=== PATIENT | male | born 1950 | race Caucasian/White ===

== ENCOUNTER 2018-06-14 12:14 | Inpatient (IN) | payer MEDICARE, OTHER ==
[2018-06-14] MEDS ORDERED: ALPRAZolam 0.25 MG TAB PO PRN (12:34)
[2018-06-14] MEDS ORDERED: SODIUM CHLORIDE 0.9% 1,000 ML in EMPTY BAG 1 BAG IV ONE (12:34)
[2018-06-14] MEDS ORDERED: ATORVASTATIN 80 MG TAB PO STA (12:34)
[2018-06-14] MEDS ORDERED: ASPIRIN 325 MG TAB PO STA (12:34)
[2018-06-14] MEDS ORDERED: NITROGLYCERIN SL TABS 0.4 MG TAB SUBLINGUAL PRN (12:34)
[2018-06-14] MEDS ORDERED: ALPRAZolam 0.5 MG TAB PO PRN (12:34)
[2018-06-14 13:38] LABS: Glucose,Whole Blood 90 mg/dL (75-99)
[2018-06-14] MEDS ORDERED: HEPARIN SODIUM,PORCINE 5,000 UNIT/ML 1 ML VIAL IV ONE (14:27)
[2018-06-14 14:56] LABS: Basophils # (A) 0.1 k/uL (0-0.2); Basophils % (A) 1 %; Eosinophils # (A) 0.2 k/uL (0-0.7); Eosinophils % (A) 3 %; HCT 47.1 % (39.0-53.0); HGB 15.1 gm/dL (13.0-17.5); Lymphocytes # (A) 1.4 k/uL (1.0-4.8); Lymphocytes % (A) 25 %; MCH 29.8 pg (25.0-35.0); MCV 93.2 fL (80.0-100.0); Mean Platelet Volume 7.3; Monocytes # (A) 0.4 k/uL (0-1.0); Monocytes % (A) 7 %; Neutrophils # (A) 3.5 k/uL (1.3-7.7); Neutrophils % (A) 62 %; Platelet Count 235 k/uL (150-450); RBC 5.06 m/uL (4.30-5.90); WBC 5.6 k/uL (3.8-10.6)
[2018-06-14 15:07] LABS: Partial Thromboplastin Time 26.6 sec (22.0-30.0); Prothrombin Time 10.3 sec (9.0-12.0)
[2018-06-14 15:10] LABS: Anion Gap 5 mmol/L; Blood Urea Nitrogen 13 mg/dL (9-20); Calcium 9.9 mg/dL (8.4-10.2); Carbon Dioxide 32 mmol/L (22-30); Chloride 105 mmol/L (98-107); Glucose 88 mg/dL (74-99); Potassium 5.1 mmol/L (3.5-5.1); Sodium 142 mmol/L (137-145)
[2018-06-14] MEDS: NITROGLYCERIN OINT 1 INCH/GM PACKET TOPICAL SCH ×2 (15:22→23:05)
[2018-06-14] MEDS: METOPROLOL TARTRATE 25 MG TAB PO SCH ×2 (15:22→19:58)
[2018-06-14] MEDS: SODIUM CHLORIDE 0.9% 500 ML 500 ML IV SCH (15:23)
[2018-06-14] MEDS: HEPARIN SOD,PORK IN 0.45% NACL 25,000 UNIT in 0.45% NACL 1 250ML.BAG IV SCH (15:24)
--- NOTE | 2018-06-14 16:15 | XR ---
EXAMINATION TYPE: XR chest 1V portable DATE OF EXAM: 06/14/2018 Comparison: None Clinical History: 67-year-old male with chest pain Findings: Slightly low lung volumes with crowded vascular markings. Heart normal size. Mild atherosclerotic arc h calcifications. No consolidation or pleural effusion seen. Impression: Slight hypoventilatory changes without acute cardiopulmonary process.
--- NOTE | 2018-06-14 16:34 | CONS ---
CONSULTATION Mr. Figueroa is a 67-year-old gentleman who is admitted to the hospital with symptoms suggestive of recent myocardial infarction. This patient has not seen any doctor for many years. In April, this patient had symptoms of flu and was seen in an urgent clinic and was treated with antibiotics and Medrol Tam. However, since then he has been having intermittent chest discomfort, initially predominantly with exertion. The pain would be in the substernal area radiating to both arms and would subside with rest. He takes a lot of aspirin. For last few days he has been having resting pain. Last night he had moderate to severe chest discomfort that lasted for 10 to 15 minutes. It was not associated with any nausea, vomiting or sweating. The patient's EKG is suggestive of a recent inferior wall myocardial infarction with some T-wave inversions in the lateral leads. Echocardiogram was done in the office which showed evidence of extensive inferoapical and apicoseptal hypokinesia with an ejection fraction of 35% to 40% and moderate degree of mitral regurgitation. In view of this patient's history that is suggestive of recent myocardial infarction and recurrent angina, the patient is admitted to the hospital and will be considered for cardiac catheterization tomorrow. PAST MEDICAL HISTORY: No history of diabetes or hypertension. Patient has smoked in the past, but no history of smoking. FAMILY HISTORY: There is no family history of premature coronary artery disease. PAST SURGICAL HISTORY: Includes history of appendicectomy. REVIEW OF THE SYSTEMS: Otherwise unremarkable. PHYSICAL EXAMINATION: Physical examination at present reveals a fairly built gentleman who does not appear to be in any acute distress. He is not having any chest pain at present. Patient's blood pressure is 130/80 mmHg. Head/ENT examination is negative. Neck is supple. There is no increase in jugular venous pressure. Both the carotid pulses are felt. There is no bruit. Chest is symmetrical. HEART: The PMI is not felt. First and second heart sounds are normal. There is no evidence of any murmur. Lungs are clinically clear to auscultation and percussion. Abdomen is soft. Liver and spleen are not enlarged. EXTREMITIES: Peripheral pulsations are 2+. EKG is suggestive of recent inferior wall myocardial infarction. FINAL IMPRESSION: This patient has been having recurrent chest discomfort for the last 6 weeks. EKG is suggestive of recent myocardial infarction with T-wave inversions. Patient's echocardiogram shows extensive inferoapical and septal hypokinesia. Underlying significant coronary artery disease needs to be ruled out. The patient is admitted to the hospital. He will be treated with heparin. We will start him on medications and he will undergo cardiac catheterization tomorrow. PORTER / MARINO: [id number] /
--- NOTE | 2018-06-14 22:05 | P.HPIM ---
History of Present Illness this is a pleasant 67 yo M with pmh of hyperlipidemia, Hypertension, who was visiting his board certified behavioral analyst , ocmplaining from two months of chest pain , that is central , pt states sometimes his chest pain starts at his shoulder blade before it radiated to his chest and his armpit, it varies in severity , last night it was about 8/10 howver it is better controlled with pain medication down to 0-1/10 , he has very mild dyspnea , and with some cough which was more severe yesterday and that what made him go and visit his doctor , pt is admitted to the icu anticipating cardiac cath possibly tomorrow, he was given asprin , s tatin and was started on heparin drip Review of Systems CONSTITUTIONAL: No fever, no malaise, no fatigue. HEENT: No recent visual problems or hearing problems. Denied any sore throat. CARDIOVASCULAR: No orthopnea, PND, no palpitations, no syncope. PULMONARY: No shortness of breath, no cough, no hemoptysis. GASTROINTESTINAL: No diarrhea, no nausea, no vomiting, no abdominal pain. Normoactive bowel sounds. NEUROLOGICAL: No headaches, no weakness, no numbness. HEMATOLOGICAL: Denies any bleeding or petechiae. GENITOURINARY: Denies any burning micturition, frequency, or urgency. MUSCULOSKELETAL/RHEUMATOLOGICAL: Denies any joint pain, swelling, or any muscle pain. ENDOCRINE: Denies any polyuria or polydipsia. Past Medical History Past Medical History: Hyperlipidemia, Hypertension History of Any Multi-Drug Resistant Organisms: None Reported Past Surgical History: Appendectomy, Orthopedic Surgery Additional Past Surgical History / Comment(s): carpal tunnel Past Anesthesia/Blood Transfusion Reactions: No Reported Reaction Past Psychological History: No Psychological Hx Reported Smoking Status: Never smoker Past Alcohol Use History: None Reported Past Drug Use History: None Reported - Past Family History Father Family Medical History: Cancer, Prostate Disorder Medications and Allergies Home Medications Medication Instructions Recorded Confirmed Type Aspirin EC [Ecotrin Low Dose] 81 mg PO DAILY 06/14/18 06/14/18 History Aspirin EC [Ecotrin] 650 mg PO DAILY PRN 06/14/18 06/14/18 History Beet Root 1 tab PO DAILY 06/14/18 06/14/18 History Flaxseed Oil 1,000 mg PO DAILY 06/14/18 06/14/18 History Garlic 1 tab PO DAILY 06/14/18 06/14/18 History Allergies Allergy/AdvReac Type Severity Reaction Status Date / Time bee venom protein (honey bee) AdvReac Swelling Verified 06/14/18 14:32 Physical Exam Vitals: Vital Signs Temp Pulse Resp BP Pulse Ox 06/14/18 20:00 98.4 F 75 20 119/78 94 L 06/14/18 18:00 75 22 157/98 92 L 06/14/18 17:00 63 19 141/95 95 06/14/18 16:00 97.6 F 74 17 143/103 96 06/14/18 15:00 80 13 153/99 97 06/14/18 14:50 78 9 L 153/99 97 06/14/18 14:40 70 11 L 153/99 96 06/14/18 14:30 82 28 H 153/99 95 06/14/18 14:20 88 14 153/99 96 06/14/18 14:10 81 12 153/99 95 06/14/18 14:00 79 18 95 06/14/18 13:50 88 14 95 06/14/18 13:40 87 22 156/98 95 06/14/18 13:30 98.0 F 94 12 165/102 96 06/14/18 13:28 92 24 165/102 Intake and Output 06/14/18 06/14/18 06/14/18 06:59 14:59 22:59 Intake Total 912.167 Balance 912.167 Intake: Intake, IV Titration 412.167 Amount Heparin Sod,Pork in 0.45% 62.167 NaCl 25,000 unit In 0.45 % NaCl 1 250ml.bag @ 11. 601 UNITS/KG/HR 10 mls/hr IV .Q24H [facility] Rx#: [id number] Sodium Chloride 0.9% 1, 350 000 ml In Empty Bag 1 bag @ 1 ML/KG/HR 86.2 mls/hr IV .[id number] [facility] Rx#: [id number] Oral 500 Other: Weight 86.2 kg GENERAL: The patient is alert and oriented x3, not in any acute distress. Well developed, well nourished. HEENT: Pupils are round and equally reacting to light. EOMI. No scleral icterus. No conjunctival pallor. Normocephalic, atraumatic. No pharyngeal erythema. No thyromegaly. CARDIOVASCULAR: S1 and S2 present. No murmurs, rubs, or gallops. PULMONARY: Chest is clear to auscultation, no wheezing or crackles. ABDOMEN: Soft, nontender, nondistended, normoactive bowel sounds. No palpable organomegaly. MUSCULOSKELETAL: No joint swelling or deformity. EXTREMITIES: No cyanosis, clubbing, or pedal edema. NEUROLOGICAL: Gross neurological examination did not reveal any focal deficits. SKIN: No rashes. Results CBC & Chem 7: 06/14/18 14:44 06/14/18 14:44 Labs: Abnormal Lab Results - Last 24 Hours (Table) 06/14/18 06/14/18 Range/Units 14:44 20:39 APTT 68.4 H (22.0-30.0) sec Carbon Dioxide 32 H (22-30) mmol/L Thrombosis Risk Factor Assmnt - Choose All That Apply Each Factor Represents 1 point: Obesity (BMI >25) Each Risk Factor Represents 2 Points: Age 61-74 years Thrombosis Risk Factor Assessment Total Risk Factor Score: 3 Thrombosis Risk Factor Assessment Level: Moderate Risk Assessment and Plan Assessment: chest pain , possible unstable angina hypertensin Hyperlipidemia Plan: this is a pleasant 67 yo M who presents for chest pain , possible cardiac in [facility], he was admitted by his board certified behavioral analyst and planing for cardiac cath, he was started on heprin drip on admission Labs and medication were reviewed.. Continue same treatment. Continue with symptomatic treatment. Resume home medication. Monitor lytes and vitals. DVT and GI prophylaxis. Further recommendations of the clinical course of the patient DVT prophylaxis: heparin GI Prophylaxis: Pepcid Prognosis is guarded
[2018-06-15 06:04] LABS: Basophils # (A) 0.1 k/uL (0-0.2); Basophils % (A) 1 %; Eosinophils # (A) 0.2 k/uL (0-0.7); Eosinophils % (A) 3 %; HCT 43.6 % (39.0-53.0); HGB 13.9 gm/dL (13.0-17.5); Lymphocytes # (A) 1.7 k/uL (1.0-4.8); Lymphocytes % (A) 22 %; MCHC 31.9 g/dL (31.0-37.0); MCV 94.1 fL (80.0-100.0); Mean Platelet Volume 6.8; Monocytes # (A) 0.6 k/uL (0-1.0); Monocytes % (A) 8 %; Neutrophils # (A) 4.8 k/uL (1.3-7.7); Neutrophils % (A) 64 %; Platelet Count 204 k/uL (150-450); RBC 4.64 m/uL (4.30-5.90); WBC 7.5 k/uL (3.8-10.6)
[2018-06-15 06:20] LABS: Calcium 8.9 mg/dL (8.4-10.2); Potassium 4.2 mmol/L (3.5-5.1)
[2018-06-15] MEDS: PANTOPRAZOLE 40 MG TABLET PO SCH (06:50)
[2018-06-15] MEDS: NITROGLYCERIN OINT 1 INCH/GM PACKET TOPICAL SCH (06:51)
[2018-06-15] MEDS: METOPROLOL TARTRATE 25 MG TAB PO SCH (06:51)
[2018-06-15] MEDS: ATORVASTATIN 80 MG TAB PO SCH (06:51)
--- NOTE | 2018-06-15 07:15 | P.CRDCN ---
History of Present Illness Consult date: 06/15/18 Chief complaint: Chest pain History of present illness: This is a 67-year-old gentleman with a past medical history significant for hypertension and dyslipidemia was admitted directly from Dr. Rodgers for further evaluation of unstable angina and possible underlying heart catheterization today. For the last few weeks, he has been experiencing intermittent episodes of chest discomfort, in the mid of the chest, as a pressure on the chest, without any radiation, and without any associated symptoms. The chest discomfort is purely exertional and better with a resting. He was seen yesterday by Dr. Rodgers and he was admitted to the hospital to undergo a heart catheterization later on today. The patient currently is chest pain-free. He stated that he underwent an echocardiogram yesterday a Dr. Rodgers office and we get a copy of it. Past Medical History Past Medical History: Hyperlipidemia, Hypertension History of Any Multi-Drug Resistant Organisms: None Reported Past Surgical History: Appendectomy, Orthopedic Surgery Additional Past Surgical History / Comment(s): carpal tunnel Past Anesthesia/Blood Transfusion Reactions: No Reported Reaction Past Psychological History: No Psychological Hx Reported Smoking Status: Never smoker Past Alcohol Use History: None Reported Past Drug Use History: None Reported - Past Family History Father Family Medical History: Cancer, Prostate Disorder Medications and Allergies Home Medications Medication Instructions Recorded Confirmed Type Aspirin EC [Ecotrin Low Dose] 81 mg PO DAILY 06/14/18 06/14/18 History Aspirin EC [Ecotrin] 650 mg PO DAILY PRN 06/14/18 06/14/18 History Beet Root 1 tab PO DAILY 06/14/18 06/14/18 History Flaxseed Oil 1,000 mg PO DAILY 06/14/18 06/14/18 History Garlic 1 tab PO DAILY 06/14/18 06/14/18 History Allergies Allergy/AdvReac Type Severity Reaction Status Date / Time bee venom protein (honey bee) AdvReac Swelling Verified 06/14/18 14:32 Physical Exam Vitals: Vital Signs Temp Pulse Resp BP Pulse Ox 06/15/18 04:00 98 F 62 14 106/72 94 L 06/15/18 02:00 61 12 102/70 94 L 06/15/18 00:00 98.3 F 63 14 124/85 94 L 06/14/18 22:00 68 12 115/83 95 06/14/18 20:00 98.4 F 75 20 119/78 94 L 06/14/18 18:00 75 22 157/98 92 L 06/14/18 17:00 63 19 141/95 95 06/14/18 16:00 97.6 F 74 17 143/103 96 06/14/18 15:00 80 13 153/99 97 06/14/18 14:50 78 9 L 153/99 97 06/14/18 14:40 70 11 L 153/99 96 06/14/18 14:30 82 28 H 153/99 95 06/14/18 14:20 88 14 153/99 96 06/14/18 14:10 81 12 153/99 95 06/14/18 14:00 79 18 95 06/14/18 13:50 88 14 95 06/14/18 13:40 87 22 156/98 95 06/14/18 13:30 98.0 F 94 12 165/102 96 06/14/18 13:28 92 24 165/102 Intake and Output 06/14/18 06/15/18 06/15/18 22:59 06:59 14:59 Intake Total 1300.167 344.8 350 Output Total 425 Balance 1300.167 -80.2 350 Intake: Intake, IV Titration 800.167 344.8 350 Amount Heparin Sod,Pork in 0.45% 62.167 NaCl 25,000 unit In 0.45 % NaCl 1 250ml.bag @ 11. 601 UNITS/KG/HR 10 mls/hr IV .Q24H [facility] Rx#: [id number] Sodium Chloride 0.9% 1, 738 344.8 350 000 ml In Empty Bag 1 bag @ 1 ML/KG/HR 86.2 mls/hr IV .[id number] [facility] Rx#: [id number] Oral 500 Output: Urine 425 Other: Weight 86.9 kg - Constitutional General appearance: no acute distress - Respiratory Respiratory: bilateral: CTA - Cardiovascular Rhythm: regular Heart sounds: normal: S1, S2 Abnormal Heart Sounds: systolic murmur Results 06/15/18 05:10 06/15/18 05:10 Coagulation 06/14/18 06/14/18 06/15/18 Range/Units 14:44 20:39 05:23 PT 10.3 (9.0-12.0) sec APTT 26.6 68.4 H 50.8 H (22.0-30.0) sec CBC 06/14/18 06/15/18 Range/Units 14:44 05:10 WBC 5.6 7.5 (3.8-10.6) k/uL RBC 5.06 4.64 (4.30-5.90) m/uL Hgb 15.1 13.9 (13.0-17.5) gm/dL Hct 47.1 43.6 (39.0-53.0) % Plt Count 235 204 (150-450) k/uL Comprehensive Metabolic Panel 06/14/18 06/15/18 Range/Units 14:44 05:10 Sodium 142 139 (137-145) mmol/L Potassium 5.1 4.2 (3.5-5.1) mmol/L Chloride 105 107 (98-107) mmol/L Carbon Dioxide 32 H 26 (22-30) mmol/L BUN 13 14 (9-20) mg/dL Creatinine 1.00 1.07 (0.66-1.25) mg/dL Glucose 88 79 (74-99) mg/dL Calcium 9.9 8.9 (8.4-10.2) mg/dL Current Medications Generic Name Dose Route Start Last Admin Trade Name Freq PRN Reason Stop Dose Admin Alprazolam 0.25 mg 06/14/18 12:34 Xanax PO Q6HR PRN Mild Anxiety Alprazolam 0.5 mg 06/14/18 12:34 Xanax PO Q6HR PRN Moderate Anxiety Aspirin 81 mg 06/15/18 09:00 06/15/18 06:50 Aspirin PO 81 mg DAILY [facility] Administration Atorvastatin Calcium 80 mg 06/15/18 09:00 06/15/18 06:51 Lipitor PO 80 mg DAILY [facility] Administration Heparin Sodium (Porcine) 0 unit 06/14/18 14:27 Heparin IV PER PROTOCOL PRN Low PTT Protocol Heparin Sodium/Sodium Chloride 250 mls @ 10 mls/hr 06/14/18 14:30 06/14/18 21:37 25,000 unit/ Sodium Chloride IV 11.6 units/kg/hr .Q24H [facility] 10 mls/hr Titration Protocol 11.601 UNITS/KG/HR Sodium Chloride 500 mls @ 20 mls/hr 06/14/18 15:00 04/30/19 15:23 Saline 0.9% IV 20 mls/hr .Q24H [facility] Administration Metoprolol Tartrate 25 mg 06/14/18 21:00 06/15/18 06:51 Lopressor PO 25 mg BID [facility] Administration Nitroglycerin 0.4 mg 06/14/18 12:34 Nitrostat SUBLINGUAL Q5M PRN Chest Pain Nitroglycerin 1 inch 06/14/18 16:00 06/15/18 06:51 Nitro-Bid Oint TOPICAL 1 inch Q8HR [facility] Administration Pantoprazole Sodium 40 mg 06/15/18 07:30 06/15/18 06:50 Protonix PO 40 mg [id number] [facility] Administration Intake and Output 06/14/18 06/15/18 06/15/18 22:59 06:59 14:59 Intake Total 1300.167 344.8 350 Output Total 425 Balance 1300.167 -80.2 350 Intake: Intake, IV Titration 800.167 344.8 350 Amount Heparin Sod,Pork in 0.45% 62.167 NaCl 25,000 unit In 0.45 % NaCl 1 250ml.bag @ 11. 601 UNITS/KG/HR 10 mls/hr IV .Q24H [facility] Rx#: [id number] Sodium Chloride 0.9% 1, 738 344.8 350 000 ml In Empty Bag 1 bag @ 1 ML/KG/HR 86.2 mls/hr IV .[id number] [facility] Rx#: [id number] Oral 500 Output: Urine 425 Other: Weight 86.9 kg 06/15/18 05:10 06/15/18 05:10 Assessment and Plan Assessment: Assessment #1 unstable angina #2 hypertension #3 dyslipidemia Plan #1 the patient is scheduled to undergo coronary angiogram later on today #2 continue the current medical regimen which include aspirin, statin, and metoprolol #3 obtain an echocardiogram #4 follow-up with the patient
[2018-06-15] MEDS ORDERED: ASPIRIN 81 MG PO SCH (09:00)
--- NOTE | 2018-06-15 12:16 | P.PN ---
Subjective this is a pleasant 67 yo M with pmh of hyperlipidemia, Hypertension, who was visiting his medicaid specialist , ocmplaining from two months of chest pain , that is central , pt states sometimes his chest pain starts at his shoulder blade before it radiated to his chest and his armpit, it varies in severity , last night it was about 8/10 howver it is better controlled with pain medication down to 0-1/10 , he has very mild dyspnea , and with some cough which was more severe yesterday and that what made him go and visit his doctor , pt is admitted to the icu anticipating cardiac cath possibly tomorrow, he was given asprin , statin and was started on heparin drip 06/15/2018 Patient is doing well today with no chest pain or dyspnea. He has some cough but it is dry with no phlegm patient has been evaluated by cardiology team for unstable angina, and recommended to continue with aspirin, metoprolol and statin. And echocardiogram. Vitals are stable. looks unremarkable. Patient was already started on heparin drip. CONSTITUTIONAL: No fever, no malaise, no fatigue. HEENT: No recent visual problems or hearing problems. Denied any sore throat. CARDIOVASCULAR: No orthopnea, PND, no palpitations, no syncope. PULMONARY: No shortness of breath, no cough, no hemoptysis. GASTROINTESTINAL: No diarrhea, no nausea, no vomiting, no abdominal pain. Normoactive bowel sounds. NEUROLOGICAL: No headaches, no weakness, no numbness. HEMATOLOGICAL: Denies any bleeding or petechiae. GENITOURINARY: Denies any burning micturition, frequency, or urgency. MUSCULOSKELETAL/RHEUMATOLOGICAL: Denies any joint pain, swelling, or any muscle pain. ENDOCRINE: Denies any polyuria or polydipsia. Medication: Aspirin, metoprolol, statin, heparin drip, Xanax, nitroglycerin, Protonix, sodium chloride Objective - Vital Signs Vital signs: Vital Signs Temp 98.2 F 06/15/18 08:00 Pulse 69 06/15/18 10:00 Resp 15 06/15/18 11:53 BP 111/76 06/15/18 08:00 Pulse Ox 92 L 06/15/18 08:00 Intake & Output 06/14/18 06/15/18 06/15/18 18:59 06:59 18:59 Intake Total 850 794.967 695 Output Total 425 Balance 850 369.967 695 Weight 86.2 kg 86.9 kg Intake: Intake, IV Titration 350 794.967 695 Amount Heparin Sod,Pork in 0.45% 62.167 NaCl 25,000 unit In 0.45 % NaCl 1 250ml.bag @ 11. 601 UNITS/KG/HR 10 mls/hr IV .Q24H [facility] Rx#: [id number] Sodium Chloride 0.9% 1, 350 732.8 695 000 ml In Empty Bag 1 bag @ 1 ML/KG/HR 86.2 mls/hr IV .[id number] [facility] Rx#: [id number] Oral 500 Output: Urine 425 Other: # Voids 1 - Exam GENERAL: The patient is alert and oriented x3, not in any acute distress. Well developed, well nourished. HEENT: Pupils are round and equally reacting to light. EOMI. No scleral icterus. No conjunctival pallor. Normocephalic, atraumatic. No pharyngeal erythema. No thyromegaly. CARDIOVASCULAR: S1 and S2 present. No murmurs, rubs, or gallops. PULMONARY: Chest is clear to auscultation, no wheezing or crackles. ABDOMEN: Soft, nontender, nondistended, normoactive bowel sounds. No palpable organomegaly. MUSCULOSKELETAL: No joint swelling or deformity. EXTREMITIES: No cyanosis, clubbing, or pedal edema. NEUROLOGICAL: Gross neurological examination did not reveal any focal deficits. SKIN: No rashes. - Labs CBC & Chem 7: 06/15/18 05:10 06/15/18 05:10 Labs: Abnormal Lab Results - Last 24 Hours (Table) 06/14/18 06/14/18 06/15/18 Range/Units 14:44 20:39 05:23 APTT 68.4 H 50.8 H (22.0-30.0) sec Carbon Dioxide 32 H (22-30) mmol/L Assessment and Plan Assessment: chest pain , possible unstable angina hypertensin Hyperlipidemia Plan: this is a pleasant 67 yo M who presents for UNSTABLE angina, he was admitted by his medicaid specialist and planing for cardiac cath, he was started on heprin drip on admission Labs and medication were reviewed.. Continue same treatment. Continue with symptomatic treatment. Resume home medication. Monitor lytes and vitals. DVT and GI prophylaxis. Further recommendations of the clinical course of the patient DVT prophylaxis: heparin GI Prophylaxis: Ppi Prognosis is guarded
[2018-06-15] MEDS ORDERED: LIDOCAINE 1% INJ 10MG/ML (20 ML MDV) ONE (12:36)
[2018-06-15] MEDS ORDERED: fentaNYL (PF) 50 MCG/ML 2 ML AMP ONE (12:36)
[2018-06-15] MEDS ORDERED: MIDAZOLAM (PF) 2 MG/2 ML VIAL IV ONE (12:57)
[2018-06-15] MEDS ORDERED: fentaNYL (PF) 50 MCG/ML 2 ML AMP IV ONE (12:57)
[2018-06-15] MEDS ORDERED: IV FLUID CONTINUATION 1,000 ML IV ONE (12:58)
[2018-06-15] MEDS ORDERED: LIDOCAINE 1% INJ 10MG/ML (20 ML MDV) SQ ONE (12:58)
[2018-06-15] MEDS ORDERED: NITROGLYCERIN SL TABS 0.4 MG TAB SUBLINGUAL ONE ×4 (13:09→13:12)
[2018-06-15] MEDS ORDERED: IOPAMIDOL-370 100ML BTL INJ ONE (13:15)
[2018-06-15] MEDS ORDERED: IOPAMIDOL-300 50ML BTL INJ ONE (13:21)
[2018-06-15] MEDS ORDERED: NITROGLYCERIN-D5W PMX 50 MG in DEXTROSE/WATER 1 250ML.BAG IV ONE (13:30)
[2018-06-15] MEDS ORDERED: MD COMMUNICATION TO PHARMACY 1 EACH MISC PO ONE (15:57)
--- NOTE | 2018-06-15 17:47 | P.GSCN ---
<Kaitlin Churchill - Last Filed: 06/15/18 17:41> History of Present Illness Consult date: 06/15/18 Reason for Consult: Severe triple-vessel coronary artery disease, surgical revascularization recomme ndations. Requesting physician: Frank Rodgers History of present illness: This is a 67-year-old gentleman who has not followed with a primary care physician on an outpatient basis for quite some time. He has a previous medical history of hypertension, hyperlipidemia, appendectomy, vasectomy, and family history of premature coronary artery disease in his father and mother, with his mother having open heart at 60 years old. Apparently he had been treated at an urgent care clinic in April for flu-like symptoms with antibiotics and Medrol Dosepak. Since then he has been having intermittent chest discomfort primarily with exertion. He described this discomfort as substernal with radiation to both arms, relieved with rest. He had associated diaphoresis and nausea. Over the last few days he began having these symptoms at rest lasting for several minutes. He reported to Dr. Rodgers's office for evaluation. EKG was performed suggesting recent inferior wall myocardial infarction. Per report from Dr. Rodgers an echocardiogram was also completed demonstrating evidence of extensive infero-apical and apical septal hypokinesia with ejection fraction 35-40% and moderate mitral regurgitation. Due to these findings the patient was sent to [facility] as a direct admit with plans for cardiac catheterization. The catheterization was completed today and demonstrated significant triple vessel coronary artery disease. Dr. Khan from cardiothoracic surgery was consulted for surgical recommendations. Review of Systems Review of systems was completed and was negative except as noted. - Cardiovascular Reports as per HPI, Reports chest pain, Reports dyspnea on exertion Past Medical History Past Medical History: Hyperlipidemia, Hypertension History of Any Multi-Drug Resistant Organisms: None Reported Past Surgical History: Appendectomy, Orthopedic Surgery Additional Past Surgical History / Comment(s): carpal tunnel, vasectomy Past Anesthesia/Blood Transfusion Reactions: No Reported Reaction Past Psychological History: No Psychological Hx Reported Smoking Status: Never smoker Past Alcohol Use History: None Reported Past Drug Use History: None Reported - Past Family History Father Family Medical History: Cancer, Coronary Artery Disease (CAD), Prostate Disorder Mother Family Medical History: Coronary Artery Disease (CAD) Medications and Allergies Home Medications Medication Instructions Recorded Confirmed Type Aspirin EC [Ecotrin Low Dose] 81 mg PO DAILY 06/14/18 06/14/18 History Aspirin EC [Ecotrin] 650 mg PO DAILY PRN 06/14/18 06/14/18 History Beet Root 1 tab PO DAILY 06/14/18 06/14/18 History Flaxseed Oil 1,000 mg PO DAILY 06/14/18 06/14/18 History Garlic 1 tab PO DAILY 06/14/18 06/14/18 History Allergies Allergy/AdvReac Type Severity Reaction Status Date / Time bee venom protein (honey bee) AdvReac Swelling Verified 06/14/18 14:32 Surgical - Exam Vital Signs Pulse Resp BP 92 24 165/102 06/14/18 13:28 06/14/18 13:28 06/14/18 13:28 - General well developed, well nourished, no distress, obese - Eyes PERRL, normal ocular movement - ENT no hearing loss, poor mcc - Neck no masses, no bruits, trachea midline - Respiratory Lungs sounds clear bilaterally. Respirations even, nonlabored. Currently on room air with oxygen saturation 92%. No chest wall deformities. - Cardiovascular S1, S2 present. Regular rate and rhythm, sinus rhythm on telemetry. Palpable peripheral pulses bilaterally. No edema present. No calf pain or tenderness noted. No varicosities noted. - Abdomen Abdomen: soft, non tender, bowel sounds - Genitourinary Deferred - Rectum Deferred - Integumentary no rash, no growths - Neurologic normal coordination, normal sensation - Musculoskeletal normal posture - Psychiatric oriented to time, oriented to person, oriented to place, speech is normal, memory intact Results - Labs 06/15/18 05:10 06/15/18 05:10 Abnormal Lab Results - Last 24 Hours (Table) 06/14/18 06/15/18 Range/Units 20:39 05:23 APTT 68.4 H 50.8 H (22.0-30.0) sec Diabetes panel 06/15/18 Range/Units 05:10 Sodium 139 (137-145) mmol/L Potassium 4.2 (3.5-5.1) mmol/L Chloride 107 (98-107) mmol/L Carbon Dioxide 26 (22-30) mmol/L BUN 14 (9-20) mg/dL Creatinine 1.07 (0.66-1.25) mg/dL Glucose 79 (74-99) mg/dL Calcium 8.9 (8.4-10.2) mg/dL Calcium panel 06/15/18 Range/Units 05:10 Calcium 8.9 (8.4-10.2) mg/dL Pituitary panel 06/15/18 Range/Units 05:10 Sodium 139 (137-145) mmol/L Potassium 4.2 (3.5-5.1) mmol/L Chloride 107 (98-107) mmol/L Carbon Dioxide 26 (22-30) mmol/L BUN 14 (9-20) mg/dL Creatinine 1.07 (0.66-1.25) mg/dL Glucose 79 (74-99) mg/dL Calcium 8.9 (8.4-10.2) mg/dL Adrenal panel 06/15/18 Range/Units 05:10 Sodium 139 (137-145) mmol/L Potassium 4.2 (3.5-5.1) mmol/L Chloride 107 (98-107) mmol/L Carbon Dioxide 26 (22-30) mmol/L BUN 14 (9-20) mg/dL Creatinine 1.07 (0.66-1.25) mg/dL Glucose 79 (74-99) mg/dL Calcium 8.9 (8.4-10.2) mg/dL - Imaging Chest x-ray: report reviewed, image reviewed Additional studies: heart catheterization films reviewed Assessment and Plan Assessment: 1. Severe triple-vessel coronary artery disease 2. Moderate mitral valve regurgitation per office echo 3. Hypertension 4. Hyperlipidemia 5. Family history of premature coronary artery disease Plan: The patient was seen and examined at the bedside. Chart/diagnostics were reviewed. Case was discussed in detail with Dr. Rodgers. Will discuss the case with Dr. Khan. The usual perioperative course was discussed in detail with the patient, risks and benefits were reviewed, all questions were answered. Pre operative testing was initiated. This gentleman is currently stable and chest pain free. He has not previously been on maximal medical therapy, and we recommend continuing aspirin, statin, beta daren therapy. Dr. Khan will review the heart catheterization films as well as other preoperative testing results as they become available, decision will be made regarding surgical revascularization which will be discussed with the patient as well as Dr. Rodgers. Patient will likely need PEDRO evaluate mitral valve disease, this was discussed with Dr. Cristina. Continue management per primary care and cardiology. More recommendations to follow. Thank you Dr. Rodgers for this consult. We look forward to working with you in the care of your patient. Time with Patient: Greater than 30 <Howard Khan - Last Filed: 06/16/18 11:34> Surgical - Exam Vital Signs Pulse Resp BP 92 24 165/102 06/14/18 13:28 06/14/18 13:28 06/14/18 13:28 Results - Labs 06/16/18 04:36 06/16/18 04:36 Abnormal Lab Results - Last 24 Hours (Table) 06/15/18 06/16/18 06/16/18 Range/Units 18:43 01:17 04:36 APTT 35.0 H (22.0-30.0) sec Total Protein (6.3-8.2) g/dL LDL Cholesterol, Calc (0-99) mg/dL Urine Blood Trace H (Negative) Crossmatch See Detail 06/16/18 06/16/18 Range/Units 04:36 04:36 APTT 107.0 H* (22.0-30.0) sec Total Protein 5.9 L (6.3-8.2) g/dL LDL Cholesterol, Calc 128 H (0-99) mg/dL Urine Blood (Negative) Crossmatch Microbiology - Last 24 Hours (Table) 06/15/18 21:00 Nasal Screen MRSA/MSSA - Preliminary Nasal Swab 06/15/18 18:43 Urine Culture - Preliminary Urine,Catheterized Diabetes panel 06/16/18 Range/Units 04:36 Sodium 140 (137-145) mmol/L Potassium 3.9 (3.5-5.1) mmol/L Chloride 106 (98-107) mmol/L Carbon Dioxide 27 (22-30) mmol/L BUN 12 (9-20) mg/dL Creatinine 1.01 (0.66-1.25) mg/dL Glucose 87 (74-99) mg/dL Calcium 8.7 (8.4-10.2) mg/dL AST 29 (17-59) U/L ALT 35 (21-72) U/L Alkaline Phosphatase 59 (38-126) U/L Total Protein 5.9 L (6.3-8.2) g/dL Albumin 3.6 (3.5-5.0) g/dL Triglycerides 117 (<150) mg/dL HDL Cholesterol 41 (40-60) mg/dL Thyroid panel 06/16/18 Range/Units 04:36 TSH 4.300 (0.465-4.680) mIU/L Calcium panel 06/16/18 Range/Units 04:36 Calcium 8.7 (8.4-10.2) mg/dL Albumin 3.6 (3.5-5.0) g/dL Pituitary panel 06/16/18 Range/Units 04:36 Sodium 140 (137-145) mmol/L Potassium 3.9 (3.5-5.1) mmol/L Chloride 106 (98-107) mmol/L Carbon Dioxide 27 (22-30) mmol/L BUN 12 (9-20) mg/dL Creatinine 1.01 (0.66-1.25) mg/dL Glucose 87 (74-99) mg/dL Calcium 8.7 (8.4-10.2) mg/dL TSH 4.300 (0.465-4.680) mIU/L Adrenal panel 06/16/18 Range/Units 04:36 Sodium 140 (137-145) mmol/L Potassium 3.9 (3.5-5.1) mmol/L Chloride 106 (98-107) mmol/L Carbon Dioxide 27 (22-30) mmol/L BUN 12 (9-20) mg/dL Creatinine 1.01 (0.66-1.25) mg/dL Glucose 87 (74-99) mg/dL Calcium 8.7 (8.4-10.2) mg/dL Total Bilirubin 0.6 (0.2-1.3) mg/dL AST 29 (17-59) U/L ALT 35 (21-72) U/L Alkaline Phosphatase 59 (38-126) U/L Total Protein 5.9 L (6.3-8.2) g/dL Albumin 3.6 (3.5-5.0) g/dL Assessment and Plan Assessment: Unstable angina with severe triple vessel disease in otherwise reasonably healthy individual. Echo shows mildly decreased LVEF with at least moderate MR. Plan PEDRO today, CABG +/- mitral valve repair tomorrow.
--- NOTE | 2018-06-15 17:51 | CC ---
CARDIAC CATHETERIZATION REPORT Mr. Figueroa was admitted with a complaint of recurrent chest discomfort for the last one month's duration. Patient was seen in the office yesterday. EKG was suggestive of recent inferior wall myocardial infarction. In view of that, the patient was admitted to the intensive care unit, was treated with heparin and subsequently underwent cardiac catheterization. Patient's initial troponin this morning was 0.022. PROCEDURE: The right groin was prepped and draped in the usual manner and the right femoral artery was entered under ultrasound guidance using micropuncture needle and a #6-[place] sheath was placed in. Selective coronary angiography was then performed in multiple projections and left ventricular pressures were obtained. The patient tolerated the procedure well. During the left coronary injection patient complained of mild chest discomfort which was relieved with nitroglycerin. EKG at the end of the procedure showed evidence of recent inferior wall myocardial infarction without any significant change from the preoperative EKG. HEMODYNAMICS: The left ventricular end-diastolic pressure was 12 to 16 mmHg prior to angiography. No gradient was noted across the aortic valve. SELECTIVE CORONARY ANGIOGRAPHY: Left main coronary artery has mild disease in the distal left main portion, about 30% stenosis. LAD is a good-caliber blood vessel and is chronically totally occluded in its mid portion. The distal LAD fills by collaterals and it is a good-caliber blood vessel. Circumflex coronary artery is a good-caliber blood vessel and gives rise to a good- sized obtuse marginal branch. The obtuse marginal branch has 90% stenosis. Right coronary artery also is a large-caliber blood vessel and has 90% stenosis. There is evidence of a lucency in the right coronary artery suggestive of possible thrombus in the right coronary artery. FINAL IMPRESSION: This patient has severe triple-vessel disease. The patient's right coronary artery appears to be the culprit vessel, which has evidence of 90% stenosis with possible thrombus. PLAN: We will review the film with Dr. Cristina and either consider stent to the RCA and bypass surgery later on versus sending him for coronary artery bypass surgery in the next 24- 48 hours. MMODL / IJN: [id number] /
[2018-06-15] MEDS: HEPARIN SOD,PORK IN 0.45% NACL 25,000 UNIT in 0.45% NACL 1 250ML.BAG IV SCH (18:54)
[2018-06-15] MEDS: NITROGLYCERIN-D5W PMX 50 MG in DEXTROSE/WATER 1 250ML.BAG IV SCH (18:56)
[2018-06-15 18:58] LABS: Appearance,Urine Clear (Clear); Bilirubin,Urine Negative (Negative); Blood,Urine Trace (Negative); Color,Urine Colorless; Glucose,Urine (UA) Negative (Negative); Ketones,Urine Negative (Negative); Leukocyte Esterase,Urine Negative (Negative); Nitrite,Urine Negative (Negative); Protein,Urine Negative (Negative); RBC,Urine 2 /hpf (0-5); Specific Gravity,Urine 1.012 (1.001-1.035); Urobilinogen,Urine <2.0 mg/dL (<2.0); WBC,Urine 3 /hpf (0-5)
[2018-06-15] MEDS: SODIUM CHLORIDE 0.9% 500 ML 500 ML IV SCH (19:06)
--- NOTE | 2018-06-15 20:57 | US ---
EXAMINATION TYPE: US carotid duplex BILAT DATE OF EXAM: 06/15/2018 COMPARISON: NONE CLINICAL HISTORY: Pre-Op Cardiac Surgery. EXAM MEASUREMENTS: RIGHT: Peak Systolic Velocity (PSV) cm/sec ----- Right CCA: 114.7 ----- Right ICA: 91.9 ----- Right ECA: 38.4 ICA/CCA ratio: 0.8 RIGHT: End Diastole cm/sec ----- Right CCA: 18.8 ----- Right ICA: 20.8 ----- Right ECA: 15.5 LEFT: Peak Systolic Velocity (PSV) cm/sec ----- Left CCA: 91.1 ----- Left ICA: 169.8 ----- Left ECA: 132.2 ICA/CCA ratio: 1.9 LEFT: End Diastole cm/sec ----- Left CCA: 17.1 ----- Left ICA: 44.3 ----- Left ECA: 0 VERTEBRALS (direction of flow): Right Vertebral: Antegrade Left Vertebral: Antegrade Rhythm: Normal IMPRESSION: 1) LICA: FINDINGS CONSISTENT WITH 50-69% STENOSIS. 2) ELEVATED VELOCITIES OF THE LECA AND LEFT VERTEBRAL. Note: Complementary anatomic characterization can be obtained with CTA or MRA.
[2018-06-15] MEDS: MUPIROCIN 2% OINT 22 GM TUBE NASAL SCH (21:43)
[2018-06-15] MEDS: METOPROLOL TARTRATE 50 MG TAB PO SCH (21:44)
[2018-06-16] MEDS: HEPARIN SODIUM,PORCINE 5,000 UNIT/ML 1 ML VIAL IV PRN ×2 (02:15→23:21)
[2018-06-16 05:45] LABS: Basophils # (A) 0.1 k/uL (0-0.2); Basophils % (A) 1 %; Eosinophils # (A) 0.1 k/uL (0-0.7); Eosinophils % (A) 2 %; HCT 40.9 % (39.0-53.0); HGB 13.3 gm/dL (13.0-17.5); Lymphocytes # (A) 1.7 k/uL (1.0-4.8); Lymphocytes % (A) 24 %; MCH 29.8 pg (25.0-35.0); MCHC 32.6 g/dL (31.0-37.0); MCV 91.4 fL (80.0-100.0); Mean Platelet Volume 7.3; Monocytes # (A) 0.6 k/uL (0-1.0); Monocytes % (A) 9 %; Neutrophils # (A) 4.3 k/uL (1.3-7.7); Neutrophils % (A) 62 %; Platelet Count 219 k/uL (150-450); RBC 4.47 m/uL (4.30-5.90); RDW 14.4 % (11.5-15.5)
[2018-06-16 06:31] LABS: INR 1.1 (<1.2); Prothrombin Time 11.3 sec (9.0-12.0)
[2018-06-16 06:49] LABS: ALT 35 U/L (21-72); AST 29 U/L (17-59); Albumin 3.6 g/dL (3.5-5.0); Alkaline Phosphatase 59 U/L (38-126); Anion Gap 7 mmol/L; Blood Urea Nitrogen 12 mg/dL (9-20); Calcium 8.7 mg/dL (8.4-10.2); Carbon Dioxide 27 mmol/L (22-30); Chloride 106 mmol/L (98-107); Cholesterol 192 mg/dL (<200); Glucose 87 mg/dL (74-99); HDL Cholesterol 41 mg/dL (40-60); LDL Cholesterol,Calculated 128 mg/dL (0-99); Potassium 3.9 mmol/L (3.5-5.1); Sodium 140 mmol/L (137-145); Total Bilirubin 0.6 mg/dL (0.2-1.3); Total Protein 5.9 g/dL (6.3-8.2); Triglycerides 117 mg/dL (<150)
--- NOTE | 2018-06-16 07:51 | XR ---
EXAMINATION TYPE: XR chest 2V DATE OF EXAM: 06/16/2018 COMPARISON: Prior chest x-ray 06/14/2018 HISTORY: Preop cardiac surgery TECHNIQUE: Frontal and lateral views of the chest are obtained. FINDINGS: Findings are stable. There are overlying cardiac leads. IMPRESSION: No acute cardiopulmonary process.
[2018-06-16] MEDS: PANTOPRAZOLE 40 MG TABLET PO SCH (09:00)
[2018-06-16] MEDS: METOPROLOL TARTRATE 50 MG TAB PO SCH ×2 (09:01→20:13)
[2018-06-16] MEDS: ASPIRIN 325 MG TAB PO SCH (09:01)
[2018-06-16] MEDS: ATORVASTATIN 80 MG TAB PO SCH (09:01)
[2018-06-16] MEDS: MUPIROCIN 2% OINT 22 GM TUBE NASAL SCH ×2 (09:02→20:15)
[2018-06-16] MEDS ORDERED: MD COMMUNICATION TO PHARMACY 1 EACH MISC PO ONE ×2 (10:19)
--- NOTE | 2018-06-16 10:25 | ECHOF ---
Referral Reason:re-evaluate LV function MEASUREMENTS -------- HEIGHT: 170.2 cm WEIGHT: 86.6 kg BP: 124/77 IVSd: 1.4 cm (0.6 - 1.1) LVIDd: 4.7 cm (3.9 - 5.3) LVPWd: 1.4 cm (0.6 - 1.1) IVSs: 2.0 cm LVIDs: 3.0 cm LVPWs: 1.5 cm LA Diam: 3.9 cm (2.7 - 3.8) RVIDd: 3.3 cm (< 3.3) LAESV Index (A-L): 25.72 ml/m Ao Diam: 3.4 cm (2.0 - 3.7) AV Cusp: 2.0 cm (1.5 - 2.6) EPSS: 0.7 cm MV E Johnnie: 1.09 m/s MV DecT: 133 ms MV A Johnnie: 0.82 m/s MV E/A Ratio: 1.34 RAP: 5.00 mmHg RVSP: 35.40 mmHg MV EF SLOPE: 123.37 mm/s (70 - 150) MV EXCURSION: 18.39 mm (> 18.000) FINDINGS -------- Sinus rhythm. This was a technically good study. The left ventricular size is normal. There is moderate concentric left ventricular hypertrophy. O verall left ventricular systolic function is mild-moderately impaired with, an EF between 40 - 45 %. LARGE ANTEROSEPTAL ANEURYSM, EF 40% The right ventricle is mildly enlarged. Normal LA size by volume 22+/-6 ml/m2. The right atrium is normal in size. There is mild aortic valve sclerosis. Trace to mild aortic regurgitation. [id number]-[id number] mitral regurgitation is present. Mild tricuspid regurgitation present. There is mild pulmonary hypertension. The right ventricular systolic pressure, as measured by Doppler, is 35.40mmHg. Trace/mild (physiologic) pulmonic regurgitation. The aortic root size is normal. Normal inferior vena cava with normal inspiratory collapse consistent with estimated right atrial pre ssure of 5 mmHg. There is no pericardial effusion. CONCLUSIONS -------- 1. Sinus rhythm. 2. This was a technically good study. 3. The left ventricular size is normal. 4. There is moderate concentric left ventricular hypertrophy. 5. Overall left ventricular systolic function is mild-moderately impaired with, an EF between 40 - 45 %. 6. The right ventricle is mildly enlarged. 7. Normal LA size by volume 22+/-6 ml/m2. 8. The right atrium is normal in size. 9. There is mild aortic valve sclerosis. 10. Trace to mild aortic regurgitation. 11. Vrca-[id number] mitral regurgitation is present. 12. Mild tricuspid regurgitation present. 13. There is mild pulmonary hypertension. 14. The right ventricular systolic pressure, as measured by Doppler, is 35.40mmHg. 15. Trace/mild (physiologic) pulmonic regurgitation. 16. The aortic root size is normal. 17. Normal inferior vena cava with normal inspiratory collapse consistent with estimated right atrial pressure of 5 mmHg. 18. There is no pericardial effusion. FAMILY AND CONSUMER EDUCATION TEACHER: Arelis Lewis RDCS
--- NOTE | 2018-06-16 11:30 | P.PN ---
Subjective Progress Note Date: 06/16/18 Principal diagnosis: Unstable angina This is a pleasant 67-year-old gentleman who sees Dr. VC Rodgers in the office as an outpatient who underwent yesterday heart catheterization for symptoms of unstable angina and was found to have severe triple-vessel CAD. The patient was seen by cardiothoracic surgeon and the plan is to pursue with coronary artery bypass grafting tomorrow morning. He did have mild chest discomfort earlier today. He continues to be on maximize medical treatment consistent of aspirin, statin, and beta daren. Objective - Vital Signs Vital signs: Vital Signs Temp 98.7 F 06/16/18 08:00 Pulse 82 06/16/18 08:00 Resp 18 06/16/18 08:00 BP 138/98 06/16/18 08:00 Pulse Ox 96 06/16/18 08:00 Intake & Output 06/15/18 06/16/18 06/16/18 18:59 06:59 18:59 Intake Total 1154.533 300.126 723.484 Output Total 2200 900 Balance -1045.467 -599.874 723.484 Weight 85.3 kg Intake: IV 251.7 240 40 Sodium Chloride 0.9% 500 240 40 ml 500 ml @ 20 mls/hr IV .Q24H [facility] Rx#:[id number] Intake, IV Titration 902.833 60.126 83.484 Amount Heparin Sod,Pork in 0.45% 187.833 60.126 83.484 NaCl 25,000 unit In 0.45 % NaCl 1 250ml.bag @ 11. 601 UNITS/KG/HR 10 mls/hr IV .Q24H [facility] Rx#: [id number] Sodium Chloride 0.9% 1, 695 000 ml In Empty Bag 1 bag @ 1 ML/KG/HR 86.2 mls/hr IV .[id number] ONE Rx#: [id number] Sodium Chloride 0.9% 500 20 ml 500 ml @ 20 mls/hr IV .Q24H [facility] Rx#:[id number] Oral 600 Output: Urine 2200 900 Uretheral (Hol[place]) 1000 Other: # Voids 1 1 - Constitutional General appearance: Present: no acute distress - Respiratory Respiratory: bilateral: CTA - Cardiovascular Rhythm: regular Heart sounds: normal: S1, S2 - Labs CBC & Chem 7: 06/16/18 04:36 06/16/18 04:36 Labs: Abnormal Lab Results - Last 24 Hours (Table) 06/15/18 06/16/18 06/16/18 Range/Units 18:43 01:17 04:36 APTT 35.0 H (22.0-30.0) sec Total Protein (6.3-8.2) g/dL LDL Cholesterol, Calc (0-99) mg/dL Urine Blood Trace H (Negative) Crossmatch See Detail 06/16/18 06/16/18 Range/Units 04:36 04:36 APTT 107.0 H* (22.0-30.0) sec Total Protein 5.9 L (6.3-8.2) g/dL LDL Cholesterol, Calc 128 H (0-99) mg/dL Urine Blood (Negative) Crossmatch Microbiology - Last 24 Hours (Table) 06/15/18 21:00 Nasal Screen MRSA/MSSA - Preliminary Nasal Swab 06/15/18 18:43 Urine Culture - Preliminary Urine,Catheterized Assessment and Plan Assessment: Assessment #1 unstable angina #2 hypertension #3 dyslipidemia Plan #1 continue the current medical regimen #2 proceed with open-heart tomorrow morning
[2018-06-16] MEDS ORDERED: fentaNYL (PF) 50 MCG/ML 2 ML AMP ONE (12:12)
--- NOTE | 2018-06-16 12:28 | P.PN ---
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 , ocmplaining from two months of chest pain , that is central , pt states sometimes his chest pain starts at his shoulder blade before it radiated to his chest and his armpit, it varies in severity , last night it was about 8/10 howver it is better controlled with pain medication down to 0-1/10 , he has very mild dyspnea , and with some cough which was more severe yesterday and that what made him go and visit his doctor , pt is admitted to the icu anticipating cardiac cath possibly tomorrow, he was given asprin , statin and was started on heparin drip 06/15/2018 Patient is doing well today with no chest pain or dyspnea. He has some cough but it is dry with no phlegm patient has been evaluated by cardiology team for unstable angina, and recommended to continue with aspirin, metoprolol and statin. And echocardiogram. Vitals are stable. looks unremarkable. Patient was already started on heparin drip. 06/16/2018 Patient's with no much complaint today. He has cardiac cath yesterday which shows severe triple-vessel disease and plan for cardiac bypass grafting, his been evaluated by cardiothoracic surgeon. Venous mapping is undergoing. CONSTITUTIONAL: No fever, no malaise, no fatigue. HEENT: No recent visual problems or hearing problems. Denied any sore throat. CARDIOVASCULAR: No orthopnea, PND, no palpitations, no syncope. PULMONARY: No shortness of breath, no cough, no hemoptysis. GASTROINTESTINAL: No diarrhea, no nausea, no vomiting, no abdominal pain. Normoactive bowel sounds. NEUROLOGICAL: No headaches, no weakness, no numbness. HEMATOLOGICAL: Denies any bleeding or petechiae. GENITOURINARY: Denies any burning micturition, frequency, or urgency. MUSCULOSKELETAL/RHEUMATOLOGICAL: Denies any joint pain, swelling, or any muscle pain. ENDOCRINE: Denies any polyuria or polydipsia. Medication: Aspirin, metoprolol, statin, heparin drip, Xanax, nitroglycerin, Protonix, sodium chloride Objective - Vital Signs Vital signs: Vital Signs Temp 98.7 F 06/16/18 08:00 Pulse 82 06/16/18 08:00 Resp 18 06/16/18 08:00 BP 138/98 06/16/18 08:00 Pulse Ox 96 06/16/18 08:00 Intake & Output 06/15/18 06/16/18 06/16/18 18:59 06:59 18:59 Intake Total 1154.533 300.126 723.484 Output Total 2200 900 Balance -1045.467 -599.874 723.484 Weight 85.3 kg Intake: IV 251.7 240 40 Sodium Chloride 0.9% 500 240 40 ml 500 ml @ 20 mls/hr IV .Q24H [facility] Rx#:[id number] Intake, IV Titration 902.833 60.126 83.484 Amount Heparin Sod,Pork in 0.45% 187.833 60.126 83.484 NaCl 25,000 unit In 0.45 % NaCl 1 250ml.bag @ 11. 601 UNITS/KG/HR 10 mls/hr IV .Q24H [facility] Rx#: [id number] Sodium Chloride 0.9% 1, 695 000 ml In Empty Bag 1 bag @ 1 ML/KG/HR 86.2 mls/hr IV .[id number] ONE Rx#: [id number] Sodium Chloride 0.9% 500 20 ml 500 ml @ 20 mls/hr IV .Q24H [facility] Rx#:[id number] Oral 600 Output: Urine 2200 900 Uretheral ([place]) 1000 Other: # Voids 1 1 - Exam GENERAL: The patient is alert and oriented x3, not in any acute distress. Well developed, well nourished. HEENT: Pupils are round and equally reacting to light. EOMI. No scleral icterus. No conjunctival pallor. Normocephalic, atraumatic. No pharyngeal erythema. No thyromegaly. CARDIOVASCULAR: S1 and S2 present. No murmurs, rubs, or gallops. PULMONARY: Chest is clear to auscultation, no wheezing or crackles. ABDOMEN: Soft, nontender, nondistended, normoactive bowel sounds. No palpable organomegaly. MUSCULOSKELETAL: No joint swelling or deformity. EXTREMITIES: No cyanosis, clubbing, or pedal edema. NEUROLOGICAL: Gross neurological examination did not reveal any focal deficits. SKIN: No rashes. - Labs CBC & Chem 7: 06/16/18 04:36 06/16/18 04:36 Labs: Abnormal Lab Results - Last 24 Hours (Table) 06/15/18 06/16/18 06/16/18 Range/Units 18:43 01:17 04:36 APTT 35.0 H (22.0-30.0) sec Total Protein (6.3-8.2) g/dL LDL Cholesterol, Calc (0-99) mg/dL Urine Blood Trace H (Negative) Crossmatch See Detail 06/16/18 06/16/18 Range/Units 04:36 04:36 APTT 107.0 H* (22.0-30.0) sec Total Protein 5.9 L (6.3-8.2) g/dL LDL Cholesterol, Calc 128 H (0-99) mg/dL Urine Blood (Negative) Crossmatch Microbiology - Last 24 Hours (Table) 06/15/18 21:00 Nasal Screen MRSA/MSSA - Preliminary Nasal Swab 06/15/18 18:43 Urine Culture - Preliminary Urine,Catheterized Assessment and Plan Assessment: chest pain , possible unstable angina hypertensin Hyperlipidemia Plan: this is a pleasant 67 yo M who presents for UNSTABLE angina, 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 Continue same treatment. Continue with symptomatic treatment. Resume home medication. Monitor lytes and vitals. DVT and GI prophylaxis. Further recommendations of the clinical course of the patient DVT prophylaxis: heparin GI Prophylaxis: Ppi Prognosis is guarded
[2018-06-16] MEDS ORDERED: IV FLUID CONTINUATION 1,000 ML IV ONE (12:52)
[2018-06-16 12:55] LABS: Hepatitis A Antibody IgM Non-Reactive (Non-Reactive); Hepatitis B Core IgM Non-Reactive (Non-Reactive)
[2018-06-16] MEDS: BENZOCAINE SPRAY 1 CAN TOPICAL ONE ×2 (12:57→13:14)
[2018-06-16] MEDS ORDERED: MIDAZOLAM (PF) 2 MG/2 ML VIAL IVP ONE (13:16)
[2018-06-16] MEDS ORDERED: fentaNYL (PF) 50 MCG/ML 2 ML AMP IVP ONE (13:16)
[2018-06-16] MEDS: MIDAZOLAM (PF) 2 MG/2 ML VIAL IVP ONE ×2 (13:19→13:23)
[2018-06-16] MEDS ORDERED: PROPOFOL 10 MG/ML 20 ML VIAL IV ONE (13:45)
[2018-06-16] MEDS ORDERED: LIDOCAINE 1% INJ 10MG/ML (20 ML MDV) ONE (13:45)
--- NOTE | 2018-06-16 13:52 | CT ---
EXAMINATION TYPE: CT facial bones wo con DATE OF EXAM: 06/16/2018 COMPARISON: None HISTORY: preoperative valve surgery CT DLP: 324.7 mGycm CONTRAST: 0 mL of Isovue 300 The paranasal sinuses are examined in the axial plane at 2 mm thick sections. Reconstructed images i n the coronal plane were obtained. There is dental amalgam scatter artifact The maxillary sinuses are clear. The ethmoid air cells are clear. The sphenoid sinuses are clear. The frontal sinuses are clear. The septum is evaluated. There is septal deviation to the right. The ostiomeatal units are patent. Panorex reconstructed images of the mandible were obtained. Mandible appears intact. Temporomandibula r junctions appear normal. IMPRESSIONS: 1. Unremarkable facial bones
[2018-06-16 14:40] LABS: Hemoglobin A1C 5.8 % (4.0-6.0)
--- NOTE | 2018-06-16 14:52 | ECHOT ---
TRANSESOPHAGEAL ECHOCARDIOGRAM This patient is admitted with a recent inferior wall myocardial infarction. Patient has a severe triple-vessel disease and is supposed to undergo surgery. Transesophageal echocardiogram was performed to assess the mitral regurgitation. PROCEDURE: Patient was given initially sedation with Versed and fentanyl. An attempt was made to pass the ultrasound probe, but patient has significant gag reflex and subsequently patient was sedated with propofol by the nurse felt machine mechanic and transesophageal echocardiogram was performed without any complications. Left ventricular chamber is normal in size. There is evidence of apical septal as well as an inferior wall hypokinesia with estimated ejection fraction in the range of 30%-35%. Mitral valve morphology is normal. There is not any evidence of mitral valve prolapse. There is evidence of moderate degree of mitral regurgitation. There are 2 jets available. There is no evidence of any reversal of flow in the pulmonary vein. The patient has a was calculated to about 6 mm. Left atrium is mildly enlarged. There is no evidence of clot in the left atrial or atrial appendage. Intra-atrial septum is intact. There is no evidence of any PFO by saline contrast study. FINAL IMPRESSION: 1. The mitral valve morphologically is normal. There is no evidence of mitral valve prolapse. 2. There is a moderate degree of 3+ mitral regurgitation with evidence of 2 jets. There is no evidence of reversal of flow in the pulmonary vein. 3. Left ventricular systolic function is moderate to severely impaired with evidence of apical and inferior and apicoseptal hypokinesia with estimated ejection fraction of 30%-35%. 4. There is no evidence of clot in the left atrium or atrial appendage. 5. Interatrial septum is intact. There is a trivial aortic regurgitation noted. MMODL / IJN: [id number] /
--- NOTE | 2018-06-16 15:44 | P.GSCN ---
History of Present Illness Consult date: 06/16/18 Reason for Consult: Clearance for open heart surgery Past Medical History Past Medical History: Hyperlipidemia, Hypertension History of Any Multi-Drug Resistant Organisms: None Reported Past Surgical History: Appendectomy, Orthopedic Surgery Additional Past Surgical History / Comment(s): carpal tunnel, vasectomy Past Anesthesia/Blood Transfusion Reactions: No Reported Reaction Past Psychological History: No Psychological Hx Reported Smoking Status: Never smoker Past Alcohol Use History: None Reported Past Drug Use History: None Reported - Past Family History Father Family Medical History: Cancer, Coronary Artery Disease (CAD), Prostate Disorder Mother Family Medical History: Coronary Artery Disease (CAD) Medications and Allergies Home Medications Medication Instructions Recorded Confirmed Type Aspirin EC [Ecotrin Low Dose] 81 mg PO DAILY 06/14/18 06/14/18 History Aspirin EC [Ecotrin] 650 mg PO DAILY PRN 06/14/18 06/14/18 History Beet Root 1 tab PO DAILY 06/14/18 06/14/18 History Flaxseed Oil 1,000 mg PO DAILY 06/14/18 06/14/18 History Garlic 1 tab PO DAILY 06/14/18 06/14/18 History Allergies Allergy/AdvReac Type Severity Reaction Status Date / Time bee venom protein (honey bee) AdvReac Swelling Verified 06/14/18 14:32 Surgical - Exam Vital Signs Pulse Resp BP 92 24 165/102 06/14/18 13:28 06/14/18 13:28 06/14/18 13:28 intra-oral and extra-oral hard and soft tissue exam Results Consultation for dental clearance prior to surgery. Intra oral and extra oral exam WNL. No soft tissue swelling noted. No mobility of teeth noted. Pt is dentally cleared for surgery. - Labs 06/16/18 04:36 06/16/18 04:36 Abnormal Lab Results - Last 24 Hours (Table) 06/15/18 06/16/18 06/16/18 Range/Units 18:43 01:17 04:36 APTT 35.0 H (22.0-30.0) sec Total Protein (6.3-8.2) g/dL LDL Cholesterol, Calc (0-99) mg/dL Urine Blood Trace H (Negative) Crossmatch See Detail 06/16/18 06/16/18 Range/Units 04:36 04:36 APTT 107.0 H* (22.0-30.0) sec Total Protein 5.9 L (6.3-8.2) g/dL LDL Cholesterol, Calc 128 H (0-99) mg/dL Urine Blood (Negative) Crossmatch Microbiology - Last 24 Hours (Table) 06/15/18 21:00 Nasal Screen MRSA/MSSA - Preliminary Nasal Swab 06/15/18 18:43 Urine Culture - Preliminary Urine,Catheterized Diabetes panel 06/16/18 06/16/18 Range/Units 04:36 04:36 Sodium 140 (137-145) mmol/L Potassium 3.9 (3.5-5.1) mmol/L Chloride 106 (98-107) mmol/L Carbon Dioxide 27 (22-30) mmol/L BUN 12 (9-20) mg/dL Creatinine 1.01 (0.66-1.25) mg/dL Glucose 87 (74-99) mg/dL Hemoglobin A1c 5.8 (4.0-6.0) % Calcium 8.7 (8.4-10.2) mg/dL AST 29 (17-59) U/L ALT 35 (21-72) U/L Alkaline Phosphatase 59 (38-126) U/L Total Protein 5.9 L (6.3-8.2) g/dL Albumin 3.6 (3.5-5.0) g/dL Triglycerides 117 (<150) mg/dL HDL Cholesterol 41 (40-60) mg/dL Thyroid panel 06/16/18 Range/Units 04:36 TSH 4.300 (0.465-4.680) mIU/L Calcium panel 06/16/18 Range/Units 04:36 Calcium 8.7 (8.4-10.2) mg/dL Albumin 3.6 (3.5-5.0) g/dL Pituitary panel 06/16/18 Range/Units 04:36 Sodium 140 (137-145) mmol/L Potassium 3.9 (3.5-5.1) mmol/L Chloride 106 (98-107) mmol/L Carbon Dioxide 27 (22-30) mmol/L BUN 12 (9-20) mg/dL Creatinine 1.01 (0.66-1.25) mg/dL Glucose 87 (74-99) mg/dL Calcium 8.7 (8.4-10.2) mg/dL TSH 4.300 (0.465-4.680) mIU/L Adrenal panel 06/16/18 Range/Units 04:36 Sodium 140 (137-145) mmol/L Potassium 3.9 (3.5-5.1) mmol/L Chloride 106 (98-107) mmol/L Carbon Dioxide 27 (22-30) mmol/L BUN 12 (9-20) mg/dL Creatinine 1.01 (0.66-1.25) mg/dL Glucose 87 (74-99) mg/dL Calcium 8.7 (8.4-10.2) mg/dL Total Bilirubin 0.6 (0.2-1.3) mg/dL AST 29 (17-59) U/L ALT 35 (21-72) U/L Alkaline Phosphatase 59 (38-126) U/L Total Protein 5.9 L (6.3-8.2) g/dL Albumin 3.6 (3.5-5.0) g/dL
[2018-06-16] MEDS: SODIUM CHLORIDE 0.9% 500 ML 500 ML IV SCH (16:39)
[2018-06-16] MEDS: HEPARIN SOD,PORK IN 0.45% NACL 25,000 UNIT in 0.45% NACL 1 250ML.BAG IV SCH (16:39)
[2018-06-16] MEDS: NITROGLYCERIN-D5W PMX 50 MG in DEXTROSE/WATER 1 250ML.BAG IV SCH (16:42)
--- NOTE | 2018-06-16 17:26 | P.PN ---
Subjective Progress Note Date: 06/16/18 Principal diagnosis: Severe triple-vessel coronary artery disease, moderate degree of 3+ mitral valve regurgitation, left ventricular systolic function moderately to severely impai red with evidence of apical and inferior and apical septal hypokinesis with an estimated ejection fraction of 30-35%, hypertension, hyperlipidemia, and family history of coronary artery disease with his mother having open heart surgery at age 60. This is a 67-year-old gentleman who has been having complaints of chest pain with exertion off and on for the last couple of months. His chest pain has been associated with diaphoresis and nausea. He was evaluated by Dr. VC Rodgers at his office and subsequently underwent a 12-lead EKG which was suggestive of a recent inferior wall myocardial infarction. For further evaluation a 2-D echocardiogram was completed demonstrating evidence of extensive inferior apical and apical septal hypokinesis with an ejection fraction of 35-40% with moderate mitral valve regurgitation. Subsequent leak, he was admitted to the hospital at [facility] and underwent a heart catheterization which demonstrated significant triple vessel coronary artery disease. Today for further evaluation he underwent a transesophageal echocardiogram which demo nstrated no evidence of mitral valve prolapse, moderate degree of the 3+ mitral valve regurgitation, and a left ventricular systolic function to be moderately to severely impaired with evidence of apical and inferior and apical septal hypokinesis with an ejection fraction of 30-35%. He has been evaluated by Dr. Howard Khan from cardiothoracic surgery. His heart catheterization, 2-D echocardiogram and transesophageal echocardiogram results have been discussed with the patient by Dr. Khan. With some benefits of myocardial revascularization surgery with mitral valve repair have been discussed with the patient and the patient wishes to proceed with surgery. Currently the patient is sitting up to the bedside chair in the intensive care unit. He is in no acute distress. He reports he did have some episodes of chest pain which was self-limiting this morning after his 2-D echocardiogram. He remains on nitroglycerin drip and heparin drip. He is hemodynamically stable and remains afebrile. Objective - Vital Signs Vital signs: Vital Signs Temp 98.7 F 06/16/18 16:00 Pulse 65 06/16/18 16:00 Resp 18 06/16/18 16:00 BP 136/81 06/16/18 16:00 Pulse Ox 95 06/16/18 16:00 Intake & Output 06/15/18 06/16/18 06/16/18 18:59 06:59 18:59 Intake Total 1154.533 214.201 4913.800 Output Total 2200 900 Balance -1045.467 -710.178 8713.800 Weight 85.3 kg Intake: IV 251.7 240 370 Sodium Chloride 0.9% 500 240 120 ml 500 ml @ 20 mls/hr IV .Q24H [facility] Rx#:[id number] Intake, IV Titration 902.833 60.126 118.800 Amount Heparin Sod,Pork in 0.45% 187.833 60.126 86.150 NaCl 25,000 unit In 0.45 % NaCl 1 250ml.bag @ 11. 601 UNITS/KG/HR 10 mls/hr IV .Q24H [facility] Rx#: [id number] Nitroglycerin-D5w Pmx 50 32.65 mg In Dextrose/Water 1 250ml.bag @ Titrate IV . Q0M [facility] Rx#:[id number] Sodium Chloride 0.9% 1, 695 000 ml In Empty Bag 1 bag @ 1 ML/KG/HR 86.2 mls/hr IV .[id number] [facility] Rx#: [id number] Sodium Chloride 0.9% 500 20 ml 500 ml @ 20 mls/hr IV .Q24H [facility] Rx#:[id number] Oral 600 Output: Urine 2200 900 Uretheral (Holm) 1000 Other: # Voids 1 1 1 # Bowel Movements 1 - Constitutional General appearance: Present: cooperative, no acute distress, obese - Respiratory Details: Lung sounds are essentially clear throughout. Respirations are symmetrical and nonlabored. Oxygen saturation are 95% on room air. Bedside FEV1 has been completed which showed a 64% of predicted value. - Cardiovascular Details: Regular rhythm and rate. S1 and S2 present, negative for S3, gallop with a faint systolic murmur. Bedside telemetry showing normal sinus rhythm heart same 65. No edema present.. - Gastrointestinal Gastrointestinal Comment(s): Abdomen soft, nontender nondistended. Active bowel sounds all 4 abdominal quadrants. No guarding or rigidity. No organomegaly. - Genitourinary Genitourinary Comment(s): voiding clear yellow urine. - Integumentary Integumentary Comment(s): Skin is warm and dry. No clubbing or cyanosis present. No rash or abnormal pigmentation present. - Neurologic Neurologic: Present: CNII-XII intact - Musculoskeletal Musculoskeletal: Present: gait normal, strength equal bilaterally - Psychiatric Psychiatric: Present: A&O x's 3, appropriate affect, intact judgment & insight - Allied health notes Allied health notes reviewed: nursing - Labs CBC & Chem 7: 06/16/18 04:36 06/16/18 04:36 Labs: Abnormal Lab Results - Last 24 Hours (Table) 06/15/18 06/16/18 06/16/18 Range/Units 18:43 01:17 04:36 APTT 35.0 H (22.0-30.0) sec Total Protein (6.3-8.2) g/dL LDL Cholesterol, Calc (0-99) mg/dL Urine Blood Trace H (Negative) Crossmatch See Detail 06/16/18 06/16/18 Range/Units 04:36 04:36 APTT 107.0 H* (22.0-30.0) sec Total Protein 5.9 L (6.3-8.2) g/dL LDL Cholesterol, Calc 128 H (0-99) mg/dL Urine Blood (Negative) Crossmatch Microbiology - Last 24 Hours (Table) 06/15/18 21:00 Nasal Screen MRSA/MSSA - Preliminary Nasal Swab 06/15/18 18:43 Urine Culture - Preliminary Urine,Catheterized - Imaging and Cardiology Chest x-ray: report reviewed, image reviewed Assessment and Plan Assessment: 1. Severe triple-vessel coronary artery disease 2. Moderate 3+ mitral valve regurgitation per transesophageal echocardiogram 3. Unstable angina 4. Hypertension 5. Hyperlipidemia 6. Family history of premature coronary artery disease Plan: 1. The patient will be scheduled for myocardial vascularization surgery, with STOKES, endoscopic vein harvest, left atrial appendage exclusion for tomorrow 06/17/2018 to be performed by Dr. Jose Manuel Corado. 2. STS risk score has been calculated in discussed with the patient and his family. 3. 5 m walk test has been completed by cardiac rehab. 4. Discontinue heparin drip at 6 AM tomorrow 06/17/2018 2 hours prior to surgery. 5. Medical and cardiac management recommendations per primary care service and Dr. VC Rodgers from cardiology. 6. Patient is a lifetime nonsmoker. 7. GI and DVT prophylaxis. 8. Nothing by mouth after midnight. 9. Continue preoperative teaching. 10. Further recommendations to follow based on patient's clinical course. Time with Patient: Greater than 30
--- NOTE | 2018-06-16 20:25 | P.CNPUL ---
History of Present Illness Consult date: 06/16/18 Requesting physician: Zoë Piña Reason for consult: other (Critical care management) Chief complaint: Chest pain History of present illness: This is a very pleasant 67-year-old gentleman with no primary care physician. He does have a history of hypertension, hyperlipidemia, family history of early coronary artery disease. 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 No prior history of pulmonary disease. No asthma, emphysema. Never been on inhalers in the past. Been having issues with intermittent chest discomfort, mainly exertional with radiation down both arms that subsided with rest. He was seen and evaluated by Dr. Rodgers. Who admitted the patient for further monitoring and cardiac catheterization. EKG revealed evidence of recent myocardial infarction with T-wave inversions. Echocardiogram at that time had revealed an ejection fraction of 35-40% and moderate degree of mitral regurgitation. Cardiac catheterization was performed yesterday that revealed severe triple-vessel disease. Suspected right coronary artery as a culprit lesion with 90% stenosis and possible thrombus. Transesophageal echocardiogram performed today revealed a moderate degree of 3+ mitral regurgitation. The patient is seen today in consultation in the intensive care unit. He is presently awake and alert in no acute distress. He denies any chest pain, palpitations lightheadedness or dizziness. No shortness of breath, cough or congestion. He is maintaining O2 saturations in the mid 90s on room air. He's afebrile. Hemodynamically stable. White count 7.0. Hemoglobin 13.3. Creatinine 1.01 Review of Systems REVIEW OF SYSTEMS: CONSTITUTIONAL: Denies any recent significant weight loss or weight gain. EYES: Denies change in vision. EARS, NOSE, MOUTH, THROAT: Denies headaches, denies sore throat. CARDIOVASCULAR: Recent chest pain, mainly with exertion, improves at rest. RESPIRATORY: Denies shortness of breath, cough, congestion or hemoptysis. GASTROINTESTINAL: Denies change in appetite, denies abdominal pain GENITOURINARY: Denies hematuria, denies infections. MUSKULOSKELETAL: Denies pain, denies swelling. INTEGUMENTARY: Denies rash, denies eczema. NEUROLOGICAL: Denies recent memory loss, no recent seizure activity. PSYCHIATRIC: Denies anxiety, denies depression. HEMATOLOGIC/LYMPHATIC: Denies anemia, denies enlarged lymph nodes. Past Medical History Past Medical History: Hyperlipidemia, Hypertension History of Any Multi-Drug Resistant Organisms: None Reported Past Surgical History: Appendectomy, Orthopedic Surgery Additional Past Surgical History / Comment(s): carpal tunnel, vasectomy Past Anesthesia/Blood Transfusion Reactions: No Reported Reaction Past Psychological History: No Psychological Hx Reported Smoking Status: Never smoker Past Alcohol Use History: None Reported Past Drug Use History: None Reported - Past Family History Father Family Medical History: Cancer, Coronary Artery Disease (CAD), Prostate Disorder Mother Family Medical History: Coronary Artery Disease (CAD) Medications and Allergies Home Medications Medication Instructions Recorded Confirmed Type Aspirin EC [Ecotrin Low Dose] 81 mg PO DAILY 06/14/18 06/14/18 History Aspirin EC [Ecotrin] 650 mg PO DAILY PRN 06/14/18 06/14/18 History Beet Root 1 tab PO DAILY 06/14/18 06/14/18 History Flaxseed Oil 1,000 mg PO DAILY 06/14/18 06/14/18 History Garlic 1 tab PO DAILY 06/14/18 06/14/18 History Allergies Allergy/AdvReac Type Severity Reaction Status Date / Time bee venom protein (honey bee) AdvReac Swelling Verified 06/14/18 14:32 Physical Exam Vitals: Vital Signs Temp Pulse Pulse Pulse Resp BP BP 06/16/18 16:00 98.7 F 65 18 136/81 06/16/18 15:30 77 17 143/87 06/16/18 15:21 06/16/18 15:15 67 15 136/89 06/16/18 15:00 64 11 L 142/89 06/16/18 14:45 67 20 137/83 06/16/18 14:30 66 13 122/77 06/16/18 14:15 66 13 114/68 06/16/18 14:00 63 15 111/69 06/16/18 13:45 67 15 100/65 06/16/18 13:35 70 16 125/78 06/16/18 13:30 68 69 18 143/95 121/85 06/16/18 13:25 69 16 143/95 06/16/18 13:20 73 16 122/82 06/16/18 13:15 78 70 20 118/85 116/81 06/16/18 13:10 64 16 118/85 06/16/18 13:05 66 16 134/93 06/16/18 12:55 75 16 119/80 06/16/18 12:00 98.3 F 68 21 134/93 06/16/18 08:00 98.7 F 82 18 138/98 06/16/18 04:00 98.4 F 81 20 124/77 06/16/18 03:48 14 06/16/18 02:00 68 18 126/72 06/16/18 00:10 14 06/16/18 00:09 119/75 06/16/18 00:00 97.8 F 71 14 119/75 06/15/18 20:10 74 15 Pulse Ox 06/16/18 16:00 95 06/16/18 15:30 94 L 06/16/18 15:21 95 06/16/18 15:15 95 06/16/18 15:00 97 06/16/18 14:45 95 06/16/18 14:30 94 L 06/16/18 14:15 96 06/16/18 14:00 96 06/16/18 13:45 97 06/16/18 13:35 96 06/16/18 13:30 84 L 06/16/18 13:25 96 06/16/18 13:20 06/16/18 13:15 97 06/16/18 13:10 95 06/16/18 13:05 97 06/16/18 12:55 98 06/16/18 12:00 91 L 06/16/18 08:00 96 06/16/18 04:00 92 L 06/16/18 03:48 06/16/18 02:00 96 06/16/18 00:10 06/16/18 00:09 06/16/18 00:00 94 L 06/15/18 20:10 Intake and Output 06/16/18 06/16/18 06/16/18 06:59 14:59 22:59 Intake Total 033.561 4821.484 875.316 Output Total 900 450 Balance -844.170 7470.484 425.316 Intake: IV 240 370 120 Sodium Chloride 0.9% 500 240 120 120 ml 500 ml @ 20 mls/hr IV .Q24H [facility] Rx#:[id number] Intake, IV Titration 60.126 83.484 35.316 Amount Heparin Sod,Pork in 0.45% 60.126 83.484 2.666 NaCl 25,000 unit In 0.45 % NaCl 1 250ml.bag @ 11. 601 UNITS/KG/HR 10 mls/hr IV .Q24H [facility] Rx#: [id number] Nitroglycerin-D5w Pmx 50 32.65 mg In Dextrose/Water 1 250ml.bag @ Titrate IV . Q0M [facility] Rx#:[id number] Oral 600 720 Output: Urine 900 450 Other: # Voids 1 1 1 # Bowel Movements 1 Weight 85.3 kg GENERAL EXAM: Alert, active, comfortable in no apparent distress. On room air. HEAD: Normocephalic. EYES: Normal reaction of pupils, equal size. NOSE: Clear with pink turbinates. THROAT: No erythema or exudates. NECK: No masses, no JVD. CHEST: No chest wall deformity. LUNGS: Equal air entry with no crackles, wheeze, rhonchi or dullness. CVS: S1 and S2 normal with no audible murmur, regular rhythm. ABDOMEN: No hepatosplenomegaly, normal bowel sounds, no guarding or rigidity. SPINE: No scoliosis or deformity SKIN: No rashes CENTRAL NERVOUS SYSTEM: No focal deficits, tone is normal in all 4 extremities. EXTREMITIES: There is no peripheral edema. No clubbing, no cyanosis. Peripheral pulses are intact. Results - Laboratory Findings CBC and BMP: 06/16/18 04:36 06/16/18 04:36 PT/INR, D-dimer PT 11.3 sec (9.0-12.0) 06/16/18 04:36 INR 1.1 (<1.2) 06/16/18 04:36 Abnormal lab findings: Abnormal Labs 06/14/18 06/14/18 06/15/18 14:44 20:39 05:23 APTT 68.4 H 50.8 H Carbon Dioxide 32 H Total Protein LDL Cholesterol, Calc Urine Blood Crossmatch 06/15/18 06/16/18 06/16/18 18:43 01:17 04:36 APTT 35.0 H Carbon Dioxide Total Protein LDL Cholesterol, Calc Urine Blood Trace H Crossmatch See Detail 06/16/18 06/16/18 04:36 04:36 APTT 107.0 H* Carbon Dioxide Total Protein 5.9 L LDL Cholesterol, Calc 128 H Urine Blood Crossmatch - Diagnostic Findings Chest x-ray: image reviewed (No acute pulmonary process.) Assessment and Plan Assessment: Impression: #1 Chest pain in a patient suspected of a recent non-ST segment elevation myocardial infarction. Found to have triple-vessel disease suspected RCA as a culprit lesion with 90% stenosis. Impaired left ventricular systolic function with ejection fraction 35-40%. #2 Mitral valve regurgitation, 3+. #3 Hypertension, history of. #4 Hyperlipidemia. #5 Family history of premature coronary artery disease. #6 Lifelong nonsmoker. Plan: The patient was seen and evaluated by Dr. العراقي. Chest x-ray and labs were reviewed. He is currently stable from the pulmonary and critical care standpoint. He remains on a heparin drip. He remains on nitroglycerin drip. The plan is for coronary artery revascularization and mitral valve repair in the a.m. We will follow the patient in the immediate postoperative period and plan to extubate the patient within 6 hours. He has been educated regarding the use of the incentive spirometer and cough and deep breathing exercises. He is also educated regarding the importance of having a primary care physician and medic ation compliance in the outpatient setting. In the interim, we'll continue with his current medications. We will continue to follow and make further recommendations based on his clinical status. I, the cosigning physician, performed a history & physical examination of the patient. Lungs sounds are clear. Maintaining good O2 saturations in the 90s on room air. I discussed the assessment and plan of care with my nurse practitioner, Joan Matos. I attest to the above consultation as dictated by her. Time with Patient: Greater than 30
[2018-06-17 04:45] LABS: Basophils # (A) 0.1 k/uL (0-0.2); Basophils % (A) 1 %; Eosinophils # (A) 0.3 k/uL (0-0.7); Eosinophils % (A) 4 %; HCT 41.5 % (39.0-53.0); HGB 13.5 gm/dL (13.0-17.5); Lymphocytes # (A) 1.8 k/uL (1.0-4.8); Lymphocytes % (A) 27 %; MCH 30.5 pg (25.0-35.0); MCHC 32.5 g/dL (31.0-37.0); Monocytes # (A) 0.6 k/uL (0-1.0); Monocytes % (A) 9 %; Neutrophils # (A) 3.8 k/uL (1.3-7.7); Neutrophils % (A) 56 %; Platelet Count 203 k/uL (150-450); RBC 4.42 m/uL (4.30-5.90); RDW 13.8 % (11.5-15.5); WBC 6.8 k/uL (3.8-10.6)
[2018-06-17] MEDS ORDERED: PROTAMINE SULFATE 10 MG/ML 25 ML VIAL IV ONE ×2 (05:00→08:00)
[2018-06-17] MEDS ORDERED: TRANEXAMIC ACID 2,000 MG in SODIUM CHLORIDE 0.9% 80 ML IV ONE (05:00)
[2018-06-17] MEDS ORDERED: ceFAZolin 1,000 MG in SODIUM CHLORIDE 0.9% IRRIGATIO 1,000 ML IRRIGATION ONE (05:00)
[2018-06-17] MEDS ORDERED: ATORVASTATIN 10 MG TAB PO ONE (05:00)
[2018-06-17] MEDS ORDERED: ASPIRIN 325 MG TAB PO ONE (05:00)
[2018-06-17] MEDS ORDERED: MAGNESIUM SULFATE SYG 4.06 MEQ/ML SYRINGE IV ONE (05:00)
[2018-06-17] MEDS ORDERED: PHENYLEPHRINE 40 MG in SODIUM CHLORIDE 0.9% 250 ML IV ONE (05:00)
[2018-06-17] MEDS ORDERED: MANNITOL 25% 12.5 GM/50 ML VIAL IV ONE ×2 (05:00)
[2018-06-17] MEDS ORDERED: HEPARIN SODIUM,PORCINE 5,000 UNIT in SODIUM CHLORIDE 0.9% 500 ML 500 ML IV ONE (05:00)
[2018-06-17] MEDS ORDERED: NOREPINEPHRINE 4 MG in SODIUM CHLORIDE 0.9% 250 ML IV SCH (05:00)
[2018-06-17] MEDS ORDERED: CLEVIDIPINE BUTYRATE 25 MG in EMPTY BAG 1 BAG IV SCH (05:00)
[2018-06-17] MEDS ORDERED: ceFAZolin 2,000 MG in SODIUM CHLORIDE 0.9% 30 ML IVPB ONE (05:00)
[2018-06-17] MEDS ORDERED: ALBUMIN HUMAN 25% 50 ML in EMPTY BAG 1 BAG IVPB ONE (05:00)
[2018-06-17] MEDS ORDERED: ALBUMIN HUMAN 5% 500 ML in EMPTY BAG 1 BAG IVPB ONE ×6 (05:00)
[2018-06-17] MEDS ORDERED: PAPAVERINE 360 MG in SODIUM CHLORIDE 0.9% 90 ML IV ONE (05:00)
[2018-06-17] MEDS ORDERED: NITROGLYCERIN-D5W PMX 25 MG/250 ML BTL IV ONE (05:00)
[2018-06-17] MEDS ORDERED: CALCIUM CHLORIDE 100 MG/ML 10 ML SYRINGE IVP ONE (05:00)
[2018-06-17] MEDS ORDERED: ceFAZolin 2 GM in SODIUM CHLORIDE 0.9% 30 ML IVPB ONE (05:00)
[2018-06-17] MEDS ORDERED: PROPOFOL 1,000 MG in EMPTY BAG 1 BAG IV PRN (05:00)
[2018-06-17] MEDS ORDERED: SODIUM BICARB 8.4% 50 ML SYR (1 MEQ/ML) IV ONE (05:00)
[2018-06-17] MEDS ORDERED: HEPARIN SODIUM 1,000 UN/ML (10ML VL) IV ONE (05:00)
[2018-06-17] MEDS ORDERED: CHLORHEXIDINE GLUCONATE 15 ML CUP MUCOUS MEM ONE (05:00)
[2018-06-17] MEDS ORDERED: PROTAMINE SULFATE 250 MG in EMPTY BAG 1 BAG IV ONE (05:00)
[2018-06-17] MEDS ORDERED: METOPROLOL TARTRATE 12.5 MG TAB PO ONE (05:00)
[2018-06-17 05:01] LABS: Albumin 4.1 g/dL (3.5-5.0); Calcium 9.2 mg/dL (8.4-10.2); Magnesium 2.1 mg/dL (1.6-2.3); Phosphorus 3.4 mg/dL (2.5-4.5); Potassium 4.1 mmol/L (3.5-5.1); Total Bilirubin 0.7 mg/dL (0.2-1.3)
[2018-06-17 05:23] LABS: Prothrombin Time 10.8 sec (9.0-12.0)
[2018-06-17] MEDS ORDERED: DEXTROSE 5% IN WATER 1,000 ML with POTASSIUM CHLORIDE 25 MEQ, SODIUM CHLORIDE 2.5MEQ/ML... IV SCH ×6 (06:00)
[2018-06-17] MEDS ORDERED: PHENYLEPHRINE 10 MG/ML VIAL IV ONE (06:00)
[2018-06-17] MEDS ORDERED: DEXTROSE 5% IN WATER 1,000 ML with POTASSIUM CHLORIDE 110 MEQ, MAGNESIUM SULFATE 16 MEQ... IV SCH ×5 (06:00)
--- NOTE | 2018-06-17 07:08 | P.PN ---
Subjective Progress Note Date: 06/17/18 Principal diagnosis: Unstable angina This is a pleasant 67-year-old gentleman who sees Dr. VC Rodgers in the office as an outpatient who underwent yesterday heart catheterization for symptoms of unstable angina and was found to have severe triple-vessel CAD. Beside that he underwent transesophageal echocardiogram yesterday and that revealed severe MR. On follow-up with the patient today, he is asymptomatic from the cardiac vascular standpoint overview. He is on aspirin, statin, and beta daren with metoprolol. He is going to undergo today coronary artery bypass grafting along with mitral valve repair. Objective - Vital Signs Vital signs: Vital Signs Temp 97.9 F 06/17/18 05:08 Pulse 74 06/17/18 05:00 Resp 15 06/17/18 05:00 BP 107/76 06/17/18 05:08 Pulse Ox 92 L 06/17/18 05:00 Intake & Output 06/16/18 06/17/18 06/17/18 18:59 06:59 18:59 Intake Total 1928.800 481.424 Output Total 450 450 Balance 1478.800 31.424 Weight 85.4 kg Intake: IV 490 60 Sodium Chloride 0.9% 500 240 60 ml 500 ml @ 20 mls/hr IV .Q24H [facility] Rx#:[id number] Intake, IV Titration 118.800 121.424 Amount Heparin Sod,Pork in 0.45% 86.150 121.424 NaCl 25,000 unit In 0.45 % NaCl 1 250ml.bag @ 11. 601 UNITS/KG/HR 10 mls/hr IV .Q24H [facility] Rx#: [id number] Nitroglycerin-D5w Pmx 50 32.65 mg In Dextrose/Water 1 250ml.bag @ Titrate IV . Q0M [facility] Rx#:[id number] Oral 1320 300 Output: Urine 450 450 Other: # Voids 1 1 # Bowel Movements 1 1 - Constitutional General appearance: Present: no acute distress - Respiratory Respiratory: bilateral: CTA - Cardiovascular Rhythm: regular Heart sounds: normal: S1, S2 - Labs CBC & Chem 7: 06/17/18 04:30 06/17/18 04:30 Labs: Abnormal Lab Results - Last 24 Hours (Table) 06/16/18 06/16/18 06/17/18 Range/Units 04:36 21:52 04:30 APTT 37.1 H 103.0 H* (22.0-30.0) sec Crossmatch See Detail Microbiology - Last 24 Hours (Table) 06/15/18 18:43 Urine Culture - Final Urine,Catheterized 06/15/18 21:00 Nasal Screen MRSA/MSSA - Preliminary Nasal Swab Assessment and Plan Assessment: Assessment #1 unstable angina #2 hypertension #3 dyslipidemia Plan #1 continue the current medical regimen #2 proceed with open-heart tomorrow morning
[2018-06-17] MEDS ORDERED: fentaNYL (PF) 50 MCG/ML 50 ML VIAL ONE (08:00)
[2018-06-17] MEDS ORDERED: TRANEXAMIC ACID 1,000 MG/10 ML VIAL ONE (08:00)
[2018-06-17] MEDS ORDERED: HEPARIN SODIUM,PORCINE 5,000 UNIT/ML 1 ML VIAL ONE (08:00)
[2018-06-17] MEDS ORDERED: PROPOFOL 10 MG/ML 20 ML VIAL IV ONE (08:00)
[2018-06-17] MEDS ORDERED: PHENYLEPHRINE-0.9% NACL SYG 1 MG/10 ML SYRINGE ONE (08:00)
[2018-06-17] MEDS ORDERED: MIDAZOLAM 2 MG/2 ML VIAL ONE (08:00)
[2018-06-17] MEDS ORDERED: MAGNESIUM SULFATE 4 MEQ/ML 10ML VIAL ONE (08:00)
[2018-06-17] MEDS ORDERED: VECURONIUM 10 MG VIAL IV ONE (08:00)
[2018-06-17] MEDS ORDERED: ELECTROLYTE-R (PH 7.4) 1,000 ML IV.SOLN IV ONE (08:00)
[2018-06-17] MEDS ORDERED: fentaNYL (PF) 50 MCG/ML 2 ML AMP ONE (08:00)
[2018-06-17] MEDS ORDERED: ALBUMIN HUMAN 5% (25gm) 500 ML VIAL IVPB ONE (08:00)
[2018-06-17] MEDS ORDERED: ePHEDrine SULFATE/0.9% NACL/PF 50 MG/5 ML SYRINGE IV ONE (08:00)
[2018-06-17] MEDS ORDERED: LIDOCAINE 1% INJ 10MG/ML (20 ML MDV) ONE (08:00)
[2018-06-17] MEDS ORDERED: CALCIUM CHLORIDE 100 MG/ML 10 ML SYRINGE ONE (08:00)
[2018-06-17] MEDS ORDERED: HEPARIN SODIUM,PORCINE 10,000 UNIT/ML 1 ML VIAL ONE (08:00)
[2018-06-17] MEDS ORDERED: SODIUM CHLORIDE 0.9% 250 ML BAG ONE (08:00)
[2018-06-17 08:39] LABS: ABG Base Excess 0.7 mmol/L; ABG HCO3 25 mmol/L (21-25); ABG Oxygen Saturation 99.4 % (94-97); ABG PCO2 38 mmHg (35-45); ABG PH 7.43 (7.35-7.45); ABG PO2 132 mmHg (83-108); ABG Potassium Whole Blood 3.9 mmol/L (3.4-4.5); ABG Sodium Whole Blood 141 mmol/L (135-146); ABG TCO2 26 mmol/L (19-24)
[2018-06-17 10:56] LABS: ABG Base Excess -0.4 mmol/L; ABG HCO3 24 mmol/L (21-25); ABG Oxygen Saturation 99.6 % (94-97); ABG PCO2 38 mmHg (35-45); ABG PH 7.41 (7.35-7.45); ABG PO2 166 mmHg (83-108); ABG Potassium Whole Blood 3.8 mmol/L (3.4-4.5); ABG Sodium Whole Blood 141 mmol/L (135-146); ABG TCO2 25 mmol/L (19-24)
[2018-06-17 11:49] LABS: ABG Base Excess -2.5 mmol/L; ABG HCO3 22 mmol/L (21-25); ABG PCO2 36 mmHg (35-45); ABG PO2 398 mmHg (83-108); ABG Potassium Whole Blood 3.9 mmol/L (3.4-4.5); ABG Sodium Whole Blood 136 mmol/L (135-146); ABG TCO2 23 mmol/L (19-24)
[2018-06-17 12:57] LABS: ABG Base Excess -2.2 mmol/L; ABG HCO3 23 mmol/L (21-25); ABG PCO2 41 mmHg (35-45); ABG PH 7.36 (7.35-7.45); ABG PO2 379 mmHg (83-108); ABG Potassium Whole Blood 4.7 mmol/L (3.4-4.5); ABG Sodium Whole Blood 137 mmol/L (135-146); ABG TCO2 24 mmol/L (19-24)
[2018-06-17 13:42] LABS: ABG HCO3 24 mmol/L (21-25); ABG PCO2 45 mmHg (35-45); ABG PH 7.33 (7.35-7.45); ABG PO2 262 mmHg (83-108); ABG Potassium Whole Blood 4.5 mmol/L (3.4-4.5); ABG Sodium Whole Blood 137 mmol/L (135-146); ABG TCO2 25 mmol/L (19-24)
[2018-06-17 14:18] LABS: ABG Base Excess -2.9 mmol/L; ABG HCO3 23 mmol/L (21-25); ABG Oxygen Saturation 99.9 % (94-97); ABG PCO2 46 mmHg (35-45); ABG PH 7.31 (7.35-7.45); ABG PO2 218 mmHg (83-108); ABG Potassium Whole Blood 4.9 mmol/L (3.4-4.5); ABG Sodium Whole Blood 138 mmol/L (135-146); ABG TCO2 25 mmol/L (19-24)
[2018-06-17 15:02] LABS: ABG Base Excess -3.9 mmol/L; ABG HCO3 22 mmol/L (21-25); ABG Oxygen Saturation 99.6 % (94-97); ABG PCO2 46 mmHg (35-45); ABG PO2 181 mmHg (83-108); ABG Potassium Whole Blood 4.5 mmol/L (3.4-4.5); ABG Sodium Whole Blood 138 mmol/L (135-146); ABG TCO2 24 mmol/L (19-24)
[2018-06-17 15:59] LABS: ABG Base Excess -0.9 mmol/L; ABG HCO3 24 mmol/L (21-25); ABG Oxygen Saturation 95.3 % (94-97); ABG PCO2 39 mmHg (35-45); ABG PO2 69 mmHg (83-108); ABG Potassium Whole Blood 4.1 mmol/L (3.4-4.5); ABG Sodium Whole Blood 140 mmol/L (135-146); ABG TCO2 25 mmol/L (19-24)
[2018-06-17] MEDS: NITROGLYCERIN-D5W PMX 50 MG in DEXTROSE/WATER 1 250ML.BAG IV SCH (16:22)
[2018-06-17] MEDS: METOPROLOL TARTRATE 50 MG TAB PO SCH (16:23)
[2018-06-17] MEDS: PANTOPRAZOLE 40 MG TABLET PO SCH (16:23)
[2018-06-17] MEDS: ASPIRIN 325 MG TAB PO SCH (16:23)
[2018-06-17] MEDS: ATORVASTATIN 80 MG TAB PO SCH (16:23)
[2018-06-17] MEDS: SODIUM CHLORIDE 0.9% 500 ML 500 ML IV SCH (16:24)
[2018-06-17] MEDS: MUPIROCIN 2% OINT 22 GM TUBE NASAL SCH ×2 (16:24→20:35)
[2018-06-17] MEDS: HEPARIN SOD,PORK IN 0.45% NACL 25,000 UNIT in 0.45% NACL 1 250ML.BAG IV SCH (16:24)
[2018-06-17] MEDS ORDERED: MILRINONE-D5W PMX 20 MG in DEXTROSE/WATER 1 100ML.BAG IV SCH ×2 (16:32→21:15)
[2018-06-17] MEDS ORDERED: Potassium Replacement Protocol 1 EACH MISC MISCELLANE PRN (16:32)
[2018-06-17] MEDS ORDERED: DEXTROSE 5% IN WATER 100 ML with AMIODARONE 150 MG IV PRN (16:32)
[2018-06-17] MEDS ORDERED: AMIODARONE 360 MG in DEXTROSE 5% IN WATER 200 ML IV PRN ×2 (16:32)
[2018-06-17] MEDS ORDERED: ONDANSETRON 4 MG/2 ML VIAL IVP PRN (16:32)
[2018-06-17] MEDS ORDERED: CALCIUM GLUCONATE 2 GM in SODIUM CHLORIDE 0.9% 100 ML IVPB PRN (16:32)
[2018-06-17] MEDS ORDERED: Magnesium Replacement Protocol 1 EACH MISC MISCELLANE PRN (16:32)
[2018-06-17] MEDS ORDERED: METOCLOPRAMIDE 5 MG/ML 2 ML VIAL IVP PRN (16:32)
[2018-06-17] MEDS ORDERED: AMIODARONE 300 MG in DEXTROSE 5% IN WATER 250 ML IV PRN ×2 (16:32)
[2018-06-17] MEDS ORDERED: Phosphorus Replacement Protoco 1 EACH MISC MISCELLANE PRN (16:32)
[2018-06-17] MEDS ORDERED: BENZOCAINE/MENTHOL LOZENG 1 EACH LOZENGE MUCOUS MEM PRN (16:32)
[2018-06-17] MEDS: PROPOFOL 1,000 MG in EMPTY BAG 1 BAG IV SCH ×2 (16:40→23:51)
[2018-06-17 16:56] LABS: Glucose,Whole Blood 118 mg/dL (75-99)
[2018-06-17 17:01] LABS: Basophils % (A) 0 %; Eosinophils # (A) 0.1 k/uL (0-0.7); Eosinophils % (A) 1 %; HCT 30.2 % (39.0-53.0); Lymphocytes # (A) 0.9 k/uL (1.0-4.8); Lymphocytes % (A) 10 %; MCHC 33.8 g/dL (31.0-37.0); MCV 91.8 fL (80.0-100.0); Mean Platelet Volume 9.2; Monocytes # (A) 0.4 k/uL (0-1.0); Monocytes % (A) 5 %; Neutrophils # (A) 7.4 k/uL (1.3-7.7); Neutrophils % (A) 83 %; RBC 3.29 m/uL (4.30-5.90); RDW 14.4 % (11.5-15.5); WBC 8.8 k/uL (3.8-10.6)
[2018-06-17] MEDS: CLEVIDIPINE BUTYRATE 25 MG in EMPTY BAG 1 BAG IV SCH ×2 (17:03→17:04)
[2018-06-17] MEDS: LACTATED RINGERS 1,000 ML IV SCH (17:04)
[2018-06-17] MEDS: NOREPINEPHRINE 4 MG in SODIUM CHLORIDE 0.9% 250 ML IV SCH ×2 (17:04→22:05)
[2018-06-17 17:05] LABS: HGB 10.2 gm/dL (13.0-17.5); Platelet Count 92 k/uL (150-450)
[2018-06-17 17:10] LABS: ABG Base Excess -0.7 mmol/L; ABG HCO3 25 mmol/L (21-25); ABG Oxygen Saturation 99.1 % (94-97); ABG PCO2 47 mmHg (35-45); ABG PH 7.34 (7.35-7.45); ABG PO2 173 mmHg (83-108); ABG TCO2 27 mmol/L (19-24)
--- NOTE | 2018-06-17 17:12 | XR ---
EXAMINATION TYPE: XR chest 1V portable DATE OF EXAM: 06/17/2018 CLINICAL HISTORY: Post open cardiac surgery TECHNIQUE: Single AP portable supine view of the chest is obtained. COMPARISON: Chest x-ray from one day earlier. FINDINGS: There is new endotracheal tube terminating at inferior clavicular level level, approximate ly 3 to 4 cm above the elayne. There is new right internal jugular Rexford-Bony catheter terminating in right-sided pulmonary outflow tract. Bilateral chest tubes are present. There is mediastinal drainage catheter. Post CABG changes with mediastinal clips and sternal wires is present. There is new right basilar opacity. No pneumothorax is evident. Low lung volumes are redemonstrated. Cardiac silhouette size is mildly enlarged. IMPRESSION: 1. New Tubes and lines as detailed above. 2. New mild cardiomegaly and central vascular congestion with small right greater than left pleural e ffusions felt present.
[2018-06-17 17:16] LABS: Ionized Calcium 4.7 mg/dL (4.5-5.3)
[2018-06-17 17:19] LABS: INR 1.1 (<1.2); Prothrombin Time 11.6 sec (9.0-12.0)
[2018-06-17 17:24] LABS: ALT 37 U/L (21-72); AST 73 U/L (17-59); Albumin 2.6 g/dL (3.5-5.0); Alkaline Phosphatase 30 U/L (38-126); Anion Gap 4 mmol/L; Blood Urea Nitrogen 12 mg/dL (9-20); Calcium 7.5 mg/dL (8.4-10.2); Carbon Dioxide 25 mmol/L (22-30); Chloride 110 mmol/L (98-107); Glucose 114 mg/dL (74-99); Magnesium 2.8 mg/dL (1.6-2.3); Potassium 4.1 mmol/L (3.5-5.1); Sodium 139 mmol/L (137-145); Total Bilirubin 0.7 mg/dL (0.2-1.3); Total Protein 4.3 g/dL (6.3-8.2)
--- NOTE | 2018-06-17 17:29 | OP ---
OPERATIVE REPORT DATE OF SURGERY: 06/17/2018. SURGEON: Dr. Jose Manuel Corado. REIKI PRACTITIONER: HARMAN Russ PREOPERATIVE DIAGNOSES: Severe triple-vessel coronary artery disease, moderate left ventricular dysfunction, moderate to severe mitral valve regurgitation, hypertension, hyperlipidemia, obstructive sleep apnea. POSTOPERATIVE DIAGNOSES: Severe triple-vessel coronary artery disease, moderate left ventricular dysfunction, moderate to severe mitral valve regurgitation, hypertension, hyperlipidemia, obstructive sleep apnea. PROCEDURE PERFORMED: 1. Quadruple coronary artery bypass grafting using the left internal mammary artery to the left anterior descending artery, reverse saphenous vein graft from the aorta to the posterior descending artery, reverse saphenous vein graft from the aorta to the 1st obtuse marginal artery, reverse saphenous vein graft from the aorta to the left ventricular branch of the right coronary artery. 2. Mitral valve repair using a 28 mm posterior annuloplasty with an annular flex ring. 3. Exclusion of the left atrial appendage with a 40 mm AtriClip. 4. Intraoperative transesophageal echocardiogram and epiaortic scanning. 5. Endoscopic harvesting of left greater saphenous vein. 6. Intraoperative graft flow measurements using the [employer] system. INDICATION FOR SURGERY: The patient is a 67-year-old gentleman with the above risk factors, who presented to the Cardiology office a couple days ago with history of recent onset of unstable angina. The patient was sent to the hospital where cardiac catheterization showed severe triple-vessel coronary artery disease, which was seen to be a chronically occluded collateralized left anterior descending artery, severe stenosis of the right coronary artery with dominant circulation and severe stenosis of the proximal circumflex artery. His left ventricular function was estimated at around 35% and PEDRO showed moderate to severe mitral valve regurgitation that was central. The patient was deemed a candidate for urgent coronary artery bypass grafting and mitral valve repair. The SDS risk was discussed with him and his family. They understood it and agreed to proceed. DESCRIPTION OF THE PROCEDURE: The patient in supine position. Right internal jugular Withams-Bony catheter and a right radial arterial line were placed. His PA pressure was 56/29. His cardiac index was 2.2. Subsequently general endotracheal anesthesia was induced uneventfully. A Holm catheter was inserted. The patient received 2 g of cefazolin intravenously. The chest, abdomen and both lower extremities were prepped and draped using ChloraPrep. Ioban was used to cover the skin. Transesophageal echocardiogram confirmed the preoperative finding of moderate left ventricular dysfunction with mid to distal anteroapical severe hypokinesia and moderate to severe mitral valve regurgitation. Midline sternotomy was performed and no bone wax was used. The left hemisternum was elevated and left internal mammary artery was harvested in a somewhat skeletonized fashion. The left pleura was intentionally opened in this process and was drained with a 19-British Mansoor drain. The right pleura was also inadvertently open and was drained with another 19-British Mansoor drain. In the same setting, the left greater saphenous vein was harvested endoscopically from groin to above ankle level. All the branches were tied. The leg incisions were closed over a drain. The vein appeared to be of good quality around 4 mm in diameter. Mediastinal fat was transected between 2 ties and epiaortic scanning revealed normal ascending aorta. Pericardium was opened in an inverted T-fashion. Pericardial cradle was created. FINDINGS: Included a normal soft aorta and an enlarged left ventricle cavity with evidence of diffuse coronary artery disease. After systemic heparinization after placement of respective pledgeted pursestring, aortic cannulation with a 21-British soft flow cannula, direct SVC cannulation with a right angle 28-British cannula and IVC cannulation at the junction of the right atrium with a 30-British cannula was performed. Antegrade as well as retrograde cardioplegia catheters were placed. Cardioplegia bypass was initiated with the heart empty and beating we looked at the target. It appeared that the mid LAD, the posterior descending artery, the left ventricular branch of the right coronary artery and the 1st obtuse marginal artery would be adequate for bypass. There was evidence of diffuse coronary artery disease. Aorta was clamped and during aortic clamping, myocardial protection was achieved with initial dose of 500 mL of antegrade cold blood cardioplegia followed by 500 mL of retrograde cold blood cardioplegia. All subsequent doses were given retrograde at 15 minutes intervals. The 1st part of the surgery was to perform the distal anastomosis. The 1st distal anastomosis was between a good segment of reverse saphenous vein graft and the 1.5 mm 1st obtuse marginal artery using Prolene 7-0 in continuous fashion. The 2nd distal anastomosis was between another segment of vein and the early rising posterior descending artery just beyond the acute margin of the heart using Prolene 7-0 in continuous fashion. This artery diameter was around 1.5 mm in diameter and had wall disease in it. The 3rd distal anastomosis was between another segment of vein and the posterolateral branch of the right coronary artery which was around 1.5 mm in diameter with also diffuse disease using Prolene 7-0 in continuous fashion. That vein was rotted on the left side of the pericardium to the aorta. The 4th distal anastomosis was between the left internal mammary artery and the mid aspect of the left anterior descending artery which was around 1.75 mm in diameter, thin-walled between plaquing using Prolene 7-0 in continuous fashion. All heel and toes were probed before completion of whole anastomosis. At this point, the left atrial appendage was excluded with a 40 mm AtriClip. Attention was moved at this point at performing the mitral valve part. We had used a Flor retractor. After developing the interatrial groove, a standard left atriotomy was performed. The left atrium was not enlarged. That made visualization of the mitral valve a bit difficult. We could not visualize anterior anulus. For that reason, I settled for a posterior annuloplasty from trigone to trigone. I placed a total of 9 suture of Tycron 2-0 and they were passed into a 28 mm annuloflex ring. The needles were cut and the suture tied using the core knot device. Testing of the valve at this point revealed excellent seal. With that, the atriotomy was closed using Prolene 3-0 pledgeted on each corner and meeting in the midline. De-airing maneuvers were done before completing the left atriotomy closure. In addition all pledgeted 4-0 Prolene was placed at the level of the atriotomy. Rewarming was started as we performed at this point, the 3 proximal anastomosis of the 3 vein grafts. Three buttons of 4 mm each were punched out and all 3 anastomosis completed using Prolene 6-0 in continuous fashion. The patient received a half load of Primacor, was started on low-dose drip, received lidocaine and magnesium before unclamping the aorta. He regained spontaneous sinus rhythm. All distal anastomosis were hemostatic and I placed FloSeal over them. PEDRO showed reasonable air in the left ventricle and for that reason, I de-aired with a needle and the apex of the apex was very hypokinetic. The needle hole was closed using pledgeted Prolene 6-0. After a period of reperfusion, we partially came off bypass and the hemodynamics were fine, so we totally came off bypass. PEDRO showed no mitral regurgitation and improved left ventricle function and good de-airing. With that test dose and full dose protamine was given. Decannulation followed. Two monopolar atrial pacing wires were affixed to the right atrial pursestring and right atrial wall. No ventricular wire was placed. Two 19-British Mansoor drains were placed, 1 substernal and 1 in the posterior pericardium. The pericardial fat was approximated over the heart and all the graft. We had measured the graft flow in all photographs and the parameters were excellent. After ensuring adequate hemostasis and hemodynamic and after correct sponge, instrument, and needle count, the sternum was closed using 5 [id number] pineal cable after interposing fibular between the sternal edges. Thorough irrigation with cefazolin followed. The rest of the closure proceeded in layers. Skin glue was applied. Patient did not receive blood bank product but received 650 mL of Cell Saver blood. He was transferred to the ICU in stable condition on low-dose Primacor with a cardiac index of 3 and no vasopressor. MMODL / IJN: [id number] / DARYL
--- NOTE | 2018-06-17 17:45 | P.PN ---
Subjective Progress Note Date: 06/17/18 On today's evaluation of 06/17/2018 the patient is post coronary artery bypass surgery. The patient underwent carotid bruit pedal bypass surgery using a STOKES to the LAD. The patient also had a mitral valve repair and the patient is currently postop day #0. The patient arrived to the intensive care unit. The patient remains intubated on a mechanical ventilator. The patient is was sedated and calm and comfortable. She is on a 0.2 g per KG per minute of Primacor. The patient has a cardiac index of 2.8. Pulmonary artery pressures are 34/10 and the patient is producing adequate amount of urine output. The patient is on a mechanical ventilator and I switched her to an assist-control mode at the rate of 22 with an FiO2 of 80% and a PEEP of 5 and a tidal volume of 500. The blood gases that were done showed a pH of 7.34 with a pCO2 of 47 and pO2 of 174 and this was done at the rate of 12 and an SIMV mode with a tidal volume of 500. The chest x-ray showed adequate expansion of both lungs. ET tube is in a good location. All of the chest tubes are all in good location is. The patient has his [place]-Bony catheter in good location. Postop blood work is still pending for now. Meanwhile the patient is producing adequate amount of urine output. No other significant events overnight. His cardiac rhythm is sinus. Objective - Vital Signs Vital signs: Vital Signs Temp 97.0 F L 06/17/18 17:00 Pulse 86 06/17/18 17:00 Resp 22 06/17/18 17:00 BP 108/70 06/17/18 17:00 Pulse Ox 97 06/17/18 17:00 Intake & Output 06/16/18 06/17/18 06/17/18 18:59 06:59 18:59 Intake Total 1928.800 481.424 168.6 Output Total 631 332 3051 Balance 1478.800 31.424 -4021.4 Weight 85.4 kg Intake: IV 490 60 168.6 CO/CI 40 Lactated Ringers 1,000 ml 50 @ 50 mls/hr IV .Q20H [facility] Rx#:[id number] Milrinone-D5w Pmx 20 mg 5.1 In Dextrose/Water 1 100ml .bag @ Per Protocol IV . Q0M [facility] Rx#:[id number] Nitroglycerin-D5w Pmx 50 1.5 mg In Dextrose/Water 1 250ml.bag @ 5 MCG/MIN 1.5 mls/hr IV .Q24H [facility] Rx#: [id number] Pressure Bag 9 Sodium Chloride 0.9% 500 240 60 ml 500 ml @ 20 mls/hr IV .Q24H [facility] Rx#:[id number] Intake, IV Titration 118.800 121.424 Amount Heparin Sod,Pork in 0.45% 86.150 121.424 NaCl 25,000 unit In 0.45 % NaCl 1 250ml.bag @ 11. 601 UNITS/KG/HR 10 mls/hr IV .Q24H [facility] Rx#: [id number] Nitroglycerin-D5w Pmx 50 32.65 mg In Dextrose/Water 1 250ml.bag @ Titrate IV . Q0M [facility] Rx#:[id number] Oral 1320 300 Output: Chest Tube Drainage 360 Left 210 Mediastinal 85 Right 65 Urine 450 450 830 Estimated Blood Loss 3000 Other: # Voids 1 1 # Bowel Movements 1 1 ABP, PAP, CO, CI - Last Documented Arterial Blood Pressure 116/61 Pulmonary Artery Pressure 30/18 Cardiac Output 6 Cardiac Index 3 - Exam Patient is currently intubated on a mechanical ventilator was sedated, comfortable. Head exam was generally normal. There was no scleral icterus or corneal arcus. Mucous membranes were moist. Neck was supple and without jugular venous distension, thyromegaly, or carotid bruits. Carotids were easily palpable bilaterally. There was no adenopathy. The patient has a right IJ Woolwich-Bony catheter in place. Lungs sounds are diminished bilaterally otherwise clear. Vessels are equal and symmetrical. Chest tubes are all in place. Sternum stable clean and intact. Cardiac exam revealed the PMI to be normally situated and sized. The rhythm was regular and no extrasystoles were noted during several minutes of auscultation. The first and second heart sounds were normal and physiologic splitting of the second heart sound was noted. There were no murmurs, rubs, clicks, or gallops. Abdominal exam revealed normal bowel sounds. The abdomen was soft, non-tender, and without masses, organomegaly, or appreciable enlargement of the abdominal aorta. Examination of the extremities revealed easily palpable radial, femoral and pedal pulses. There was no cyanosis, clubbing or edema. Surgical wound site at all dry clean and intact. Examination of the skin revealed no evidence of significant rashes, suspicious appearing nevi or other concerning lesions. Neurologically the patient is sedated for now and if he was on Levaquin and reactive to light around 3 mm in size. No nystagmus. Remains sedated. - Labs CBC & Chem 7: 06/17/18 16:51 06/17/18 16:51 Labs: Abnormal Lab Results - Last 24 Hours (Table) 06/16/18 06/16/18 06/17/18 Range/Units 04:36 21:52 04:30 RBC (4.30-5.90) m/uL Hgb (13.0-17.5) gm/dL Hct (39.0-53.0) % Plt Count (150-450) k/uL Lymphocytes # (1.0-4.8) k/uL APTT 37.1 H 103.0 H* (22.0-30.0) sec Fibrinogen (200-500) mg/dL ABG pH (7.35-7.45) ABG pCO2 (35-45) mmHg ABG pO2 (83-108) mmHg ABG Total CO2 (19-24) mmol/L ABG O2 Saturation (94-97) % ABG Hematocrit (34.0-46.0) % ABG Potassium (3.4-4.5) mmol/L ABG Ionized Calcium (4.5-5.3) mg/dL ABG Glucose (75-99) mg/dL ABG Lactic Acid (0.5-1.6) mmol/L Hemoglobin (13.0-17.5) gm/dL Chloride (98-107) mmol/L Glucose (74-99) mg/dL POC Glucose (mg/dL) (75-99) mg/dL Calcium (8.4-10.2) mg/dL Magnesium (1.6-2.3) mg/dL AST (17-59) U/L Alkaline Phosphatase (38-126) U/L Total Protein (6.3-8.2) g/dL Albumin (3.5-5.0) g/dL Arterial Blood Potassium (3.4-4.5) mmol/L Arterial Blood Glucose (75-99) mg/dL Crossmatch See Detail 06/17/18 06/17/18 06/17/18 Range/Units 08:39 10:56 11:49 RBC (4.30-5.90) m/uL Hgb (13.0-17.5) gm/dL Hct (39.0-53.0) % Plt Count (150-450) k/uL Lymphocytes # (1.0-4.8) k/uL APTT (22.0-30.0) sec Fibrinogen (200-500) mg/dL ABG pH (7.35-7.45) ABG pCO2 (35-45) mmHg ABG pO2 132 H 166 H 398 H (83-108) mmHg ABG Total CO2 26 H 25 H (19-24) mmol/L ABG O2 Saturation 99.4 H 99.6 H 100.0 H (94-97) % ABG Hematocrit 27 L (34.0-46.0) % ABG Potassium (3.4-4.5) mmol/L ABG Ionized Calcium 4.4 L 3.8 L (4.5-5.3) mg/dL ABG Glucose (75-99) mg/dL ABG Lactic Acid (0.5-1.6) mmol/L Hemoglobin 12.6 L 11.3 L 8.9 L (13.0-17.5) gm/dL Chloride (98-107) mmol/L Glucose (74-99) mg/dL POC Glucose (mg/dL) (75-99) mg/dL Calcium (8.4-10.2) mg/dL Magnesium (1.6-2.3) mg/dL AST (17-59) U/L Alkaline Phosphatase (38-126) U/L Total Protein (6.3-8.2) g/dL Albumin (3.5-5.0) g/dL Arterial Blood Potassium (3.4-4.5) mmol/L Arterial Blood Glucose (75-99) mg/dL Crossmatch 06/17/18 06/17/18 06/17/18 Range/Units 12:57 13:42 14:18 RBC (4.30-5.90) m/uL Hgb (13.0-17.5) gm/dL Hct (39.0-53.0) % Plt Count (150-450) k/uL Lymphocytes # (1.0-4.8) k/uL APTT (22.0-30.0) sec Fibrinogen (200-500) mg/dL ABG pH 7.33 L 7.31 L (7.35-7.45) ABG pCO2 46 H (35-45) mmHg ABG pO2 379 H 262 H 218 H (83-108) mmHg ABG Total CO2 25 H 25 H (19-24) mmol/L ABG O2 Saturation 100.0 H 100.0 H 99.9 H (94-97) % ABG Hematocrit 25 L 25 L 25 L (34.0-46.0) % ABG Potassium 4.7 H 4.9 H (3.4-4.5) mmol/L ABG Ionized Calcium 4.1 L 4.1 L 4.1 L (4.5-5.3) mg/dL ABG Glucose 199 H 195 H 197 H (75-99) mg/dL ABG Lactic Acid 1.8 H (0.5-1.6) mmol/L Hemoglobin 8.2 L 8.2 L 8.0 L (13.0-17.5) gm/dL Chloride (98-107) mmol/L Glucose (74-99) mg/dL POC Glucose (mg/dL) (75-99) mg/dL Calcium (8.4-10.2) mg/dL Magnesium (1.6-2.3) mg/dL AST (17-59) U/L Alkaline Phosphatase (38-126) U/L Total Protein (6.3-8.2) g/dL Albumin (3.5-5.0) g/dL Arterial Blood Potassium 4.7 H 4.9 H (3.4-4.5) mmol/L Arterial Blood Glucose 199 H 195 H 197 H (75-99) mg/dL Crossmatch 06/17/18 06/17/18 06/17/18 Range/Units 15:02 15:59 16:51 RBC 3.29 L (4.30-5.90) m/uL Hgb 10.2 L D (13.0-17.5) gm/dL Hct 30.2 L (39.0-53.0) % Plt Count 92 L D (150-450) k/uL Lymphocytes # 0.9 L (1.0-4.8) k/uL APTT (22.0-30.0) sec Fibrinogen (200-500) mg/dL ABG pH 7.30 L (7.35-7.45) ABG pCO2 46 H (35-45) mmHg ABG pO2 181 H 69 L (83-108) mmHg ABG Total CO2 25 H (19-24) mmol/L ABG O2 Saturation 99.6 H (94-97) % ABG Hematocrit 24 L 29 L (34.0-46.0) % ABG Potassium (3.4-4.5) mmol/L ABG Ionized Calcium 4.0 L 4.1 L (4.5-5.3) mg/dL ABG Glucose 187 H 146 H (75-99) mg/dL ABG Lactic Acid 2.9 H* 3.1 H* (0.5-1.6) mmol/L Hemoglobin 7.8 L 9.4 L (13.0-17.5) gm/dL Chloride (98-107) mmol/L Glucose (74-99) mg/dL POC Glucose (mg/dL) (75-99) mg/dL Calcium (8.4-10.2) mg/dL Magnesium (1.6-2.3) mg/dL AST (17-59) U/L Alkaline Phosphatase (38-126) U/L Total Protein (6.3-8.2) g/dL Albumin (3.5-5.0) g/dL Arterial Blood Potassium (3.4-4.5) mmol/L Arterial Blood Glucose 187 H 146 H (75-99) mg/dL Crossmatch 06/17/18 06/17/18 06/17/18 Range/Units 16:51 16:51 16:53 RBC (4.30-5.90) m/uL Hgb (13.0-17.5) gm/dL Hct (39.0-53.0) % Plt Count (150-450) k/uL Lymphocytes # (1.0-4.8) k/uL APTT (22.0-30.0) sec Fibrinogen 180 L (200-500) mg/dL ABG pH (7.35-7.45) ABG pCO2 (35-45) mmHg ABG pO2 (83-108) mmHg ABG Total CO2 (19-24) mmol/L ABG O2 Saturation (94-97) % ABG Hematocrit (34.0-46.0) % ABG Potassium (3.4-4.5) mmol/L ABG Ionized Calcium (4.5-5.3) mg/dL ABG Glucose (75-99) mg/dL ABG Lactic Acid (0.5-1.6) mmol/L Hemoglobin (13.0-17.5) gm/dL Chloride 110 H (98-107) mmol/L Glucose 114 H (74-99) mg/dL POC Glucose (mg/dL) 118 H (75-99) mg/dL Calcium 7.5 L (8.4-10.2) mg/dL Magnesium 2.8 H (1.6-2.3) mg/dL AST 73 H (17-59) U/L Alkaline Phosphatase 30 L (38-126) U/L Total Protein 4.3 L (6.3-8.2) g/dL Albumin 2.6 L (3.5-5.0) g/dL Arterial Blood Potassium (3.4-4.5) mmol/L Arterial Blood Glucose (75-99) mg/dL Crossmatch 06/17/18 Range/Units 17:07 RBC (4.30-5.90) m/uL Hgb (13.0-17.5) gm/dL Hct (39.0-53.0) % Plt Count (150-450) k/uL Lymphocytes # (1.0-4.8) k/uL APTT (22.0-30.0) sec Fibrinogen (200-500) mg/dL ABG pH 7.34 L (7.35-7.45) ABG pCO2 47 H (35-45) mmHg ABG pO2 173 H (83-108) mmHg ABG Total CO2 27 H (19-24) mmol/L ABG O2 Saturation 99.1 H (94-97) % ABG Hematocrit (34.0-46.0) % ABG Potassium (3.4-4.5) mmol/L ABG Ionized Calcium (4.5-5.3) mg/dL ABG Glucose (75-99) mg/dL ABG Lactic Acid (0.5-1.6) mmol/L Hemoglobin (13.0-17.5) gm/dL Chloride (98-107) mmol/L Glucose (74-99) mg/dL POC Glucose (mg/dL) (75-99) mg/dL Calcium (8.4-10.2) mg/dL Magnesium (1.6-2.3) mg/dL AST (17-59) U/L Alkaline Phosphatase (38-126) U/L Total Protein (6.3-8.2) g/dL Albumin (3.5-5.0) g/dL Arterial Blood Potassium (3.4-4.5) mmol/L Arterial Blood Glucose (75-99) mg/dL Crossmatch Microbiology - Last 24 Hours (Table) 06/15/18 21:00 Nasal Screen MRSA/MSSA - Final Nasal Swab 06/15/18 18:43 Urine Culture - Final Urine,Catheterized Assessment and Plan Plan: Assessment 1 triple-vessel coronary artery disease and the patient is status post non- STEMI. The patient underwent quadruple bypass surgery and a mitral valve rep air. Patient is postop day #0. The patient is hemodynamic is stable. The patient is on Primacor at 0.2 g per KG per minute. The patient is hemodynamically stable with a cardiac index of 2.8 and adequate pulmonary artery pressures. 2 CHF with systolic heart failure ejection fraction of 35-40% based on a preop echocardiogram 3 mitral valve regurgitation, +3 preop 4 acute hypoxic respiratory failure, post thoracotomy and bypass surgery and mitral valve repair. The patient is currently intubated on a mechanical ventilator 5 hyperlipidemia Plan Obtain postop blood work. The necessity ventilator changes were done. Increased respiratory rate of 22 and switch this patient for an assist-control mode volume cycle with a volume of 500 and wean down the FiO2 to maintain a saturation above 90%. Gradually wean off the sedation as the patient is being weaned off the mechanical ventilator and assess the readiness to wean. I anticipate extubation within next few hours. Meanwhile, the patient be kept in ICU. Monitor hemodynamics. Monitor blood gases. Monitor upper from the chest tube which is minimal at this point in time. No evidence of any air leak. Chest x-ray was reviewed. Continue Primacor for now. We'll continue to follow.
[2018-06-17 17:58] LABS: Glucose,Whole Blood 104 mg/dL (75-99)
[2018-06-17] MEDS: ACETAMINOPHEN IV (For NPO) 1,000 MG in EMPTY BAG 1 BAG IVPB SCH ×2 (18:01→23:28)
[2018-06-17] MEDS: ALBUMIN HUMAN 5% 250 ML in EMPTY BAG 1 BAG IVPB PRN ×3 (18:34→22:50)
[2018-06-17 19:00] LABS: Glucose,Whole Blood 101 mg/dL (75-99)
--- NOTE | 2018-06-17 19:55 | P.PN ---
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 , ocmplaining from two months of chest pain , that is central , pt states sometimes his chest pain starts at his shoulder blade before it radiated to his chest and his armpit, it varies in severity , last night it was about 8/10 howver it is better controlled with pain medication down to 0-1/10 , he has very mild dyspnea , and with some cough which was more severe yesterday and that what made him go and visit his doctor , pt is admitted to the icu anticipating cardiac cath possibly tomorrow, he was given asprin , statin and was started on heparin drip 06/15/2018 Patient is doing well today with no chest pain or dyspnea. He has some cough but it is dry with no phlegm patient has been evaluated by cardiology team for unstable angina, and recommended to continue with aspirin, metoprolol and statin. And echocardiogram. Vitals are stable. looks unremarkable. Patient was already started on heparin drip. 06/16/2018 Patient's with no much complaint today. He has cardiac cath yesterday which shows severe triple-vessel disease and plan for cardiac bypass grafting, his been evaluated by cardiothoracic surgeon. Venous mapping is undergoing. 06/17/2018 pt underwent coronary artery bypass grafting and mitral valve repair, post op day #0. vitals are stable, labs are reviewed , hemoglobin is 10.2m post op he is intubated and mechanically ventilated, pt is been followed by pulmonary/critical care team and he remains in ICU for now Objective - Vital Signs Vital signs: Vital Signs Temp 98.8 F 06/17/18 18:00 Pulse 92 06/17/18 19:30 Resp 24 06/17/18 19:30 BP 102/65 06/17/18 19:15 Pulse Ox 98 06/17/18 19:30 Intake & Output 06/17/18 06/17/18 06/18/18 06:59 18:59 06:59 Intake Total 481.424 374.2 359.867 Output Total 450 4725 105 Balance 31.424 -4350.8 254.867 Weight 85.4 kg Intake: IV 60 374.2 355.6 ACETAMINOPHEN IV (For NPO 100 ) 1,000 mg In Empty Bag 1 bag @ 400 mls/hr IVPB Q6HR [facility] Rx#:[id number] Albumin Human 5% 250 ml 250 In Empty Bag 1 bag @ 250 mls/hr IVPB Q1HR PRN Rx#: [id number] CO/CI 80 40 Lactated Ringers 1,000 ml 100 50 @ 50 mls/hr IV .Q20H [facility] Rx#:[id number] Milrinone-D5w Pmx 20 mg 10.2 5.1 In Dextrose/Water 1 100ml .bag @ Per Protocol IV . Q0M [facility] Rx#:[id number] Nitroglycerin-D5w Pmx 50 3.0 1.5 mg In Dextrose/Water 1 250ml.bag @ 5 MCG/MIN 1.5 mls/hr IV .Q24H [facility] Rx#: [id number] Pressure Bag 18 9 Sodium Chloride 0.9% 500 60 ml 500 ml @ 20 mls/hr IV .Q24H [facility] Rx#:[id number] Intake, IV Titration 121.424 4.267 Amount Clevidipine Butyrate 25 4.267 mg In Empty Bag 1 bag @ 1 MG/HR 2 mls/hr IV .Q24H [facility] Rx#:[id number] Heparin Sod,Pork in 0.45% 121.424 NaCl 25,000 unit In 0.45 % NaCl 1 250ml.bag @ 11. 601 UNITS/KG/HR 10 mls/hr IV .Q24H [facility] Rx#: [id number] Oral 300 Output: Chest Tube Drainage 445 45 Left 280 20 Mediastinal 95 25 Right 70 0 Urine 450 1280 60 Estimated Blood Loss 3000 Other: # Voids 1 # Bowel Movements 1 ABP, PAP, CO, CI - Last Documented Arterial Blood Pressure 112/49 Pulmonary Artery Pressure 35/21 Cardiac Output 5.3 Cardiac Index 2.7 - Exam -GENERAL: The patient is intubated and mechanically ventilated, HEENT: Pupils are round and equally reacting to light. EOMI. No scleral icterus. No conjunctival pallor. Normocephalic, atraumatic. No pharyngeal erythema. No thyromegaly. CARDIOVASCULAR: S1 and S2 present. No murmurs, rubs, or gallops. PULMONARY: Chest is clear to auscultation, no wheezing or crackles. ABDOMEN: Soft, nontender, nondistended, normoactive bowel sounds. No palpable organomegaly. MUSCULOSKELETAL: No joint swelling or deformity. EXTREMITIES: No cyanosis, clubbing, or pedal edema. NEUROLOGICAL: Gross neurological examination did not reveal any focal deficits. SKIN: No rashes. - Labs CBC & Chem 7: 06/17/18 16:51 06/17/18 16:51 Labs: Abnormal Lab Results - Last 24 Hours (Table) 06/16/18 06/16/18 06/17/18 Range/Units 04:36 21:52 04:30 RBC (4.30-5.90) m/uL Hgb (13.0-17.5) gm/dL Hct (39.0-53.0) % Plt Count (150-450) k/uL Lymphocytes # (1.0-4.8) k/uL APTT 37.1 H 103.0 H* (22.0-30.0) sec Fibrinogen (200-500) mg/dL ABG pH (7.35-7.45) ABG pCO2 (35-45) mmHg ABG pO2 (83-108) mmHg ABG Total CO2 (19-24) mmol/L ABG O2 Saturation (94-97) % ABG Hematocrit (34.0-46.0) % ABG Potassium (3.4-4.5) mmol/L ABG Ionized Calcium (4.5-5.3) mg/dL ABG Glucose (75-99) mg/dL ABG Lactic Acid (0.5-1.6) mmol/L Hemoglobin (13.0-17.5) gm/dL Chloride (98-107) mmol/L Glucose (74-99) mg/dL POC Glucose (mg/dL) (75-99) mg/dL Calcium (8.4-10.2) mg/dL Magnesium (1.6-2.3) mg/dL AST (17-59) U/L Alkaline Phosphatase (38-126) U/L Total Protein (6.3-8.2) g/dL Albumin (3.5-5.0) g/dL Arterial Blood Potassium (3.4-4.5) mmol/L Arterial Blood Glucose (75-99) mg/dL Crossmatch See Detail 06/17/18 06/17/18 06/17/18 Range/Units 08:39 10:56 11:49 RBC (4.30-5.90) m/uL Hgb (13.0-17.5) gm/dL Hct (39.0-53.0) % Plt Count (150-450) k/uL Lymphocytes # (1.0-4.8) k/uL APTT (22.0-30.0) sec Fibrinogen (200-500) mg/dL ABG pH (7.35-7.45) ABG pCO2 (35-45) mmHg ABG pO2 132 H 166 H 398 H (83-108) mmHg ABG Total CO2 26 H 25 H (19-24) mmol/L ABG O2 Saturation 99.4 H 99.6 H 100.0 H (94-97) % ABG Hematocrit 27 L (34.0-46.0) % ABG Potassium (3.4-4.5) mmol/L ABG Ionized Calcium 4.4 L 3.8 L (4.5-5.3) mg/dL ABG Glucose (75-99) mg/dL ABG Lactic Acid (0.5-1.6) mmol/L Hemoglobin 12.6 L 11.3 L 8.9 L (13.0-17.5) gm/dL Chloride (98-107) mmol/L Glucose (74-99) mg/dL POC Glucose (mg/dL) (75-99) mg/dL Calcium (8.4-10.2) mg/dL Magnesium (1.6-2.3) mg/dL AST (17-59) U/L Alkaline Phosphatase (38-126) U/L Total Protein (6.3-8.2) g/dL Albumin (3.5-5.0) g/dL Arterial Blood Potassium (3.4-4.5) mmol/L Arterial Blood Glucose (75-99) mg/dL Crossmatch 06/17/18 06/17/18 06/17/18 Range/Units 12:57 13:42 14:18 RBC (4.30-5.90) m/uL Hgb (13.0-17.5) gm/dL Hct (39.0-53.0) % Plt Count (150-450) k/uL Lymphocytes # (1.0-4.8) k/uL APTT (22.0-30.0) sec Fibrinogen (200-500) mg/dL ABG pH 7.33 L 7.31 L (7.35-7.45) ABG pCO2 46 H (35-45) mmHg ABG pO2 379 H 262 H 218 H (83-108) mmHg ABG Total CO2 25 H 25 H (19-24) mmol/L ABG O2 Saturation 100.0 H 100.0 H 99.9 H (94-97) % ABG Hematocrit 25 L 25 L 25 L (34.0-46.0) % ABG Potassium 4.7 H 4.9 H (3.4-4.5) mmol/L ABG Ionized Calcium 4.1 L 4.1 L 4.1 L (4.5-5.3) mg/dL ABG Glucose 199 H 195 H 197 H (75-99) mg/dL ABG Lactic Acid 1.8 H (0.5-1.6) mmol/L Hemoglobin 8.2 L 8.2 L 8.0 L (13.0-17.5) gm/dL Chloride (98-107) mmol/L Glucose (74-99) mg/dL POC Glucose (mg/dL) (75-99) mg/dL Calcium (8.4-10.2) mg/dL Magnesium (1.6-2.3) mg/dL AST (17-59) U/L Alkaline Phosphatase (38-126) U/L Total Protein (6.3-8.2) g/dL Albumin (3.5-5.0) g/dL Arterial Blood Potassium 4.7 H 4.9 H (3.4-4.5) mmol/L Arterial Blood Glucose 199 H 195 H 197 H (75-99) mg/dL Crossmatch 06/17/18 06/17/18 06/17/18 Range/Units 15:02 15:59 16:51 RBC 3.29 L (4.30-5.90) m/uL Hgb 10.2 L D (13.0-17.5) gm/dL Hct 30.2 L (39.0-53.0) % Plt Count 92 L D (150-450) k/uL Lymphocytes # 0.9 L (1.0-4.8) k/uL APTT (22.0-30.0) sec Fibrinogen (200-500) mg/dL ABG pH 7.30 L (7.35-7.45) ABG pCO2 46 H (35-45) mmHg ABG pO2 181 H 69 L (83-108) mmHg ABG Total CO2 25 H (19-24) mmol/L ABG O2 Saturation 99.6 H (94-97) % ABG Hematocrit 24 L 29 L (34.0-46.0) % ABG Potassium (3.4-4.5) mmol/L ABG Ionized Calcium 4.0 L 4.1 L (4.5-5.3) mg/dL ABG Glucose 187 H 146 H (75-99) mg/dL ABG Lactic Acid 2.9 H* 3.1 H* (0.5-1.6) mmol/L Hemoglobin 7.8 L 9.4 L (13.0-17.5) gm/dL Chloride (98-107) mmol/L Glucose (74-99) mg/dL POC Glucose (mg/dL) (75-99) mg/dL Calcium (8.4-10.2) mg/dL Magnesium (1.6-2.3) mg/dL AST (17-59) U/L Alkaline Phosphatase (38-126) U/L Total Protein (6.3-8.2) g/dL Albumin (3.5-5.0) g/dL Arterial Blood Potassium (3.4-4.5) mmol/L Arterial Blood Glucose 187 H 146 H (75-99) mg/dL Crossmatch 06/17/18 06/17/18 06/17/18 Range/Units 16:51 16:51 16:53 RBC (4.30-5.90) m/uL Hgb (13.0-17.5) gm/dL Hct (39.0-53.0) % Plt Count (150-450) k/uL Lymphocytes # (1.0-4.8) k/uL APTT (22.0-30.0) sec Fibrinogen 180 L (200-500) mg/dL ABG pH (7.35-7.45) ABG pCO2 (35-45) mmHg ABG pO2 (83-108) mmHg ABG Total CO2 (19-24) mmol/L ABG O2 Saturation (94-97) % ABG Hematocrit (34.0-46.0) % ABG Potassium (3.4-4.5) mmol/L ABG Ionized Calcium (4.5-5.3) mg/dL ABG Glucose (75-99) mg/dL ABG Lactic Acid (0.5-1.6) mmol/L Hemoglobin (13.0-17.5) gm/dL Chloride 110 H (98-107) mmol/L Glucose 114 H (74-99) mg/dL POC Glucose (mg/dL) 118 H (75-99) mg/dL Calcium 7.5 L (8.4-10.2) mg/dL Magnesium 2.8 H (1.6-2.3) mg/dL AST 73 H (17-59) U/L Alkaline Phosphatase 30 L (38-126) U/L Total Protein 4.3 L (6.3-8.2) g/dL Albumin 2.6 L (3.5-5.0) g/dL Arterial Blood Potassium (3.4-4.5) mmol/L Arterial Blood Glucose (75-99) mg/dL Crossmatch 06/17/18 06/17/18 06/17/18 Range/Units 17:07 17:57 18:59 RBC (4.30-5.90) m/uL Hgb (13.0-17.5) gm/dL Hct (39.0-53.0) % Plt Count (150-450) k/uL Lymphocytes # (1.0-4.8) k/uL APTT (22.0-30.0) sec Fibrinogen (200-500) mg/dL ABG pH 7.34 L (7.35-7.45) ABG pCO2 47 H (35-45) mmHg ABG pO2 173 H (83-108) mmHg ABG Total CO2 27 H (19-24) mmol/L ABG O2 Saturation 99.1 H (94-97) % ABG Hematocrit (34.0-46.0) % ABG Potassium (3.4-4.5) mmol/L ABG Ionized Calcium (4.5-5.3) mg/dL ABG Glucose (75-99) mg/dL ABG Lactic Acid (0.5-1.6) mmol/L Hemoglobin (13.0-17.5) gm/dL Chloride (98-107) mmol/L Glucose (74-99) mg/dL POC Glucose (mg/dL) 104 H 101 H (75-99) mg/dL Calcium (8.4-10.2) mg/dL Magnesium (1.6-2.3) mg/dL AST (17-59) U/L Alkaline Phosphatase (38-126) U/L Total Protein (6.3-8.2) g/dL Albumin (3.5-5.0) g/dL Arterial Blood Potassium (3.4-4.5) mmol/L Arterial Blood Glucose (75-99) mg/dL Crossmatch Microbiology - Last 24 Hours (Table) 06/15/18 21:00 Nasal Screen MRSA/MSSA - Final Nasal Swab 06/15/18 18:43 Urine Culture - Final Urine,Catheterized Assessment and Plan Assessment: severe triple coronary artery disease , s/p CABG and mitral valve repair hypertensin Hyperlipidemia Plan: this is a pleasant 67 yo M who presents for triple coronary art disease ,he is status CABG , he is been followed closely by critical and pulmonary teams Labs and medication were reviewed.. Continue same treatment. Continue with symptomatic treatment. Resume home medication. Monitor lytes and vitals. DVT and GI prophylaxis. Further recommendations of the clinical course of the patient DVT prophylaxis: heparin GI Prophylaxis: Ppi Prognosis is guarded
[2018-06-17 20:00] LABS: Glucose,Whole Blood 142 mg/dL (75-99)
[2018-06-17] MEDS ORDERED: IPRATROPIUM-ALBUTEROL 3 ML NEB INHALATION SCH (20:00)
[2018-06-17] MEDS: CLOPIDOGREL 75 MG TAB PO SCH (20:03)
[2018-06-17 20:20] LABS: Basophils % (A) 0 %; Eosinophils % (A) 0 %; HCT 27.3 % (39.0-53.0); HGB 9.3 gm/dL (13.0-17.5); Lymphocytes # (A) 0.8 k/uL (1.0-4.8); Lymphocytes % (A) 9 %; MCH 31.2 pg (25.0-35.0); MCHC 34.1 g/dL (31.0-37.0); MCV 91.6 fL (80.0-100.0); Mean Platelet Volume 8.8; Monocytes # (A) 0.5 k/uL (0-1.0); Monocytes % (A) 6 %; Neutrophils # (A) 7.3 k/uL (1.3-7.7); Neutrophils % (A) 83 %; Platelet Count 123 k/uL (150-450); RBC 2.98 m/uL (4.30-5.90); RDW 14.2 % (11.5-15.5); WBC 8.8 k/uL (3.8-10.6)
[2018-06-17] MEDS: ceFAZolin IN SWFI 2 GM/20 ML SYRINGE IVP SCH (20:23)
[2018-06-17] MEDS: MORPHINE SULFATE 2 MG/ML SYRINGE IVP PRN (20:35)
[2018-06-17] MEDS ORDERED: METOPROLOL TARTRATE 12.5 MG TAB PO SCH (21:00)
[2018-06-17 21:16] LABS: Glucose,Whole Blood 171 mg/dL (75-99)
[2018-06-17] MEDS: INSULIN REGULAR 100 UNIT in SODIUM CHLORIDE 0.9% 100 ML IV SCH (21:17)
[2018-06-17] MEDS: DEXMEDETOMIDINE/0.9% NACL(PMX) 400 MCG in EMPTY BAG 1 BAG IV SCH (21:35)
[2018-06-17] MEDS: IPRATROPIUM-ALBUTEROL 3 ML NEB INHALATION SCH (21:37)
[2018-06-17 22:29] LABS: Glucose,Whole Blood 160 mg/dL (75-99)
[2018-06-17] MEDS: IPRATROPIUM-ALBUTEROL 3 ML NEB INHALATION PRN (22:54)
[2018-06-17 23:23] LABS: Glucose,Whole Blood 166 mg/dL (75-99)
[2018-06-18 00:01] LABS: Glucose,Whole Blood 165 mg/dL (75-99)
[2018-06-18 00:06] LABS: Basophils % (A) 0 %; Eosinophils % (A) 0 %; HCT 22.8 % (39.0-53.0); Lymphocytes # (A) 0.8 k/uL (1.0-4.8); Lymphocytes % (A) 10 %; MCH 30.9 pg (25.0-35.0); MCHC 33.9 g/dL (31.0-37.0); MCV 91.3 fL (80.0-100.0); Mean Platelet Volume 9.2; Monocytes # (A) 0.6 k/uL (0-1.0); Monocytes % (A) 7 %; Neutrophils # (A) 6.4 k/uL (1.3-7.7); Neutrophils % (A) 80 %; Platelet Count 120 k/uL (150-450)
[2018-06-18 00:09] LABS: HGB 7.7 gm/dL (13.0-17.5)
[2018-06-18] MEDS: HEPARIN SODIUM,PORCINE 5,000 UNIT/ML 1 ML VIAL SQ SCH ×3 (00:42→17:38)
[2018-06-18 01:00] LABS: Glucose,Whole Blood 169 mg/dL (75-99)
[2018-06-18 02:00] LABS: Glucose,Whole Blood 155 mg/dL (75-99)
[2018-06-18 02:16] LABS: HCT 23.3 % (39.0-53.0); HGB 7.7 gm/dL (13.0-17.5); MCH 30.1 pg (25.0-35.0); MCHC 32.9 g/dL (31.0-37.0); MCV 91.5 fL (80.0-100.0); Mean Platelet Volume 8.7; Platelet Count 122 k/uL (150-450); RBC 2.54 m/uL (4.30-5.90); RDW 14.2 % (11.5-15.5); WBC 8.3 k/uL (3.8-10.6)
[2018-06-18 02:44] LABS: INR 1.1 (<1.2); Partial Thromboplastin Time 35.8 sec (22.0-30.0); Prothrombin Time 11.6 sec (9.0-12.0)
[2018-06-18 03:03] LABS: Glucose,Whole Blood 135 mg/dL (75-99)
[2018-06-18] MEDS: IPRATROPIUM-ALBUTEROL 3 ML NEB INHALATION PRN (03:11)
[2018-06-18] MEDS: PROPOFOL 1,000 MG in EMPTY BAG 1 BAG IV SCH (03:33)
[2018-06-18] MEDS: DEXMEDETOMIDINE/0.9% NACL(PMX) 400 MCG in EMPTY BAG 1 BAG IV SCH (03:33)
[2018-06-18 03:59] LABS: Glucose,Whole Blood 131 mg/dL (75-99)
[2018-06-18] MEDS: ceFAZolin IN SWFI 2 GM/20 ML SYRINGE IVP SCH ×2 (04:16→12:17)
[2018-06-18 05:05] LABS: Glucose,Whole Blood 130 mg/dL (75-99)
[2018-06-18 05:06] LABS: ABG Base Excess -1.2 mmol/L; ABG HCO3 22 mmol/L (21-25); ABG Oxygen Saturation 98.3 % (94-97); ABG PCO2 31 mmHg (35-45); ABG PH 7.47 (7.35-7.45); ABG PO2 94 mmHg (83-108); ABG TCO2 23 mmol/L (19-24)
[2018-06-18] MEDS: NITROGLYCERIN-D5W PMX 50 MG in DEXTROSE/WATER 1 250ML.BAG IV SCH (05:16)
[2018-06-18 05:19] LABS: Basophils % (A) 0 %; Eosinophils % (A) 0 %; HCT 23.8 % (39.0-53.0); HGB 8.2 gm/dL (13.0-17.5); Lymphocytes # (A) 1.2 k/uL (1.0-4.8); Lymphocytes % (A) 12 %; MCH 31.3 pg (25.0-35.0); MCHC 34.4 g/dL (31.0-37.0); MCV 90.8 fL (80.0-100.0); Mean Platelet Volume 9.8; Monocytes # (A) 0.6 k/uL (0-1.0); Monocytes % (A) 6 %; Neutrophils # (A) 7.6 k/uL (1.3-7.7); Neutrophils % (A) 80 %; Platelet Count 135 k/uL (150-450); RBC 2.63 m/uL (4.30-5.90); RDW 14.3 % (11.5-15.5); WBC 9.5 k/uL (3.8-10.6)
[2018-06-18 05:32] LABS: Ionized Calcium 4.6 mg/dL (4.5-5.3)
[2018-06-18 05:45] LABS: Calcium 7.7 mg/dL (8.4-10.2); Magnesium 2.3 mg/dL (1.6-2.3); Potassium 4.6 mmol/L (3.5-5.1); Total Bilirubin 0.6 mg/dL (0.2-1.3); Total Protein 4.6 g/dL (6.3-8.2)
[2018-06-18 06:05] LABS: Glucose,Whole Blood 114 mg/dL (75-99)
--- NOTE | 2018-06-18 06:08 | XR ---
EXAMINATION TYPE: XR chest 1V portable DATE OF EXAM: 06/18/2018 HISTORY: Post Operative Cardiac Surgery. REFERENCE: Previous study dated 06/17/2018. FINDINGS: There has been a midline sternotomy. An NG tube is in place, unchanged in appearance. There is a [place]-Bony catheter in place. Its tip is in the right interlobar artery. Bilateral pleural drain s are in place. The heart is enlarged. There is bibasilar airspace disease. There are bilateral effusions. There has been little interval change in the appearance of the chest. IMPRESSION: CONTINUING POSTOPERATIVE CHANGE WITH LITTLE INTERVAL CHANGE.
[2018-06-18] MEDS: NOREPINEPHRINE 4 MG in SODIUM CHLORIDE 0.9% 250 ML IV SCH (06:29)
--- NOTE | 2018-06-18 06:41 | P.PN ---
Subjective Progress Note Date: 06/18/18 Principal diagnosis: Unstable angina This is a pleasant 67-year-old gentleman who sees Dr. VC Rodgers in the office as an outpatient who underwent yesterday heart catheterization for symptoms of unstable angina and was found to have severe triple-vessel CAD. Beside that he underwent transesophageal echocardiogram yesterday and that revealed severe MR. On follow-up with the patient today, June 182018, he did undergo coronary artery bypass grafting yesterday. He received STOKES into LAD, reverse SVG to PDA, reverse SVG to OM, and reverse SVG to PLV. Beside that he did undergo mitral valve repair with annuloplasty. He still intubated. Hemodynamically he is also unstable at this point. He is requiring levo fed as well as Primacor.. He has been making good urine. The hemoglobin is 8.2. The creatinine is within normal limits. He is on dual antiplatelet therapy with aspirin and statin as well as metoprolol. Objective - Vital Signs Vital signs: Vital Signs Temp 98.8 F 06/17/18 18:00 Pulse 59 L 06/18/18 06:00 Resp 22 06/18/18 06:00 BP 118/61 06/18/18 05:45 Pulse Ox 98 06/18/18 06:00 Intake & Output 06/17/18 06/17/18 06/18/18 06:59 18:59 06:59 Intake Total 481.424 374.2 1929.506 Output Total 450 4725 1687 Balance 31.424 -4350.8 242.506 Weight 85.4 kg 92.7 kg Intake: IV 60 374.2 1434.6 ACETAMINOPHEN IV (For NPO 100 100 ) 1,000 mg In Empty Bag 1 bag @ 400 mls/hr IVPB Q6HR [facility] Rx#:[id number] Albumin Human 5% 250 ml 250 In Empty Bag 1 bag @ 250 mls/hr IVPB Q1HR PRN Rx#: [id number] CO/CI 80 370 Lactated Ringers 1,000 ml 100 550 @ 50 mls/hr IV .Q20H [facility] Rx#:[id number] Milrinone-D5w Pmx 20 mg 10.2 55.1 In Dextrose/Water 1 100ml .bag @ Per Protocol IV . Q0M [facility] Rx#:[id number] Nitroglycerin-D5w Pmx 50 3.0 1.5 mg In Dextrose/Water 1 250ml.bag @ 5 MCG/MIN 1.5 mls/hr IV .Q24H [facility] Rx#: [id number] Pressure Bag 18 108 Sodium Chloride 0.9% 500 60 ml 500 ml @ 20 mls/hr IV .Q24H [facility] Rx#:[id number] Intake, IV Titration 121.424 494.906 Amount Clevidipine Butyrate 25 4.267 mg In Empty Bag 1 bag @ 1 MG/HR 2 mls/hr IV .Q24H [facility] Rx#:[id number] Dexmedetomidine/0.9% NaCl 63.694 (Pmx) 400 mcg In Empty Bag 1 bag @ Titrate IV . Q0M [facility] Rx#:[id number] Heparin Sod,Pork in 0.45% 121.424 NaCl 25,000 unit In 0.45 % NaCl 1 250ml.bag @ 11. 601 UNITS/KG/HR 10 mls/hr IV .Q24H [facility] Rx#: [id number] Insulin Regular 100 unit 34.767 In Sodium Chloride 0.9% 100 ml @ Titrate IV .Q0M [facility] Rx#:[id number] Norepinephrine 4 mg In 254.000 Sodium Chloride 0.9% 250 ml @ 0.02 MCG/KG/MIN 6. 507 mls/hr IV .Q24H [facility] Rx#:[id number] Propofol 1,000 mg In 138.178 Empty Bag 1 bag @ Titrate IV .Q0M [facility] Rx#: [id number] Oral 300 Output: Chest Tube Drainage 445 1102 Left 280 190 Mediastinal 95 171 Right 70 741 Drainage 30 Left Calf 30 Urine 450 1280 555 Estimated Blood Loss 3000 Other: Voiding Method Indwelling Catheter Indwelling Catheter # Voids 1 # Bowel Movements 1 ABP, PAP, CO, CI - Last Documented Arterial Blood Pressure 96/50 Pulmonary Artery Pressure 43/22 Cardiac Output 3.8 Cardiac Index 1.9 - Constitutional General appearance: Present: no acute distress - Respiratory Respiratory: bilateral: CTA - Cardiovascular Rhythm: regular Heart sounds: normal: S1, S2 - Labs CBC & Chem 7: 06/18/18 05:00 06/18/18 05:00 Labs: Abnormal Lab Results - Last 24 Hours (Table) 06/16/18 06/17/18 06/17/18 Range/Units 04:36 08:39 10:56 RBC (4.30-5.90) m/uL Hgb (13.0-17.5) gm/dL Hct (39.0-53.0) % Plt Count (150-450) k/uL Lymphocytes # (1.0-4.8) k/uL APTT (22.0-30.0) sec Fibrinogen (200-500) mg/dL ABG pH (7.35-7.45) ABG pCO2 (35-45) mmHg ABG pO2 132 H 166 H (83-108) mmHg ABG Total CO2 26 H 25 H (19-24) mmol/L ABG O2 Saturation 99.4 H 99.6 H (94-97) % ABG Hematocrit (34.0-46.0) % ABG Potassium (3.4-4.5) mmol/L ABG Ionized Calcium 4.4 L (4.5-5.3) mg/dL ABG Glucose (75-99) mg/dL ABG Lactic Acid (0.5-1.6) mmol/L Hemoglobin 12.6 L 11.3 L (13.0-17.5) gm/dL Chloride (98-107) mmol/L Glucose (74-99) mg/dL POC Glucose (mg/dL) (75-99) mg/dL Calcium (8.4-10.2) mg/dL Magnesium (1.6-2.3) mg/dL AST (17-59) U/L Alkaline Phosphatase (38-126) U/L Total Protein (6.3-8.2) g/dL Albumin (3.5-5.0) g/dL Arterial Blood Potassium (3.4-4.5) mmol/L Arterial Blood Glucose (75-99) mg/dL Crossmatch See Detail 06/17/18 06/17/18 06/17/18 Range/Units 11:49 12:57 13:42 RBC (4.30-5.90) m/uL Hgb (13.0-17.5) gm/dL Hct (39.0-53.0) % Plt Count (150-450) k/uL Lymphocytes # (1.0-4.8) k/uL APTT (22.0-30.0) sec Fibrinogen (200-500) mg/dL ABG pH 7.33 L (7.35-7.45) ABG pCO2 (35-45) mmHg ABG pO2 398 H 379 H 262 H (83-108) mmHg ABG Total CO2 25 H (19-24) mmol/L ABG O2 Saturation 100.0 H 100.0 H 100.0 H (94-97) % ABG Hematocrit 27 L 25 L 25 L (34.0-46.0) % ABG Potassium 4.7 H (3.4-4.5) mmol/L ABG Ionized Calcium 3.8 L 4.1 L 4.1 L (4.5-5.3) mg/dL ABG Glucose 199 H 195 H (75-99) mg/dL ABG Lactic Acid (0.5-1.6) mmol/L Hemoglobin 8.9 L 8.2 L 8.2 L (13.0-17.5) gm/dL Chloride (98-107) mmol/L Glucose (74-99) mg/dL POC Glucose (mg/dL) (75-99) mg/dL Calcium (8.4-10.2) mg/dL Magnesium (1.6-2.3) mg/dL AST (17-59) U/L Alkaline Phosphatase (38-126) U/L Total Protein (6.3-8.2) g/dL Albumin (3.5-5.0) g/dL Arterial Blood Potassium 4.7 H (3.4-4.5) mmol/L Arterial Blood Glucose 199 H 195 H (75-99) mg/dL Crossmatch 06/17/18 06/17/18 06/17/18 Range/Units 14:18 15:02 15:59 RBC (4.30-5.90) m/uL Hgb (13.0-17.5) gm/dL Hct (39.0-53.0) % Plt Count (150-450) k/uL Lymphocytes # (1.0-4.8) k/uL APTT (22.0-30.0) sec Fibrinogen (200-500) mg/dL ABG pH 7.31 L 7.30 L (7.35-7.45) ABG pCO2 46 H 46 H (35-45) mmHg ABG pO2 218 H 181 H 69 L (83-108) mmHg ABG Total CO2 25 H 25 H (19-24) mmol/L ABG O2 Saturation 99.9 H 99.6 H (94-97) % ABG Hematocrit 25 L 24 L 29 L (34.0-46.0) % ABG Potassium 4.9 H (3.4-4.5) mmol/L ABG Ionized Calcium 4.1 L 4.0 L 4.1 L (4.5-5.3) mg/dL ABG Glucose 197 H 187 H 146 H (75-99) mg/dL ABG Lactic Acid 1.8 H 2.9 H* 3.1 H* (0.5-1.6) mmol/L Hemoglobin 8.0 L 7.8 L 9.4 L (13.0-17.5) gm/dL Chloride (98-107) mmol/L Glucose (74-99) mg/dL POC Glucose (mg/dL) (75-99) mg/dL Calcium (8.4-10.2) mg/dL Magnesium (1.6-2.3) mg/dL AST (17-59) U/L Alkaline Phosphatase (38-126) U/L Total Protein (6.3-8.2) g/dL Albumin (3.5-5.0) g/dL Arterial Blood Potassium 4.9 H (3.4-4.5) mmol/L Arterial Blood Glucose 197 H 187 H 146 H (75-99) mg/dL Crossmatch 06/17/18 06/17/18 06/17/18 Range/Units 16:51 16:51 16:51 RBC 3.29 L (4.30-5.90) m/uL Hgb 10.2 L D (13.0-17.5) gm/dL Hct 30.2 L (39.0-53.0) % Plt Count 92 L D (150-450) k/uL Lymphocytes # 0.9 L (1.0-4.8) k/uL APTT (22.0-30.0) sec Fibrinogen 180 L (200-500) mg/dL ABG pH (7.35-7.45) ABG pCO2 (35-45) mmHg ABG pO2 (83-108) mmHg ABG Total CO2 (19-24) mmol/L ABG O2 Saturation (94-97) % ABG Hematocrit (34.0-46.0) % ABG Potassium (3.4-4.5) mmol/L ABG Ionized Calcium (4.5-5.3) mg/dL ABG Glucose (75-99) mg/dL ABG Lactic Acid (0.5-1.6) mmol/L Hemoglobin (13.0-17.5) gm/dL Chloride 110 H (98-107) mmol/L Glucose 114 H (74-99) mg/dL POC Glucose (mg/dL) (75-99) mg/dL Calcium 7.5 L (8.4-10.2) mg/dL Magnesium 2.8 H (1.6-2.3) mg/dL AST 73 H (17-59) U/L Alkaline Phosphatase 30 L (38-126) U/L Total Protein 4.3 L (6.3-8.2) g/dL Albumin 2.6 L (3.5-5.0) g/dL Arterial Blood Potassium (3.4-4.5) mmol/L Arterial Blood Glucose (75-99) mg/dL Crossmatch 06/17/18 06/17/18 06/17/18 Range/Units 16:53 17:07 17:57 RBC (4.30-5.90) m/uL Hgb (13.0-17.5) gm/dL Hct (39.0-53.0) % Plt Count (150-450) k/uL Lymphocytes # (1.0-4.8) k/uL APTT (22.0-30.0) sec Fibrinogen (200-500) mg/dL ABG pH 7.34 L (7.35-7.45) ABG pCO2 47 H (35-45) mmHg ABG pO2 173 H (83-108) mmHg ABG Total CO2 27 H (19-24) mmol/L ABG O2 Saturation 99.1 H (94-97) % ABG Hematocrit (34.0-46.0) % ABG Potassium (3.4-4.5) mmol/L ABG Ionized Calcium (4.5-5.3) mg/dL ABG Glucose (75-99) mg/dL ABG Lactic Acid (0.5-1.6) mmol/L Hemoglobin (13.0-17.5) gm/dL Chloride (98-107) mmol/L Glucose (74-99) mg/dL POC Glucose (mg/dL) 118 H 104 H (75-99) mg/dL Calcium (8.4-10.2) mg/dL Magnesium (1.6-2.3) mg/dL AST (17-59) U/L Alkaline Phosphatase (38-126) U/L Total Protein (6.3-8.2) g/dL Albumin (3.5-5.0) g/dL Arterial Blood Potassium (3.4-4.5) mmol/L Arterial Blood Glucose (75-99) mg/dL Crossmatch 06/17/18 06/17/18 06/17/18 Range/Units 18:59 19:50 19:59 RBC 2.98 L (4.30-5.90) m/uL Hgb 9.3 L (13.0-17.5) gm/dL Hct 27.3 L (39.0-53.0) % Plt Count 123 L (150-450) k/uL Lymphocytes # 0.8 L (1.0-4.8) k/uL APTT (22.0-30.0) sec Fibrinogen (200-500) mg/dL ABG pH (7.35-7.45) ABG pCO2 (35-45) mmHg ABG pO2 (83-108) mmHg ABG Total CO2 (19-24) mmol/L ABG O2 Saturation (94-97) % ABG Hematocrit (34.0-46.0) % ABG Potassium (3.4-4.5) mmol/L ABG Ionized Calcium (4.5-5.3) mg/dL ABG Glucose (75-99) mg/dL ABG Lactic Acid (0.5-1.6) mmol/L Hemoglobin (13.0-17.5) gm/dL Chloride (98-107) mmol/L Glucose (74-99) mg/dL POC Glucose (mg/dL) 101 H 142 H (75-99) mg/dL Calcium (8.4-10.2) mg/dL Magnesium (1.6-2.3) mg/dL AST (17-59) U/L Alkaline Phosphatase (38-126) U/L Total Protein (6.3-8.2) g/dL Albumin (3.5-5.0) g/dL Arterial Blood Potassium (3.4-4.5) mmol/L Arterial Blood Glucose (75-99) mg/dL Crossmatch 06/17/18 06/17/18 06/17/18 Range/Units 21:15 22:28 23:21 RBC (4.30-5.90) m/uL Hgb (13.0-17.5) gm/dL Hct (39.0-53.0) % Plt Count (150-450) k/uL Lymphocytes # (1.0-4.8) k/uL APTT (22.0-30.0) sec Fibrinogen (200-500) mg/dL ABG pH (7.35-7.45) ABG pCO2 (35-45) mmHg ABG pO2 (83-108) mmHg ABG Total CO2 (19-24) mmol/L ABG O2 Saturation (94-97) % ABG Hematocrit (34.0-46.0) % ABG Potassium (3.4-4.5) mmol/L ABG Ionized Calcium (4.5-5.3) mg/dL ABG Glucose (75-99) mg/dL ABG Lactic Acid (0.5-1.6) mmol/L Hemoglobin (13.0-17.5) gm/dL Chloride (98-107) mmol/L Glucose (74-99) mg/dL POC Glucose (mg/dL) 171 H 160 H 166 H (75-99) mg/dL Calcium (8.4-10.2) mg/dL Magnesium (1.6-2.3) mg/dL AST (17-59) U/L Alkaline Phosphatase (38-126) U/L Total Protein (6.3-8.2) g/dL Albumin (3.5-5.0) g/dL Arterial Blood Potassium (3.4-4.5) mmol/L Arterial Blood Glucose (75-99) mg/dL Crossmatch 06/17/18 06/17/18 06/18/18 Range/Units 23:58 23:59 00:58 RBC 2.50 L (4.30-5.90) m/uL Hgb 7.7 L D (13.0-17.5) gm/dL Hct 22.8 L (39.0-53.0) % Plt Count 120 L (150-450) k/uL Lymphocytes # 0.8 L (1.0-4.8) k/uL APTT (22.0-30.0) sec Fibrinogen (200-500) mg/dL ABG pH (7.35-7.45) ABG pCO2 (35-45) mmHg ABG pO2 (83-108) mmHg ABG Total CO2 (19-24) mmol/L ABG O2 Saturation (94-97) % ABG Hematocrit (34.0-46.0) % ABG Potassium (3.4-4.5) mmol/L ABG Ionized Calcium (4.5-5.3) mg/dL ABG Glucose (75-99) mg/dL ABG Lactic Acid (0.5-1.6) mmol/L Hemoglobin (13.0-17.5) gm/dL Chloride (98-107) mmol/L Glucose (74-99) mg/dL POC Glucose (mg/dL) 165 H 169 H (75-99) mg/dL Calcium (8.4-10.2) mg/dL Magnesium (1.6-2.3) mg/dL AST (17-59) U/L Alkaline Phosphatase (38-126) U/L Total Protein (6.3-8.2) g/dL Albumin (3.5-5.0) g/dL Arterial Blood Potassium (3.4-4.5) mmol/L Arterial Blood Glucose (75-99) mg/dL Crossmatch 06/18/18 06/18/18 06/18/18 Range/Units 01:55 01:55 01:58 RBC 2.54 L (4.30-5.90) m/uL Hgb 7.7 L (13.0-17.5) gm/dL Hct 23.3 L (39.0-53.0) % Plt Count 122 L (150-450) k/uL Lymphocytes # (1.0-4.8) k/uL APTT 35.8 H (22.0-30.0) sec Fibrinogen (200-500) mg/dL ABG pH (7.35-7.45) ABG pCO2 (35-45) mmHg ABG pO2 (83-108) mmHg ABG Total CO2 (19-24) mmol/L ABG O2 Saturation (94-97) % ABG Hematocrit (34.0-46.0) % ABG Potassium (3.4-4.5) mmol/L ABG Ionized Calcium (4.5-5.3) mg/dL ABG Glucose (75-99) mg/dL ABG Lactic Acid (0.5-1.6) mmol/L Hemoglobin (13.0-17.5) gm/dL Chloride (98-107) mmol/L Glucose (74-99) mg/dL POC Glucose (mg/dL) 155 H (75-99) mg/dL Calcium (8.4-10.2) mg/dL Magnesium (1.6-2.3) mg/dL AST (17-59) U/L Alkaline Phosphatase (38-126) U/L Total Protein (6.3-8.2) g/dL Albumin (3.5-5.0) g/dL Arterial Blood Potassium (3.4-4.5) mmol/L Arterial Blood Glucose (75-99) mg/dL Crossmatch 06/18/18 06/18/18 06/18/18 Range/Units 03:01 03:57 05:00 RBC 2.63 L (4.30-5.90) m/uL Hgb 8.2 L (13.0-17.5) gm/dL Hct 23.8 L (39.0-53.0) % Plt Count 135 L (150-450) k/uL Lymphocytes # (1.0-4.8) k/uL APTT (22.0-30.0) sec Fibrinogen (200-500) mg/dL ABG pH (7.35-7.45) ABG pCO2 (35-45) mmHg ABG pO2 (83-108) mmHg ABG Total CO2 (19-24) mmol/L ABG O2 Saturation (94-97) % ABG Hematocrit (34.0-46.0) % ABG Potassium (3.4-4.5) mmol/L ABG Ionized Calcium (4.5-5.3) mg/dL ABG Glucose (75-99) mg/dL ABG Lactic Acid (0.5-1.6) mmol/L Hemoglobin (13.0-17.5) gm/dL Chloride (98-107) mmol/L Glucose (74-99) mg/dL POC Glucose (mg/dL) 135 H 131 H (75-99) mg/dL Calcium (8.4-10.2) mg/dL Magnesium (1.6-2.3) mg/dL AST (17-59) U/L Alkaline Phosphatase (38-126) U/L Total Protein (6.3-8.2) g/dL Albumin (3.5-5.0) g/dL Arterial Blood Potassium (3.4-4.5) mmol/L Arterial Blood Glucose (75-99) mg/dL Crossmatch 06/18/18 06/18/18 06/18/18 Range/Units 05:00 05:03 05:04 RBC (4.30-5.90) m/uL Hgb (13.0-17.5) gm/dL Hct (39.0-53.0) % Plt Count (150-450) k/uL Lymphocytes # (1.0-4.8) k/uL APTT (22.0-30.0) sec Fibrinogen (200-500) mg/dL ABG pH 7.47 H (7.35-7.45) ABG pCO2 31 L (35-45) mmHg ABG pO2 (83-108) mmHg ABG Total CO2 (19-24) mmol/L ABG O2 Saturation 98.3 H (94-97) % ABG Hematocrit (34.0-46.0) % ABG Potassium (3.4-4.5) mmol/L ABG Ionized Calcium (4.5-5.3) mg/dL ABG Glucose (75-99) mg/dL ABG Lactic Acid (0.5-1.6) mmol/L Hemoglobin (13.0-17.5) gm/dL Chloride 111 H (98-107) mmol/L Glucose 115 H (74-99) mg/dL POC Glucose (mg/dL) 130 H (75-99) mg/dL Calcium 7.7 L (8.4-10.2) mg/dL Magnesium (1.6-2.3) mg/dL AST 108 H (17-59) U/L Alkaline Phosphatase 28 L (38-126) U/L Total Protein 4.6 L (6.3-8.2) g/dL Albumin 3.0 L (3.5-5.0) g/dL Arterial Blood Potassium (3.4-4.5) mmol/L Arterial Blood Glucose (75-99) mg/dL Crossmatch 06/18/18 Range/Units 06:04 RBC (4.30-5.90) m/uL Hgb (13.0-17.5) gm/dL Hct (39.0-53.0) % Plt Count (150-450) k/uL Lymphocytes # (1.0-4.8) k/uL APTT (22.0-30.0) sec Fibrinogen (200-500) mg/dL ABG pH (7.35-7.45) ABG pCO2 (35-45) mmHg ABG pO2 (83-108) mmHg ABG Total CO2 (19-24) mmol/L ABG O2 Saturation (94-97) % ABG Hematocrit (34.0-46.0) % ABG Potassium (3.4-4.5) mmol/L ABG Ionized Calcium (4.5-5.3) mg/dL ABG Glucose (75-99) mg/dL ABG Lactic Acid (0.5-1.6) mmol/L Hemoglobin (13.0-17.5) gm/dL Chloride (98-107) mmol/L Glucose (74-99) mg/dL POC Glucose (mg/dL) 114 H (75-99) mg/dL Calcium (8.4-10.2) mg/dL Magnesium (1.6-2.3) mg/dL AST (17-59) U/L Alkaline Phosphatase (38-126) U/L Total Protein (6.3-8.2) g/dL Albumin (3.5-5.0) g/dL Arterial Blood Potassium (3.4-4.5) mmol/L Arterial Blood Glucose (75-99) mg/dL Crossmatch Microbiology - Last 24 Hours (Table) 06/15/18 21:00 Nasal Screen MRSA/MSSA - Final Nasal Swab Assessment and Plan Assessment: Assessment #1 coronary artery disease and status post CABG as described above #2 hypertension #3 dyslipidemia Plan #1 continue the current medical regimen #2 try to wean the patient from the vasopressors #3 continue dual antiplatelet therapy along with a statin #4 continue monitor the kidney function and electrolytes #5 follow-up with the patient
[2018-06-18 06:59] LABS: Glucose,Whole Blood 146 mg/dL (75-99)
[2018-06-18 08:22] LABS: Glucose,Whole Blood 116 mg/dL (75-99)
[2018-06-18] MEDS ORDERED: FUROSEMIDE 10 MG/ML 2 ML VIAL IV ONE (08:29)
[2018-06-18] MEDS: IPRATROPIUM-ALBUTEROL 3 ML NEB INHALATION SCH ×4 (08:45→20:06)
[2018-06-18] MEDS ORDERED: BENZOCAINE SPRAY 1 CAN TOPICAL STA (08:59)
[2018-06-18] MEDS ORDERED: CHLORHEXIDINE GLUCONATE 15 ML CUP MUCOUS MEM SCH (09:00)
[2018-06-18] MEDS ORDERED: CLOPIDOGREL 75 MG TAB PO SCH (09:00)
[2018-06-18] MEDS ORDERED: CALCIUM GLUCONATE 2 GM in SODIUM CHLORIDE 0.9% 100 ML IVPB ONE (09:00)
[2018-06-18] MEDS ORDERED: PANTOPRAZOLE 40 MG/10 ML VIAL IVP SCH (09:00)
[2018-06-18 09:19] LABS: Glucose,Whole Blood 128 mg/dL (75-99)
--- NOTE | 2018-06-18 09:19 | P.PN ---
Subjective Progress Note Date: 06/18/18 Principal diagnosis: Severe triple-vessel coronary artery disease, moderate left ventricular dysfunction, moderate to severe mitral valve regurgitation, hypertension, hyperlipidemia, obstructive sleep apnea, mild COPD with preoperative FEV1 64% of predicted, family history of premature coronary artery disease. POD #1 urgent quadruple coronary artery bypass grafting using the left internal mammary artery to the left anterior descending artery, reverse saphenous vein graft from the aorta to the posterior descending artery, reverse saphenous vein graft from the aorta to the first obtuse marginal artery, reverse saphenous vein graft from the aorta to the left ventricular branch of the right coronary artery. Mitral valve repair using a 28 mm posterior annuloplasty with an AnnuloFlex ring. Exclusion of the left atrial appendage with a 40 mm AtriClip. Intraoperative transesophageal echocardiogram and epi-aortic scanning. Endoscopic harvesting of the left greater saphenous vein from the groin to above the ankle level. Intraoperative graft flow measurements using the [employer] system. Postoperative acute blood loss anemia, expected outcome of surgery given cardiopulmonary bypass pump and hemodilution. The patient is currently laying in the intensive care unit in no acute distress still requiring mechanical ventilation. Patient becomes agitated with lightening of sedation. Heart rate was in the 50s and 60s overnight with some hypotension and cardiac index 1.9 requiring initiation of Primacor and levo. Epicardial pacemaker placed to AAI mode with rate of 80 bpm, blood pressure significantly improved as well as CO/CI. Currently hemodynamically stable with plans to attempt lightening of sedation again in order to wean to extubation. Objective - Vital Signs Vital signs: Vital Signs Temp 37.5 F L 06/18/18 08:00 Pulse 80 06/18/18 08:00 Resp 22 06/18/18 08:00 BP 100/63 06/18/18 08:00 Pulse Ox 96 06/18/18 08:00 Intake & Output 06/17/18 06/18/18 06/18/18 18:59 06:59 18:59 Intake Total 374.2 2025.013 141.151 Output Total 4725 1732 75 Balance -4350.8 293.013 66.151 Weight 92.7 kg Intake: IV 374.2 1523.6 89 ACETAMINOPHEN IV (For NPO 100 100 ) 1,000 mg In Empty Bag 1 bag @ 400 mls/hr IVPB Q6HR [facility] Rx#:[id number] Albumin Human 5% 250 ml 250 In Empty Bag 1 bag @ 250 mls/hr IVPB Q1HR PRN Rx#: [id number] CO/CI 80 400 30 Lactated Ringers 1,000 ml 100 600 50 @ 50 mls/hr IV .Q20H [facility] Rx#:[id number] Milrinone-D5w Pmx 20 mg 10.2 55.1 In Dextrose/Water 1 100ml .bag @ Per Protocol IV . Q0M [facility] Rx#:[id number] Nitroglycerin-D5w Pmx 50 3.0 1.5 mg In Dextrose/Water 1 250ml.bag @ 5 MCG/MIN 1.5 mls/hr IV .Q24H [facility] Rx#: [id number] Pressure Bag 18 117 9 Intake, IV Titration 501.413 52.151 Amount Clevidipine Butyrate 25 4.267 mg In Empty Bag 1 bag @ 1 MG/HR 2 mls/hr IV .Q24H [facility] Rx#:[id number] Dexmedetomidine/0.9% NaCl 63.694 (Pmx) 400 mcg In Empty Bag 1 bag @ Titrate IV . Q0M [facility] Rx#:[id number] Insulin Regular 100 unit 34.767 6.75 In Sodium Chloride 0.9% 100 ml @ Titrate IV .Q0M [facility] Rx#:[id number] Milrinone-D5w Pmx 20 mg 27.798 In Dextrose/Water 1 100ml .bag @ Per Protocol IV . Q0M [facility] Rx#:[id number] Nitroglycerin-D5w Pmx 50 4.1 mg In Dextrose/Water 1 250ml.bag @ 5 MCG/MIN 1.5 mls/hr IV .Q24H [facility] Rx#: [id number] Norepinephrine 4 mg In 260.507 13.503 Sodium Chloride 0.9% 250 ml @ 0.02 MCG/KG/MIN 6. 507 mls/hr IV .Q24H [facility] Rx#:[id number] Propofol 1,000 mg In 138.178 Empty Bag 1 bag @ Titrate IV .Q0M [facility] Rx#: [id number] Output: Chest Tube Drainage 445 1117 45 Left 280 190 5 Mediastinal 95 181 10 Right 70 746 30 Drainage 30 Left Calf 30 Urine 1280 585 30 Estimated Blood Loss 3000 Other: Voiding Method Indwelling Catheter Indwelling Catheter ABP, PAP, CO, CI - Last Documented Arterial Blood Pressure 118/58 Pulmonary Artery Pressure 36/23 Cardiac Output 6.1 Cardiac Index 3.0 - Constitutional General appearance: Present: no acute distress, obese - Respiratory Details: Lungs sounds diminished bilaterally. Respirations even, nonlabored. Currently on mechanical ventilation, assist control mode, FiO2 40%, tidal volume 500, respiratory rate 22, PEEP 5. ABGs with those settings this morning 7.47/31/94/22/98%/-1.2. 8.5 ET tube present, 23 at the lip. Mediastinal chest tube to continuous wall suction, 80 mL serosanguineous drainage overnight, 300 mL since surgery. Left pleural chest tube to continuous wall suction, 70 mL serosanguineous drainage overnight, 470 mL since surgery. Right pleural chest tube to continuous wall suction, 645 mL serosanguineous drainage overnight, 820 mL since surgery. No air leaks present. - Cardiovascular Details: S1, S2 present. Regular rate and rhythm, paced rhythm on telemetry with underlying rhythm sinus bradycardia in the high 50s. Sternum stable. Atrial epicardial pacemaker wire present, connected to generator, AAI mode with rate 80 bpm. Palpable peripheral pulses bilaterally. No edema present. Right internal jugular [place]/Cordis, right radial arterial line present. Last CO/CI 5.8/2.9 on Primacor 0.2 mcg/kg/m and levo 0.02 mcg/kg/m. Heart Hugger, antiembolism stockings, SCDs present. - Gastrointestinal Gastrointestinal Comment(s): Abdomen soft, nontender, nondistended. Hypoactive bowel sounds present 4 quadrants. OG tube present but not in good position. - Genitourinary Genitourinary Comment(s): Holm present draining clear, yellow urine. Output 20-75 mL/h overnight. - Integumentary Integumentary Comment(s): Skin is warm and dry with evidence of good perfusion. Anterior chest incision well approximated and covered with dry intact dressing. Left lower extremity EVH site well approximated, minimal serosanguineous drainage. - Neurologic Neurologic Comment(s): Currently sedated on mechanical ventilation, no focal deficits, patient moving all extremities, but not to command. - Musculoskeletal Musculoskeletal: Present: strength equal bilaterally - Allied health notes Allied health notes reviewed: nursing - Labs CBC & Chem 7: 06/18/18 05:00 06/18/18 05:00 Labs: Abnormal Lab Results - Last 24 Hours (Table) 06/16/18 06/17/18 06/17/18 Range/Units 04:36 08:39 10:56 RBC (4.30-5.90) m/uL Hgb (13.0-17.5) gm/dL Hct (39.0-53.0) % Plt Count (150-450) k/uL Lymphocytes # (1.0-4.8) k/uL APTT (22.0-30.0) sec Fibrinogen (200-500) mg/dL ABG pH (7.35-7.45) ABG pCO2 (35-45) mmHg ABG pO2 132 H 166 H (83-108) mmHg ABG Total CO2 26 H 25 H (19-24) mmol/L ABG O2 Saturation 99.4 H 99.6 H (94-97) % ABG Hematocrit (34.0-46.0) % ABG Potassium (3.4-4.5) mmol/L ABG Ionized Calcium 4.4 L (4.5-5.3) mg/dL ABG Glucose (75-99) mg/dL ABG Lactic Acid (0.5-1.6) mmol/L Hemoglobin 12.6 L 11.3 L (13.0-17.5) gm/dL Chloride (98-107) mmol/L Glucose (74-99) mg/dL POC Glucose (mg/dL) (75-99) mg/dL Calcium (8.4-10.2) mg/dL Magnesium (1.6-2.3) mg/dL AST (17-59) U/L Alkaline Phosphatase (38-126) U/L Total Protein (6.3-8.2) g/dL Albumin (3.5-5.0) g/dL Arterial Blood Potassium (3.4-4.5) mmol/L Arterial Blood Glucose (75-99) mg/dL Crossmatch See Detail 06/17/18 06/17/18 06/17/18 Range/Units 11:49 12:57 13:42 RBC (4.30-5.90) m/uL Hgb (13.0-17.5) gm/dL Hct (39.0-53.0) % Plt Count (150-450) k/uL Lymphocytes # (1.0-4.8) k/uL APTT (22.0-30.0) sec Fibrinogen (200-500) mg/dL ABG pH 7.33 L (7.35-7.45) ABG pCO2 (35-45) mmHg ABG pO2 398 H 379 H 262 H (83-108) mmHg ABG Total CO2 25 H (19-24) mmol/L ABG O2 Saturation 100.0 H 100.0 H 100.0 H (94-97) % ABG Hematocrit 27 L 25 L 25 L (34.0-46.0) % ABG Potassium 4.7 H (3.4-4.5) mmol/L ABG Ionized Calcium 3.8 L 4.1 L 4.1 L (4.5-5.3) mg/dL ABG Glucose 199 H 195 H (75-99) mg/dL ABG Lactic Acid (0.5-1.6) mmol/L Hemoglobin 8.9 L 8.2 L 8.2 L (13.0-17.5) gm/dL Chloride (98-107) mmol/L Glucose (74-99) mg/dL POC Glucose (mg/dL) (75-99) mg/dL Calcium (8.4-10.2) mg/dL Magnesium (1.6-2.3) mg/dL AST (17-59) U/L Alkaline Phosphatase (38-126) U/L Total Protein (6.3-8.2) g/dL Albumin (3.5-5.0) g/dL Arterial Blood Potassium 4.7 H (3.4-4.5) mmol/L Arterial Blood Glucose 199 H 195 H (75-99) mg/dL Crossmatch 06/17/18 06/17/18 06/17/18 Range/Units 14:18 15:02 15:59 RBC (4.30-5.90) m/uL Hgb (13.0-17.5) gm/dL Hct (39.0-53.0) % Plt Count (150-450) k/uL Lymphocytes # (1.0-4.8) k/uL APTT (22.0-30.0) sec Fibrinogen (200-500) mg/dL ABG pH 7.31 L 7.30 L (7.35-7.45) ABG pCO2 46 H 46 H (35-45) mmHg ABG pO2 218 H 181 H 69 L (83-108) mmHg ABG Total CO2 25 H 25 H (19-24) mmol/L ABG O2 Saturation 99.9 H 99.6 H (94-97) % ABG Hematocrit 25 L 24 L 29 L (34.0-46.0) % ABG Potassium 4.9 H (3.4-4.5) mmol/L ABG Ionized Calcium 4.1 L 4.0 L 4.1 L (4.5-5.3) mg/dL ABG Glucose 197 H 187 H 146 H (75-99) mg/dL ABG Lactic Acid 1.8 H 2.9 H* 3.1 H* (0.5-1.6) mmol/L Hemoglobin 8.0 L 7.8 L 9.4 L (13.0-17.5) gm/dL Chloride (98-107) mmol/L Glucose (74-99) mg/dL POC Glucose (mg/dL) (75-99) mg/dL Calcium (8.4-10.2) mg/dL Magnesium (1.6-2.3) mg/dL AST (17-59) U/L Alkaline Phosphatase (38-126) U/L Total Protein (6.3-8.2) g/dL Albumin (3.5-5.0) g/dL Arterial Blood Potassium 4.9 H (3.4-4.5) mmol/L Arterial Blood Glucose 197 H 187 H 146 H (75-99) mg/dL Crossmatch 06/17/18 06/17/18 06/17/18 Range/Units 16:51 16:51 16:51 RBC 3.29 L (4.30-5.90) m/uL Hgb 10.2 L D (13.0-17.5) gm/dL Hct 30.2 L (39.0-53.0) % Plt Count 92 L D (150-450) k/uL Lymphocytes # 0.9 L (1.0-4.8) k/uL APTT (22.0-30.0) sec Fibrinogen 180 L (200-500) mg/dL ABG pH (7.35-7.45) ABG pCO2 (35-45) mmHg ABG pO2 (83-108) mmHg ABG Total CO2 (19-24) mmol/L ABG O2 Saturation (94-97) % ABG Hematocrit (34.0-46.0) % ABG Potassium (3.4-4.5) mmol/L ABG Ionized Calcium (4.5-5.3) mg/dL ABG Glucose (75-99) mg/dL ABG Lactic Acid (0.5-1.6) mmol/L Hemoglobin (13.0-17.5) gm/dL Chloride 110 H (98-107) mmol/L Glucose 114 H (74-99) mg/dL POC Glucose (mg/dL) (75-99) mg/dL Calcium 7.5 L (8.4-10.2) mg/dL Magnesium 2.8 H (1.6-2.3) mg/dL AST 73 H (17-59) U/L Alkaline Phosphatase 30 L (38-126) U/L Total Protein 4.3 L (6.3-8.2) g/dL Albumin 2.6 L (3.5-5.0) g/dL Arterial Blood Potassium (3.4-4.5) mmol/L Arterial Blood Glucose (75-99) mg/dL Crossmatch 06/17/18 06/17/18 06/17/18 Range/Units 16:53 17:07 17:57 RBC (4.30-5.90) m/uL Hgb (13.0-17.5) gm/dL Hct (39.0-53.0) % Plt Count (150-450) k/uL Lymphocytes # (1.0-4.8) k/uL APTT (22.0-30.0) sec Fibrinogen (200-500) mg/dL ABG pH 7.34 L (7.35-7.45) ABG pCO2 47 H (35-45) mmHg ABG pO2 173 H (83-108) mmHg ABG Total CO2 27 H (19-24) mmol/L ABG O2 Saturation 99.1 H (94-97) % ABG Hematocrit (34.0-46.0) % ABG Potassium (3.4-4.5) mmol/L ABG Ionized Calcium (4.5-5.3) mg/dL ABG Glucose (75-99) mg/dL ABG Lactic Acid (0.5-1.6) mmol/L Hemoglobin (13.0-17.5) gm/dL Chloride (98-107) mmol/L Glucose (74-99) mg/dL POC Glucose (mg/dL) 118 H 104 H (75-99) mg/dL Calcium (8.4-10.2) mg/dL Magnesium (1.6-2.3) mg/dL AST (17-59) U/L Alkaline Phosphatase (38-126) U/L Total Protein (6.3-8.2) g/dL Albumin (3.5-5.0) g/dL Arterial Blood Potassium (3.4-4.5) mmol/L Arterial Blood Glucose (75-99) mg/dL Crossmatch 06/17/18 06/17/18 06/17/18 Range/Units 18:59 19:50 19:59 RBC 2.98 L (4.30-5.90) m/uL Hgb 9.3 L (13.0-17.5) gm/dL Hct 27.3 L (39.0-53.0) % Plt Count 123 L (150-450) k/uL Lymphocytes # 0.8 L (1.0-4.8) k/uL APTT (22.0-30.0) sec Fibrinogen (200-500) mg/dL ABG pH (7.35-7.45) ABG pCO2 (35-45) mmHg ABG pO2 (83-108) mmHg ABG Total CO2 (19-24) mmol/L ABG O2 Saturation (94-97) % ABG Hematocrit (34.0-46.0) % ABG Potassium (3.4-4.5) mmol/L ABG Ionized Calcium (4.5-5.3) mg/dL ABG Glucose (75-99) mg/dL ABG Lactic Acid (0.5-1.6) mmol/L Hemoglobin (13.0-17.5) gm/dL Chloride (98-107) mmol/L Glucose (74-99) mg/dL POC Glucose (mg/dL) 101 H 142 H (75-99) mg/dL Calcium (8.4-10.2) mg/dL Magnesium (1.6-2.3) mg/dL AST (17-59) U/L Alkaline Phosphatase (38-126) U/L Total Protein (6.3-8.2) g/dL Albumin (3.5-5.0) g/dL Arterial Blood Potassium (3.4-4.5) mmol/L Arterial Blood Glucose (75-99) mg/dL Crossmatch 06/17/18 06/17/18 06/17/18 Range/Units 21:15 22:28 23:21 RBC (4.30-5.90) m/uL Hgb (13.0-17.5) gm/dL Hct (39.0-53.0) % Plt Count (150-450) k/uL Lymphocytes # (1.0-4.8) k/uL APTT (22.0-30.0) sec Fibrinogen (200-500) mg/dL ABG pH (7.35-7.45) ABG pCO2 (35-45) mmHg ABG pO2 (83-108) mmHg ABG Total CO2 (19-24) mmol/L ABG O2 Saturation (94-97) % ABG Hematocrit (34.0-46.0) % ABG Potassium (3.4-4.5) mmol/L ABG Ionized Calcium (4.5-5.3) mg/dL ABG Glucose (75-99) mg/dL ABG Lactic Acid (0.5-1.6) mmol/L Hemoglobin (13.0-17.5) gm/dL Chloride (98-107) mmol/L Glucose (74-99) mg/dL POC Glucose (mg/dL) 171 H 160 H 166 H (75-99) mg/dL Calcium (8.4-10.2) mg/dL Magnesium (1.6-2.3) mg/dL AST (17-59) U/L Alkaline Phosphatase (38-126) U/L Total Protein (6.3-8.2) g/dL Albumin (3.5-5.0) g/dL Arterial Blood Potassium (3.4-4.5) mmol/L Arterial Blood Glucose (75-99) mg/dL Crossmatch 06/17/18 06/17/18 06/18/18 Range/Units 23:58 23:59 00:58 RBC 2.50 L (4.30-5.90) m/uL Hgb 7.7 L D (13.0-17.5) gm/dL Hct 22.8 L (39.0-53.0) % Plt Count 120 L (150-450) k/uL Lymphocytes # 0.8 L (1.0-4.8) k/uL APTT (22.0-30.0) sec Fibrinogen (200-500) mg/dL ABG pH (7.35-7.45) ABG pCO2 (35-45) mmHg ABG pO2 (83-108) mmHg ABG Total CO2 (19-24) mmol/L ABG O2 Saturation (94-97) % ABG Hematocrit (34.0-46.0) % ABG Potassium (3.4-4.5) mmol/L ABG Ionized Calcium (4.5-5.3) mg/dL ABG Glucose (75-99) mg/dL ABG Lactic Acid (0.5-1.6) mmol/L Hemoglobin (13.0-17.5) gm/dL Chloride (98-107) mmol/L Glucose (74-99) mg/dL POC Glucose (mg/dL) 165 H 169 H (75-99) mg/dL Calcium (8.4-10.2) mg/dL Magnesium (1.6-2.3) mg/dL AST (17-59) U/L Alkaline Phosphatase (38-126) U/L Total Protein (6.3-8.2) g/dL Albumin (3.5-5.0) g/dL Arterial Blood Potassium (3.4-4.5) mmol/L Arterial Blood Glucose (75-99) mg/dL Crossmatch 06/18/18 06/18/18 06/18/18 Range/Units 01:55 01:55 01:58 RBC 2.54 L (4.30-5.90) m/uL Hgb 7.7 L (13.0-17.5) gm/dL Hct 23.3 L (39.0-53.0) % Plt Count 122 L (150-450) k/uL Lymphocytes # (1.0-4.8) k/uL APTT 35.8 H (22.0-30.0) sec Fibrinogen (200-500) mg/dL ABG pH (7.35-7.45) ABG pCO2 (35-45) mmHg ABG pO2 (83-108) mmHg ABG Total CO2 (19-24) mmol/L ABG O2 Saturation (94-97) % ABG Hematocrit (34.0-46.0) % ABG Potassium (3.4-4.5) mmol/L ABG Ionized Calcium (4.5-5.3) mg/dL ABG Glucose (75-99) mg/dL ABG Lactic Acid (0.5-1.6) mmol/L Hemoglobin (13.0-17.5) gm/dL Chloride (98-107) mmol/L Glucose (74-99) mg/dL POC Glucose (mg/dL) 155 H (75-99) mg/dL Calcium (8.4-10.2) mg/dL Magnesium (1.6-2.3) mg/dL AST (17-59) U/L Alkaline Phosphatase (38-126) U/L Total Protein (6.3-8.2) g/dL Albumin (3.5-5.0) g/dL Arterial Blood Potassium (3.4-4.5) mmol/L Arterial Blood Glucose (75-99) mg/dL Crossmatch 06/18/18 06/18/18 06/18/18 Range/Units 03:01 03:57 05:00 RBC 2.63 L (4.30-5.90) m/uL Hgb 8.2 L (13.0-17.5) gm/dL Hct 23.8 L (39.0-53.0) % Plt Count 135 L (150-450) k/uL Lymphocytes # (1.0-4.8) k/uL APTT (22.0-30.0) sec Fibrinogen (200-500) mg/dL ABG pH (7.35-7.45) ABG pCO2 (35-45) mmHg ABG pO2 (83-108) mmHg ABG Total CO2 (19-24) mmol/L ABG O2 Saturation (94-97) % ABG Hematocrit (34.0-46.0) % ABG Potassium (3.4-4.5) mmol/L ABG Ionized Calcium (4.5-5.3) mg/dL ABG Glucose (75-99) mg/dL ABG Lactic Acid (0.5-1.6) mmol/L Hemoglobin (13.0-17.5) gm/dL Chloride (98-107) mmol/L Glucose (74-99) mg/dL POC Glucose (mg/dL) 135 H 131 H (75-99) mg/dL Calcium (8.4-10.2) mg/dL Magnesium (1.6-2.3) mg/dL AST (17-59) U/L Alkaline Phosphatase (38-126) U/L Total Protein (6.3-8.2) g/dL Albumin (3.5-5.0) g/dL Arterial Blood Potassium (3.4-4.5) mmol/L Arterial Blood Glucose (75-99) mg/dL Crossmatch 06/18/18 06/18/18 06/18/18 Range/Units 05:00 05:03 05:04 RBC (4.30-5.90) m/uL Hgb (13.0-17.5) gm/dL Hct (39.0-53.0) % Plt Count (150-450) k/uL Lymphocytes # (1.0-4.8) k/uL APTT (22.0-30.0) sec Fibrinogen (200-500) mg/dL ABG pH 7.47 H (7.35-7.45) ABG pCO2 31 L (35-45) mmHg ABG pO2 (83-108) mmHg ABG Total CO2 (19-24) mmol/L ABG O2 Saturation 98.3 H (94-97) % ABG Hematocrit (34.0-46.0) % ABG Potassium (3.4-4.5) mmol/L ABG Ionized Calcium (4.5-5.3) mg/dL ABG Glucose (75-99) mg/dL ABG Lactic Acid (0.5-1.6) mmol/L Hemoglobin (13.0-17.5) gm/dL Chloride 111 H (98-107) mmol/L Glucose 115 H (74-99) mg/dL POC Glucose (mg/dL) 130 H (75-99) mg/dL Calcium 7.7 L (8.4-10.2) mg/dL Magnesium (1.6-2.3) mg/dL AST 108 H (17-59) U/L Alkaline Phosphatase 28 L (38-126) U/L Total Protein 4.6 L (6.3-8.2) g/dL Albumin 3.0 L (3.5-5.0) g/dL Arterial Blood Potassium (3.4-4.5) mmol/L Arterial Blood Glucose (75-99) mg/dL Crossmatch 06/18/18 06/18/18 06/18/18 Range/Units 06:04 06:57 08:21 RBC (4.30-5.90) m/uL Hgb (13.0-17.5) gm/dL Hct (39.0-53.0) % Plt Count (150-450) k/uL Lymphocytes # (1.0-4.8) k/uL APTT (22.0-30.0) sec Fibrinogen (200-500) mg/dL ABG pH (7.35-7.45) ABG pCO2 (35-45) mmHg ABG pO2 (83-108) mmHg ABG Total CO2 (19-24) mmol/L ABG O2 Saturation (94-97) % ABG Hematocrit (34.0-46.0) % ABG Potassium (3.4-4.5) mmol/L ABG Ionized Calcium (4.5-5.3) mg/dL ABG Glucose (75-99) mg/dL ABG Lactic Acid (0.5-1.6) mmol/L Hemoglobin (13.0-17.5) gm/dL Chloride (98-107) mmol/L Glucose (74-99) mg/dL POC Glucose (mg/dL) 114 H 146 H 116 H (75-99) mg/dL Calcium (8.4-10.2) mg/dL Magnesium (1.6-2.3) mg/dL AST (17-59) U/L Alkaline Phosphatase (38-126) U/L Total Protein (6.3-8.2) g/dL Albumin (3.5-5.0) g/dL Arterial Blood Potassium (3.4-4.5) mmol/L Arterial Blood Glucose (75-99) mg/dL Crossmatch Microbiology - Last 24 Hours (Table) 06/15/18 21:00 Nasal Screen MRSA/MSSA - Final Nasal Swab - Imaging and Cardiology Chest x-ray: report reviewed, image reviewed Assessment and Plan Assessment: 1. Severe triple-vessel coronary artery disease, status post CABG 2. Moderate left ventricular dysfunction with EF 35-40% 3. Moderate to severe mitral valve regurgitation status post mitral valve repair 3. Hypertension 4. Hyperlipidemia 5. Obstructive sleep apnea 6. Mild COPD with preoperative FEV1 64% of predicted 7. Family history of premature coronary artery disease 8. Postoperative acute blood loss anemia, expected Plan: 1. Continue aspirin, statin, Plavix. Will hold beta daren therapy for now secondary to underlying bradycardia. Will restart when able. Discontinue nitro drip. 2. Once more fully awake we will wean to extubate. 3. Once extubated encourage incentive spirometry use 10 times every hour while awake. 4. Once extubated Will increase activity. PT/OT/cardiac rehab following. 5. We will give 2 g calcium gluconate, 20 mg IV Lasix. 6. Wean levo as tolerated. Continue Primacor for now. 7. Will monitor daily labs and x-rays. Electrolyte replacement protocol. No transfusion at this point. 8. Pain control with current medication regimen. 9. Insulin management per primary care service. 10. GI/DVT prophylaxis. 11. Bronchodilators per pulmonology. 12. More recommendations to follow. Time with Patient: Greater than 30
[2018-06-18] MEDS: MUPIROCIN 2% OINT 22 GM TUBE NASAL SCH ×2 (09:30→20:33)
[2018-06-18] MEDS: ASPIRIN 325 MG TAB PO SCH ×2 (09:30→14:13)
[2018-06-18 10:09] LABS: Glucose,Whole Blood 111 mg/dL (75-99)
[2018-06-18 11:17] LABS: Glucose,Whole Blood 136 mg/dL (75-99)
[2018-06-18 12:06] VITALS: BMI 32.0
[2018-06-18 12:19] LABS: Glucose,Whole Blood 124 mg/dL (75-99)
[2018-06-18 14:08] LABS: Glucose,Whole Blood 116 mg/dL (75-99)
--- NOTE | 2018-06-18 14:10 | P.PN ---
Subjective Progress Note Date: 06/18/18 On today's evaluation of 06/17/2018 the patient is post coronary artery bypass surgery. The patient underwent carotid bruit pedal bypass surgery using a STOKES to the LAD. The patient also had a mitral valve repair and the patient is currently postop day #0. The patient arrived to the intensive care unit. The patient remains intubated on a mechanical ventilator. The patient is was sedated and calm and comfortable. She is on a 0.2 g per KG per minute of Primacor. The patient has a cardiac index of 2.8. Pulmonary artery pressures are 34/10 and the patient is producing adequate amount of urine output. The patient is on a mechanical ventilator and I switched her to an assist-control mode at the rate of 22 with an FiO2 of 80% and a PEEP of 5 and a tidal volume of 500. The blood gases that were done showed a pH of 7.34 with a pCO2 of 47 and pO2 of 174 and this was done at the rate of 12 and an SIMV mode with a tidal volume of 500. The chest x-ray showed adequate expansion of both lungs. ET tube is in a good location. All of the chest tubes are all in good location is. The patient has his Fingal-Bony catheter in good location. Postop blood work is still pending for now. Meanwhile the patient is producing adequate amount of urine output. No other significant events overnight. His cardiac rhythm is sinus. On 06/18/2018 the patient is extubated at around 10:00 AM this morning. Extubation was delayed as the patient was not waking up appropriately from sedation. Overnight I was able to wean down the patient's FiO2. He remains hemodynamically stable. The patient has an appendectomy cardiac pacemaker placed with an AAI mode at the rate of 80. The patient had adequate cardiac output and index. He remained hemodynamically stable. He remains on Primacor. As we weaned off the propofol, the patient became agitated and he was not following any commands and he was thrashing. At that point, weaning was continued with use of Precedex. Nevertheless it filled again. Earlier this morning, we did the same processes again and I was at the bedside and I was able to elicit some good response from the patient. He was able to follow some simple commands and move extremities without any major limitation. At that point, the patient was given a spontaneous breathing trial a pressure support of 5 and a PEEP of 5 and subsequently was extubated without any major difficulties. Currently is on oxygen by nasal cannula. His postop day #1. He has undergone quadruple bypass surgery and mitral valve repair. Cardiac rhythm remains sinus. He has been placed on a low dose of norepinephrine infusion for blood pressure control and this was started overnight. No other issues otherwise for now. Chest x-ray from today showing some mild four-vessel congestion. Chest tubes are all in good location. No evidence of any pneumothorax. Objective - Vital Signs Vital signs: Vital Signs Temp 37.5 F L 06/18/18 08:00 Pulse 80 06/18/18 14:00 Resp 18 06/18/18 14:00 BP 97/52 06/18/18 14:00 Pulse Ox 97 06/18/18 14:00 Intake & Output 06/17/18 06/18/18 06/18/18 18:59 06:59 18:59 Intake Total 374.2 2025.013 733.279 Output Total 4725 1732 1410 Balance -4350.8 293.013 -676.721 Weight 92.7 kg 92.7 kg Intake: IV 374.2 1523.6 503 ACETAMINOPHEN IV (For NPO 100 100 ) 1,000 mg In Empty Bag 1 bag @ 400 mls/hr IVPB Q6HR [facility] Rx#:[id number] Albumin Human 5% 250 ml 250 In Empty Bag 1 bag @ 250 mls/hr IVPB Q1HR PRN Rx#: [id number] CO/CI 80 400 90 Lactated Ringers 1,000 ml 100 600 350 @ 20 mls/hr IV .Q24H [facility] Rx#:[id number] Milrinone-D5w Pmx 20 mg 10.2 55.1 In Dextrose/Water 1 100ml .bag @ Per Protocol IV . Q0M [facility] Rx#:[id number] Nitroglycerin-D5w Pmx 50 3.0 1.5 mg In Dextrose/Water 1 250ml.bag @ 5 MCG/MIN 1.5 mls/hr IV .Q24H [facility] Rx#: [id number] Pressure Bag 18 117 63 Intake, IV Titration 501.413 230.279 Amount Clevidipine Butyrate 25 4.267 mg In Empty Bag 1 bag @ 1 MG/HR 2 mls/hr IV .Q24H [facility] Rx#:[id number] Dexmedetomidine/0.9% NaCl 63.694 63.516 (Pmx) 400 mcg In Empty Bag 1 bag @ Titrate IV . Q0M [facility] Rx#:[id number] Insulin Regular 100 unit 34.767 16.333 In Sodium Chloride 0.9% 100 ml @ Titrate IV .Q0M [facility] Rx#:[id number] Milrinone-D5w Pmx 20 mg 50.002 In Dextrose/Water 1 100ml .bag @ Per Protocol IV . Q0M [facility] Rx#:[id number] Nitroglycerin-D5w Pmx 50 4.1 mg In Dextrose/Water 1 250ml.bag @ 5 MCG/MIN 1.5 mls/hr IV .Q24H [facility] Rx#: [id number] Norepinephrine 4 mg In 260.507 80.476 Sodium Chloride 0.9% 250 ml @ 0.02 MCG/KG/MIN 6. 507 mls/hr IV .Q24H [facility] Rx#:[id number] Propofol 1,000 mg In 138.178 15.852 Empty Bag 1 bag @ Titrate IV .Q0M [facility] Rx#: [id number] Output: Chest Tube Drainage 445 1117 460 Left 280 190 50 Mediastinal 95 181 180 Right 70 746 230 Drainage 30 15 Left Calf 30 15 Urine 1280 585 935 Estimated Blood Loss 3000 Other: Voiding Method Indwelling Catheter Indwelling Catheter Indwelling Catheter # Bowel Movements 1 ABP, PAP, CO, CI - Last Documented Arterial Blood Pressure 119/52 Pulmonary Artery Pressure 36/20 Cardiac Output 6.3 Cardiac Index 3.1 - Exam - Constitutional General appearance: Present: no acute distress, obese him a the patient is extubated for now. - Respiratory Details: Lungs sounds diminished bilaterally. The patient has scattered crackles in lung bases bilaterally. Sternum is stable clean and intact. Mediastinal chest tube to continuous wall suction, 80 mL serosanguineous drainage overnight, 300 mL since surgery. Left pleural chest tube to continuous wall suction, 70 mL se rosanguineous drainage overnight, 470 mL since surgery. Right pleural chest tube to continuous wall suction, 645 mL serosanguineous drainage overnight, 820 mL since surgery. No air leaks present. - Cardiovascular Details: S1, S2 present. Regular rate and rhythm, paced rhythm on telemetry with underlying rhythm sinus bradycardia in the high 50s. Sternum stable. Atrial epicardial pacemaker wire present, connected to generator, AAI mode with rate 80 bpm. Palpable peripheral pulses bilaterally. No edema present. Right internal jugular Fingal/Cordis, right radial arterial line present. Last CO/CI 5.8/2.9 on Primacor 0.2 mcg/kg/m and levo 0.02 mcg/kg/m. Heart Hugger, antiembolism stockings, SCDs present. - Gastrointestinal Gastrointestinal Comment(s): Abdomen soft, nontender, nondistended. Hypoactive bowel sounds present 4 quadrants. OG tube present but not in good position. - Genitourinary Genitourinary Comment(s): Holm present draining clear, yellow urine. Output 20-75 mL/h overnight. - Integumentary Integumentary Comment(s): Skin is warm and dry with evidence of good perfusion. Anterior chest incision well approximated and covered with dry intact dressing. Left lower extremity EVH site well approximated, minimal serosanguineous drainage. - Neurologic Neurologic Comment(s): Awake and following some simple commands and moving all 4 extremities without any limitation. - Musculoskeletal Musculoskeletal: Present: strength equal bilaterally - Labs CBC & Chem 7: 06/18/18 05:00 06/18/18 05:00 Labs: Abnormal Lab Results - Last 24 Hours (Table) 06/16/18 06/17/18 06/17/18 Range/Units 04:36 08:39 10:56 RBC (4.30-5.90) m/uL Hgb (13.0-17.5) gm/dL Hct (39.0-53.0) % Plt Count (150-450) k/uL Lymphocytes # (1.0-4.8) k/uL APTT (22.0-30.0) sec Fibrinogen (200-500) mg/dL ABG pH (7.35-7.45) ABG pCO2 (35-45) mmHg ABG pO2 132 H 166 H (83-108) mmHg ABG Total CO2 26 H 25 H (19-24) mmol/L ABG O2 Saturation 99.4 H 99.6 H (94-97) % ABG Hematocrit (34.0-46.0) % ABG Potassium (3.4-4.5) mmol/L ABG Ionized Calcium 4.4 L (4.5-5.3) mg/dL ABG Glucose (75-99) mg/dL ABG Lactic Acid (0.5-1.6) mmol/L Hemoglobin 12.6 L 11.3 L (13.0-17.5) gm/dL Chloride (98-107) mmol/L Glucose (74-99) mg/dL POC Glucose (mg/dL) (75-99) mg/dL Calcium (8.4-10.2) mg/dL Magnesium (1.6-2.3) mg/dL AST (17-59) U/L Alkaline Phosphatase (38-126) U/L Total Protein (6.3-8.2) g/dL Albumin (3.5-5.0) g/dL Arterial Blood Potassium (3.4-4.5) mmol/L Arterial Blood Glucose (75-99) mg/dL Crossmatch See Detail 06/17/18 06/17/18 06/17/18 Range/Units 11:49 12:57 13:42 RBC (4.30-5.90) m/uL Hgb (13.0-17.5) gm/dL Hct (39.0-53.0) % Plt Count (150-450) k/uL Lymphocytes # (1.0-4.8) k/uL APTT (22.0-30.0) sec Fibrinogen (200-500) mg/dL ABG pH 7.33 L (7.35-7.45) ABG pCO2 (35-45) mmHg ABG pO2 398 H 379 H 262 H (83-108) mmHg ABG Total CO2 25 H (19-24) mmol/L ABG O2 Saturation 100.0 H 100.0 H 100.0 H (94-97) % ABG Hematocrit 27 L 25 L 25 L (34.0-46.0) % ABG Potassium 4.7 H (3.4-4.5) mmol/L ABG Ionized Calcium 3.8 L 4.1 L 4.1 L (4.5-5.3) mg/dL ABG Glucose 199 H 195 H (75-99) mg/dL ABG Lactic Acid (0.5-1.6) mmol/L Hemoglobin 8.9 L 8.2 L 8.2 L (13.0-17.5) gm/dL Chloride (98-107) mmol/L Glucose (74-99) mg/dL POC Glucose (mg/dL) (75-99) mg/dL Calcium (8.4-10.2) mg/dL Magnesium (1.6-2.3) mg/dL AST (17-59) U/L Alkaline Phosphatase (38-126) U/L Total Protein (6.3-8.2) g/dL Albumin (3.5-5.0) g/dL Arterial Blood Potassium 4.7 H (3.4-4.5) mmol/L Arterial Blood Glucose 199 H 195 H (75-99) mg/dL Crossmatch 06/17/18 06/17/18 06/17/18 Range/Units 14:18 15:02 15:59 RBC (4.30-5.90) m/uL Hgb (13.0-17.5) gm/dL Hct (39.0-53.0) % Plt Count (150-450) k/uL Lymphocytes # (1.0-4.8) k/uL APTT (22.0-30.0) sec Fibrinogen (200-500) mg/dL ABG pH 7.31 L 7.30 L (7.35-7.45) ABG pCO2 46 H 46 H (35-45) mmHg ABG pO2 218 H 181 H 69 L (83-108) mmHg ABG Total CO2 25 H 25 H (19-24) mmol/L ABG O2 Saturation 99.9 H 99.6 H (94-97) % ABG Hematocrit 25 L 24 L 29 L (34.0-46.0) % ABG Potassium 4.9 H (3.4-4.5) mmol/L ABG Ionized Calcium 4.1 L 4.0 L 4.1 L (4.5-5.3) mg/dL ABG Glucose 197 H 187 H 146 H (75-99) mg/dL ABG Lactic Acid 1.8 H 2.9 H* 3.1 H* (0.5-1.6) mmol/L Hemoglobin 8.0 L 7.8 L 9.4 L (13.0-17.5) gm/dL Chloride (98-107) mmol/L Glucose (74-99) mg/dL POC Glucose (mg/dL) (75-99) mg/dL Calcium (8.4-10.2) mg/dL Magnesium (1.6-2.3) mg/dL AST (17-59) U/L Alkaline Phosphatase (38-126) U/L Total Protein (6.3-8.2) g/dL Albumin (3.5-5.0) g/dL Arterial Blood Potassium 4.9 H (3.4-4.5) mmol/L Arterial Blood Glucose 197 H 187 H 146 H (75-99) mg/dL Crossmatch 06/17/18 06/17/18 06/17/18 Range/Units 16:51 16:51 16:51 RBC 3.29 L (4.30-5.90) m/uL Hgb 10.2 L D (13.0-17.5) gm/dL Hct 30.2 L (39.0-53.0) % Plt Count 92 L D (150-450) k/uL Lymphocytes # 0.9 L (1.0-4.8) k/uL APTT (22.0-30.0) sec Fibrinogen 180 L (200-500) mg/dL ABG pH (7.35-7.45) ABG pCO2 (35-45) mmHg ABG pO2 (83-108) mmHg ABG Total CO2 (19-24) mmol/L ABG O2 Saturation (94-97) % ABG Hematocrit (34.0-46.0) % ABG Potassium (3.4-4.5) mmol/L ABG Ionized Calcium (4.5-5.3) mg/dL ABG Glucose (75-99) mg/dL ABG Lactic Acid (0.5-1.6) mmol/L Hemoglobin (13.0-17.5) gm/dL Chloride 110 H (98-107) mmol/L Glucose 114 H (74-99) mg/dL POC Glucose (mg/dL) (75-99) mg/dL Calcium 7.5 L (8.4-10.2) mg/dL Magnesium 2.8 H (1.6-2.3) mg/dL AST 73 H (17-59) U/L Alkaline Phosphatase 30 L (38-126) U/L Total Protein 4.3 L (6.3-8.2) g/dL Albumin 2.6 L (3.5-5.0) g/dL Arterial Blood Potassium (3.4-4.5) mmol/L Arterial Blood Glucose (75-99) mg/dL Crossmatch 06/17/18 06/17/18 06/17/18 Range/Units 16:53 17:07 17:57 RBC (4.30-5.90) m/uL Hgb (13.0-17.5) gm/dL Hct (39.0-53.0) % Plt Count (150-450) k/uL Lymphocytes # (1.0-4.8) k/uL APTT (22.0-30.0) sec Fibrinogen (200-500) mg/dL ABG pH 7.34 L (7.35-7.45) ABG pCO2 47 H (35-45) mmHg ABG pO2 173 H (83-108) mmHg ABG Total CO2 27 H (19-24) mmol/L ABG O2 Saturation 99.1 H (94-97) % ABG Hematocrit (34.0-46.0) % ABG Potassium (3.4-4.5) mmol/L ABG Ionized Calcium (4.5-5.3) mg/dL ABG Glucose (75-99) mg/dL ABG Lactic Acid (0.5-1.6) mmol/L Hemoglobin (13.0-17.5) gm/dL Chloride (98-107) mmol/L Glucose (74-99) mg/dL POC Glucose (mg/dL) 118 H 104 H (75-99) mg/dL Calcium (8.4-10.2) mg/dL Magnesium (1.6-2.3) mg/dL AST (17-59) U/L Alkaline Phosphatase (38-126) U/L Total Protein (6.3-8.2) g/dL Albumin (3.5-5.0) g/dL Arterial Blood Potassium (3.4-4.5) mmol/L Arterial Blood Glucose (75-99) mg/dL Crossmatch 06/17/18 06/17/18 06/17/18 Range/Units 18:59 19:50 19:59 RBC 2.98 L (4.30-5.90) m/uL Hgb 9.3 L (13.0-17.5) gm/dL Hct 27.3 L (39.0-53.0) % Plt Count 123 L (150-450) k/uL Lymphocytes # 0.8 L (1.0-4.8) k/uL APTT (22.0-30.0) sec Fibrinogen (200-500) mg/dL ABG pH (7.35-7.45) ABG pCO2 (35-45) mmHg ABG pO2 (83-108) mmHg ABG Total CO2 (19-24) mmol/L ABG O2 Saturation (94-97) % ABG Hematocrit (34.0-46.0) % ABG Potassium (3.4-4.5) mmol/L ABG Ionized Calcium (4.5-5.3) mg/dL ABG Glucose (75-99) mg/dL ABG Lactic Acid (0.5-1.6) mmol/L Hemoglobin (13.0-17.5) gm/dL Chloride (98-107) mmol/L Glucose (74-99) mg/dL POC Glucose (mg/dL) 101 H 142 H (75-99) mg/dL Calcium (8.4-10.2) mg/dL Magnesium (1.6-2.3) mg/dL AST (17-59) U/L Alkaline Phosphatase (38-126) U/L Total Protein (6.3-8.2) g/dL Albumin (3.5-5.0) g/dL Arterial Blood Potassium (3.4-4.5) mmol/L Arterial Blood Glucose (75-99) mg/dL Crossmatch 06/17/18 06/17/18 06/17/18 Range/Units 21:15 22:28 23:21 RBC (4.30-5.90) m/uL Hgb (13.0-17.5) gm/dL Hct (39.0-53.0) % Plt Count (150-450) k/uL Lymphocytes # (1.0-4.8) k/uL APTT (22.0-30.0) sec Fibrinogen (200-500) mg/dL ABG pH (7.35-7.45) ABG pCO2 (35-45) mmHg ABG pO2 (83-108) mmHg ABG Total CO2 (19-24) mmol/L ABG O2 Saturation (94-97) % ABG Hematocrit (34.0-46.0) % ABG Potassium (3.4-4.5) mmol/L ABG Ionized Calcium (4.5-5.3) mg/dL ABG Glucose (75-99) mg/dL ABG Lactic Acid (0.5-1.6) mmol/L Hemoglobin (13.0-17.5) gm/dL Chloride (98-107) mmol/L Glucose (74-99) mg/dL POC Glucose (mg/dL) 171 H 160 H 166 H (75-99) mg/dL Calcium (8.4-10.2) mg/dL Magnesium (1.6-2.3) mg/dL AST (17-59) U/L Alkaline Phosphatase (38-126) U/L Total Protein (6.3-8.2) g/dL Albumin (3.5-5.0) g/dL Arterial Blood Potassium (3.4-4.5) mmol/L Arterial Blood Glucose (75-99) mg/dL Crossmatch 06/17/18 06/17/18 06/18/18 Range/Units 23:58 23:59 00:58 RBC 2.50 L (4.30-5.90) m/uL Hgb 7.7 L D (13.0-17.5) gm/dL Hct 22.8 L (39.0-53.0) % Plt Count 120 L (150-450) k/uL Lymphocytes # 0.8 L (1.0-4.8) k/uL APTT (22.0-30.0) sec Fibrinogen (200-500) mg/dL ABG pH (7.35-7.45) ABG pCO2 (35-45) mmHg ABG pO2 (83-108) mmHg ABG Total CO2 (19-24) mmol/L ABG O2 Saturation (94-97) % ABG Hematocrit (34.0-46.0) % ABG Potassium (3.4-4.5) mmol/L ABG Ionized Calcium (4.5-5.3) mg/dL ABG Glucose (75-99) mg/dL ABG Lactic Acid (0.5-1.6) mmol/L Hemoglobin (13.0-17.5) gm/dL Chloride (98-107) mmol/L Glucose (74-99) mg/dL POC Glucose (mg/dL) 165 H 169 H (75-99) mg/dL Calcium (8.4-10.2) mg/dL Magnesium (1.6-2.3) mg/dL AST (17-59) U/L Alkaline Phosphatase (38-126) U/L Total Protein (6.3-8.2) g/dL Albumin (3.5-5.0) g/dL Arterial Blood Potassium (3.4-4.5) mmol/L Arterial Blood Glucose (75-99) mg/dL Crossmatch 06/18/18 06/18/18 06/18/18 Range/Units 01:55 01:55 01:58 RBC 2.54 L (4.30-5.90) m/uL Hgb 7.7 L (13.0-17.5) gm/dL Hct 23.3 L (39.0-53.0) % Plt Count 122 L (150-450) k/uL Lymphocytes # (1.0-4.8) k/uL APTT 35.8 H (22.0-30.0) sec Fibrinogen (200-500) mg/dL ABG pH (7.35-7.45) ABG pCO2 (35-45) mmHg ABG pO2 (83-108) mmHg ABG Total CO2 (19-24) mmol/L ABG O2 Saturation (94-97) % ABG Hematocrit (34.0-46.0) % ABG Potassium (3.4-4.5) mmol/L ABG Ionized Calcium (4.5-5.3) mg/dL ABG Glucose (75-99) mg/dL ABG Lactic Acid (0.5-1.6) mmol/L Hemoglobin (13.0-17.5) gm/dL Chloride (98-107) mmol/L Glucose (74-99) mg/dL POC Glucose (mg/dL) 155 H (75-99) mg/dL Calcium (8.4-10.2) mg/dL Magnesium (1.6-2.3) mg/dL AST (17-59) U/L Alkaline Phosphatase (38-126) U/L Total Protein (6.3-8.2) g/dL Albumin (3.5-5.0) g/dL Arterial Blood Potassium (3.4-4.5) mmol/L Arterial Blood Glucose (75-99) mg/dL Crossmatch 06/18/18 06/18/18 06/18/18 Range/Units 03:01 03:57 05:00 RBC 2.63 L (4.30-5.90) m/uL Hgb 8.2 L (13.0-17.5) gm/dL Hct 23.8 L (39.0-53.0) % Plt Count 135 L (150-450) k/uL Lymphocytes # (1.0-4.8) k/uL APTT (22.0-30.0) sec Fibrinogen (200-500) mg/dL ABG pH (7.35-7.45) ABG pCO2 (35-45) mmHg ABG pO2 (83-108) mmHg ABG Total CO2 (19-24) mmol/L ABG O2 Saturation (94-97) % ABG Hematocrit (34.0-46.0) % ABG Potassium (3.4-4.5) mmol/L ABG Ionized Calcium (4.5-5.3) mg/dL ABG Glucose (75-99) mg/dL ABG Lactic Acid (0.5-1.6) mmol/L Hemoglobin (13.0-17.5) gm/dL Chloride (98-107) mmol/L Glucose (74-99) mg/dL POC Glucose (mg/dL) 135 H 131 H (75-99) mg/dL Calcium (8.4-10.2) mg/dL Magnesium (1.6-2.3) mg/dL AST (17-59) U/L Alkaline Phosphatase (38-126) U/L Total Protein (6.3-8.2) g/dL Albumin (3.5-5.0) g/dL Arterial Blood Potassium (3.4-4.5) mmol/L Arterial Blood Glucose (75-99) mg/dL Crossmatch 06/18/18 06/18/18 06/18/18 Range/Units 05:00 05:03 05:04 RBC (4.30-5.90) m/uL Hgb (13.0-17.5) gm/dL Hct (39.0-53.0) % Plt Count (150-450) k/uL Lymphocytes # (1.0-4.8) k/uL APTT (22.0-30.0) sec Fibrinogen (200-500) mg/dL ABG pH 7.47 H (7.35-7.45) ABG pCO2 31 L (35-45) mmHg ABG pO2 (83-108) mmHg ABG Total CO2 (19-24) mmol/L ABG O2 Saturation 98.3 H (94-97) % ABG Hematocrit (34.0-46.0) % ABG Potassium (3.4-4.5) mmol/L ABG Ionized Calcium (4.5-5.3) mg/dL ABG Glucose (75-99) mg/dL ABG Lactic Acid (0.5-1.6) mmol/L Hemoglobin (13.0-17.5) gm/dL Chloride 111 H (98-107) mmol/L Glucose 115 H (74-99) mg/dL POC Glucose (mg/dL) 130 H (75-99) mg/dL Calcium 7.7 L (8.4-10.2) mg/dL Magnesium (1.6-2.3) mg/dL AST 108 H (17-59) U/L Alkaline Phosphatase 28 L (38-126) U/L Total Protein 4.6 L (6.3-8.2) g/dL Albumin 3.0 L (3.5-5.0) g/dL Arterial Blood Potassium (3.4-4.5) mmol/L Arterial Blood Glucose (75-99) mg/dL Crossmatch 06/18/18 06/18/18 06/18/18 Range/Units 06:04 06:57 08:21 RBC (4.30-5.90) m/uL Hgb (13.0-17.5) gm/dL Hct (39.0-53.0) % Plt Count (150-450) k/uL Lymphocytes # (1.0-4.8) k/uL APTT (22.0-30.0) sec Fibrinogen (200-500) mg/dL ABG pH (7.35-7.45) ABG pCO2 (35-45) mmHg ABG pO2 (83-108) mmHg ABG Total CO2 (19-24) mmol/L ABG O2 Saturation (94-97) % ABG Hematocrit (34.0-46.0) % ABG Potassium (3.4-4.5) mmol/L ABG Ionized Calcium (4.5-5.3) mg/dL ABG Glucose (75-99) mg/dL ABG Lactic Acid (0.5-1.6) mmol/L Hemoglobin (13.0-17.5) gm/dL Chloride (98-107) mmol/L Glucose (74-99) mg/dL POC Glucose (mg/dL) 114 H 146 H 116 H (75-99) mg/dL Calcium (8.4-10.2) mg/dL Magnesium (1.6-2.3) mg/dL AST (17-59) U/L Alkaline Phosphatase (38-126) U/L Total Protein (6.3-8.2) g/dL Albumin (3.5-5.0) g/dL Arterial Blood Potassium (3.4-4.5) mmol/L Arterial Blood Glucose (75-99) mg/dL Crossmatch 06/18/18 06/18/18 06/18/18 Range/Units 09:18 10:07 11:16 RBC (4.30-5.90) m/uL Hgb (13.0-17.5) gm/dL Hct (39.0-53.0) % Plt Count (150-450) k/uL Lymphocytes # (1.0-4.8) k/uL APTT (22.0-30.0) sec Fibrinogen (200-500) mg/dL ABG pH (7.35-7.45) ABG pCO2 (35-45) mmHg ABG pO2 (83-108) mmHg ABG Total CO2 (19-24) mmol/L ABG O2 Saturation (94-97) % ABG Hematocrit (34.0-46.0) % ABG Potassium (3.4-4.5) mmol/L ABG Ionized Calcium (4.5-5.3) mg/dL ABG Glucose (75-99) mg/dL ABG Lactic Acid (0.5-1.6) mmol/L Hemoglobin (13.0-17.5) gm/dL Chloride (98-107) mmol/L Glucose (74-99) mg/dL POC Glucose (mg/dL) 128 H 111 H 136 H (75-99) mg/dL Calcium (8.4-10.2) mg/dL Magnesium (1.6-2.3) mg/dL AST (17-59) U/L Alkaline Phosphatase (38-126) U/L Total Protein (6.3-8.2) g/dL Albumin (3.5-5.0) g/dL Arterial Blood Potassium (3.4-4.5) mmol/L Arterial Blood Glucose (75-99) mg/dL Crossmatch 06/18/18 Range/Units 12:05 RBC (4.30-5.90) m/uL Hgb (13.0-17.5) gm/dL Hct (39.0-53.0) % Plt Count (150-450) k/uL Lymphocytes # (1.0-4.8) k/uL APTT (22.0-30.0) sec Fibrinogen (200-500) mg/dL ABG pH (7.35-7.45) ABG pCO2 (35-45) mmHg ABG pO2 (83-108) mmHg ABG Total CO2 (19-24) mmol/L ABG O2 Saturation (94-97) % ABG Hematocrit (34.0-46.0) % ABG Potassium (3.4-4.5) mmol/L ABG Ionized Calcium (4.5-5.3) mg/dL ABG Glucose (75-99) mg/dL ABG Lactic Acid (0.5-1.6) mmol/L Hemoglobin (13.0-17.5) gm/dL Chloride (98-107) mmol/L Glucose (74-99) mg/dL POC Glucose (mg/dL) 124 H (75-99) mg/dL Calcium (8.4-10.2) mg/dL Magnesium (1.6-2.3) mg/dL AST (17-59) U/L Alkaline Phosphatase (38-126) U/L Total Protein (6.3-8.2) g/dL Albumin (3.5-5.0) g/dL Arterial Blood Potassium (3.4-4.5) mmol/L Arterial Blood Glucose (75-99) mg/dL Crossmatch Microbiology - Last 24 Hours (Table) 06/15/18 21:00 Nasal Screen MRSA/MSSA - Final Nasal Swab Assessment and Plan Plan: Assessment 1 triple-vessel coronary artery disease and the patient is status post non- STEMI. The patient underwent quadruple bypass surgery and a mitral valve repair. Patient is postop day #1. The patient was extubated and the extubation process was slightly prolonged as the patient did not wake up from sedation ap propriately and he was having altered mentation and agitation and thrashing. We are the combination of propofol and Precedex and were able to wean this patient off the mechanical ventilated and was extubated early this morning. Currently on oxygen by nasal cannula and hemodynamically stable. 2 CHF with systolic heart failure ejection fraction of 35-40% based on a preop echocardiogram 3 mitral valve regurgitation, +3 preop, patient is undergo mitral valve repair and the patient is postop day #1. 4 acute hypoxic respiratory failure, post thoracotomy and bypass surgery and mitral valve repair. The patient is currently extubated 5 hyperlipidemia 6 postop hemoglobin dropped/anemia, and expected outcome of surgery with a hemoglobin of 7.7 Plan Monitor pulmonary status. Monitor mental status. Stop propofol and Precedex. Continue aspirin and Plavix. Continue statins. We'll monitor the blood pressure will be gradually weaned off the norepinephrine infusion and the Primacor. Urine output is adequate for now. The patient is been extubated. The patient will be provided incentive spirometer. We'll replace electrolytes. We'll give 2 g of calcium gluconate and 20 mg of IV push Lasix and this has been coordinated with the surgeon. We'll continue to follow.
[2018-06-18] MEDS: LACTATED RINGERS 1,000 ML IV SCH (14:12)
[2018-06-18] MEDS ORDERED: BISACODYL 10 MG SUPP RECTAL PRN (16:17)
[2018-06-18] MEDS ORDERED: METOPROLOL TARTRATE 12.5 MG TAB PO SCH (16:17)
[2018-06-18] MEDS ORDERED: MAGNESIUM HYDROXIDE 2,400 MG/10 ML CUP PO PRN (16:17)
[2018-06-18 16:24] LABS: Glucose,Whole Blood 109 mg/dL (75-99)
[2018-06-18 17:26] LABS: Glucose,Whole Blood 117 mg/dL (75-99)
[2018-06-18] MEDS: HYDROcodone/APAP 5-325MG 1 EACH TAB PO PRN ×2 (17:39→21:42)
[2018-06-18] MEDS: ATORVASTATIN 40 MG TAB PO SCH (17:39)
--- NOTE | 2018-06-18 17:58 | P.PN ---
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 , ocmplaining from two months of chest pain , that is central , pt states sometimes his chest pain starts at his shoulder blade before it radiated to his chest and his armpit, it varies in severity , last night it was about 8/10 howver it is better controlled with pain medication down to 0-1/10 , he has very mild dyspnea , and with some cough which was more severe yesterday and that what made him go and visit his doctor , pt is admitted to the icu anticipating cardiac cath possibly tomorrow, he was given asprin , statin and was started on heparin drip 06/15/2018 Patient is doing well today with no chest pain or dyspnea. He has some cough but it is dry with no phlegm patient has been evaluated by cardiology team for unstable angina, and recommended to continue with aspirin, metoprolol and statin. And echocardiogram. Vitals are stable. looks unremarkable. Patient was already started on heparin drip. 06/16/2018 Patient's with no much complaint today. He has cardiac cath yesterday which shows severe triple-vessel disease and plan for cardiac bypass grafting, his been evaluated by cardiothoracic surgeon. Venous mapping is undergoing. 06/17/2018 pt underwent coronary artery bypass grafting and mitral valve repair, post op day #0. vitals are stable, labs are reviewed , hemoglobin is 10.2m post op he is intubated and mechanically ventilated, pt is been followed by pulmonary/critical care team and he remains in ICU for now 06/18/2018 Patient is a status post coronary artery bypass grafting and mitral valve repair. Postop day #1 He remains in the ICU, fully awake and oriented, not in chest pain no dyspnea. He is status post intubation and extubation. He is currently on amiodarone, aspirin and Plavix. Platelet been followed closely by cardiothoracic team Objective - Vital Signs Vital signs: Vital Signs Temp 37.5 F L 06/18/18 08:00 Pulse 69 06/18/18 17:00 Resp 12 06/18/18 17:00 BP 114/62 06/18/18 17:00 Pulse Ox 98 06/18/18 17:00 Intake & Output 06/17/18 06/18/18 06/18/18 18:59 06:59 18:59 Intake Total 374.2 2025.013 978.178 Output Total 4725 1732 1760 Balance -4350.8 293.013 -781.822 Weight 92.7 kg 92.7 kg Intake: IV 374.2 1523.6 740 ACETAMINOPHEN IV (For NPO 100 100 ) 1,000 mg In Empty Bag 1 bag @ 400 mls/hr IVPB Q6HR [facility] Rx#:[id number] Albumin Human 5% 250 ml 250 In Empty Bag 1 bag @ 250 mls/hr IVPB Q1HR PRN Rx#: [id number] CO/CI 80 400 150 Lactated Ringers 1,000 ml 100 600 500 @ 20 mls/hr IV .Q24H [facility] Rx#:[id number] Milrinone-D5w Pmx 20 mg 10.2 55.1 In Dextrose/Water 1 100ml .bag @ Per Protocol IV . Q0M [facility] Rx#:[id number] Nitroglycerin-D5w Pmx 50 3.0 1.5 mg In Dextrose/Water 1 250ml.bag @ 5 MCG/MIN 1.5 mls/hr IV .Q24H [facility] Rx#: [id number] Pressure Bag 18 117 90 Intake, IV Titration 501.413 238.178 Amount Clevidipine Butyrate 25 4.267 mg In Empty Bag 1 bag @ 1 MG/HR 2 mls/hr IV .Q24H [facility] Rx#:[id number] Dexmedetomidine/0.9% NaCl 63.694 63.516 (Pmx) 400 mcg In Empty Bag 1 bag @ Titrate IV . Q0M [facility] Rx#:[id number] Insulin Regular 100 unit 34.767 16.333 In Sodium Chloride 0.9% 100 ml @ Titrate IV .Q0M [facility] Rx#:[id number] Milrinone-D5w Pmx 20 mg 57.901 In Dextrose/Water 1 100ml .bag @ Per Protocol IV . Q0M [facility] Rx#:[id number] Nitroglycerin-D5w Pmx 50 4.1 mg In Dextrose/Water 1 250ml.bag @ 5 MCG/MIN 1.5 mls/hr IV .Q24H [facility] Rx#: [id number] Norepinephrine 4 mg In 260.507 80.476 Sodium Chloride 0.9% 250 ml @ 0.02 MCG/KG/MIN 6. 507 mls/hr IV .Q24H [facility] Rx#:[id number] Propofol 1,000 mg In 138.178 15.852 Empty Bag 1 bag @ Titrate IV .Q0M [facility] Rx#: [id number] Output: Chest Tube Drainage 445 1117 650 Left 280 190 110 Mediastinal 95 181 265 Right 70 746 275 Drainage 30 15 Left Calf 30 15 Urine 2149 958 6443 Estimated Blood Loss 3000 Other: Voiding Method Indwelling Catheter Indwelling Catheter Indwelling Catheter ABP, PAP, CO, CI - Last Documented Arterial Blood Pressure 125/50 Pulmonary Artery Pressure 38/15 Cardiac Output 6.0 Cardiac Index 3.0 - Exam -GENERAL: The patient is intubated and mechanically ventilated, HEENT: Pupils are round and equally reacting to light. EOMI. No scleral icterus. No conjunctival pallor. Normocephalic, atraumatic. No pharyngeal erythema. No thyromegaly. CARDIOVASCULAR: S1 and S2 present. No murmurs, rubs, or gallops. PULMONARY: Chest is clear to auscultation, no wheezing or crackles. ABDOMEN: Soft, nontender, nondistended, normoactive bowel sounds. No palpable organomegaly. MUSCULOSKELETAL: No joint swelling or deformity. EXTREMITIES: No cyanosis, clubbing, or pedal edema. NEUROLOGICAL: Gross neurological examination did not reveal any focal deficits. SKIN: No rashes. - Labs CBC & Chem 7: 06/18/18 05:00 06/18/18 05:00 Labs: Abnormal Lab Results - Last 24 Hours (Table) 06/16/18 06/17/18 06/17/18 Range/Units 04:36 17:57 18:59 RBC (4.30-5.90) m/uL Hgb (13.0-17.5) gm/dL Hct (39.0-53.0) % Plt Count (150-450) k/uL Lymphocytes # (1.0-4.8) k/uL APTT (22.0-30.0) sec ABG pH (7.35-7.45) ABG pCO2 (35-45) mmHg ABG O2 Saturation (94-97) % Chloride (98-107) mmol/L Glucose (74-99) mg/dL POC Glucose (mg/dL) 104 H 101 H (75-99) mg/dL Calcium (8.4-10.2) mg/dL AST (17-59) U/L Alkaline Phosphatase (38-126) U/L Total Protein (6.3-8.2) g/dL Albumin (3.5-5.0) g/dL Crossmatch See Detail 06/17/18 06/17/18 06/17/18 Range/Units 19:50 19:59 21:15 RBC 2.98 L (4.30-5.90) m/uL Hgb 9.3 L (13.0-17.5) gm/dL Hct 27.3 L (39.0-53.0) % Plt Count 123 L (150-450) k/uL Lymphocytes # 0.8 L (1.0-4.8) k/uL APTT (22.0-30.0) sec ABG pH (7.35-7.45) ABG pCO2 (35-45) mmHg ABG O2 Saturation (94-97) % Chloride (98-107) mmol/L Glucose (74-99) mg/dL POC Glucose (mg/dL) 142 H 171 H (75-99) mg/dL Calcium (8.4-10.2) mg/dL AST (17-59) U/L Alkaline Phosphatase (38-126) U/L Total Protein (6.3-8.2) g/dL Albumin (3.5-5.0) g/dL Crossmatch 06/17/18 06/17/18 06/17/18 Range/Units 22:28 23:21 23:58 RBC 2.50 L (4.30-5.90) m/uL Hgb 7.7 L D (13.0-17.5) gm/dL Hct 22.8 L (39.0-53.0) % Plt Count 120 L (150-450) k/uL Lymphocytes # 0.8 L (1.0-4.8) k/uL APTT (22.0-30.0) sec ABG pH (7.35-7.45) ABG pCO2 (35-45) mmHg ABG O2 Saturation (94-97) % Chloride (98-107) mmol/L Glucose (74-99) mg/dL POC Glucose (mg/dL) 160 H 166 H (75-99) mg/dL Calcium (8.4-10.2) mg/dL AST (17-59) U/L Alkaline Phosphatase (38-126) U/L Total Protein (6.3-8.2) g/dL Albumin (3.5-5.0) g/dL Crossmatch 06/17/18 06/18/18 06/18/18 Range/Units 23:59 00:58 01:55 RBC (4.30-5.90) m/uL Hgb (13.0-17.5) gm/dL Hct (39.0-53.0) % Plt Count (150-450) k/uL Lymphocytes # (1.0-4.8) k/uL APTT 35.8 H (22.0-30.0) sec ABG pH (7.35-7.45) ABG pCO2 (35-45) mmHg ABG O2 Saturation (94-97) % Chloride (98-107) mmol/L Glucose (74-99) mg/dL POC Glucose (mg/dL) 165 H 169 H (75-99) mg/dL Calcium (8.4-10.2) mg/dL AST (17-59) U/L Alkaline Phosphatase (38-126) U/L Total Protein (6.3-8.2) g/dL Albumin (3.5-5.0) g/dL Crossmatch 06/18/18 06/18/18 06/18/18 Range/Units 01:55 01:58 03:01 RBC 2.54 L (4.30-5.90) m/uL Hgb 7.7 L (13.0-17.5) gm/dL Hct 23.3 L (39.0-53.0) % Plt Count 122 L (150-450) k/uL Lymphocytes # (1.0-4.8) k/uL APTT (22.0-30.0) sec ABG pH (7.35-7.45) ABG pCO2 (35-45) mmHg ABG O2 Saturation (94-97) % Chloride (98-107) mmol/L Glucose (74-99) mg/dL POC Glucose (mg/dL) 155 H 135 H (75-99) mg/dL Calcium (8.4-10.2) mg/dL AST (17-59) U/L Alkaline Phosphatase (38-126) U/L Total Protein (6.3-8.2) g/dL Albumin (3.5-5.0) g/dL Crossmatch 06/18/18 06/18/18 06/18/18 Range/Units 03:57 05:00 05:00 RBC 2.63 L (4.30-5.90) m/uL Hgb 8.2 L (13.0-17.5) gm/dL Hct 23.8 L (39.0-53.0) % Plt Count 135 L (150-450) k/uL Lymphocytes # (1.0-4.8) k/uL APTT (22.0-30.0) sec ABG pH (7.35-7.45) ABG pCO2 (35-45) mmHg ABG O2 Saturation (94-97) % Chloride 111 H (98-107) mmol/L Glucose 115 H (74-99) mg/dL POC Glucose (mg/dL) 131 H (75-99) mg/dL Calcium 7.7 L (8.4-10.2) mg/dL AST 108 H (17-59) U/L Alkaline Phosphatase 28 L (38-126) U/L Total Protein 4.6 L (6.3-8.2) g/dL Albumin 3.0 L (3.5-5.0) g/dL Crossmatch 06/18/18 06/18/18 06/18/18 Range/Units 05:03 05:04 06:04 RBC (4.30-5.90) m/uL Hgb (13.0-17.5) gm/dL Hct (39.0-53.0) % Plt Count (150-450) k/uL Lymphocytes # (1.0-4.8) k/uL APTT (22.0-30.0) sec ABG pH 7.47 H (7.35-7.45) ABG pCO2 31 L (35-45) mmHg ABG O2 Saturation 98.3 H (94-97) % Chloride (98-107) mmol/L Glucose (74-99) mg/dL POC Glucose (mg/dL) 130 H 114 H (75-99) mg/dL Calcium (8.4-10.2) mg/dL AST (17-59) U/L Alkaline Phosphatase (38-126) U/L Total Protein (6.3-8.2) g/dL Albumin (3.5-5.0) g/dL Crossmatch 06/18/18 06/18/18 06/18/18 Range/Units 06:57 08:21 09:18 RBC (4.30-5.90) m/uL Hgb (13.0-17.5) gm/dL Hct (39.0-53.0) % Plt Count (150-450) k/uL Lymphocytes # (1.0-4.8) k/uL APTT (22.0-30.0) sec ABG pH (7.35-7.45) ABG pCO2 (35-45) mmHg ABG O2 Saturation (94-97) % Chloride (98-107) mmol/L Glucose (74-99) mg/dL POC Glucose (mg/dL) 146 H 116 H 128 H (75-99) mg/dL Calcium (8.4-10.2) mg/dL AST (17-59) U/L Alkaline Phosphatase (38-126) U/L Total Protein (6.3-8.2) g/dL Albumin (3.5-5.0) g/dL Crossmatch 06/18/18 06/18/18 06/18/18 Range/Units 10:07 11:16 12:05 RBC (4.30-5.90) m/uL Hgb (13.0-17.5) gm/dL Hct (39.0-53.0) % Plt Count (150-450) k/uL Lymphocytes # (1.0-4.8) k/uL APTT (22.0-30.0) sec ABG pH (7.35-7.45) ABG pCO2 (35-45) mmHg ABG O2 Saturation (94-97) % Chloride (98-107) mmol/L Glucose (74-99) mg/dL POC Glucose (mg/dL) 111 H 136 H 124 H (75-99) mg/dL Calcium (8.4-10.2) mg/dL AST (17-59) U/L Alkaline Phosphatase (38-126) U/L Total Protein (6.3-8.2) g/dL Albumin (3.5-5.0) g/dL Crossmatch 06/18/18 06/18/18 06/18/18 Range/Units 14:06 16:22 17:24 RBC (4.30-5.90) m/uL Hgb (13.0-17.5) gm/dL Hct (39.0-53.0) % Plt Count (150-450) k/uL Lymphocytes # (1.0-4.8) k/uL APTT (22.0-30.0) sec ABG pH (7.35-7.45) ABG pCO2 (35-45) mmHg ABG O2 Saturation (94-97) % Chloride (98-107) mmol/L Glucose (74-99) mg/dL POC Glucose (mg/dL) 116 H 109 H 117 H (75-99) mg/dL Calcium (8.4-10.2) mg/dL AST (17-59) U/L Alkaline Phosphatase (38-126) U/L Total Protein (6.3-8.2) g/dL Albumin (3.5-5.0) g/dL Crossmatch Assessment and Plan Assessment: severe triple coronary artery disease , s/p CABG and mitral valve repair hypertensin Hyperlipidemia Plan: this is a pleasant 67 yo M who presents for triple coronary art disease ,he is status CABG , he is been followed closely by critical and pulmonary teams Labs and medication were reviewed.. Continue same treatment. Continue with symptomatic treatment. Resume home medication. Monitor lytes and vitals. DVT and GI prophylaxis. Further recommendations of the clinical course of the patient DVT prophylaxis: heparin GI Prophylaxis: Ppi Prognosis is guarded
[2018-06-18 18:19] LABS: Glucose,Whole Blood 119 mg/dL (75-99)
[2018-06-18 20:24] LABS: Glucose,Whole Blood 154 mg/dL (75-99)
[2018-06-18] MEDS: SENNOSIDES-DOCUSATE SODIUM 1 EACH TAB PO SCH (20:32)
[2018-06-18] MEDS: CLOPIDOGREL 75 MG TAB PO SCH (20:33)
[2018-06-18 21:55] LABS: Glucose,Whole Blood 173 mg/dL (75-99)
[2018-06-18] MEDS: INSULIN REGULAR 100 UNIT in SODIUM CHLORIDE 0.9% 100 ML IV SCH (21:55)
[2018-06-18] MEDS: MORPHINE SULFATE 2 MG/ML SYRINGE IVP PRN (22:32)
[2018-06-19] LABS: Glucose,Whole Blood 155 mg/dL (75-99)
[2018-06-19] MEDS: HYDROcodone/APAP 5-325MG 1 EACH TAB PO PRN ×2 (00:04→05:40)
[2018-06-19 02:02] LABS: Glucose,Whole Blood 134 mg/dL (75-99)
[2018-06-19 04:28] LABS: Glucose,Whole Blood 128 mg/dL (75-99)
[2018-06-19 04:38] LABS: Basophils % (A) 0 %; Eosinophils % (A) 0 %; HCT 22.6 % (39.0-53.0); HGB 7.3 gm/dL (13.0-17.5); Lymphocytes # (A) 1.2 k/uL (1.0-4.8); Lymphocytes % (A) 12 %; MCH 29.8 pg (25.0-35.0); MCHC 32.3 g/dL (31.0-37.0); MCV 92.3 fL (80.0-100.0); Mean Platelet Volume 10.6; Monocytes # (A) 0.7 k/uL (0-1.0); Monocytes % (A) 6 %; Neutrophils # (A) 8.6 k/uL (1.3-7.7); Neutrophils % (A) 80 %; Platelet Count 105 k/uL (150-450); RBC 2.45 m/uL (4.30-5.90); RDW 14.3 % (11.5-15.5); WBC 10.8 k/uL (3.8-10.6)
[2018-06-19 04:42] LABS: Ionized Calcium 4.9 mg/dL (4.5-5.3)
[2018-06-19 04:51] LABS: Albumin 3.1 g/dL (3.5-5.0); Calcium 8.2 mg/dL (8.4-10.2); Potassium 4.5 mmol/L (3.5-5.1); Total Bilirubin 0.5 mg/dL (0.2-1.3)
--- NOTE | 2018-06-19 06:43 | XR ---
EXAMINATION TYPE: XR chest 1V portable DATE OF EXAM: 06/19/2018 HISTORY: Post Operative Cardiac Surgery. REFERENCE: Previous study dated 06/18/2018. FINDINGS: The patient has been extubated. Bilateral pleural drains remain in place. A [place]Bony bambi ter remains in place. Its tip is in the right interlobar artery. The heart is upper limits of normal in size. There is bibasilar airspace disease. There are small, bi lateral effusions. IMPRESSION: CONTINUING POSTOPERATIVE CHANGE.
--- NOTE | 2018-06-19 07:03 | P.PN ---
Subjective Progress Note Date: 06/19/18 Principal diagnosis: Unstable angina This is a pleasant 67-year-old gentleman who sees Dr. VC Rodgers in the office as an outpatient who underwent yesterday heart catheterization for symptoms of unstable angina and was found to have severe triple-vessel CAD. Beside that he underwent transesophageal echocardiogram yesterday and that revealed severe MR. He underwent coronary artery that is grafting with a STOKES to LAD, SVG to PDA, SVG to OM, and SVG to PLV. Also he underwent mitral valve repair. On follow-up with the patient today, the 2018, the patient was extubat ed last night. Hemodynamically he is in stable. He has been maintaining normal sinus mechanism. He is on dual antiplatelet therapy along with a statin. He is not on metoprolol because of the baseline heart rate which is bradycardic and in the 60s. The blood work indicated a hemoglobin of 7 and normal creatinine. Overall the patient is doing better. Objective - Vital Signs Vital signs: Vital Signs Temp 37.5 F L 06/18/18 08:00 Pulse 62 06/19/18 05:00 Resp 19 06/19/18 05:00 BP 120/74 06/19/18 05:00 Pulse Ox 98 06/19/18 05:00 Intake & Output 06/18/18 06/19/18 06/19/18 18:59 06:59 18:59 Intake Total 1049.878 677.800 Output Total 1915 960 Balance -865.122 -282.200 Weight 92.7 kg 95.4 kg Intake: IV 799 561 Albumin Human 5% 250 ml 50 In Empty Bag 1 bag @ 250 mls/hr IVPB Q1HR PRN Rx#: [id number] CO/CI 150 30 Lactated Ringers 1,000 ml 550 400 @ 20 mls/hr IV .Q24H [facility] Rx#:[id number] Pressure Bag 99 81 Intake, IV Titration 250.878 16.800 Amount Dexmedetomidine/0.9% NaCl 63.516 (Pmx) 400 mcg In Empty Bag 1 bag @ Titrate IV . Q0M [facility] Rx#:[id number] Insulin Regular 100 unit 29.033 16.800 In Sodium Chloride 0.9% 100 ml @ Titrate IV .Q0M [facility] Rx#:[id number] Milrinone-D5w Pmx 20 mg 57.901 In Dextrose/Water 1 100ml .bag @ Per Protocol IV . Q0M [facility] Rx#:[id number] Nitroglycerin-D5w Pmx 50 4.1 mg In Dextrose/Water 1 250ml.bag @ 5 MCG/MIN 1.5 mls/hr IV .Q24H [facility] Rx#: [id number] Norepinephrine 4 mg In 80.476 Sodium Chloride 0.9% 250 ml @ 0.02 MCG/KG/MIN 6. 507 mls/hr IV .Q24H [facility] Rx#:[id number] Propofol 1,000 mg In 15.852 Empty Bag 1 bag @ Titrate IV .Q0M [facility] Rx#: [id number] Oral 100 Output: Chest Tube Drainage 750 445 Left 150 275 Mediastinal 305 90 Right 295 80 Drainage 15 5 Left Calf 15 5 Urine 1150 510 Other: Voiding Method Indwelling Catheter Indwelling Catheter ABP, PAP, CO, CI - Last Documented Arterial Blood Pressure 115/56 Pulmonary Artery Pressure 40/15 Cardiac Output 4.9 Cardiac Index 2.0 - Constitutional General appearance: Present: no acute distress - Respiratory Respiratory: bilateral: CTA - Cardiovascular Rhythm: regular - Labs CBC & Chem 7: 06/19/18 04:20 06/19/18 04:20 Labs: Abnormal Lab Results - Last 24 Hours (Table) 06/18/18 06/18/18 06/18/18 Range/Units 08:21 09:18 10:07 WBC (3.8-10.6) k/uL RBC (4.30-5.90) m/uL Hgb (13.0-17.5) gm/dL Hct (39.0-53.0) % Plt Count (150-450) k/uL Neutrophils # (1.3-7.7) k/uL Chloride (98-107) mmol/L Glucose (74-99) mg/dL POC Glucose (mg/dL) 116 H 128 H 111 H (75-99) mg/dL Calcium (8.4-10.2) mg/dL AST (17-59) U/L Alkaline Phosphatase (38-126) U/L Total Protein (6.3-8.2) g/dL Albumin (3.5-5.0) g/dL 06/18/18 06/18/18 06/18/18 Range/Units 11:16 12:05 14:06 WBC (3.8-10.6) k/uL RBC (4.30-5.90) m/uL Hgb (13.0-17.5) gm/dL Hct (39.0-53.0) % Plt Count (150-450) k/uL Neutrophils # (1.3-7.7) k/uL Chloride (98-107) mmol/L Glucose (74-99) mg/dL POC Glucose (mg/dL) 136 H 124 H 116 H (75-99) mg/dL Calcium (8.4-10.2) mg/dL AST (17-59) U/L Alkaline Phosphatase (38-126) U/L Total Protein (6.3-8.2) g/dL Albumin (3.5-5.0) g/dL 06/18/18 06/18/18 06/18/18 Range/Units 16:22 17:24 18:11 WBC (3.8-10.6) k/uL RBC (4.30-5.90) m/uL Hgb (13.0-17.5) gm/dL Hct (39.0-53.0) % Plt Count (150-450) k/uL Neutrophils # (1.3-7.7) k/uL Chloride (98-107) mmol/L Glucose (74-99) mg/dL POC Glucose (mg/dL) 109 H 117 H 119 H (75-99) mg/dL Calcium (8.4-10.2) mg/dL AST (17-59) U/L Alkaline Phosphatase (38-126) U/L Total Protein (6.3-8.2) g/dL Albumin (3.5-5.0) g/dL 06/18/18 06/18/18 06/18/18 Range/Units 20:09 21:54 23:59 WBC (3.8-10.6) k/uL RBC (4.30-5.90) m/uL Hgb (13.0-17.5) gm/dL Hct (39.0-53.0) % Plt Count (150-450) k/uL Neutrophils # (1.3-7.7) k/uL Chloride (98-107) mmol/L Glucose (74-99) mg/dL POC Glucose (mg/dL) 154 H 173 H 155 H (75-99) mg/dL Calcium (8.4-10.2) mg/dL AST (17-59) U/L Alkaline Phosphatase (38-126) U/L Total Protein (6.3-8.2) g/dL Albumin (3.5-5.0) g/dL 06/19/18 06/19/18 06/19/18 Range/Units 02:00 04:20 04:20 WBC 10.8 H (3.8-10.6) k/uL RBC 2.45 L (4.30-5.90) m/uL Hgb 7.3 L (13.0-17.5) gm/dL Hct 22.6 L (39.0-53.0) % Plt Count 105 L (150-450) k/uL Neutrophils # 8.6 H (1.3-7.7) k/uL Chloride 109 H (98-107) mmol/L Glucose 115 H (74-99) mg/dL POC Glucose (mg/dL) 134 H (75-99) mg/dL Calcium 8.2 L (8.4-10.2) mg/dL AST 91 H (17-59) U/L Alkaline Phosphatase 34 L (38-126) U/L Total Protein 5.0 L (6.3-8.2) g/dL Albumin 3.1 L (3.5-5.0) g/dL 06/19/18 Range/Units 04:26 WBC (3.8-10.6) k/uL RBC (4.30-5.90) m/uL Hgb (13.0-17.5) gm/dL Hct (39.0-53.0) % Plt Count (150-450) k/uL Neutrophils # (1.3-7.7) k/uL Chloride (98-107) mmol/L Glucose (74-99) mg/dL POC Glucose (mg/dL) 128 H (75-99) mg/dL Calcium (8.4-10.2) mg/dL AST (17-59) U/L Alkaline Phosphatase (38-126) U/L Total Protein (6.3-8.2) g/dL Albumin (3.5-5.0) g/dL Assessment and Plan Assessment: Assessment #1 coronary artery disease and status post CABG as described above #2 hypertension #3 dyslipidemia Plan #1 continue the current medical regimen including dual antiplatelet therapy along with a statin #2 hold on any metoprolol into view of the resting heart rate in the 60s #3 follow-up with the patient
[2018-06-19 07:05] LABS: Glucose,Whole Blood 118 mg/dL (75-99)
[2018-06-19] MEDS: IPRATROPIUM-ALBUTEROL 3 ML NEB INHALATION SCH ×4 (07:38→20:05)
[2018-06-19 08:21] LABS: Glucose,Whole Blood 127 mg/dL (75-99)
[2018-06-19] MEDS: HEPARIN SODIUM,PORCINE 5,000 UNIT/ML 1 ML VIAL SQ SCH ×3 (10:11→17:31)
[2018-06-19] MEDS: ATORVASTATIN 40 MG TAB PO SCH (10:11)
[2018-06-19] MEDS: ASPIRIN 325 MG TAB PO SCH (10:11)
[2018-06-19] MEDS: PANTOPRAZOLE 40 MG TABLET PO SCH (10:11)
[2018-06-19 10:19] LABS: Glucose,Whole Blood 132 mg/dL (75-99)
[2018-06-19] MEDS ORDERED: FUROSEMIDE 10 MG/ML 2 ML VIAL IV ONE (10:49)
[2018-06-19] MEDS: MUPIROCIN 2% OINT 22 GM TUBE NASAL SCH ×2 (11:45→20:45)
[2018-06-19] MEDS: KETOROLAC 30 MG/ML 1 ML VIAL IVP SCH ×2 (11:45→17:31)
[2018-06-19 11:53] LABS: Glucose,Whole Blood 121 mg/dL (75-99)
--- NOTE | 2018-06-19 12:01 | P.PN ---
Subjective Progress Note Date: 06/19/18 Principal diagnosis: Severe triple-vessel coronary artery disease, moderate left ventricular dysfunction, moderate to severe mitral valve regurgitation, hypertension, hyperlipidemia, obstructive sleep apnea, mild COPD with preoperative FEV1 64% of predicted, family history of premature coronary artery disease. POD #2 urgent quadruple coronary artery bypass grafting using the left internal mammary artery to the left anterior descending artery, reverse saphenous vein graft from the aorta to the posterior descending artery, reverse saphenous vein graft from the aorta to the first obtuse marginal artery, reverse saphenous vein graft from the aorta to the left ventricular branch of the right coronary artery. Mitral valve repair using a 28 mm posterior annuloplasty with an AnnuloFlex ring. Exclusion of the left atrial appendage with a 40 mm AtriClip. Intraoperative transesophageal echocardiogram and epi-aortic scanning. Endoscopic harvesting of the left greater saphenous vein from the groin to above the ankle level. Intraoperative graft flow measurements using the [employer] system. Postoperative acute blood loss anemia, expected outcome of surgery given cardiopulmonary bypass pump and hemodilution. Patient's currently sitting up in a recliner in the intensive care unit in no acute distress. States pain is well controlled on current medication regimen, complains of occasional shortness of breath. Currently in sinus rhythm, remains hemodynamically stable on no inotropes or pressors. No new complaints. Objective - Vital Signs Vital signs: Vital Signs Temp 37.1 F L 06/19/18 08:00 Pulse 67 06/19/18 11:15 Resp 20 06/19/18 11:00 BP 115/70 06/19/18 07:00 Pulse Ox 98 06/19/18 11:00 Intake & Output 06/18/18 06/19/18 06/19/18 18:59 06:59 18:59 Intake Total 1049.878 824.800 387.5 Output Total 1915 1255 230 Balance -865.122 -430.200 157.5 Weight 92.7 kg 95.4 kg Intake: IV 799 708 266 Albumin Human 5% 250 ml 50 In Empty Bag 1 bag @ 250 mls/hr IVPB Q1HR PRN Rx#: [id number] CO/CI 150 30 30 Lactated Ringers 1,000 ml 550 520 200 @ 20 mls/hr IV .Q24H [facility] Rx#:[id number] Pressure Bag 99 108 36 Intake, IV Titration 250.878 16.800 21.5 Amount Dexmedetomidine/0.9% NaCl 63.516 (Pmx) 400 mcg In Empty Bag 1 bag @ Titrate IV . Q0M [facility] Rx#:[id number] Insulin Regular 100 unit 29.033 16.800 21.5 In Sodium Chloride 0.9% 100 ml @ Titrate IV .Q0M [facility] Rx#:[id number] Milrinone-D5w Pmx 20 mg 57.901 In Dextrose/Water 1 100ml .bag @ Per Protocol IV . Q0M [facility] Rx#:[id number] Nitroglycerin-D5w Pmx 50 4.1 mg In Dextrose/Water 1 250ml.bag @ 5 MCG/MIN 1.5 mls/hr IV .Q24H [facility] Rx#: [id number] Norepinephrine 4 mg In 80.476 Sodium Chloride 0.9% 250 ml @ 0.02 MCG/KG/MIN 6. 507 mls/hr IV .Q24H [facility] Rx#:[id number] Propofol 1,000 mg In 15.852 Empty Bag 1 bag @ Titrate IV .Q0M [facility] Rx#: [id number] Oral 100 100 Output: Chest Tube Drainage 750 515 45 Left 150 305 15 Mediastinal 305 110 15 Right 295 100 15 Drainage 15 30 5 Left Calf 15 30 5 Urine 1150 710 180 Other: Voiding Method Indwelling Catheter Indwelling Catheter Indwelling Catheter ABP, PAP, CO, CI - Last Documented Arterial Blood Pressure 127/55 Pulmonary Artery Pressure 40/16 Cardiac Output 6.7 Cardiac Index 3.2 - Constitutional General appearance: Present: cooperative, no acute distress, obese - Respiratory Details: Lungs sounds diminished bilaterally. Respirations even, nonlabored. Currently on 2 L nasal cannula with oxygen saturation 96%. Able to achieve 750 mL on his incentive spirometry. Strong cough. Mediastinal chest tube to continuous wall suction, 70 mL serosanguineous drainage overnight, 270 mL in the last 24 hours. Left pleural chest tube to continuous wall suction, 240 mL serosanguineous drainage overnight, 350 mL in the last 24 hours. Right pleural chest tube to continuous wall suction, 70 mL serosanguineous drainage overnight, 250 mL in the last 24 hours. No air leaks present. - Cardiovascular Details: S1, S2 present. Regular rate and rhythm, sinus rhythm on telemetry with heart rate in the low 60s. Sternum stable. Atrial epicardial pacemaker wire present, grounded. Palpable peripheral pulses bilaterally. No edema present. Right internal jugular [place]/Cordis, right radial arterial line present. Last CO/CI 6.7/3.2 on no inotropes or pressors. Heart Hugger in place with patient demonstrating appropriate use. Antiembolism stockings, SCDs present. - Gastrointestinal Gastrointestinal Comment(s): Abdomen soft, nontender, nondistended. Hypoactive bowel sounds present 4 quadrants. Positive belching, negative flatus, negative bowel movement. Tolerating clear liquid diet. - Genitourinary Genitourinary Comment(s): Holm present draining clear, yellow urine. Output 50-60 mL/h overnight. - Integumentary Integumentary Comment(s): Skin is warm and dry with evidence of good perfusion. Anterior chest incision well approximated and covered with dry intact dressing. Left lower extremity EVH site well approximated, minimal serosanguineous drainage. - Neurologic Neurologic: Present: CNII-XII intact - Musculoskeletal Musculoskeletal: Present: strength equal bilaterally - Psychiatric Psychiatric: Present: A&O x's 3, appropriate affect, intact judgment & insight - Allied health notes Allied health notes reviewed: nursing - Labs CBC & Chem 7: 06/19/18 04:20 06/19/18 04:20 Labs: Abnormal Lab Results - Last 24 Hours (Table) 06/18/18 06/18/18 06/18/18 Range/Units 12:05 14:06 16:22 WBC (3.8-10.6) k/uL RBC (4.30-5.90) m/uL Hgb (13.0-17.5) gm/dL Hct (39.0-53.0) % Plt Count (150-450) k/uL Neutrophils # (1.3-7.7) k/uL Chloride (98-107) mmol/L Glucose (74-99) mg/dL POC Glucose (mg/dL) 124 H 116 H 109 H (75-99) mg/dL Calcium (8.4-10.2) mg/dL AST (17-59) U/L Alkaline Phosphatase (38-126) U/L Total Protein (6.3-8.2) g/dL Albumin (3.5-5.0) g/dL 06/18/18 06/18/18 06/18/18 Range/Units 17:24 18:11 20:09 WBC (3.8-10.6) k/uL RBC (4.30-5.90) m/uL Hgb (13.0-17.5) gm/dL Hct (39.0-53.0) % Plt Count (150-450) k/uL Neutrophils # (1.3-7.7) k/uL Chloride (98-107) mmol/L Glucose (74-99) mg/dL POC Glucose (mg/dL) 117 H 119 H 154 H (75-99) mg/dL Calcium (8.4-10.2) mg/dL AST (17-59) U/L Alkaline Phosphatase (38-126) U/L Total Protein (6.3-8.2) g/dL Albumin (3.5-5.0) g/dL 06/18/18 06/18/18 06/19/18 Range/Units 21:54 23:59 02:00 WBC (3.8-10.6) k/uL RBC (4.30-5.90) m/uL Hgb (13.0-17.5) gm/dL Hct (39.0-53.0) % Plt Count (150-450) k/uL Neutrophils # (1.3-7.7) k/uL Chloride (98-107) mmol/L Glucose (74-99) mg/dL POC Glucose (mg/dL) 173 H 155 H 134 H (75-99) mg/dL Calcium (8.4-10.2) mg/dL AST (17-59) U/L Alkaline Phosphatase (38-126) U/L Total Protein (6.3-8.2) g/dL Albumin (3.5-5.0) g/dL 06/19/18 06/19/18 06/19/18 Range/Units 04:20 04:20 04:26 WBC 10.8 H (3.8-10.6) k/uL RBC 2.45 L (4.30-5.90) m/uL Hgb 7.3 L (13.0-17.5) gm/dL Hct 22.6 L (39.0-53.0) % Plt Count 105 L (150-450) k/uL Neutrophils # 8.6 H (1.3-7.7) k/uL Chloride 109 H (98-107) mmol/L Glucose 115 H (74-99) mg/dL POC Glucose (mg/dL) 128 H (75-99) mg/dL Calcium 8.2 L (8.4-10.2) mg/dL AST 91 H (17-59) U/L Alkaline Phosphatase 34 L (38-126) U/L Total Protein 5.0 L (6.3-8.2) g/dL Albumin 3.1 L (3.5-5.0) g/dL 06/19/18 06/19/18 06/19/18 Range/Units 06:40 08:19 10:07 WBC (3.8-10.6) k/uL RBC (4.30-5.90) m/uL Hgb (13.0-17.5) gm/dL Hct (39.0-53.0) % Plt Count (150-450) k/uL Neutrophils # (1.3-7.7) k/uL Chloride (98-107) mmol/L Glucose (74-99) mg/dL POC Glucose (mg/dL) 118 H 127 H 132 H (75-99) mg/dL Calcium (8.4-10.2) mg/dL AST (17-59) U/L Alkaline Phosphatase (38-126) U/L Total Protein (6.3-8.2) g/dL Albumin (3.5-5.0) g/dL - Imaging and Cardiology Chest x-ray: report reviewed, image reviewed Assessment and Plan Assessment: 1. Severe triple-vessel coronary artery disease, status post CABG 2. Moderate left ventricular dysfunction with EF 35-40% 3. Moderate to severe mitral valve regurgitation, status post mitral valve repair 3. Hypertension 4. Hyperlipidemia 5. Obstructive sleep apnea 6. Mild COPD with preoperative FEV1 64% of predicted 7. Family history of premature coronary artery disease 8. Postoperative acute blood loss anemia, expected Plan: 1. Continue aspirin, statin, Plavix. Will hold beta daren therapy for now secondary to underlying bradycardia. Will restart when able. 2. Wean O2 as tolerated. Encourage incentive spirometry use 10 times every hour while awake. 3. Increase activity as tolerated. PT/OT/cardiac rehab following. 4. Primacor and levo discontinued yesterday. Discontinue [place]. Connect Cordis to continuous CVP monitoring. 5. Will discontinue mediastinal chest tube. Continue left and right pleural chest tubes until tomorrow. 6. Will give 20 mg IV Lasix today. Discontinue Holm catheter. Bladder scan every 6 hours, may straight cathed for greater than 300 mL. 7. Will monitor daily labs and x-rays. Electrolyte replacement protocol. No t ransfusion. 8. Pain control with current medication regimen. Toradol added 9. Insulin management per primary care service. 10. GI/DVT prophylaxis. 11. Bronchodilators per pulmonology. 12. More recommendations to follow. Time with Patient: Greater than 30
--- NOTE | 2018-06-19 13:00 | P.PN ---
Subjective Progress Note Date: 06/19/18 On today's evaluation of 06/17/2018 the patient is post coronary artery bypass surgery. The patient underwent carotid bruit pedal bypass surgery using a STOKES to the LAD. The patient also had a mitral valve repair and the patient is currently postop day #0. The patient arrived to the intensive care unit. The patient remains intubated on a mechanical ventilator. The patient is was sedated and calm and comfortable. She is on a 0.2 g per KG per minute of Primacor. The patient has a cardiac index of 2.8. Pulmonary artery pressures are 34/10 and the patient is producing adequate amount of urine output. The patient is on a mechanical ventilator and I switched her to an assist-control mode at the rate of 22 with an FiO2 of 80% and a PEEP of 5 and a tidal volume of 500. The blood gases that were done showed a pH of 7.34 with a pCO2 of 47 and pO2 of 174 and this was done at the rate of 12 and an SIMV mode with a tidal volume of 500. The chest x-ray showed adequate expansion of both lungs. ET tube is in a good location. All of the chest tubes are all in good location is. The patient has his [place]-Bony catheter in good location. Postop blood work is still pending for now. Meanwhile the patient is producing adequate amount of urine output. No other significant events overnight. His cardiac rhythm is sinus. On 06/18/2018 the patient is extubated at around 10:00 AM this morning. Extubation was delayed as the patient was not waking up appropriately from sedation. Overnight I was able to wean down the patient's FiO2. He remains hemodynamically stable. The patient has an appendectomy cardiac pacemaker placed with an AAI mode at the rate of 80. The patient had adequate cardiac output and index. He remained hemodynamically stable. He remains on Primacor. As we weaned off the propofol, the patient became agitated and he was not following any commands and he was thrashing. At that point, weaning was continued with use of Precedex. Nevertheless it filled again. Earlier this morning, we did the same processes again and I was at the bedside and I was able to elicit some good response from the patient. He was able to follow some simple commands and move extremities without any major limitation. At that point, the patient was given a spontaneous breathing trial a pressure support of 5 and a PEEP of 5 and subsequently was extubated without any major difficulties. Currently is on oxygen by nasal cannula. His postop day #1. He has undergone quadruple bypass surgery and mitral valve repair. Cardiac rhythm remains sinus. He has been placed on a low dose of norepinephrine infusion for blood pressure control and this was started overnight. No other issues otherwise for now. Chest x-ray from today showing some mild four-vessel congestion. Chest tubes are all in good location. No evidence of any pneumothorax. On 06/19/2018, the patient is extubated awake and alert and there are no significant complaints for now. The patient is alert and awake and following commands and answering questions. He still has his [place]-Bony catheter in place. He has pleural and mediastinal chest tubes all of them are in place. He has a cardiac index of 2.8. Is producing adequate amount of urine output. His cardiac rhythm is sinus. His postop day #2. He is using incentive spirometer. His adequate blood pressure control. Adequate urine output. No other new complaints otherwise for now and the patient is obviously recovering from his surgery without any major difficulties. He is tolerating his diet also. Objective - Vital Signs Vital signs: Vital Signs Temp 37.1 F L 06/19/18 08:00 Pulse 67 06/19/18 11:15 Resp 20 06/19/18 11:00 BP 115/70 06/19/18 07:00 Pulse Ox 98 06/19/18 11:00 Intake & Output 06/18/18 06/19/18 06/19/18 18:59 06:59 18:59 Intake Total 1049.878 824.800 401.15 Output Total 1915 1255 230 Balance -865.122 -430.200 171.15 Weight 92.7 kg 95.4 kg Intake: IV 799 708 266 Albumin Human 5% 250 ml 50 In Empty Bag 1 bag @ 250 mls/hr IVPB Q1HR PRN Rx#: [id number] CO/CI 150 30 30 Lactated Ringers 1,000 ml 550 520 200 @ 20 mls/hr IV .Q24H [facility] Rx#:[id number] Pressure Bag 99 108 36 Intake, IV Titration 250.878 16.800 35.15 Amount Dexmedetomidine/0.9% NaCl 63.516 (Pmx) 400 mcg In Empty Bag 1 bag @ Titrate IV . Q0M [facility] Rx#:[id number] Insulin Regular 100 unit 29.033 16.800 35.15 In Sodium Chloride 0.9% 100 ml @ Titrate IV .Q0M [facility] Rx#:[id number] Milrinone-D5w Pmx 20 mg 57.901 In Dextrose/Water 1 100ml .bag @ Per Protocol IV . Q0M [facility] Rx#:[id number] Nitroglycerin-D5w Pmx 50 4.1 mg In Dextrose/Water 1 250ml.bag @ 5 MCG/MIN 1.5 mls/hr IV .Q24H [facility] Rx#: [id number] Norepinephrine 4 mg In 80.476 Sodium Chloride 0.9% 250 ml @ 0.02 MCG/KG/MIN 6. 507 mls/hr IV .Q24H [facility] Rx#:[id number] Propofol 1,000 mg In 15.852 Empty Bag 1 bag @ Titrate IV .Q0M [facility] Rx#: [id number] Oral 100 100 Output: Chest Tube Drainage 750 515 45 Left 150 305 15 Mediastinal 305 110 15 Right 295 100 15 Drainage 15 30 5 Left Calf 15 30 5 Urine 1150 710 180 Other: Voiding Method Indwelling Catheter Indwelling Catheter Indwelling Catheter ABP, PAP, CO, CI - Last Documented Arterial Blood Pressure 127/55 Pulmonary Artery Pressure 40/16 Cardiac Output 6.7 Cardiac Index 3.2 - Exam - Constitutional General appearance: Present: no acute distress, obese him a the patient is extubated for now. - Respiratory Details: Lungs sounds diminished bilaterally. Respirations even, nonlabored. Currently on 2 L nasal cannula with oxygen saturation 96%. Able to achieve 750 mL on his incentive spirometry. Strong cough. Mediastinal chest tube to continuous wall suction, 70 mL serosanguineous drainage overnight, 270 mL in the last 24 hours. Left pleural chest tube to continuous wall suction, 240 mL serosanguineous drainage overnight, 350 mL in the last 24 hours. Right pleural chest tube to continuous wall suction, 70 mL serosanguineous drainage overnight, 250 mL in the last 24 hours. No air leaks present. - Cardiovascular Details: S1, S2 present. Regular rate and rhythm, paced rhythm on telemetry with unde rlying rhythm sinus bradycardia in the high 50s. Sternum stable. Atrial epicardial pacemaker wire present, connected to generator, AAI mode with rate 80 bpm. Palpable peripheral pulses bilaterally. No edema present. Right internal jugular [place]/Cordis, right radial arterial line present. Last CO/CI 5.8/2.9 on Primacor 0.2 mcg/kg/m and levo 0.02 mcg/kg/m. Heart Hugger, antiembolism stockings, SCDs present. - Gastrointestinal Gastrointestinal Comment(s): Abdomen soft, nontender, nondistended. Hypoactive bowel sounds present 4 quadrants. OG tube present but not in good position. - Genitourinary Genitourinary Comment(s): Holm present draining clear, yellow urine. Output 20-75 mL/h overnight. - Integumentary Integumentary Comment(s): Skin is warm and dry with evidence of good perfusion. Anterior chest incision well approximated and covered with dry intact dressing. Left lower extremity EVH site well approximated, minimal serosanguineous drainage. - Neurologic Neurologic Comment(s): Awake and following some simple commands and moving all 4 extremities without any limitation. - Musculoskeletal Musculoskeletal: Present: strength equal bilaterally - Labs CBC & Chem 7: 06/19/18 04:20 06/19/18 04:20 Labs: Abnormal Lab Results - Last 24 Hours (Table) 06/18/18 06/18/18 06/18/18 Range/Units 14:06 16:22 17:24 WBC (3.8-10.6) k/uL RBC (4.30-5.90) m/uL Hgb (13.0-17.5) gm/dL Hct (39.0-53.0) % Plt Count (150-450) k/uL Neutrophils # (1.3-7.7) k/uL Chloride (98-107) mmol/L Glucose (74-99) mg/dL POC Glucose (mg/dL) 116 H 109 H 117 H (75-99) mg/dL Calcium (8.4-10.2) mg/dL AST (17-59) U/L Alkaline Phosphatase (38-126) U/L Total Protein (6.3-8.2) g/dL Albumin (3.5-5.0) g/dL 06/18/18 06/18/18 06/18/18 Range/Units 18:11 20:09 21:54 WBC (3.8-10.6) k/uL RBC (4.30-5.90) m/uL Hgb (13.0-17.5) gm/dL Hct (39.0-53.0) % Plt Count (150-450) k/uL Neutrophils # (1.3-7.7) k/uL Chloride (98-107) mmol/L Glucose (74-99) mg/dL POC Glucose (mg/dL) 119 H 154 H 173 H (75-99) mg/dL Calcium (8.4-10.2) mg/dL AST (17-59) U/L Alkaline Phosphatase (38-126) U/L Total Protein (6.3-8.2) g/dL Albumin (3.5-5.0) g/dL 06/18/18 06/19/18 06/19/18 Range/Units 23:59 02:00 04:20 WBC 10.8 H (3.8-10.6) k/uL RBC 2.45 L (4.30-5.90) m/uL Hgb 7.3 L (13.0-17.5) gm/dL Hct 22.6 L (39.0-53.0) % Plt Count 105 L (150-450) k/uL Neutrophils # 8.6 H (1.3-7.7) k/uL Chloride (98-107) mmol/L Glucose (74-99) mg/dL POC Glucose (mg/dL) 155 H 134 H (75-99) mg/dL Calcium (8.4-10.2) mg/dL AST (17-59) U/L Alkaline Phosphatase (38-126) U/L Total Protein (6.3-8.2) g/dL Albumin (3.5-5.0) g/dL 06/19/18 06/19/18 06/19/18 Range/Units 04:20 04:26 06:40 WBC (3.8-10.6) k/uL RBC (4.30-5.90) m/uL Hgb (13.0-17.5) gm/dL Hct (39.0-53.0) % Plt Count (150-450) k/uL Neutrophils # (1.3-7.7) k/uL Chloride 109 H (98-107) mmol/L Glucose 115 H (74-99) mg/dL POC Glucose (mg/dL) 128 H 118 H (75-99) mg/dL Calcium 8.2 L (8.4-10.2) mg/dL AST 91 H (17-59) U/L Alkaline Phosphatase 34 L (38-126) U/L Total Protein 5.0 L (6.3-8.2) g/dL Albumin 3.1 L (3.5-5.0) g/dL 06/19/18 06/19/18 06/19/18 Range/Units 08:19 10:07 11:51 WBC (3.8-10.6) k/uL RBC (4.30-5.90) m/uL Hgb (13.0-17.5) gm/dL Hct (39.0-53.0) % Plt Count (150-450) k/uL Neutrophils # (1.3-7.7) k/uL Chloride (98-107) mmol/L Glucose (74-99) mg/dL POC Glucose (mg/dL) 127 H 132 H 121 H (75-99) mg/dL Calcium (8.4-10.2) mg/dL AST (17-59) U/L Alkaline Phosphatase (38-126) U/L Total Protein (6.3-8.2) g/dL Albumin (3.5-5.0) g/dL Assessment and Plan Plan: Assessment 1 triple-vessel coronary artery disease and the patient is status post non- STEMI. The patient underwent quadruple bypass surgery and a mitral valve repair. Patient is postop day #1. The patient was extubated and the extubation process was slightly prolonged as the patient did not wake up from sedation appropriately and he was having altered mentation and agitation and thrashing. We are the combination of propofol and Precedex and were able to wean this patient off the mechanical ventilated and was extubated early this morning. Currently on oxygen by nasal cannula and hemodynamically stable. Today the patient is postop day #2. He is doing extremely well. He is currently on 2 L of oxygen nasal cannula. Hemodynamically stable. 2 CHF with systolic heart failure ejection fraction of 35-40% based on a preop echocardiogram 3 mitral valve regurgitation, +3 preop, patient is undergo mitral valve repair and the patient is postop day 2. 4 acute hypoxic respiratory failure, post thoracotomy and bypass surgery and mitral valve repair. The patient is currently extubated 5 hyperlipidemia 6 postop hemoglobin dropped/anemia, and expected outcome of surgery with a hemoglobin of 7.3 Plan Will continue monitoring this patient in the intensive care unit. We'll discontinue the [place]-Bony catheter. We'll discontinue the mediastinal chest tubes. Keep the pleural chest tubes in place. Provide the patient incentive spirometer. Discontinue the Holm catheter. Insulin management per primary care. We'll continue to follow.
[2018-06-19 14:48] LABS: Glucose,Whole Blood 182 mg/dL (75-99)
[2018-06-19 15:59] LABS: Glucose,Whole Blood 114 mg/dL (75-99)
--- NOTE | 2018-06-19 15:59 | P.PN ---
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 , ocmplaining from two months of chest pain , that is central , pt states sometimes his chest pain starts at his shoulder blade before it radiated to his chest and his armpit, it varies in severity , last night it was about 8/10 howver it is better controlled with pain medication down to 0-1/10 , he has very mild dyspnea , and with some cough which was more severe yesterday and that what made him go and visit his doctor , pt is admitted to the icu anticipating cardiac cath possibly tomorrow, he was given asprin , statin and was started on heparin drip 06/15/2018 Patient is doing well today with no chest pain or dyspnea. He has some cough but it is dry with no phlegm patient has been evaluated by cardiology team for unstable angina, and recommended to continue with aspirin, metoprolol and statin. And echocardiogram. Vitals are stable. looks unremarkable. Patient was already started on heparin drip. 06/16/2018 Patient's with no much complaint today. He has cardiac cath yesterday which shows severe triple-vessel disease and plan for cardiac bypass grafting, his been evaluated by cardiothoracic surgeon. Venous mapping is undergoing. 06/17/2018 pt underwent coronary artery bypass grafting and mitral valve repair, post op day #0. vitals are stable, labs are reviewed , hemoglobin is 10.2m post op he is intubated and mechanically ventilated, pt is been followed by pulmonary/critical care team and he remains in ICU for now 06/18/2018 Patient is a status post coronary artery bypass grafting and mitral valve repair. Postop day #1 He remains in the ICU, fully awake and oriented, not in chest pain no dyspnea. He is status post intubation and extubation. He is currently on amiodarone, aspirin and Plavix. Platelet been followed closely by cardiothoracic team 06/19/2018 Patient is doing well. No chest pain or dyspnea. Lying in bed not in distress. Feels generally tired. He is eating well but he has no bowel movement yet. He is passing gases. He is hemodynamically stable. Sugar is controlled. WBC is 10.8 K. Creatinine 1.0. Sodium 139. Presents of 4.5. No new complaints. Objective - Vital Signs Vital signs: Vital Signs Temp 98.0 F 05/05/19 12:00 Pulse 64 06/19/18 15:53 Resp 14 06/19/18 15:00 BP 115/70 06/19/18 07:00 Pulse Ox 97 06/19/18 15:00 Intake & Output 06/18/18 06/19/18 06/19/18 18:59 06:59 18:59 Intake Total 1049.878 824.800 529.858 Output Total 1915 1255 1060 Balance -865.122 -430.200 -530.142 Weight 92.7 kg 95.4 kg Intake: IV 799 708 381 Albumin Human 5% 250 ml 50 In Empty Bag 1 bag @ 250 mls/hr IVPB Q1HR PRN Rx#: [id number] CO/CI 150 30 30 Lactated Ringers 1,000 ml 550 520 300 @ 20 mls/hr IV .Q24H [facility] Rx#:[id number] Pressure Bag 99 108 51 Intake, IV Titration 250.878 16.800 48.858 Amount Dexmedetomidine/0.9% NaCl 63.516 (Pmx) 400 mcg In Empty Bag 1 bag @ Titrate IV . Q0M [facility] Rx#:[id number] Insulin Regular 100 unit 29.033 16.800 48.858 In Sodium Chloride 0.9% 100 ml @ Titrate IV .Q0M [facility] Rx#:[id number] Milrinone-D5w Pmx 20 mg 57.901 In Dextrose/Water 1 100ml .bag @ Per Protocol IV . Q0M [facility] Rx#:[id number] Nitroglycerin-D5w Pmx 50 4.1 mg In Dextrose/Water 1 250ml.bag @ 5 MCG/MIN 1.5 mls/hr IV .Q24H [facility] Rx#: [id number] Norepinephrine 4 mg In 80.476 Sodium Chloride 0.9% 250 ml @ 0.02 MCG/KG/MIN 6. 507 mls/hr IV .Q24H [facility] Rx#:[id number] Propofol 1,000 mg In 15.852 Empty Bag 1 bag @ Titrate IV .Q0M [facility] Rx#: [id number] Oral 100 100 Output: Chest Tube Drainage 750 515 215 Left 150 305 100 Mediastinal 305 110 30 Right 295 100 85 Drainage 15 30 5 Left Calf 15 30 5 Urine 1150 710 840 Other: Voiding Method Indwelling Catheter Indwelling Catheter Indwelling Catheter # Bowel Movements 1 ABP, PAP, CO, CI - Last Documented Arterial Blood Pressure 104/43 Pulmonary Artery Pressure 40/16 Cardiac Output 6.7 Cardiac Index 3.2 - Exam -GENERAL: The patient is intubated and mechanically ventilated, HEENT: Pupils are round and equally reacting to light. EOMI. No scleral icterus. No conjunctival pallor. Normocephalic, atraumatic. No pharyngeal erythema. No thyromegaly. CARDIOVASCULAR: S1 and S2 present. No murmurs, rubs, or gallops. PULMONARY: Chest is clear to auscultation, no wheezing or crackles. ABDOMEN: Soft, nontender, nondistended, normoactive bowel sounds. No palpable organomegaly. MUSCULOSKELETAL: No joint swelling or deformity. EXTREMITIES: No cyanosis, clubbing, or pedal edema. NEUROLOGICAL: Gross neurological examination did not reveal any focal deficits. SKIN: No rashes. - Labs CBC & Chem 7: 06/19/18 04:20 06/19/18 04:20 Labs: Abnormal Lab Results - Last 24 Hours (Table) 06/18/18 06/18/18 06/18/18 Range/Units 16:22 17:24 18:11 WBC (3.8-10.6) k/uL RBC (4.30-5.90) m/uL Hgb (13.0-17.5) gm/dL Hct (39.0-53.0) % Plt Count (150-450) k/uL Neutrophils # (1.3-7.7) k/uL Chloride (98-107) mmol/L Glucose (74-99) mg/dL POC Glucose (mg/dL) 109 H 117 H 119 H (75-99) mg/dL Calcium (8.4-10.2) mg/dL AST (17-59) U/L Alkaline Phosphatase (38-126) U/L Total Protein (6.3-8.2) g/dL Albumin (3.5-5.0) g/dL 06/18/18 06/18/18 06/18/18 Range/Units 20:09 21:54 23:59 WBC (3.8-10.6) k/uL RBC (4.30-5.90) m/uL Hgb (13.0-17.5) gm/dL Hct (39.0-53.0) % Plt Count (150-450) k/uL Neutrophils # (1.3-7.7) k/uL Chloride (98-107) mmol/L Glucose (74-99) mg/dL POC Glucose (mg/dL) 154 H 173 H 155 H (75-99) mg/dL Calcium (8.4-10.2) mg/dL AST (17-59) U/L Alkaline Phosphatase (38-126) U/L Total Protein (6.3-8.2) g/dL Albumin (3.5-5.0) g/dL 06/19/18 06/19/18 06/19/18 Range/Units 02:00 04:20 04:20 WBC 10.8 H (3.8-10.6) k/uL RBC 2.45 L (4.30-5.90) m/uL Hgb 7.3 L (13.0-17.5) gm/dL Hct 22.6 L (39.0-53.0) % Plt Count 105 L (150-450) k/uL Neutrophils # 8.6 H (1.3-7.7) k/uL Chloride 109 H (98-107) mmol/L Glucose 115 H (74-99) mg/dL POC Glucose (mg/dL) 134 H (75-99) mg/dL Calcium 8.2 L (8.4-10.2) mg/dL AST 91 H (17-59) U/L Alkaline Phosphatase 34 L (38-126) U/L Total Protein 5.0 L (6.3-8.2) g/dL Albumin 3.1 L (3.5-5.0) g/dL 06/19/18 06/19/18 06/19/18 Range/Units 04:26 06:40 08:19 WBC (3.8-10.6) k/uL RBC (4.30-5.90) m/uL Hgb (13.0-17.5) gm/dL Hct (39.0-53.0) % Plt Count (150-450) k/uL Neutrophils # (1.3-7.7) k/uL Chloride (98-107) mmol/L Glucose (74-99) mg/dL POC Glucose (mg/dL) 128 H 118 H 127 H (75-99) mg/dL Calcium (8.4-10.2) mg/dL AST (17-59) U/L Alkaline Phosphatase (38-126) U/L Total Protein (6.3-8.2) g/dL Albumin (3.5-5.0) g/dL 06/19/18 06/19/18 06/19/18 Range/Units 10:07 11:51 14:34 WBC (3.8-10.6) k/uL RBC (4.30-5.90) m/uL Hgb (13.0-17.5) gm/dL Hct (39.0-53.0) % Plt Count (150-450) k/uL Neutrophils # (1.3-7.7) k/uL Chloride (98-107) mmol/L Glucose (74-99) mg/dL POC Glucose (mg/dL) 132 H 121 H 182 H (75-99) mg/dL Calcium (8.4-10.2) mg/dL AST (17-59) U/L Alkaline Phosphatase (38-126) U/L Total Protein (6.3-8.2) g/dL Albumin (3.5-5.0) g/dL Assessment and Plan Assessment: severe triple coronary artery disease , s/p CABG and mitral valve repair hypertensin Hyperlipidemia Plan: this is a pleasant 67 yo M who presents for triple coronary art disease ,he is status CABG , he is been followed closely by critical and pulmonary teams Labs and medication were reviewed.. Continue same treatment. Continue with symptomatic treatment. Resume home medication. Monitor lytes and vitals. DVT and GI prophylaxis. Further recommendations of the clinical course of the patient DVT prophylaxis: heparin GI Prophylaxis: Ppi Prognosis is guarded
[2018-06-19 16:22] LABS: Glucose,Whole Blood 107 mg/dL (75-99)
[2018-06-19] MEDS: CLEVIDIPINE BUTYRATE 25 MG in EMPTY BAG 1 BAG IV SCH (16:32)
[2018-06-19] MEDS: LACTATED RINGERS 1,000 ML IV SCH (17:20)
[2018-06-19] MEDS: INSULIN REGULAR 100 UNIT in SODIUM CHLORIDE 0.9% 100 ML IV SCH (17:22)
[2018-06-19 17:44] LABS: Glucose,Whole Blood 128 mg/dL (75-99)
[2018-06-19 18:30] LABS: Glucose,Whole Blood 111 mg/dL (75-99)
[2018-06-19] MEDS: CLOPIDOGREL 75 MG TAB PO SCH (20:44)
[2018-06-19] MEDS: SENNOSIDES-DOCUSATE SODIUM 1 EACH TAB PO SCH (20:44)
[2018-06-19 21:02] LABS: Glucose,Whole Blood 131 mg/dL (75-99)
[2018-06-19 22:40] LABS: Glucose,Whole Blood 135 mg/dL (75-99)
[2018-06-20 00:17] LABS: Glucose,Whole Blood 122 mg/dL (75-99)
[2018-06-20] MEDS: KETOROLAC 30 MG/ML 1 ML VIAL IVP SCH ×4 (00:38→17:17)
[2018-06-20] MEDS: HEPARIN SODIUM,PORCINE 5,000 UNIT/ML 1 ML VIAL SQ SCH ×3 (00:39→16:50)
[2018-06-20 02:57] LABS: Glucose,Whole Blood 123 mg/dL (75-99)
[2018-06-20] MEDS: HYDROcodone/APAP 5-325MG 1 EACH TAB PO PRN (03:59)
[2018-06-20 04:11] LABS: Glucose,Whole Blood 156 mg/dL (75-99)
[2018-06-20 04:18] LABS: Basophils % (A) 0 %; Eosinophils # (A) 0.3 k/uL (0-0.7); Eosinophils % (A) 3 %; HCT 22.9 % (39.0-53.0); HGB 7.5 gm/dL (13.0-17.5); Hypochromasia Slight; Lymphocytes # (A) 1.6 k/uL (1.0-4.8); Lymphocytes % (A) 15 %; MCH 30.6 pg (25.0-35.0); MCHC 32.6 g/dL (31.0-37.0); MCV 93.9 fL (80.0-100.0); Mean Platelet Volume 8.1; Monocytes # (A) 0.4 k/uL (0-1.0); Monocytes % (A) 4 %; Neutrophils # (A) 8.1 k/uL (1.3-7.7); Neutrophils % (A) 77 %; RBC 2.44 m/uL (4.30-5.90); RDW 14.2 % (11.5-15.5); WBC 10.5 k/uL (3.8-10.6)
[2018-06-20 04:23] LABS: Platelet Count 158 k/uL (150-450)
[2018-06-20 04:28] LABS: ALT 26 U/L (21-72); AST 61 U/L (17-59); Alkaline Phosphatase 49 U/L (38-126); Anion Gap 7 mmol/L; Blood Urea Nitrogen 23 mg/dL (9-20); Calcium 8.2 mg/dL (8.4-10.2); Carbon Dioxide 25 mmol/L (22-30); Chloride 104 mmol/L (98-107); Glucose 135 mg/dL (74-99); Sodium 136 mmol/L (137-145); Total Bilirubin 0.6 mg/dL (0.2-1.3)
[2018-06-20 06:53] LABS: Glucose,Whole Blood 141 mg/dL (75-99)
--- NOTE | 2018-06-20 07:24 | P.PN ---
Subjective Progress Note Date: 06/20/18 Principal diagnosis: Unstable angina This is a pleasant 67-year-old gentleman who sees Dr. VC Rodgers in the office as an outpatient who underwent yesterday heart catheterization for symptoms of unstable angina and was found to have severe triple-vessel CAD. Beside that he underwent transesophageal echocardiogram yesterday and that revealed severe MR. He underwent coronary artery that is grafting with a STOKES to LAD, SVG to PDA, SVG to OM, and SVG to PLV. Also he underwent mitral valve repair. On follow-up with the patient today, 06/20/2018, overall he is clinically stabl e. Hemodynamically he is stable. He continues to be on dual antiplatelet therapy along with a statin as well as metoprolol. He did not sleep well last night. Objective - Vital Signs Vital signs: Vital Signs Temp 98 F 06/20/18 04:00 Pulse 67 06/20/18 05:00 Resp 23 06/20/18 05:00 BP 125/64 06/20/18 05:00 Pulse Ox 97 06/20/18 05:00 Intake & Output 06/19/18 06/20/18 06/20/18 18:59 06:59 18:59 Intake Total 571.027 5894.458 Output Total 1280 550 Balance -677.742 464.458 Weight 95.8 kg Intake: IV 450 253 CO/CI 30 Lactated Ringers 1,000 ml 360 220 @ 20 mls/hr IV .Q24H [facility] Rx#:[id number] Pressure Bag 60 33 Intake, IV Titration 52.258 21.458 Amount Insulin Regular 100 unit 52.258 21.458 In Sodium Chloride 0.9% 100 ml @ Titrate IV .Q0M [facility] Rx#:[id number] Oral 100 740 Output: Chest Tube Drainage 245 300 Left 115 180 Mediastinal 30 Right 100 120 Drainage 5 Left Calf 5 Urine 1030 250 Other: Voiding Method Indwelling Catheter Urinal ABP, PAP, CO, CI - Last Documented Arterial Blood Pressure 154/74 Pulmonary Artery Pressure 40/16 Cardiac Output 6.7 Cardiac Index 3.2 - Constitutional General appearance: Present: no acute distress - Respiratory Respiratory: bilateral: CTA - Cardiovascular Rhythm: regular Heart sounds: normal: S1, S2 - Labs CBC & Chem 7: 06/20/18 04:10 06/20/18 04:10 Labs: Abnormal Lab Results - Last 24 Hours (Table) 06/19/18 06/19/18 06/19/18 Range/Units 08:19 10:07 11:51 RBC (4.30-5.90) m/uL Hgb (13.0-17.5) gm/dL Hct (39.0-53.0) % Neutrophils # (1.3-7.7) k/uL Sodium (137-145) mmol/L BUN (9-20) mg/dL Glucose (74-99) mg/dL POC Glucose (mg/dL) 127 H 132 H 121 H (75-99) mg/dL Calcium (8.4-10.2) mg/dL AST (17-59) U/L Total Protein (6.3-8.2) g/dL Albumin (3.5-5.0) g/dL 06/19/18 06/19/18 06/19/18 Range/Units 14:34 15:45 16:20 RBC (4.30-5.90) m/uL Hgb (13.0-17.5) gm/dL Hct (39.0-53.0) % Neutrophils # (1.3-7.7) k/uL Sodium (137-145) mmol/L BUN (9-20) mg/dL Glucose (74-99) mg/dL POC Glucose (mg/dL) 182 H 114 H 107 H (75-99) mg/dL Calcium (8.4-10.2) mg/dL AST (17-59) U/L Total Protein (6.3-8.2) g/dL Albumin (3.5-5.0) g/dL 06/19/18 06/19/18 06/19/18 Range/Units 17:18 18:28 20:57 RBC (4.30-5.90) m/uL Hgb (13.0-17.5) gm/dL Hct (39.0-53.0) % Neutrophils # (1.3-7.7) k/uL Sodium (137-145) mmol/L BUN (9-20) mg/dL Glucose (74-99) mg/dL POC Glucose (mg/dL) 128 H 111 H 131 H (75-99) mg/dL Calcium (8.4-10.2) mg/dL AST (17-59) U/L Total Protein (6.3-8.2) g/dL Albumin (3.5-5.0) g/dL 06/19/18 06/20/18 06/20/18 Range/Units 22:38 00:15 02:56 RBC (4.30-5.90) m/uL Hgb (13.0-17.5) gm/dL Hct (39.0-53.0) % Neutrophils # (1.3-7.7) k/uL Sodium (137-145) mmol/L BUN (9-20) mg/dL Glucose (74-99) mg/dL POC Glucose (mg/dL) 135 H 122 H 123 H (75-99) mg/dL Calcium (8.4-10.2) mg/dL AST (17-59) U/L Total Protein (6.3-8.2) g/dL Albumin (3.5-5.0) g/dL 06/20/18 06/20/18 06/20/18 Range/Units 04:09 04:10 04:10 RBC 2.44 L (4.30-5.90) m/uL Hgb 7.5 L (13.0-17.5) gm/dL Hct 22.9 L (39.0-53.0) % Neutrophils # 8.1 H (1.3-7.7) k/uL Sodium 136 L (137-145) mmol/L BUN 23 H (9-20) mg/dL Glucose 135 H (74-99) mg/dL POC Glucose (mg/dL) 156 H (75-99) mg/dL Calcium 8.2 L (8.4-10.2) mg/dL AST 61 H (17-59) U/L Total Protein 5.0 L (6.3-8.2) g/dL Albumin 3.0 L (3.5-5.0) g/dL 06/20/18 Range/Units 06:52 RBC (4.30-5.90) m/uL Hgb (13.0-17.5) gm/dL Hct (39.0-53.0) % Neutrophils # (1.3-7.7) k/uL Sodium (137-145) mmol/L BUN (9-20) mg/dL Glucose (74-99) mg/dL POC Glucose (mg/dL) 141 H (75-99) mg/dL Calcium (8.4-10.2) mg/dL AST (17-59) U/L Total Protein (6.3-8.2) g/dL Albumin (3.5-5.0) g/dL Assessment and Plan Assessment: Assessment #1 coronary artery disease and status post CABG as described above #2 hypertension #3 dyslipidemia Plan #1 continue the current medical regimen including dual antiplatelet therapy along with a statin #2 continue monitor the kidney function and electrolytes #3 follow-up with the patient
[2018-06-20] MEDS: IPRATROPIUM-ALBUTEROL 3 ML NEB INHALATION SCH ×4 (07:36→20:35)
--- NOTE | 2018-06-20 08:10 | XR ---
EXAMINATION TYPE: XR chest 1V portable DATE OF EXAM: 06/20/2018 COMPARISON: 06/19/2018 HISTORY: Post cardiac surgery TECHNIQUE: Single frontal view of the chest is obtained. FINDINGS: Baxter-Bony catheter has been removed. Cardiomegaly, postsurgical change and diffuse interst itial pattern seen with bilateral consolidation and small effusion. No sizable pneumothorax. Vascular sheath noted. IMPRESSION: Postsurgical change correlate for mild venous congestion with bilateral infiltrate and s mall effusion.
[2018-06-20] MEDS ORDERED: FUROSEMIDE 10 MG/ML 2 ML VIAL IV ONE (08:15)
[2018-06-20] MEDS: PANTOPRAZOLE 40 MG TABLET PO SCH (08:38)
[2018-06-20] MEDS: ATORVASTATIN 40 MG TAB PO SCH (08:39)
[2018-06-20] MEDS: METOPROLOL TARTRATE 12.5 MG TAB PO SCH ×2 (08:39→20:47)
[2018-06-20] MEDS: TAMSULOSIN 0.4 MG CAP.ER.24H PO SCH (08:39)
[2018-06-20] MEDS: ASPIRIN 325 MG TAB PO SCH (08:39)
[2018-06-20 09:21] LABS: Glucose,Whole Blood 142 mg/dL (75-99)
[2018-06-20] MEDS: MUPIROCIN 2% OINT 22 GM TUBE NASAL SCH ×2 (10:27→20:53)
--- NOTE | 2018-06-20 11:12 | P.PN ---
Subjective Progress Note Date: 06/20/18 Principal diagnosis: Triple-vessel coronary artery disease status post quadruple bypass surgery and mitral valve repair postoperative day #2 On today's evaluation of 06/17/2018 the patient is post coronary artery bypass surgery. The patient underwent carotid bruit pedal bypass surgery using a STOKES to the LAD. The patient also had a mitral valve repair and the patient is alice [place] postop day #0. The patient arrived to the intensive care unit. The patient remains intubated on a mechanical ventilator. The patient is was sedated and calm and comfortable. She is on a 0.2 g per KG per minute of Primacor. The patient has a cardiac index of 2.8. Pulmonary artery pressures are 34/10 and the patient is producing adequate amount of urine output. The patient is on a mechanical ventilator and I switched her to an assist-control mode at the rate of 22 with an FiO2 of 80% and a PEEP of 5 and a tidal volume of 500. The blood gases that were done showed a pH of 7.34 with a pCO2 of 47 and pO2 of 174 and this was done at the rate of 12 and an SIMV mode with a tidal volume of 500. The chest x-ray showed adequate expansion of both lungs. ET tube is in a good location. All of the chest tubes are all in good location is. The patient has his Hawley-Bony catheter in good location. Postop blood work is still pending for now. Meanwhile the patient is producing adequate amount of urine output. No other significant events overnight. His cardiac rhythm is sinus. On 06/18/2018 the patient is extubated at around 10:00 AM this morning. Extubation was delayed as the patient was not waking up appropriately from sedation. Overnight I was able to wean down the patient's FiO2. He remains hemodynamically stable. The patient has an appendectomy cardiac pacemaker place d with an AAI mode at the rate of 80. The patient had adequate cardiac output and index. He remained hemodynamically stable. He remains on Primacor. As we weaned off the propofol, the patient became agitated and he was not following any commands and he was thrashing. At that point, weaning was continued with use of Precedex. Nevertheless it filled again. Earlier this morning, we did the same processes again and I was at the bedside and I was able to elicit some good response from the patient. He was able to follow some simple commands and move extremities without any major limitation. At that point, the patient was given a spontaneous breathing trial a pressure support of 5 and a PEEP of 5 and subsequently was extubated without any major difficulties. Currently is on oxygen by nasal cannula. His postop day #1. He has undergone quadruple bypass surgery and mitral valve repair. Cardiac rhythm remains sinus. He has been placed on a low dose of norepinephrine infusion for blood pressure control and this was started overnight. No other issues otherwise for now. Chest x-ray from today showing some mild four-vessel congestion. Chest tubes are all in good location. No evidence of any pneumothorax. On 06/19/2018, the patient is extubated awake and alert and there are no significant complaints for now. The patient is alert and awake and following commands and answering questions. He still has his Hawley-Bony catheter in place. He has pleural and mediastinal chest tubes all of them are in place. He has a cardiac index of 2.8. Is producing adequate amount of urine output. His cardiac rhythm is sinus. His postop day #2. He is using incentive spirometer. His adequate blood pressure control. Adequate urine output. No other new complaints otherwise for now and the patient is obviously recovering from his surgery without any major difficulties. He is tolerating his diet also. Patient was evaluated today on 06/20/2018, sating at a bedside chair, very comfo rtable, in no distress, doing fairly well with incentive spirometry, patient is hemodynamically stable, currently in sinus rhythm, has occasional complaints of shortness of breath. Not requiring any inotropes or pressors at this point. Chest x-ray showed postsurgical changes, mild venous congestion noted, small bilateral atelectasis and small effusions. Labs were all reviewed, had a relatively normal electrolytes normal renal profile, hemoglobin is 7.5 Objective - Vital Signs Vital signs: Vital Signs Temp 97.7 F 06/20/18 10:06 Pulse 70 06/20/18 10:06 Resp 19 06/20/18 10:06 BP 115/64 06/20/18 10:06 Pulse Ox 93 L 06/20/18 10:06 Intake & Output 06/19/18 06/20/18 06/20/18 18:59 06:59 18:59 Intake Total 551.807 0172.458 239 Output Total 1280 550 0 Balance -677.742 487.458 239 Weight 95.8 kg Intake: IV 450 276 89 CO/CI 30 Lactated Ringers 1,000 ml 360 240 80 @ 20 mls/hr IV .Q24H [facility] Rx#:[id number] Pressure Bag 60 36 9 Intake, IV Titration 52.258 21.458 Amount Insulin Regular 100 unit 52.258 21.458 In Sodium Chloride 0.9% 100 ml @ Titrate IV .Q0M [facility] Rx#:[id number] Oral 100 740 150 Output: Chest Tube Drainage 245 300 Left 115 180 Mediastinal 30 Right 100 120 Drainage 5 Left Calf 5 Urine 1030 250 0 Other: Voiding Method Indwelling Catheter Urinal Toilet Urinal # Voids 1 ABP, PAP, CO, CI - Last Documented Arterial Blood Pressure 154/74 Pulmonary Artery Pressure 40/16 Cardiac Output 6.7 Cardiac Index 3.2 - Exam Physical Exam: Revealed a 67-year-old white male in no distress. Very pleasant. Head: Atraumatic, normocephalic. HEENT:[Neck is supple.] [No neck masses.] [No thyromegaly.] [No JVD.] Chest: [Diminished breath sounds bilaterally, nonlabored, O2 sat is 96% on 2 L nasal cannula. Has a strong cough, mediastinal chest tube on wall suction 70 mL overnight, 270 mL in the last 24 hours. Left-sided pleural chest tube had 350 ML in the last 24 hours. Right-sided chest tube had put 250 ML in the last 24 hours.] Cardiac Exam: [Normal S1 and S2, no S3 gallop, no murmur.] Atrial epicardial pacemaker wires are present rounded. Good pulses bilaterally. Cardiac index 3.2. Abdomen: [Soft, nontender, no megaly, no rebound, no guarding, normal bowel sounds.] Extremities: [No clubbing, no edema, no cyanosis.] Neurological Exam: [No focal neurologic deficit.] Psychiatric: Normal mood affect and mental status examination. Lymphatics: No lymphadenopathy. Skin: Warm and dry good perfusion anterior chest incision is intact. Left lower extremity evh site is intact, minimal serosanguineous drainage - Labs CBC & Chem 7: 06/20/18 04:10 06/20/18 04:10 Labs: Abnormal Lab Results - Last 24 Hours (Table) 06/19/18 06/19/18 06/19/18 Range/Units 11:51 14:34 15:45 RBC (4.30-5.90) m/uL Hgb (13.0-17.5) gm/dL Hct (39.0-53.0) % Neutrophils # (1.3-7.7) k/uL Sodium (137-145) mmol/L BUN (9-20) mg/dL Glucose (74-99) mg/dL POC Glucose (mg/dL) 121 H 182 H 114 H (75-99) mg/dL Calcium (8.4-10.2) mg/dL AST (17-59) U/L Total Protein (6.3-8.2) g/dL Albumin (3.5-5.0) g/dL 06/19/18 06/19/18 06/19/18 Range/Units 16:20 17:18 18:28 RBC (4.30-5.90) m/uL Hgb (13.0-17.5) gm/dL Hct (39.0-53.0) % Neutrophils # (1.3-7.7) k/uL Sodium (137-145) mmol/L BUN (9-20) mg/dL Glucose (74-99) mg/dL POC Glucose (mg/dL) 107 H 128 H 111 H (75-99) mg/dL Calcium (8.4-10.2) mg/dL AST (17-59) U/L Total Protein (6.3-8.2) g/dL Albumin (3.5-5.0) g/dL 06/19/18 06/19/18 06/20/18 Range/Units 20:57 22:38 00:15 RBC (4.30-5.90) m/uL Hgb (13.0-17.5) gm/dL Hct (39.0-53.0) % Neutrophils # (1.3-7.7) k/uL Sodium (137-145) mmol/L BUN (9-20) mg/dL Glucose (74-99) mg/dL POC Glucose (mg/dL) 131 H 135 H 122 H (75-99) mg/dL Calcium (8.4-10.2) mg/dL AST (17-59) U/L Total Protein (6.3-8.2) g/dL Albumin (3.5-5.0) g/dL 06/20/18 06/20/18 06/20/18 Range/Units 02:56 04:09 04:10 RBC 2.44 L (4.30-5.90) m/uL Hgb 7.5 L (13.0-17.5) gm/dL Hct 22.9 L (39.0-53.0) % Neutrophils # 8.1 H (1.3-7.7) k/uL Sodium (137-145) mmol/L BUN (9-20) mg/dL Glucose (74-99) mg/dL POC Glucose (mg/dL) 123 H 156 H (75-99) mg/dL Calcium (8.4-10.2) mg/dL AST (17-59) U/L Total Protein (6.3-8.2) g/dL Albumin (3.5-5.0) g/dL 06/20/18 06/20/18 06/20/18 Range/Units 04:10 06:52 09:20 RBC (4.30-5.90) m/uL Hgb (13.0-17.5) gm/dL Hct (39.0-53.0) % Neutrophils # (1.3-7.7) k/uL Sodium 136 L (137-145) mmol/L BUN 23 H (9-20) mg/dL Glucose 135 H (74-99) mg/dL POC Glucose (mg/dL) 141 H 142 H (75-99) mg/dL Calcium 8.2 L (8.4-10.2) mg/dL AST 61 H (17-59) U/L Total Protein 5.0 L (6.3-8.2) g/dL Albumin 3.0 L (3.5-5.0) g/dL Assessment and Plan Assessment: Impression: 1 severe triple-vessel coronary artery disease, status post CABG postoperative day #2 2 moderate left ventricular dysfunction, ejection fraction 35-40%. 3 status post mitral valve repair for moderate to severe mitral valve regurgitation postoperative day #2 3 moderate COPD, FEV1 preoperative 64%. 4 obstructive sleep apnea syndrome 5 postoperative acute blood loss anemia, expected. Recommendation: 1 continue Plavix statin and aspirin, consider adding beta blockers once the b radycardia resolved. 2 continue incentive spirometry, and wean oxygen down as tolerates. 3 continue bronchodilators and early ambulation. 4 continue to monitor chest tubes and addressed accordingly possibly discontinue mediastinal chest tube today. 5 pain control medication 6 monitor daily labs and x-rays 7 continue insulin as per protocol. 8 gentle diuresis today as already done by cardiac surgery. 9 we'll continue to follow. Time with Patient: Less than 30
--- NOTE | 2018-06-20 11:35 | P.PN ---
Subjective Progress Note Date: 06/20/18 Principal diagnosis: Severe triple-vessel coronary artery disease, moderate left ventricular dysfunction, moderate to severe mitral valve regurgitation, hypertension, hyperlipidemia, obstructive sleep apnea, mild COPD with preoperative FEV1 64% of predicted, family history of premature coronary artery disease. POD #3 urgent quadruple coronary artery bypass grafting using the left internal mammary artery to the left anterior descending artery, reverse saphenous vein graft from the aorta to the posterior descending artery, reverse saphenous vein graft from the aorta to the first obtuse marginal artery, reverse saphenous vein graft from the aorta to the left ventricular branch of the right coronary artery. Mitral valve repair using a 28 mm posterior annuloplasty with an AnnuloFlex ring. Exclusion of the left atrial appendage with a 40 mm AtriClip. Intraoperative transesophageal echocardiogram and epi-aortic scanning. Endoscopic harvesting of the left greater saphenous vein from the groin to above the ankle level. Intraoperative graft flow measurements using the Unbxdim system. Postoperative acute blood loss anemia, expected outcome of surgery given cardiopulmonary bypass pump and hemodilution. Patient's currently sitting up in a recliner in the intensive care unit in no acute distress. States pain is controlled on current medication regimen, complains of occasional shortness of breath. Currently in sinus rhythm, remains hemodynamically stable on no inotropes or pressors. Patient was unable to void after Holm catheter removal yesterday and required straight catheterization which he refused for as long as possible. Objective - Vital Signs Vital signs: Vital Signs Temp 97.7 F 06/20/18 10:06 Pulse 70 06/20/18 11:00 Resp 11 L 06/20/18 11:00 BP 115/64 06/20/18 11:00 Pulse Ox 96 06/20/18 11:00 Intake & Output 06/19/18 06/20/18 06/20/18 18:59 06:59 18:59 Intake Total 567.001 4424.458 239 Output Total 1280 550 0 Balance -677.742 487.458 239 Weight 95.8 kg Intake: IV 450 276 89 CO/CI 30 Lactated Ringers 1,000 ml 360 240 80 @ 20 mls/hr IV .Q24H [facility] Rx#:[id number] Pressure Bag 60 36 9 Intake, IV Titration 52.258 21.458 Amount Insulin Regular 100 unit 52.258 21.458 In Sodium Chloride 0.9% 100 ml @ Titrate IV .Q0M [facility] Rx#:[id number] Oral 100 740 150 Output: Chest Tube Drainage 245 300 Left 115 180 Mediastinal 30 Right 100 120 Drainage 5 Left Calf 5 Urine 1030 250 0 Other: Voiding Method Indwelling Catheter Urinal Toilet Urinal # Voids 1 ABP, PAP, CO, CI - Last Documented Arterial Blood Pressure 154/74 Pulmonary Artery Pressure 40/16 Cardiac Output 6.7 Cardiac Index 3.2 - Constitutional General appearance: Present: cooperative, no acute distress, obese - Respiratory Details: Lungs sounds diminished bilaterally. Respirations even, nonlabored. Currently on room air with oxygen saturation 92%. Able to achieve 1000 mL on his incentive spirometry. Strong cough. Left pleural chest tube to continuous wall suction, 80 mL serosanguineous drainage overnight, 350 mL in the last 24 hours. Right pleural chest tube to continuous wall suction, 80 mL serosanguineous drainage overnight, 200 mL in the last 24 hours. No air leaks present. - Cardiovascular Details: S1, S2 present. Regular rate and rhythm, sinus rhythm on telemetry with heart rate in the mid to high 60s. Sternum stable. Atrial epicardial pacemaker wire present, grounded. Palpable peripheral pulses bilaterally. No edema present. Right radial arterial line present. Heart Hugger in place with patient demonstrating appropriate use. Antiembolism stockings, SCDs present. - Gastrointestinal Gastrointestinal Comment(s): Abdomen soft, nontender, nondistended. Hypoactive bowel sounds present 4 quadrants. Positive belching, negative flatus, negative bowel movement. Tolerating diet. - Genitourinary Genitourinary Comment(s): Holm discontinued yesterday. Patient was unable to void and needed to be straight cathed this morning for 250 mL. Excellent diuresis after IV Lasix given yesterday. - Integumentary Integumentary Comment(s): Skin is warm and dry with evidence of good perfusion. Anterior chest incision well approximated and covered with dry intact dressing. Left lower extremity EVH site well approximated, minimal serosanguineous drainage. - Neurologic Neurologic: Present: CNII-XII intact - Musculoskeletal Musculoskeletal: Present: gait normal, strength equal bilaterally - Psychiatric Psychiatric: Present: A&O x's 3, appropriate affect, intact judgment & insight - Allied health notes Allied health notes reviewed: nursing - Labs CBC & Chem 7: 0506/19 04:10 06/20/18 04:10 Labs: Abnormal Lab Results - Last 24 Hours (Table) 06/19/18 06/19/18 06/19/18 Range/Units 11:51 14:34 15:45 RBC (4.30-5.90) m/uL Hgb (13.0-17.5) gm/dL Hct (39.0-53.0) % Neutrophils # (1.3-7.7) k/uL Sodium (137-145) mmol/L BUN (9-20) mg/dL Glucose (74-99) mg/dL POC Glucose (mg/dL) 121 H 182 H 114 H (75-99) mg/dL Calcium (8.4-10.2) mg/dL AST (17-59) U/L Total Protein (6.3-8.2) g/dL Albumin (3.5-5.0) g/dL 06/19/18 06/19/18 06/19/18 Range/Units 16:20 17:18 18:28 RBC (4.30-5.90) m/uL Hgb (13.0-17.5) gm/dL Hct (39.0-53.0) % Neutrophils # (1.3-7.7) k/uL Sodium (137-145) mmol/L BUN (9-20) mg/dL Glucose (74-99) mg/dL POC Glucose (mg/dL) 107 H 128 H 111 H (75-99) mg/dL Calcium (8.4-10.2) mg/dL AST (17-59) U/L Total Protein (6.3-8.2) g/dL Albumin (3.5-5.0) g/dL 06/19/18 06/19/18 06/20/18 Range/Units 20:57 22:38 00:15 RBC (4.30-5.90) m/uL Hgb (13.0-17.5) gm/dL Hct (39.0-53.0) % Neutrophils # (1.3-7.7) k/uL Sodium (137-145) mmol/L BUN (9-20) mg/dL Glucose (74-99) mg/dL POC Glucose (mg/dL) 131 H 135 H 122 H (75-99) mg/dL Calcium (8.4-10.2) mg/dL AST (17-59) U/L Total Protein (6.3-8.2) g/dL Albumin (3.5-5.0) g/dL 06/20/18 06/20/18 06/20/18 Range/Units 02:56 04:09 04:10 RBC 2.44 L (4.30-5.90) m/uL Hgb 7.5 L (13.0-17.5) gm/dL Hct 22.9 L (39.0-53.0) % Neutrophils # 8.1 H (1.3-7.7) k/uL Sodium (137-145) mmol/L BUN (9-20) mg/dL Glucose (74-99) mg/dL POC Glucose (mg/dL) 123 H 156 H (75-99) mg/dL Calcium (8.4-10.2) mg/dL AST (17-59) U/L Total Protein (6.3-8.2) g/dL Albumin (3.5-5.0) g/dL 06/20/18 06/20/18 06/20/18 Range/Units 04:10 06:52 09:20 RBC (4.30-5.90) m/uL Hgb (13.0-17.5) gm/dL Hct (39.0-53.0) % Neutrophils # (1.3-7.7) k/uL Sodium 136 L (137-145) mmol/L BUN 23 H (9-20) mg/dL Glucose 135 H (74-99) mg/dL POC Glucose (mg/dL) 141 H 142 H (75-99) mg/dL Calcium 8.2 L (8.4-10.2) mg/dL AST 61 H (17-59) U/L Total Protein 5.0 L (6.3-8.2) g/dL Albumin 3.0 L (3.5-5.0) g/dL - Imaging and Cardiology Chest x-ray: report reviewed, image reviewed Assessment and Plan Assessment: 1. Severe triple-vessel coronary artery disease, status post CABG 2. Moderate left ventricular dysfunction with EF 35-40% 3. Moderate to severe mitral valve regurgitation, status post mitral valve repair 3. Hypertension 4. Hyperlipidemia 5. Obstructive sleep apnea 6. Mild COPD with preoperative FEV1 64% of predicted 7. Family history of premature coronary artery disease 8. Postoperative acute blood loss anemia, expected Plan: 1. Continue aspirin, statin, Plavix. Will restart low-dose beta daren and will increase as tolerated. 2. Encourage incentive spirometry use 10 times every hour while awake. 3. Increase activity as tolerated. PT/OT/cardiac rehab following. 4. Discontinue Cordis, arterial line. 5. Will discontinue right chest tube. Continue left pleural chest tube until tomorrow. 6. Will give 20 mg IV Lasix today. 7. Will monitor daily labs and x-rays. Electrolyte replacement protocol. No transfusion. 8. Pain control with current medication regimen. 9. Insulin management per primary care service. 10. GI/DVT prophylaxis. 11. Bronchodilators per pulmonology. 13. Will add Flomax. 14. We will place transfer orders for 3 S. cardiac stepdown unit, may transfer when bed available. 15. Discharge planning in progress. Anticipate discharge to home with home care soon, however patient is refusing home care. Patient will need primary care physician as he currently does not follow with any PCP. 16. More recommendations to follow. Time with Patient: Greater than 30
[2018-06-20 12:37] LABS: Glucose,Whole Blood 95 mg/dL (75-99)
[2018-06-20] MEDS: INSULIN ASPART (NovoLOG) 100 UNIT/ML VIAL SQ SCH ×3 (12:59→20:47)
[2018-06-20] MEDS: LACTATED RINGERS 1,000 ML IV SCH (12:59)
[2018-06-20 16:59] LABS: Glucose,Whole Blood 107 mg/dL (75-99)
--- NOTE | 2018-06-20 19:00 | P.PN ---
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 , ocmplaining from two months of chest pain , that is central , pt states sometimes his chest pain starts at his shoulder blade before it radiated to his chest and his armpit, it varies in severity , last night it was about 8/10 howver it is better controlled with pain medication down to 0-1/10 , he has very mild dyspnea , and with some cough which was more severe yesterday and that what made him go and visit his doctor , pt is admitted to the icu anticipating cardiac cath possibly tomorrow, he was given asprin , statin and was started on heparin drip 06/15/2018 Patient is doing well today with no chest pain or dyspnea. He has some cough but it is dry with no phlegm patient has been evaluated by cardiology team for unstable angina, and recommended to continue with aspirin, metoprolol and statin. And echocardiogram. Vitals are stable. looks unremarkable. Patient was already started on heparin drip. 06/16/2018 Patient's with no much complaint today. He has cardiac cath yesterday which shows severe triple-vessel disease and plan for cardiac bypass grafting, his been evaluated by cardiothoracic surgeon. Venous mapping is undergoing. 06/17/2018 pt underwent coronary artery bypass grafting and mitral valve repair, post op day #0. vitals are stable, labs are reviewed , hemoglobin is 10.2m post op he is intubated and mechanically ventilated, pt is been followed by pulmonary/critical care team and he remains in ICU for now 06/18/2018 Patient is a status post coronary artery bypass grafting and mitral valve repair. Postop day #1 He remains in the ICU, fully awake and oriented, not in chest pain no dyspnea. He is status post intubation and extubation. He is currently on amiodarone, aspirin and Plavix. Platelet been followed closely by cardiothoracic team 06/19/2018 Patient is doing well. No chest pain or dyspnea. Lying in bed not in distress. Feels generally tired. He is eating well but he has no bowel movement yet. He is passing gases. He is hemodynamically stable. Sugar is controlled. WBC is 10.8 K. Creatinine 1.0. Sodium 139. Presents of 4.5. No new complaints. 06/20/2018 pt is still in icu , he is improving gradually , surgery team discontinued Cordis, arterial line. and right chest pain , still has left chest tube, he is with no chest pain or dyspnea. pt will be transferred to general medical floor. Objective - Vital Signs Vital signs: Vital Signs Temp 97.8 F 06/20/18 16:00 Pulse 76 06/20/18 18:00 Resp 13 06/20/18 18:00 BP 117/61 06/20/18 18:00 Pulse Ox 93 L 06/20/18 18:00 Intake & Output 06/19/18 06/20/18 06/20/18 18:59 06:59 18:59 Intake Total 943.932 0865.458 469 Output Total 1280 550 30 Balance -677.742 487.458 439 Weight 95.8 kg Intake: IV 450 276 169 CO/CI 30 Lactated Ringers 1,000 ml 360 240 160 @ 20 mls/hr IV .Q24H [facility] Rx#:[id number] Pressure Bag 60 36 9 Intake, IV Titration 52.258 21.458 Amount Insulin Regular 100 unit 52.258 21.458 In Sodium Chloride 0.9% 100 ml @ Titrate IV .Q0M [facility] Rx#:[id number] Oral 100 740 300 Output: Chest Tube Drainage 245 300 Left 115 180 Mediastinal 30 Right 100 120 Drainage 5 30 Left Calf 5 30 Urine 1030 250 0 Other: Voiding Method Indwelling Catheter Urinal Toilet # Voids 1 # Bowel Movements 1 ABP, PAP, CO, CI - Last Documented Arterial Blood Pressure 154/74 Pulmonary Artery Pressure 40/16 Cardiac Output 6.7 Cardiac Index 3.2 - Exam -GENERAL: The patient is intubated and mechanically ventilated, HEENT: Pupils are round and equally reacting to light. EOMI. No scleral icterus. No conjunctival pallor. Normocephalic, atraumatic. No pharyngeal erythema. No thyromegaly. CARDIOVASCULAR: S1 and S2 present. No murmurs, rubs, or gallops. PULMONARY: Chest is clear to auscultation, no wheezing or crackles. ABDOMEN: Soft, nontender, nondistended, normoactive bowel sounds. No palpable organomegaly. MUSCULOSKELETAL: No joint swelling or deformity. EXTREMITIES: No cyanosis, clubbing, or pedal edema. NEUROLOGICAL: Gross neurological examination did not reveal any focal deficits. SKIN: No rashes. - Labs CBC & Chem 7: 06/20/18 04:10 06/20/18 04:10 Labs: Abnormal Lab Results - Last 24 Hours (Table) 06/19/18 06/19/18 06/20/18 Range/Units 20:57 22:38 00:15 RBC (4.30-5.90) m/uL Hgb (13.0-17.5) gm/dL Hct (39.0-53.0) % Neutrophils # (1.3-7.7) k/uL Sodium (137-145) mmol/L BUN (9-20) mg/dL Glucose (74-99) mg/dL POC Glucose (mg/dL) 131 H 135 H 122 H (75-99) mg/dL Calcium (8.4-10.2) mg/dL AST (17-59) U/L Total Protein (6.3-8.2) g/dL Albumin (3.5-5.0) g/dL 06/20/18 06/20/18 06/20/18 Range/Units 02:56 04:09 04:10 RBC 2.44 L (4.30-5.90) m/uL Hgb 7.5 L (13.0-17.5) gm/dL Hct 22.9 L (39.0-53.0) % Neutrophils # 8.1 H (1.3-7.7) k/uL Sodium (137-145) mmol/L BUN (9-20) mg/dL Glucose (74-99) mg/dL POC Glucose (mg/dL) 123 H 156 H (75-99) mg/dL Calcium (8.4-10.2) mg/dL AST (17-59) U/L Total Protein (6.3-8.2) g/dL Albumin (3.5-5.0) g/dL 06/20/18 06/20/18 06/20/18 Range/Units 04:10 06:52 09:20 RBC (4.30-5.90) m/uL Hgb (13.0-17.5) gm/dL Hct (39.0-53.0) % Neutrophils # (1.3-7.7) k/uL Sodium 136 L (137-145) mmol/L BUN 23 H (9-20) mg/dL Glucose 135 H (74-99) mg/dL POC Glucose (mg/dL) 141 H 142 H (75-99) mg/dL Calcium 8.2 L (8.4-10.2) mg/dL AST 61 H (17-59) U/L Total Protein 5.0 L (6.3-8.2) g/dL Albumin 3.0 L (3.5-5.0) g/dL 06/20/18 Range/Units 16:58 RBC (4.30-5.90) m/uL Hgb (13.0-17.5) gm/dL Hct (39.0-53.0) % Neutrophils # (1.3-7.7) k/uL Sodium (137-145) mmol/L BUN (9-20) mg/dL Glucose (74-99) mg/dL POC Glucose (mg/dL) 107 H (75-99) mg/dL Calcium (8.4-10.2) mg/dL AST (17-59) U/L Total Protein (6.3-8.2) g/dL Albumin (3.5-5.0) g/dL Assessment and Plan Assessment: severe triple coronary artery disease , s/p CABG and mitral valve repair hypertensin Hyperlipidemia Plan: this is a pleasant 67 yo M who presents for triple coronary art disease ,he is status CABG , he is been followed closely by critical and pulmonary teams Labs and medication were reviewed.. Continue same treatment. Continue with symptomatic treatment. Resume home medication. Monitor lytes and vitals. DVT and GI prophylaxis. Further recommendations of the clinical course of the patient DVT prophylaxis: heparin GI Prophylaxis: Ppi Prognosis is guarded
[2018-06-20 20:37] LABS: Glucose,Whole Blood 121 mg/dL (75-99)
[2018-06-20] MEDS: CLOPIDOGREL 75 MG TAB PO SCH (20:47)
[2018-06-20] MEDS: SENNOSIDES-DOCUSATE SODIUM 1 EACH TAB PO SCH (20:56)
[2018-06-21] MEDS: KETOROLAC 30 MG/ML 1 ML VIAL IVP SCH ×5 (00:11→23:23)
[2018-06-21] MEDS: HEPARIN SODIUM,PORCINE 5,000 UNIT/ML 1 ML VIAL SQ SCH ×4 (00:11→23:23)
--- NOTE | 2018-06-21 02:20 | XR ---
EXAM: XR Chest, 1 View CLINICAL HISTORY: ITS.REASON XR Reason: SOB TECHNIQUE: Frontal view of the chest. COMPARISON: 06/19/18 x-ray IMPRESSION: Cardiomegaly. Bibasilar atelectasis. No pulmonary edema or pleural effusion.
[2018-06-21] MEDS: HYDROcodone/APAP 5-325MG 1 EACH TAB PO PRN (02:22)
[2018-06-21 05:08] LABS: HCT 23.7 % (39.0-53.0); HGB 7.4 gm/dL (13.0-17.5); Hypochromasia Slight; MCH 29.7 pg (25.0-35.0); MCHC 31.3 g/dL (31.0-37.0); MCV 94.9 fL (80.0-100.0); Platelet Count 205 k/uL (150-450); RBC 2.49 m/uL (4.30-5.90); RDW 14.2 % (11.5-15.5); WBC 10.1 k/uL (3.8-10.6)
[2018-06-21 05:37] LABS: Anion Gap 5 mmol/L; Blood Urea Nitrogen 23 mg/dL (9-20); Carbon Dioxide 27 mmol/L (22-30); Chloride 104 mmol/L (98-107); Glucose 107 mg/dL (74-99); Potassium 4.5 mmol/L (3.5-5.1); Sodium 136 mmol/L (137-145)
[2018-06-21 07:07] LABS: Glucose,Whole Blood 103 mg/dL (75-99)
--- NOTE | 2018-06-21 07:20 | P.PN ---
Subjective Progress Note Date: 06/21/18 Principal diagnosis: Unstable angina This is a pleasant 67-year-old gentleman who sees Dr. VC Rodgers in the office as an outpatient who underwent yesterday heart catheterization for symptoms of unstable angina and was found to have severe triple-vessel CAD. Beside that he underwent transesophageal echocardiogram yesterday and that revealed severe MR. He underwent coronary artery that is grafting with a STOKES to LAD, SVG to PDA, SVG to OM, and SVG to PLV. Also he underwent mitral valve repair. On follow-up with the patient today, June [id number], overall he did have a better night then the night before. He seems to be asymptomatic at this point. He is hemodynamically stable. He is on maximize medical treatment. Objective - Vital Signs Vital signs: Vital Signs Temp 98.0 F 06/21/18 04:00 Pulse 75 06/21/18 05:00 Resp 22 06/21/18 05:00 BP 136/84 06/21/18 05:00 Pulse Ox 92 L 06/21/18 05:00 Intake & Output 06/20/18 06/21/18 06/21/18 18:59 06:59 18:59 Intake Total 469 550 Output Total 30 190 Balance 439 360 Intake: IV 169 Lactated Ringers 1,000 ml 160 @ 20 mls/hr IV .Q24H [facility] Rx#:[id number] Pressure Bag 9 Oral 300 550 Output: Chest Tube Drainage 100 Left 100 Drainage 30 90 Left Calf 30 90 Urine 0 Other: Voiding Method Toilet Toilet # Voids 1 1 # Bowel Movements 1 ABP, PAP, CO, CI - Last Documented Arterial Blood Pressure 154/74 Pulmonary Artery Pressure 40/16 Cardiac Output 6.7 Cardiac Index 3.2 - Constitutional General appearance: Present: no acute distress - Respiratory Respiratory: bilateral: diminished - Cardiovascular Rhythm: regular - Labs CBC & Chem 7: 06/21/18 04:29 06/21/18 04:29 Labs: Abnormal Lab Results - Last 24 Hours (Table) 06/20/18 06/20/18 06/20/18 Range/Units 09:20 16:58 20:36 RBC (4.30-5.90) m/uL Hgb (13.0-17.5) gm/dL Hct (39.0-53.0) % Sodium (137-145) mmol/L BUN (9-20) mg/dL Glucose (74-99) mg/dL POC Glucose (mg/dL) 142 H 107 H 121 H (75-99) mg/dL Calcium (8.4-10.2) mg/dL 06/21/18 06/21/18 06/21/18 Range/Units 04:29 04:29 07:05 RBC 2.49 L (4.30-5.90) m/uL Hgb 7.4 L (13.0-17.5) gm/dL Hct 23.7 L (39.0-53.0) % Sodium 136 L (137-145) mmol/L BUN 23 H (9-20) mg/dL Glucose 107 H (74-99) mg/dL POC Glucose (mg/dL) 103 H (75-99) mg/dL Calcium 8.0 L (8.4-10.2) mg/dL Assessment and Plan Assessment: Assessment #1 coronary artery disease and status post CABG as described above #2 hypertension #3 dyslipidemia Plan #1 continue the current medical regimen including dual antiplatelet therapy along with a statin #2 continue monitor the kidney function and electrolytes #3 follow-up with the patient
[2018-06-21] MEDS: INSULIN ASPART (NovoLOG) 100 UNIT/ML VIAL SQ SCH ×4 (07:37→21:08)
[2018-06-21] MEDS: PANTOPRAZOLE 40 MG TABLET PO SCH (07:43)
[2018-06-21] MEDS ORDERED: FUROSEMIDE 10 MG/ML 2 ML VIAL IV ONE (08:15)
[2018-06-21] MEDS: IPRATROPIUM-ALBUTEROL 3 ML NEB INHALATION SCH ×4 (08:47→20:05)
--- NOTE | 2018-06-21 08:51 | XR ---
EXAMINATION TYPE: XR chest 1V portable DATE OF EXAM: 06/21/2018 COMPARISON: 06/21/2018 HISTORY: Shortness of breath TECHNIQUE: Single frontal view of the chest is obtained. FINDINGS: There is a new approximate 5% left apical pneumothorax. Chest tube noted. Bilateral small effusion and basilar consolidation. Postsurgical changes and cardiomegaly stable. IMPRESSION: 1. New approximate 5% left apical pneumothorax. 2. Bilateral infiltrate and small effusion. Underlying venous congestion not excluded.
[2018-06-21] MEDS: ATORVASTATIN 40 MG TAB PO SCH (08:57)
[2018-06-21] MEDS: METOPROLOL TARTRATE 12.5 MG TAB PO SCH (08:57)
[2018-06-21] MEDS: ASPIRIN 325 MG TAB PO SCH (08:57)
[2018-06-21] MEDS: TAMSULOSIN 0.4 MG CAP.ER.24H PO SCH (08:57)
--- NOTE | 2018-06-21 11:46 | P.PN ---
Subjective Progress Note Date: 06/21/18 Principal diagnosis: Triple-vessel coronary artery disease status post quadruple bypass surgery and mitral valve repair postoperative day # 3 On today's evaluation of 06/17/2018 the patient is post coronary artery bypass surgery. The patient underwent carotid bruit pedal bypass surgery using a STOKES to the LAD. The patient also had a mitral valve repair and the patient is curr ently postop day #0. The patient arrived to the intensive care unit. The patient remains intubated on a mechanical ventilator. The patient is was sedated and calm and comfortable. She is on a 0.2 g per KG per minute of Primacor. The patient has a cardiac index of 2.8. Pulmonary artery pressures are 34/10 and the patient is producing adequate amount of urine output. The patient is on a mechanical ventilator and I switched her to an assist-control mode at the rate of 22 with an FiO2 of 80% and a PEEP of 5 and a tidal volume of 500. The blood gases that were done showed a pH of 7.34 with a pCO2 of 47 and pO2 of 174 and this was done at the rate of 12 and an SIMV mode with a tidal volume of 500. The chest x-ray showed adequate expansion of both lungs. ET tube is in a good location. All of the chest tubes are all in good location is. The patient has his Otto-Bony catheter in good location. Postop blood work is still pending for now. Meanwhile the patient is producing adequate amount of urine output. No other significant events overnight. His cardiac rhythm is sinus. On 06/18/2018 the patient is extubated at around 10:00 AM this morning. Extubation was delayed as the patient was not waking up appropriately from sedation. Overnight I was able to wean down the patient's FiO2. He remains hemodynamically stable. The patient has an appendectomy cardiac pacemaker plac ed with an AAI mode at the rate of 80. The patient had adequate cardiac output and index. He remained hemodynamically stable. He remains on Primacor. As we weaned off the propofol, the patient became agitated and he was not following any commands and he was thrashing. At that point, weaning was continued with use of Precedex. Nevertheless it filled again. Earlier this morning, we did the same processes again and I was at the bedside and I was able to elicit some good response from the patient. He was able to follow some simple commands and move extremities without any major limitation. At that point, the patient was given a spontaneous breathing trial a pressure support of 5 and a PEEP of 5 and subsequently was extubated without any major difficulties. Currently is on oxygen by nasal cannula. His postop day #1. He has undergone quadruple bypass surgery and mitral valve repair. Cardiac rhythm remains sinus. He has been placed on a low dose of norepinephrine infusion for blood pressure control and this was started overnight. No other issues otherwise for now. Chest x-ray from today showing some mild four-vessel congestion. Chest tubes are all in good location. No evidence of any pneumothorax. On 06/19/2018, the patient is extubated awake and alert and there are no significant complaints for now. The patient is alert and awake and following commands and answering questions. He still has his Otto-Bony catheter in place. He has pleural and mediastinal chest tubes all of them are in place. He has a cardiac index of 2.8. Is producing adequate amount of urine output. His cardiac rhythm is sinus. His postop day #2. He is using incentive spirometer. His adequate blood pressure control. Adequate urine output. No other new complaints otherwise for now and the patient is obviously recovering from his surgery without any major difficulties. He is tolerating his diet also. Patient was evaluated today on 06/20/2018, sitting at a bedside chair, very com fortable, in no distress, doing fairly well with incentive spirometry, patient is hemodynamically stable, currently in sinus rhythm, has occasional complaints of shortness of breath. Not requiring any inotropes or pressors at this point. Chest x-ray showed postsurgical changes, mild venous congestion noted, small bilateral atelectasis and small effusions. Labs were all reviewed, had a relatively normal electrolytes normal renal profile, hemoglobin is 7.5 Reevaluated today on 06/21/2018, patient is doing well, sitting at a bedside chair, on room air, in no distress, improving with his incentive spirometry, but no more than 800 mL per effort. Remains in sinus rhythm, relatively asymptomatic. Not requiring any inotropes or pressors. Chest x-ray showed a left apical pneumothorax roughly 5%, minimal atelectasis and small effusions noted. Suspicious for mild interstitial edema. Objective - Vital Signs Vital signs: Vital Signs Temp 98.0 F 06/21/18 04:00 Pulse 82 06/21/18 10:00 Resp 11 L 06/21/18 10:00 BP 118/67 06/21/18 11:00 Pulse Ox 95 06/21/18 10:00 Intake & Output 06/20/18 06/21/18 06/21/18 18:59 06:59 18:59 Intake Total 469 550 500 Output Total 30 190 20 Balance 439 360 480 Weight 90.9 kg Intake: IV 169 Lactated Ringers 1,000 ml 160 @ 20 mls/hr IV .Q24H [facility] Rx#:[id number] Pressure Bag 9 Oral 300 550 500 Output: Chest Tube Drainage 100 Left 100 Drainage 30 90 20 Left Calf 30 90 20 Urine 0 Other: Voiding Method Toilet Toilet Toilet # Voids 1 1 1 # Bowel Movements 1 1 ABP, PAP, CO, CI - Last Documented Arterial Blood Pressure 154/74 Pulmonary Artery Pressure 40/16 Cardiac Output 6.7 Cardiac Index 3.2 - Exam Physical Exam: Revealed a 67-year-old white male in no distress. Head: Atraumatic, normocephalic. HEENT:[Neck is supple.] [No neck masses.] [No thyromegaly.] [No JVD.] Chest: [Diminished breath sounds bilaterally, nonlabored, O2 sat is 96% on 2 L nasal cannula. Has a strong cough, Cardiac Exam: [Normal S1 and S2, no S3 gallop, no murmur.] Good pulses bilaterally. Abdomen: [Soft, nontender, no megaly, no rebound, no guarding, normal bowel sounds.] Extremities: [No clubbing, no edema, no cyanosis.] Neurological Exam: [No focal neurologic deficit.] Psychiatric: Normal mood affect and mental status examination. Lymphatics: No lymphadenopathy. Skin: Warm and dry good perfusion anterior chest incision is intact. Left lower extremity evh site is intact, minimal serosanguineous drainage - Labs CBC & Chem 7: 06/21/18 04:29 06/21/18 04:29 Labs: Abnormal Lab Results - Last 24 Hours (Table) 06/20/18 06/20/18 06/21/18 Range/Units 16:58 20:36 04:29 RBC 2.49 L (4.30-5.90) m/uL Hgb 7.4 L (13.0-17.5) gm/dL Hct 23.7 L (39.0-53.0) % Sodium (137-145) mmol/L BUN (9-20) mg/dL Glucose (74-99) mg/dL POC Glucose (mg/dL) 107 H 121 H (75-99) mg/dL Calcium (8.4-10.2) mg/dL 06/21/18 06/21/18 Range/Units 04:29 07:05 RBC (4.30-5.90) m/uL Hgb (13.0-17.5) gm/dL Hct (39.0-53.0) % Sodium 136 L (137-145) mmol/L BUN 23 H (9-20) mg/dL Glucose 107 H (74-99) mg/dL POC Glucose (mg/dL) 103 H (75-99) mg/dL Calcium 8.0 L (8.4-10.2) mg/dL Assessment and Plan Assessment: Impression: 1 severe triple-vessel coronary artery disease, status post CABG postoperative day #3 2 moderate left ventricular dysfunction, ejection fraction 35-40%. 3 status post mitral valve repair for moderate to severe mitral valve regurgitation postoperative day #3 3 moderate COPD, FEV1 preoperative 64%. 4 obstructive sleep apnea syndrome 5 postoperative acute blood loss anemia, expected. Recommendation: 1 continue Plavix statin and aspirin, consider adding beta blockers once the bradycardia resolved. 2 continue incentive spirometry, and wean oxygen down as tolerates. 3 continue bronchodilators and early ambulation. 4 continue to monitor chest tubes and addressed accordingly possibly discontinue mediastinal chest tube today. 5 pain control medication 6 monitor daily labs and x-rays 7 continue insulin as per protocol. 8 degenerative diurese as needed Consider transferring the patient out of the ICU to a monitor bed on selective, we'll continue to follow. Time with Patient: Less than 30
[2018-06-21] MEDS ORDERED: LOSARTAN 25 MG TAB PO SCH (12:00)
[2018-06-21 12:11] LABS: Glucose,Whole Blood 94 mg/dL (75-99)
--- NOTE | 2018-06-21 12:32 | P.PN ---
Subjective Progress Note Date: 06/21/18 Principal diagnosis: Severe triple-vessel coronary artery disease, moderate left ventricular dysfunction, moderate to severe mitral valve regurgitation, hypertension, hyperlipidemia, obstructive sleep apnea, mild COPD with preoperative FEV1 64% of predicted, family history of premature coronary artery disease. POD #4 urgent quadruple coronary artery bypass grafting using the left internal mammary artery to the left anterior descending artery, reverse saphenous vein graft from the aorta to the posterior descending artery, reverse saphenous vein graft from the aorta to the first obtuse marginal artery, reverse saphenous vein graft from the aorta to the left ventricular branch of the right coronary artery. Mitral valve repair using a 28 mm posterior annuloplasty with an AnnuloFlex ring. Exclusion of the left atrial appendage with a 40 mm AtriClip. Intraoperative transesophageal echocardiogram and epi-aortic scanning. Endoscopic harvesting of the left greater saphenous vein from the groin to above the ankle level. Intraoperative graft flow measurements using the [employer] system. Postoperative acute blood loss anemia, expected outcome of surgery given cardiopulmonary bypass pump and hemodilution. Patient's currently sitting up in a recliner in the intensive care unit in no acute distress. States pain is controlled on current medication regimen, denies shortness of breath. Currently in sinus rhythm, remains hemodynamically stable. Patient patient has been voiding without difficulty. He has ambulated in the hallway multiple times. He is off oxygen. He feels ready to go home. Objective - Vital Signs Vital signs: Vital Signs Temp 98.0 F 06/21/18 04:00 Pulse 88 06/21/18 12:00 Resp 27 H 06/21/18 12:00 BP 118/67 06/21/18 12:00 Pulse Ox 94 L 06/21/18 12:00 Intake & Output 06/20/18 06/21/18 06/21/18 18:59 06:59 18:59 Intake Total 469 550 650 Output Total 30 190 20 Balance 439 360 630 Weight 90.9 kg Intake: IV 169 Lactated Ringers 1,000 ml 160 @ 20 mls/hr IV .Q24H [facility] Rx#:[id number] Pressure Bag 9 Oral 300 550 650 Output: Chest Tube Drainage 100 Left 100 Drainage 30 90 20 Left Calf 30 90 20 Urine 0 Other: Voiding Method Toilet Toilet Toilet # Voids 1 1 1 # Bowel Movements 1 1 ABP, PAP, CO, CI - Last Documented Arterial Blood Pressure 154/74 Pulmonary Artery Pressure 40/16 Cardiac Output 6.7 Cardiac Index 3.2 - Constitutional General appearance: Present: cooperative, no acute distress, obese - Respiratory Details: Lungs sounds diminished bilaterally. Respirations even, nonlabored. Currently on room air with oxygen saturation 92%. Able to achieve 1250 mL on his incentive spirometry. Strong cough. Right pleural chest tube to continuous wall suction, 180 mL serous drainage overnight, 200 mL in the last 24 hours. No air leaks present. - Cardiovascular Details: S1, S2 present. Regular rate and rhythm, sinus rhythm on telemetry with heart rate in the 70s. Sternum stable. Palpable peripheral pulses bilaterally. No edema present. Heart Hugger in place with patient demonstrating appropriate use. Antiembolism stockings, SCDs present. - Gastrointestinal Gastrointestinal Comment(s): Abdomen soft, nontender, nondistended. Active bowel sounds present 4 quadrants. Positive bowel movement. Tolerating diet. - Genitourinary Genitourinary Comment(s): Continues to void clear, yellow urine. - Integumentary Integumentary Comment(s): Skin is warm and dry with evidence of good perfusion. Anterior chest incision well approximated and covered with dry intact dressing. Left lower extremity EVH site well approximated. - Neurologic Neurologic: Present: CNII-XII intact - Musculoskeletal Musculoskeletal: Present: gait normal, strength equal bilaterally - Psychiatric Psychiatric: Present: A&O x's 3, appropriate affect, intact judgment & insight - Allied health notes Allied health notes reviewed: nursing - Labs CBC & Chem 7: 06/21/18 04:29 06/21/18 04:29 Labs: Abnormal Lab Results - Last 24 Hours (Table) 06/20/18 06/20/18 06/21/18 Range/Units 16:58 20:36 04:29 RBC 2.49 L (4.30-5.90) m/uL Hgb 7.4 L (13.0-17.5) gm/dL Hct 23.7 L (39.0-53.0) % Sodium (137-145) mmol/L BUN (9-20) mg/dL Glucose (74-99) mg/dL POC Glucose (mg/dL) 107 H 121 H (75-99) mg/dL Calcium (8.4-10.2) mg/dL 06/21/18 06/21/18 Range/Units 04:29 07:05 RBC (4.30-5.90) m/uL Hgb (13.0-17.5) gm/dL Hct (39.0-53.0) % Sodium 136 L (137-145) mmol/L BUN 23 H (9-20) mg/dL Glucose 107 H (74-99) mg/dL POC Glucose (mg/dL) 103 H (75-99) mg/dL Calcium 8.0 L (8.4-10.2) mg/dL - Imaging and Cardiology Chest x-ray: report reviewed, image reviewed Assessment and Plan Assessment: 1. Severe triple-vessel coronary artery disease, status post CABG 2. Moderate left ventricular dysfunction with EF 35-40% 3. Moderate to severe mitral valve regurgitation, status post mitral valve repair 3. Hypertension 4. Hyperlipidemia 5. Obstructive sleep apnea 6. Mild COPD with preoperative FEV1 64% of predicted 7. Family history of premature coronary artery disease 8. Postoperative acute blood loss anemia, expected Plan: 1. Continue aspirin, statin, Plavix, beta daren. Will increase beta daren as tolerated. Will start Cozaar for afterload reduction. 2. Encourage incentive spirometry use 10 times every hour while awake. 3. Increase activity as tolerated. PT/OT/cardiac rehab following. 4. Left pleural chest tube discontinued without incident. STEWART drain discontinued. 5. Continue Flomax. 6. Will give 20 mg IV Lasix today. 7. Will monitor daily labs and x-rays. Electrolyte replacement protocol. No transfusion. 8. Pain control with current medication regimen. 9. Insulin management per primary care service. 10. GI/DVT prophylaxis. 11. Bronchodilators per pulmonology. 12. Transfer orders placed for 3 S. cardiac stepdown unit, may transfer when bed available. 13. Discharge planning in progress. Anticipate discharge to home with home care in 24-48 hours. Patient will need primary care physician as he currently does not follow with any PCP. 14. More recommendations to follow. Time with Patient: Greater than 30
--- NOTE | 2018-06-21 13:53 | CDI ---
Documentation Clarification Form Date: 06/21/2018 1:37:48 PM From: Kalie RiveraEMELY dodge, CCDS Admit Date: 06/14/2018 12:47:00 PM Patient Name: Antione Figueroa Visit Number: [id number] Discharge Date: ATTENTION: The Clinical Documentation Specialists (CDI) and [facility] Coding Staff appreciate your assistance in clarifying documentation. Please respond to the clarification below the line at the bottom and electronically sign. The CDI & [facility] Coding staff will review the response and follow-up if needed. Please note: Queries are made part of the Legal Health Record. If you have any questions, please contact the author of this message via ITS. Dr. Taylor العراقي: Patient is status post a NSTEMI requiring CABG x4 with mitral valve repair. Per the pulmonary notes postoperatively: "acute hypoxic respiratory failure" is documented. Patient was difficult to wean with episodes of agitation & thrashing. Patients Admitting Diagnosis: NSTEMI, CAD, Hypertension Post-Operative Diagnosis: Same Procedure performed: CABG with MVR History/Risk Factors: Hypertension, CHF, Hyperlipidemia, mild COPD, NELDA, non- smoker. Clinical Indicators: per above. 06/18 Pulmonary progress note: "The patient was extubated and the extubation process was slightly prolonged as the patient did not wake up from sedation appropriately and he was having altered mentation and agitation and thrashing. We are ( ) combination of Propofol and Precedex and were able to wean this patient off the mechanical ventilated and was extubated early this morning." Currently on oxygen by nasal cannula and hemodynamically stable. Treatment: CABG on 06/17, extubated 06/18 after several attempts. O2 4-6L nc after extubation. In order to accurately reflect this patients severity of illness, please clarify if the post-operative diagnosis is: A complication of the patient's surgery? Not a complication of the patient's surgery, respiratory failure was due to specified condition? o Please specify the condition(s) that attributed to the patient's documented acute respiratory failure, if known. Other, please specify ____ Unable to determine (Last Revision: May 2018) MTDD
--- NOTE | 2018-06-21 14:05 | CDI ---
Documentation Clarification Form Date: 06/21/2018 1:55:43 PM From: Kalie MayaRiveraEMELY, CCDS Admit Date: 06/14/2018 12:47:00 PM Patient Name: Antione Figueroa Visit Number: [id number] Discharge Date: ATTENTION: The Clinical Documentation Specialists (CDI) and [facility] Coding Staff appreciate your assistance in clarifying documentation. Please respond to the clarification below the line at the bottom and electronically sign. The CDI & [facility] Coding staff will review the response and follow-up if needed. Please note: Queries are made part of the Legal Health Record. If you have any questions, please contact the author of this message via ITS. Dr. Jose Manuel Corado: Hypotension is documented in the CTS progress note on 06/18 postop CABG & MVR: History/Risk Factors: CAD, Hypertension, Hyperlipidemia, COPD, NELDA, non-smoker. Clinical Indicators per the 06/18 progress note: "Heart rate was in the 50s and 60s overnight with some hypotension and cardiac index 1.9 requiring initiation of Primacor and levo. Epicardial pacemaker placed to AAI mode with rate of 80 bpm, blood pressure significantly improved as well as CO/CI. Currently hemodynamically stable with plans to attempt lightening of sedation again in order to wean to extubation." Patients B/P on admission: 165/102. Postoperative low: 78/55 on 06/17. Treatment: As above, ICU on vent postop, meds & pacemaker described above. In your professional opinion, can you please specify the etiology of the hypotension if known? Iatrogenic Hypotension or Drug Induced Hypotension Idiopathic Hypotension Drug Induced Hypotension Postoperative Hypotension o Please document if this is a postoperative complication or not a postoperative complication and the cause or condition if known. Other Condition, please specify Unable to determine (Last Revision: November 2016) MTDD
--- NOTE | 2018-06-21 14:46 | CDI ---
Documentation Clarification Form Date: 06/21/2018 1:37:00 PM From: Kalie RiveraEMELY dodge, CCDS Admit Date: 06/14/2018 12:47:00 PM Patient Name: Antione Figueroa Visit Number: [id number] Discharge Date: ATTENTION: The Clinical Documentation Specialists (CDI) and [facility] Coding Staff appreciate your assistance in clarifying documentation. Please respond to the clarification below the line at the bottom and electronically sign. The CDI & [facility] Coding staff will review the response and follow-up if needed. Please note: Queries are made part of the Legal Health Record. If you have any questions, please contact the author of this message via ITS. Dr. Taylor العراقي: Patient is status post a NSTEMI requiring CABG x4 with mitral valve repair. Per the pulmonary notes postoperatively: "acute hypoxic respiratory failure" is documented. Patient was difficult to wean with episodes of agitation & thrashing." Patients Admitting Diagnosis: NSTEMI, CAD, Hypertension Post-Operative Diagnosis: Same Procedure performed: CABG with MVR History/Risk Factors: Hypertension, CHF, Hyperlipidemia, mild COPD, NELDA, non- smoker. Clinical Indicators: per above. 06/18 Pulmonary progress note: "The patient was extubated and the extubation process was slightly prolonged as the patient did not wake up from sedation appropriately and he was having altered mentation and agitation and thrashing. We are ( ) combination of Propofol and Precedex and were able to wean this patient off the mechanical ventilated and was extubated early this morning." Currently on oxygen by nasal cannula and hemodynamically stable. Treatment: CABG on 06/17, extubated 06/18 after several attempts. O2 4-6L nc after extubation. In order to accurately reflect this patients severity of illness, please clarify if the post-operative diagnosis is: A complication of the patient's surgery? Not a complication of the patient's surgery, respiratory failure was due to specified condition? o Please specify condition(s) that attributed to the patient's documented acute respiratory failure. Other, please specify ____ Unable to determine (Last Revision: May 2018) Not a complication of the patient's surgery, respiratory failure was due to specified condition-post thoracotomy/CABG MTDD
--- NOTE | 2018-06-21 14:50 | CDI ---
Documentation Clarification Form Date: 06/21/2018 1:55:00 PM From: Kalie MayaRiveraEMELY, CCDS Admit Date: 06/14/2018 12:47:00 PM Patient Name: Antione Figueroa Visit Number: [id number] Discharge Date: ATTENTION: The Clinical Documentation Specialists (CDI) and [facility] Coding Staff appreciate your assistance in clarifying documentation. Please respond to the clarification below the line at the bottom and electronically sign. The CDI & [facility] Coding staff will review the response and follow-up if needed. Please note: Queries are made part of the Legal Health Record. If you have any questions, please contact the author of this message via ITS. Dr. Jose Manuel Corado: Hypotension is documented in the CTS progress note on 06/18 postop CABG & MVR: History/Risk Factors: CAD, Hypertension, Hyperlipidemia, COPD, NELDA, non-smoker. Clinical Indicators: "Heart rate was in the 50s and 60s overnight with some hypotension and cardiac index 1.9 requiring initiation of Primacor and levo. Epicardial pacemaker placed to AAI mode with rate of 80 bpm, blood pressure significantly improved as well as CO/CI. Currently hemodynamically stable with plans to attempt lightening of sedation again in order to wean to extubation." Patients B/P on admission: 165/102. Postoperative low: 78/55 on 06/17. Treatment: As above, ICU on vent postop. In your professional opinion, can you please specify the etiology of the hypotension if known? Iatrogenic Hypotension or Drug Induced Hypotension Idiopathic Hypotension Drug Induced Hypotension Postoperative Hypotension o Please document if this is a postoperative complication or not a postoperative complication and the cause or condition if known. Other Condition, please specify Unable to determine (Last Revision: November 2016) It is not a complication but a known physiological course after open heart surgery due to fluid shifts, just as heart rate goes up and down after surgery so does blood pressure. MTDD
--- NOTE | 2018-06-21 16:55 | P.PN ---
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 , ocmplaining from two months of chest pain , that is central , pt states sometimes his chest pain starts at his shoulder blade before it radiated to his chest and his armpit, it varies in severity , last night it was about 8/10 howver it is better controlled with pain medication down to 0-1/10 , he has very mild dyspnea , and with some cough which was more severe yesterday and that what made him go and visit his doctor , pt is admitted to the icu anticipating cardiac cath possibly tomorrow, he was given asprin , statin and was started on heparin drip 06/15/2018 Patient is doing well today with no chest pain or dyspnea. He has some cough but it is dry with no phlegm patient has been evaluated by cardiology team for unstable angina, and recommended to continue with aspirin, metoprolol and statin. And echocardiogram. Vitals are stable. looks unremarkable. Patient was already started on heparin drip. 06/16/2018 Patient's with no much complaint today. He has cardiac cath yesterday which shows severe triple-vessel disease and plan for cardiac bypass grafting, his been evaluated by cardiothoracic surgeon. Venous mapping is undergoing. 06/17/2018 pt underwent coronary artery bypass grafting and mitral valve repair, post op day #0. vitals are stable, labs are reviewed , hemoglobin is 10.2m post op he is intubated and mechanically ventilated, pt is been followed by pulmonary/critical care team and he remains in ICU for now 06/18/2018 Patient is a status post coronary artery bypass grafting and mitral valve repair. Postop day #1 He remains in the ICU, fully awake and oriented, not in chest pain no dyspnea. He is status post intubation and extubation. He is currently on amiodarone, aspirin and Plavix. Platelet been followed closely by cardiothoracic team 06/19/2018 Patient is doing well. No chest pain or dyspnea. Lying in bed not in distress. Feels generally tired. He is eating well but he has no bowel movement yet. He is passing gases. He is hemodynamically stable. Sugar is controlled. WBC is 10.8 K. Creatinine 1.0. Sodium 139. Presents of 4.5. No new complaints. 06/20/2018 pt is still in icu , he is improving gradually , surgery team discontinued Cordis, arterial line. and right chest pain , still has left chest tube, he is with no chest pain or dyspnea. pt will be transferred to general medical floor. 06/21/2018 Patient came doing well with no chest pain or dyspnea. Hemodynamically stable. He still anemic hemoglobin 7.4. He is on iron pills. Sodium 136. Creatinine 0.9. Sugar is controlled. Repeat chest x-ray showing new approximate 5% left apical pneumothorax with bilateral infiltrates and small effusion. Venous congestion not excluded. Patient got 1 dose of Lasix. He is also on metoprolol 25 mg by mouth twice a day. He is been followed up by many consultants. Patient is a transfer to the general medical floor today Objective - Vital Signs Vital signs: Vital Signs Temp 98.2 F 06/21/18 15:20 Pulse 84 06/21/18 16:18 Resp 17 06/21/18 15:20 BP 120/56 06/21/18 15:20 Pulse Ox 96 06/21/18 15:20 Intake & Output 06/20/18 06/21/18 06/21/18 18:59 06:59 18:59 Intake Total 469 550 700 Output Total 30 190 20 Balance 439 360 680 Weight 90.9 kg Intake: IV 169 Lactated Ringers 1,000 ml 160 @ 20 mls/hr IV .Q24H [facility] Rx#:[id number] Pressure Bag 9 Oral 300 550 700 Output: Chest Tube Drainage 100 Left 100 Drainage 30 90 20 Left Calf 30 90 20 Urine 0 Other: Voiding Method Toilet Toilet Toilet # Voids 1 1 1 # Bowel Movements 1 1 ABP, PAP, CO, CI - Last Documented Arterial Blood Pressure 154/74 Pulmonary Artery Pressure 40/16 Cardiac Output 6.7 Cardiac Index 3.2 - Exam -GENERAL: The patient is intubated and mechanically ventilated, HEENT: Pupils are round and equally reacting to light. EOMI. No scleral icterus. No conjunctival pallor. Normocephalic, atraumatic. No pharyngeal erythema. No thyromegaly. CARDIOVASCULAR: S1 and S2 present. No murmurs, rubs, or gallops. PULMONARY: Chest is clear to auscultation, no wheezing or crackles. ABDOMEN: Soft, nontender, nondistended, normoactive bowel sounds. No palpable organomegaly. MUSCULOSKELETAL: No joint swelling or deformity. EXTREMITIES: No cyanosis, clubbing, or pedal edema. NEUROLOGICAL: Gross neurological examination did not reveal any focal deficits. SKIN: No rashes. - Labs CBC & Chem 7: 06/21/18 04:29 06/21/18 04:29 Labs: Abnormal Lab Results - Last 24 Hours (Table) 06/20/18 06/20/18 06/21/18 Range/Units 16:58 20:36 04:29 RBC 2.49 L (4.30-5.90) m/uL Hgb 7.4 L (13.0-17.5) gm/dL Hct 23.7 L (39.0-53.0) % Sodium (137-145) mmol/L BUN (9-20) mg/dL Glucose (74-99) mg/dL POC Glucose (mg/dL) 107 H 121 H (75-99) mg/dL Calcium (8.4-10.2) mg/dL 06/21/18 06/21/18 Range/Units 04:29 07:05 RBC (4.30-5.90) m/uL Hgb (13.0-17.5) gm/dL Hct (39.0-53.0) % Sodium 136 L (137-145) mmol/L BUN 23 H (9-20) mg/dL Glucose 107 H (74-99) mg/dL POC Glucose (mg/dL) 103 H (75-99) mg/dL Calcium 8.0 L (8.4-10.2) mg/dL Assessment and Plan Assessment: severe triple coronary artery disease , s/p CABG and mitral valve repair hypertensin Hyperlipidemia Plan: this is a pleasant 67 yo M who presents for triple coronary art disease ,he is status CABG , he is been followed closely by critical and pulmonary teams Labs and medication were reviewed.. Continue same treatment. Continue with symptomatic treatment. Resume home medication. Monitor lytes and vitals. DVT and GI prophylaxis. Further recommendations of the clinical course of the patient DVT prophylaxis: heparin GI Prophylaxis: Ppi Prognosis is guarded
[2018-06-21 17:10] LABS: Glucose,Whole Blood 93 mg/dL (75-99)
[2018-06-21] MEDS: FERROUS SULFATE 325 MG TAB PO SCH (17:16)
[2018-06-21] MEDS ORDERED: METOPROLOL TARTRATE 25 MG TAB PO SCH (21:00)
[2018-06-21 21:06] LABS: Glucose,Whole Blood 113 mg/dL (75-99)
[2018-06-21] MEDS: SENNOSIDES-DOCUSATE SODIUM 1 EACH TAB PO SCH (21:06)
[2018-06-21] MEDS: CLOPIDOGREL 75 MG TAB PO SCH (21:06)
[2018-06-22 06:26] LABS: Glucose,Whole Blood 91 mg/dL (75-99)
[2018-06-22] MEDS: KETOROLAC 30 MG/ML 1 ML VIAL IVP SCH ×2 (06:26→12:02)
[2018-06-22] MEDS: FERROUS SULFATE 325 MG TAB PO SCH (06:26)
[2018-06-22] MEDS: PANTOPRAZOLE 40 MG TABLET PO SCH (06:26)
[2018-06-22] MEDS: INSULIN ASPART (NovoLOG) 100 UNIT/ML VIAL SQ SCH ×2 (06:26→12:01)
[2018-06-22 06:35] LABS: HCT 24.7 % (39.0-53.0); HGB 8.1 gm/dL (13.0-17.5); Hypochromasia Slight; MCH 30.5 pg (25.0-35.0); MCHC 32.9 g/dL (31.0-37.0); MCV 92.7 fL (80.0-100.0); Mean Platelet Volume 7.8; Platelet Count 308 k/uL (150-450); Poikilocytosis Slight; RBC 2.66 m/uL (4.30-5.90); RDW 14.9 % (11.5-15.5); WBC 12.2 k/uL (3.8-10.6)
[2018-06-22 06:49] LABS: Potassium 4.5 mmol/L (3.5-5.1)
[2018-06-22] MEDS: IPRATROPIUM-ALBUTEROL 3 ML NEB INHALATION SCH ×2 (08:36→12:06)
--- NOTE | 2018-06-22 08:37 | P.PN ---
Subjective Progress Note Date: 06/22/18 Principal diagnosis: Severe triple-vessel coronary artery disease, moderate degree of 3+ mitral valve regurgitation, left ventricular systolic function moderately to severely impai red with evidence of apical and inferior and apical septal hypokinesis with an estimated ejection fraction of 30-35%, hypertension, hyperlipidemia, obstructive sleep apnea, mild COPD and family history of coronary artery disease with his mother having open heart surgery at age 60. POD #5 urgent quadruple coronary artery bypass grafting using the left internal mammary artery to the left anterior descending artery, a reverse greater saphenous vein graft from the aorta to the posterior descending artery, a reverse greater saphenous vein graft from the aorta to the first obtuse marginal artery, a reverse greater saphenous vein graft from the aorta to the left ventricular branch of the right coronary artery. Mitral valve repair using a 28 mm posterior annuloplasty with an AnnuloFlex ring. Exclusion of the left atrial appendage with a 40 mm AtriClip. Intraoperative transesophageal echocardiogram and epi-aortic scanning. Endoscopic harvesting of the left greater saphenous vein from the groin to above the ankle level. Intraoperative graft flow measurements using the [employer] system. Postoperative acute blood loss anemia, an expected outcome of surgery given cardiopulmonary bypass pump and hemodilution. The patient is sitting up to the bedside chair on the 3 S. cardiac stepdown un it. He is tolerating his breakfast. He currently denies any complaints of pain or shortness of breath. Remote telemetry showing normal sinus rhythm heart rate 91. He is anxious to be discharged home. Reports he has been ambulating in the 3 S. cardiac stepdown unit hallway with minimal assistance. He remains hemodynamically stable and afebrile. Objective - Vital Signs Vital signs: Vital Signs Temp 97.5 F L 06/21/18 20:00 Pulse 89 06/22/18 04:00 Resp 18 06/22/18 04:00 BP 135/65 06/22/18 04:00 Pulse Ox 98 06/22/18 04:00 Intake & Output 06/21/18 06/22/18 06/22/18 18:59 06:59 18:59 Intake Total 940 Output Total 20 Balance 920 Weight 90.9 kg 89.5 kg Intake: Oral 940 Output: Drainage 20 Left Calf 20 Other: Voiding Method Toilet Toilet # Voids 1 2 # Bowel Movements 1 ABP, PAP, CO, CI - Last Documented Arterial Blood Pressure 154/74 Pulmonary Artery Pressure 40/16 Cardiac Output 6.7 Cardiac Index 3.2 - Constitutional General appearance: Present: cooperative, no acute distress, obese - Respiratory Details: Lung sounds essentially clear to his bilateral upper lobes, diminished to his bilateral bases. Respirations are symmetrical and nonlabored. Oxygen saturation are 98% on room air. Achieving 2250 mL on his incentive spirometry. - Cardiovascular Details: Regular rhythm and rate. S1 and S2 present, negative for S3, gallop or murmur. Sternum is stable. Remote telemetry showing normal sinus rhythm heart rate 91. Knee-high TIMO hose and sequential compression devices in place to his bilateral lower extremities. Heart hugger is in place and demonstrating appropriate use. No edema present. - Gastrointestinal Gastrointestinal Comment(s): Abdomen is soft, nontender and nondistended. Active bowel sounds all 4 abdomin al quadrants. A bowel movement yesterday 06/21/2018. Tolerating oral intake. - Genitourinary Genitourinary Comment(s): Voiding clear yellow urine. - Integumentary Integumentary Comment(s): Skin is warm and dry. No clubbing or cyanosis is present. Midline sternal incision is clean, dry and approximated. Dressing is clean, dry and in place. Left lower extremity EVH site clean, dry and approximated. No drainage or redness is present. - Neurologic Neurologic: Present: CNII-XII intact - Musculoskeletal Musculoskeletal: Present: gait normal, strength equal bilaterally - Psychiatric Psychiatric: Present: A&O x's 3, appropriate affect, intact judgment & insight - Allied health notes Allied health notes reviewed: nursing - Labs CBC & Chem 7: 06/22/18 06:10 06/22/18 06:10 Labs: Abnormal Lab Results - Last 24 Hours (Table) 06/21/18 06/22/18 06/22/18 Range/Units 21:04 06:10 06:10 WBC 12.2 H (3.8-10.6) k/uL RBC 2.66 L (4.30-5.90) m/uL Hgb 8.1 L (13.0-17.5) gm/dL Hct 24.7 L (39.0-53.0) % BUN 25 H (9-20) mg/dL POC Glucose (mg/dL) 113 H (75-99) mg/dL Calcium 8.0 L (8.4-10.2) mg/dL - Imaging and Cardiology Chest x-ray: image reviewed Assessment and Plan Assessment: 1. Severe triple-vessel coronary artery disease status post coronary artery bypass grafting surgery 2. Moderate 3+ mitral valve regurgitation, status post mitral valve repair 3. Hypertension 4. Hyperlipidemia 5. Obstructive sleep apnea 6. Family history of premature coronary artery disease 7. Mild COPD with preoperative FEV1 64% of predicted value 8. Postoperative acute blood loss anemia, expected Plan: 1. Continue aspirin, statin, Plavix, losartan and beta daren. Will increase metoprolol to 25 mg by mouth 3 times a day. 2. Encourage incentive spirometry use 10 times every hour while awake. 3. Increase activity as tolerated. PT/OT/cardiac rehab following. 4. Continue Flomax. 5. Pain control with current medication regimen. 6. Will monitor daily labs and x-rays. Electrolyte replacement protocol. 7. Insulin management per primary care service. 8. Bronchodilators per pulmonology. 9. GI/DVT prophylaxis. 10. Discharge planning in progress. Anticipate discharge to home with home care in 24 hours. Patient will need primary care physician as he currently does not follow with any PCP. 11. More recommendations to follow based on patient's clinical course. Time with Patient: Greater than 30
[2018-06-22] MEDS: ATORVASTATIN 40 MG TAB PO SCH (08:59)
[2018-06-22] MEDS: ASPIRIN 325 MG TAB PO SCH (08:59)
[2018-06-22] MEDS: HEPARIN SODIUM,PORCINE 5,000 UNIT/ML 1 ML VIAL SQ SCH (08:59)
[2018-06-22] MEDS: TAMSULOSIN 0.4 MG CAP.ER.24H PO SCH ×2 (08:59→09:08)
[2018-06-22] MEDS ORDERED: METOPROLOL TARTRATE 25 MG TAB PO SCH ×2 (09:00→21:00)
--- NOTE | 2018-06-22 09:14 | XR ---
EXAMINATION TYPE: XR chest 2V DATE OF EXAM: 06/22/2018 COMPARISON: 06/21/2018 HISTORY: Shortness of breath TECHNIQUE: Frontal and lateral views of the chest are obtained. FINDINGS: Left-sided chest tube has been removed. No evidence for sizable pneumothorax. Linear areas of atelectasis and small effusions persist. Heart size is stable. Mediastinal structures are stable and grossly unremarkable. No evidence for hilar prominence. Degenerative changes dorsal spine. IMPRESSION: Left-sided chest tube has been removed. No evidence for sizable pneumothorax. Linear areas of atelectasis and small effusions persist.
[2018-06-22 11:26] LABS: Glucose,Whole Blood 101 mg/dL (75-99)
[2018-06-22 11:34] VITALS: RESP 20; TEMP 98.4
--- NOTE | 2018-06-22 13:09 | P.PN ---
Subjective Progress Note Date: 06/22/18 This is a pleasant 67-year-old gentleman who underwent coronary artery bypass grafting surgery with mitral valve repair. He was seen and examined this morning, doing well, breathing is stable. Blood pressure 100/60 with a heart rate in the 80s, temperature 98.4. White blood cell count 12.2, hemoglobin 8.1, platelet count 308. Sodium 138, potassium 4.5, BUN 25 and creatinine 0.8. Objective - Vital Signs Vital signs: Vital Signs Temp 98.4 F 06/22/18 11:33 Pulse 83 06/22/18 11:33 Resp 20 06/22/18 11:33 BP 99/66 06/22/18 11:33 Pulse Ox 95 06/22/18 11:33 Intake & Output 06/21/18 06/22/18 06/22/18 18:59 06:59 18:59 Intake Total 940 60 Output Total 20 Balance 920 60 Weight 90.9 kg 89.5 kg Intake: Oral 940 60 Output: Drainage 20 Left Calf 20 Other: Voiding Method Toilet Toilet Toilet # Voids 1 2 1 # Bowel Movements 1 ABP, PAP, CO, CI - Last Documented Arterial Blood Pressure 154/74 Pulmonary Artery Pressure 40/16 Cardiac Output 6.7 Cardiac Index 3.2 - Exam Physical Exam: Revealed a 67-year-old white male in no distress. Head: Atraumatic, normocephalic. HEENT:[Neck is supple.] [No neck masses.] [No thyromegaly.] [No JVD.] Chest: [Diminished breath sounds bilaterally, nonlabored, O2 sat is 96% on 2 L nasal cannula. Has a strong cough, Cardiac Exam: [Normal S1 and S2, no S3 gallop, no murmur.] Good pulses bilaterally. Abdomen: [Soft, nontender, no megaly, no rebound, no guarding, normal bowel sounds.] Extremities: [No clubbing, no edema, no cyanosis.] Neurological Exam: [No focal neurologic deficit.] Psychiatric: Normal mood affect and mental status examination. Lymphatics: No lymphadenopathy. Skin: Warm and dry good perfusion anterior chest incision is intact. Left lower extremity evh site is intact, minimal serosanguineous drainage - Labs CBC & Chem 7: 06/22/18 06:10 06/22/18 06:10 Labs: Abnormal Lab Results - Last 24 Hours (Table) 06/21/18 06/22/18 06/22/18 Range/Units 21:04 06:10 06:10 WBC 12.2 H (3.8-10.6) k/uL RBC 2.66 L (4.30-5.90) m/uL Hgb 8.1 L (13.0-17.5) gm/dL Hct 24.7 L (39.0-53.0) % BUN 25 H (9-20) mg/dL POC Glucose (mg/dL) 113 H (75-99) mg/dL Calcium 8.0 L (8.4-10.2) mg/dL 06/22/18 Range/Units 11:25 WBC (3.8-10.6) k/uL RBC (4.30-5.90) m/uL Hgb (13.0-17.5) gm/dL Hct (39.0-53.0) % BUN (9-20) mg/dL POC Glucose (mg/dL) 101 H (75-99) mg/dL Calcium (8.4-10.2) mg/dL Assessment and Plan Plan: Impression: 1 severe triple-vessel coronary artery disease, status post CABG postoperative day #3 2 moderate left ventricular dysfunction, ejection fraction 35-40%. 3 status post mitral valve repair for moderate to severe mitral valve regurgitation postoperative day #3 3 moderate COPD, FEV1 preoperative 64%. 4 obstructive sleep apnea syndrome 5 postoperative acute blood loss anemia, expected. Plan From cardiology's perspective, we'll recommend to continue the patient on his current medications. He will be discharged home today and follow-up with Dr. VC Rodgers the office post discharge. DNP note has been reviewed, I agree with a documented findings and plan of care. Patient was seen and examined.
--- NOTE | 2018-06-22 13:24 | P.DS ---
Providers Date of admission: 06/14/18 12:47 Expected date of discharge: 06/22/18 Attending physician: Jose Manuel Corado Consults: 06/14/18 14:14 Consult Physician Routine Consulting Provider: José Miguel Cristina Consult Reason/Comments: heart cath tomorrow, post NM Do you want consulting provider notified?: Already Contacted Placement Type Exists?: Yes 06/15/18 15:52 Consult Physician Routine Consulting Provider: Howard Khan Consult Reason/Comments: severe triple vessel disease Do you want consulting provider notified?: Already Contacted 06/16/18 10:19 Consult Physician Routine Consulting Provider: Taylor العراقي Consult Reason/Comments: Pulmonary management Do you want consulting provider notified?: Yes Consult to Anesthesia Routine Consulting Provider: Anesthesia,Services Consult Reason/Comments: Cardiac Surgery Pre-Op 06/16/18 10:42 Consult Physician Routine Consulting Provider: Petrona Mcclure Consult Reason/Comments: Dental clearance preop cardiac surgery Do you want consulting provider notified?: Yes 06/17/18 16:32 Consult Physician Routine Consulting Provider: Dave Davidson Consult Reason/Comments: medical management Do you want consulting provider notified?: Already Contacted Primary care physician: Stated None Hospital Course: FINAL DIAGNOSIS: 1. Severe triple-vessel coronary artery disease 2. Moderate left ventricular dysfunction 3. Moderate to severe mitral valve regurgitation 4. Hypertension 5. Hyperlipidemia 6. Obstructive sleep apnea 7. Mild COPD with preoperative FEV1 64% of predicted 8. Family history of premature coronary artery disease 9. Postoperative acute blood loss anemia, expected PRINCIPAL PROCEDURE: 1. Left heart catheterization 2. Urgent quadruple coronary artery bypass grafting using the left internal mammary artery to the left anterior descending artery, reverse saphenous vein graft from the aorta to the posterior descending artery, reverse saphenous vein graft from the aorta to the first obtuse marginal artery, reverse saphenous vein graft from the aorta to the left ventricular branch of the right coronary artery 3. Mitral valve repair using a 28 mm posterior annuloplasty with AnnuloFlex ring 4. Exclusion of the left atrial appendage with 40 mm AtriClip 5. Intraoperative transesophageal echocardiogram and epi-aortic scanning 6. Endoscopic harvesting of the left greater saphenous vein from the groin to above the ankle level 7. Intraoperative graft flow measurements using the [employer] system HISTORY OF PRESENT ILLNESS: This is a 67-year-old gentleman who has not followed with a primary care physician on an outpatient basis for quite some time. Apparently he had been treated at an urgent care clinic in April for flu-like symptoms with antibiotics and a Medrol Dosepak. Since then he had been having intermittent chest discomfort primarily with exertion, associated with diaphoresis and nausea. He began to experience these symptoms at rest prompting him to make an appointment with Dr. Rodgers from [facility]. An EKG was performed suggesting recent inferior wall myocardial infarction. Echocardiogram completed in the office demonstrated evidence of extensive inferoapical and apical septal hypokinesia with ejection fraction 35-40% and moderate mitral regurgitation. Due to these findings the patient was sent to [facility] as a direct admit with plans for cardiac catheterization. The catheterization demonstrated significant triple vessel coronary artery disease. An urgent consult was placed for Dr. Khan from cardiothoracic surgery. He was recommended to undergo urgent coronary bypass surgery as well as mitral valve repair. The usual perioperative course was discussed in detail with the patient and his family, all risks and benefits were explained, all questions were answered, and consent was obtained to proceed with surgery. The patient was kept inpatient due to the nature of his disease process, dental clearance was obtained, and the patient was scheduled for surgery as quickly as possible with Dr. Corado. HOSPITAL COURSE: The patient was taken to the preoperative area and 06/17/2018, prepared in the usual fashion, and subsequently taken to the operating room where Dr. Corado performed urgent quadruple coronary artery bypass grafting using the left internal mammary artery to the left anterior descending artery, reverse saphenous vein graft from the aorta to the posterior descending artery, reverse saphenous vein graft from the aorta to the first obtuse marginal artery, reverse saphenous vein graft from the aorta to the left ventricular branch of the right coronary artery, mitral valve repair using a 28 mm posterior annuloplasty with AnnuloFlex ring, exclusion of the left atrial appendage with 40 mm AtriClip, intraoperative transesophageal echocardiogram and epi-aortic scanning, endoscopic harvesting of the left greater saphenous vein from the groin to above the ankle level, and intraoperative graft flow measurements using the [employer] system. Upon completion of surgery the patient was transferred to the cardiovascular intensive care unit where he was recovered, monitored hemodynamically, and where he progressed to cardiac rehabilitation phase 1. He was extubated, all lines, tubes, and drips were discontinued when appropriate, and he was transferred to [facility] cardiac stepdown unit for further monitoring and rehabilitation. His oxygen was titrated down, he continued to work with physical and occupational therapy, he was tolerating oral diet, his pain was controlled, and he was ready to be discharged to home with [facility] care on postoperative day #5. He received written and verbal instruction regarding his medications, activity restrictions, signs and symptoms requiring physician notification, and follow-up appointments. COMPLICATIONS: The patient experienced postoperative blood loss anemia which did not require transfusion. Patient Condition at Discharge: Stable Plan - Discharge Summary Discharge Rx Participant: Yes New Discharge Prescriptions: New Aspirin 325 mg PO DAILY #30 tab Losartan [Cozaar] 12.5 mg PO DAILY@1400 #30 tab Tamsulosin [Flomax] 0.4 mg PO PC-BRKFST #30 cap.er.24h Furosemide [Lasix] 20 mg PO DAILY #5 tab Atorvastatin [Lipitor] 40 mg PO DAILY #30 tab Metoprolol Tartrate [Lopressor] 25 mg PO BID #60 tab HYDROcodone/APAP 5-325MG [[place] 5-325] 1 each PO Q8HR PRN #10 tab PRN Reason: Moderate Pain Clopidogrel [Plavix] 75 mg PO HS #30 tab Pantoprazole [Protonix] 40 mg PO AC-BRKFST #30 tablet.dr Prince-Docusate Sodium [Senokot-S] 2 each PO HS PRN tab PRN Reason: Constipation Discontinued Aspirin EC [Ecotrin] 650 mg PO DAILY PRN PRN Reason: Pain Aspirin EC [Ecotrin Low Dose] 81 mg PO DAILY Garlic 1 tab PO DAILY Flaxseed Oil 1,000 mg PO DAILY Beet Root 1 tab PO DAILY Discharge Medication List Aspirin 325 mg PO DAILY #30 tab 06/22/18 [Rx] Atorvastatin [Lipitor] 40 mg PO DAILY #30 tab 06/22/18 [Rx] Clopidogrel [Plavix] 75 mg PO HS #30 tab 06/22/18 [Rx] Furosemide [Lasix] 20 mg PO DAILY #5 tab 06/22/18 [Rx] HYDROcodone/APAP 5-325MG [[place] 5-325] 1 each PO Q8HR PRN #10 tab 06/22/18 [Rx] Losartan [Cozaar] 12.5 mg PO DAILY@1400 #30 tab 06/22/18 [Rx] Metoprolol Tartrate [Lopressor] 25 mg PO BID #60 tab 06/22/18 [Rx] Pantoprazole [Protonix] 40 mg PO AC-BRKFST #30 tablet. 06/22/18 [Rx] Sennosides-Docusate Sodium [Senokot-S] 2 each PO HS PRN tab 06/22/18 [Rx] Tamsulosin [Flomax] 0.4 mg PO PC-BRKFST #30 cap.er.24h 06/22/18 [Rx] Follow up Appointment(s)/Referral(s): Jose Manuel Corado MD [STAFF PHYSICIAN] - 07/22/18 10:15 am [facility], [NON-STAFF] - Kirit Bergman MD [STAFF PHYSICIAN] - 07/22/18 11:00 am Frank Rodgers MD [STAFF PHYSICIAN] - 07/04/18 9:30 am Taylor العراقي MD [STAFF PHYSICIAN] - 08/03/18 9:15 am Ambulatory/Diagnostic Orders: Complete Blood Count w/diff [LAB.AMB] Time Frame: 3 Days, Location: None Selected Comprehensive Metabolic Panel [LAB.AMB] Time Frame: 3 Days, Location: None Selected Patient Instructions/Handouts: Sternal Precautions (GEN), Coronary Artery Bypass Graft (DC) Activity/Diet/Wound Care/Special Instructions: DISCHARGE INSTRUCTIONS: 1. No driving for 4 weeks, or until physician gives their ok. 2. The patient should sleep in their own bed, no medical bed needed. 3. Stairs are not an issue. If the bedroom is upstairs, it is advised that the patient go up at night and down in the morning for the first week. Go slowly, using handrail and take 1 step at a time. 4. TIMO hose are to be worn for 30 days or until physician discontinues. 5. Heart hugger is to be worn 100% of the time until physician discontinues.(except when showering) 6. No lifting, pushing, or pulling more than 10 pounds for 12 weeks. The physician will advise of any restriction changes. 7. The patient is expected to continue the prescribed walking program. 8. Continue pain control per as needed orders. 9. Continue with incentive spirometry and splinting/heart hugger until otherwise directed by the physician. 10. Must shower daily using liquid antibacterial soap and a separate white washcloth for each individual incision. 11. Routine sternal incision care. No powders, lotions, ointments on incisions. 12. Please call surgeon/COMMUNICATION CENTER OPERATOR for temp greater than 101 F or purulent drainage from incisions. 13. Narcotic medications were discussed with the patient, including the potential for misuse, addiction, and abuse. Opiod Start Talking form was reviewed with the patient. 14. All prescriptions given by surgeon for 30 days. Refills need to be filled through purchasing analyst/primary care physician. 15. A Red armband has been placed on the patient. It should be worn for 30 days post surgery and will be removed by the cardiac surgeons. If an ER visit is necessary, please make sure the number on the Red armband is called. HOME HEALTH SERVICES TO PROVIDE: RN SKILLED HOME CARE SERVICES FOR POST-OP SURGICAL PATIENTS WITH THE FOLLOWING: Coronary Artery Bypass Surgery (CABG), Mitral Valve Replacement/Repair ( MVR), Aortic Valve Replacement/Repair (AVR) RN TO CONTINUE EDUCATION FROM ``ROAD TO A HEALTH HEART PATIENT EDUCATION MANUAL (GIVEN TO PATIENT IN THE HOSPITAL) MEDICATION RECONCILIATION WITH EDUCATION NEEDED ON FIRST HOME VISIT EMPHASIZE IMPORTANCE OF WEARING BREAST SUPPORT/HEART HUGGER ENCOURAGE USE OF INCENTIVE SPIROMETER 10 X EVERY HOUR WHILE AWAKE ENCOURAGE UTILIZATION OF LOWER EXTREMITY COMPRESSION STOCKINGS/TIMO HOSE and ELEVATE LEGS ABOVE LEVEL OF HEART WHILE AT REST. ENCOURAGE AMBULATION 3-5x/day INCREASING TOLERATES, WHILE AVOID EXTREMES IN TEMPERATURE FREQUENCY: RN TO OPEN THE PATIENT WITHIN 24 HOURS OF DISCHARGE FROM THE HOSPITAL WITH TELEHEALTH INSTALLED AT [facility], RN TO VISIT 2-3 X A WEEK FOR 4 WEEKS ESTABLISHED BY PATIENT NEEDS. LABORATORY: CBC, CMP TO BE DRAWN ON THE THIRD DAY HOME, (RAN STAT) FAX RESULTS TO [phone]. TELEHEALTH PARAMETERS: WEIGHT: NOTIFY MD OF WEIGHT GAIN OF 2 LBS IN 24 HOURS OR 5 LBS IN ONE WEEK HR: NOTIFY MD OF HR <55 BPM OR HR>100 BPM BP: NOTIFY MD IF BP <90/55 OR BP>140/100 O2 SAT: NOTIFY MD IF PO2<93% ON ROOM AIR SEND TELEHEALTH REPORT TO HIDE INSPECTOR AND CARDIOVASCULAR SURGEON THE FIRST WEEK OF CARE AND THEN BI-WEEKLY. PLEASE ADDITIONALLY COMMUNICATE ANY ABNORMALS AND NEW FINDINGS TO THE SURGEONS OFFICE. Discharge Disposition: HOME WITH HOME HEALTH SERVICES
[2018-06-22 13:26] VITALS: BP 122/58; PULSE 86
[2018-06-22] MEDS ORDERED: LOSARTAN 25 MG TAB PO SCH (14:00)
--- NOTE | 2018-06-22 14:06 | P.PN ---
Subjective Progress Note Date: 06/22/18 Principal diagnosis: Severe triple-vessel coronary artery disease, status post CABG, postoperative day 4, severe mitral valve regurgitation, status post mitral valve repair On today's evaluation of 06/17/2018 the patient is post coronary artery bypass surgery. The patient underwent carotid bruit pedal bypass surgery using a STOKES to the LAD. The patient also had a mitral valve repair and the patient is currently postop day #0. The patient arrived to the intensive care unit. The patient remains intubated on a mechanical ventilator. The patient is was sedated and calm and comfortable. She is on a 0.2 g per KG per minute of Primacor. The patient has a cardiac index of 2.8. Pulmonary artery pressures are 34/10 and the patient is producing adequate amount of urine output. The patient is on a mechanical ventilator and I switched her to an assist-control mode at the rate of 22 with an FiO2 of 80% and a PEEP of 5 and a tidal volume of 500. The blood gases that were done showed a pH of 7.34 with a pCO2 of 47 and pO2 of 174 and this was done at the rate of 12 and an SIMV mode with a tidal volume of 500. The chest x-ray showed adequate expansion of both lungs. ET tube is in a good location. All of the chest tubes are all in good location is. The patient has his [place]-Bony catheter in good location. Postop blood work is still pending for now. Meanwhile the patient is producing adequate amount of urine output. No other significant events overnight. His cardiac rhythm is sinus. On 06/18/2018 the patient is extubated at around 10:00 AM this morning. Extubation was delayed as the patient was not waking up appropriately from sedation. Overnight I was able to wean down the patient's FiO2. He remains hemodynamically stable. The patient has an appendectomy cardiac pacemaker placed with an AAI mode at the rate of 80. The patient had adequate cardiac output and index. He remained hemodynamically stable. He remains on Primacor. As we weaned off the propofol, the patient became agitated and he was not following any commands and he was thrashing. At that point, weaning was continued with use of Precedex. Nevertheless it filled again. Earlier this morning, we did the same processes again and I was at the bedside and I was able to elicit some good response from the patient. He was able to follow some simple commands and move extremities without any major limitation. At that point, the patient was given a spontaneous breathing trial a pressure support of 5 and a PEEP of 5 and subsequently was extubated without any major difficulties. Currently is on oxygen by nasal cannula. His postop day #1. He has undergone quadruple bypass surgery and mitral valve repair. Cardiac rhythm remains sinus. He has been placed on a low dose of norepinephrine infusion for blood pressure control and this was started overnight. No other issues otherwise for now. Chest x-ray from today showing some mild four-vessel congestion. Chest tubes a re all in good location. No evidence of any pneumothorax. On 06/19/2018, the patient is extubated awake and alert and there are no significant complaints for now. The patient is alert and awake and following commands and answering questions. He still has his Onancock-Bony catheter in place. He has pleural and mediastinal chest tubes all of them are in place. He has a cardiac index of 2.8. Is producing adequate amount of urine output. His cardiac rhythm is sinus. His postop day #2. He is using incentive spirometer. His adequate blood pressure control. Adequate urine output. No other new complaints otherwise for now and the patient is obviously recovering from his surgery without any major difficulties. He is tolerating his diet also. Patient was evaluated today on 06/20/2018, sitting at a bedside chair, very comfortable, in no distress, doing fairly well with incentive spirometry, patient is hemodynamically stable, currently in sinus rhythm, has occasional complaints of shortness of breath. Not requiring any inotropes or pressors at this point. Chest x-ray showed postsurgical changes, mild venous congestion noted, small bilateral atelectasis and small effusions. Labs were all reviewed, had a relatively normal electrolytes normal renal profile, hemoglobin is 7.5 Reevaluated today on 06/21/2018, patient is doing well, sitting at a bedside chair, on room air, in no distress, improving with his incentive spirometry, but no more than 800 mL per effort. Remains in sinus rhythm, relatively asymptomatic. Not requiring any inotropes or pressors. Chest x-ray showed a left apical pneumothorax roughly 5%, minimal atelectasis and small effusions noted. Suspicious for mild interstitial edema. On 06/22/2018 patient is seen in follow-up on selective care unit, he is awake and alert, in no acute distress, this is postop day 5 status post bypass surgery, and mitral valve repair. Doing very well, room air pulse ox is 95%, hemodynamically stable, afebrile, patient has been ambulating, tolerating activity well, working on his incentive spirometer, his chest x-ray today revealed no evidence of sizable pneumothorax, linear areas of atelectasis and small pleural effusions. Today's lab work has been reviewed, white blood cell count of 12.2, hemoglobin is 8.1, electrolytes were within normal limits, B1 is 25 creatinine is 1.08. Patient has been getting intermittent doses of Lasix, lung sounds are positive for some coarse crackles at the bases, no wheezing or rhonchi. Is maintained good oxygenation on room air. No complaints of chest pain, or dyspnea. Objective - Vital Signs Vital signs: Vital Signs Temp 98.4 F 06/22/18 11:33 Pulse 86 06/22/18 13:25 Resp 20 06/22/18 11:33 BP 122/58 06/22/18 13:25 Pulse Ox 95 06/22/18 11:33 Intake & Output 06/21/18 06/22/18 06/22/18 18:59 06:59 18:59 Intake Total 940 60 Output Total 20 Balance 920 60 Weight 90.9 kg 89.5 kg Intake: Oral 940 60 Output: Drainage 20 Left Calf 20 Other: Voiding Method Toilet Toilet Toilet # Voids 1 2 1 # Bowel Movements 1 ABP, PAP, CO, CI - Last Documented Arterial Blood Pressure 154/74 Pulmonary Artery Pressure 40/16 Cardiac Output 6.7 Cardiac Index 3.2 - Exam GENERAL EXAM: Alert, active, comfortable in no apparent distress. HEAD: Normocephalic/atraumatic. EYES: Normal reaction of pupils, equal size. Conjunctiva pink, sclera white. NOSE: Clear with pink turbinates. THROAT: No erythema or exudates. NECK: No masses, no JVD, no thyroid enlargement, no adenopathy. CHEST: No chest wall deformity. Symmetrical expansion. Midsternal incision is clean dry and intact, covered with a surgical dressing, chest tube sites are clean dry and intact LUNGS: Equal air entry with basilar crackles CVS: Regular rate and rhythm, normal S1 and S2, no gallops, no murmurs, no rubs ABDOMEN: Soft, nontender. No hepatosplenomegaly, normal bowel sounds, no guarding or rigidity. EXTREMITIES: No clubbing, no edema, no cyanosis, 2+ pulses and upper and lower extremities. MUSCULOSKELETAL: Muscle strength and tone normal. SPINE: No scoliosis or deformity SKIN: No rashes CENTRAL NERVOUS SYSTEM: Alert and oriented -3. No focal deficits, tone is normal in all 4 extremities. PSYCHIATRIC: Alert and oriented -3. Appropriate affect. Intact judgment and insight. - Labs CBC & Chem 7: 06/22/18 06:10 06/22/18 06:10 Labs: Abnormal Lab Results - Last 24 Hours (Table) 06/21/18 06/22/18 06/22/18 Range/Units 21:04 06:10 06:10 WBC 12.2 H (3.8-10.6) k/uL RBC 2.66 L (4.30-5.90) m/uL Hgb 8.1 L (13.0-17.5) gm/dL Hct 24.7 L (39.0-53.0) % BUN 25 H (9-20) mg/dL POC Glucose (mg/dL) 113 H (75-99) mg/dL Calcium 8.0 L (8.4-10.2) mg/dL 06/22/18 Range/Units 11:25 WBC (3.8-10.6) k/uL RBC (4.30-5.90) m/uL Hgb (13.0-17.5) gm/dL Hct (39.0-53.0) % BUN (9-20) mg/dL POC Glucose (mg/dL) 101 H (75-99) mg/dL Calcium (8.4-10.2) mg/dL Assessment and Plan Plan: Assessment: 1 severe triple-vessel coronary artery disease, status post CABG postoperative day #5 2 moderate left ventricular dysfunction, ejection fraction 35-40%. 3 status post mitral valve repair for moderate to severe mitral valve regurgitation postoperative day #5 3 moderate COPD, FEV1 preoperative 64%. 4 obstructive sleep apnea syndrome 5 postoperative acute blood loss anemia, expected. Recommendation: Patient is doing well, no complaints of chest pain, or shortness of breath, today's chest x-ray showed linear atelectasis, and small pleural effusions, patient is maintaining good oxygenation on room air, today's lab work has been reviewed. No acute events overnight, patient is being discharged home today, will follow up with Dr. العراقي in the office in 7-10 days. I performed a history & physical examination of the patient and discussed their management with my nurse practitioner, Alie Durham. I reviewed the nurse practitioner's note and agree with the documented findings and plan of care. Lung sounds are positive for basilar crackles. The findings and the impression was discussed with the patient. I attest to the documentation by the nurse practitioner. Time with Patient: Less than 30
--- NOTE | 2018-06-22 15:16 | P.ARTDOP ---
Arterial Doppler Bilateral radial artery study: Reason for study: Preop open-heart Date of study: 06/16/2018 On Doppler assessment with segmental pressure measurements: No right to left or segmental pressure gradients are noted On digital plethysmography with radial artery compression: There is 100 mmHg change on the left and 40 mmHg on the right. Both radial arteries are greater than 3 mm in diameter. Pressure changes with radial artery compression suggest radials are not usable as conduit.
--- NOTE | 2018-06-22 15:24 | P.VSCSTY ---
Greater Saphenous Vein Mapping This is bilateral lower extremity greater saphenous vein mapping. Date of service 06/16/2018 Vein quality and ultrasound appearance no endoluminal thrombus or wall changes are seen. There is a dual system in the right thigh.. Vein size groin right 5.3 x 4.7 and 5.1 x 4.7 groin left 5.0 x 6.1 High thigh right 3.3 x 2.9 and 2.9 x 3.2 high thigh left 4.4 x 4.2 Mid thigh right 4.4 x 4.0 and 2.9 x 2.5 mid thigh left 3.4 x 3.4 Above-knee right 3.0 x 3.2 above- knee left 3.2 x 3.7 Below knee right 3.2 x 2.5 below-knee left 3.6 x 2.8 Mid calf right 1.7 x 1.4 mid calf left 3.2 x 3.3 Ankle right 3.7 x 2.5 ankle left 4.1 x 3.1 Impression usable bilateral greater saphenous vein. Left leg probably a better choice due to consistency and the lack of a dual system as well as the small area in the right mid calf..
--- NOTE | 2018-06-22 15:25 | P.ARTDOP ---
Arterial Doppler LOWER EXTREMITY ARTERIAL DOPPLER: DATE OF SERVICE: 06/16/2018 Reason for study: Preop CABG. Doppler waveforms: Multiphasic bilaterally throughout. Pulse volume recording: []. Pressure gradients: None. Ankle-brachial indices: Greater than 1 bilaterally. Toe pressures: [] on the right, [] on the left Impression: Normal study.
--- NOTE | 2018-06-27 07:53 | CDI ---
Documentation Clarification Form Date: 06/27/2018 6:46:00 AM From: Jhoana Montero Randee Mcpherson, Pediatric Audiologist Hours-8:30 am & 5 pm M-F Admit Date: 06/14/2018 12:47:00 PM Patient Name: Antione Figueroa Visit Number: [id number] Discharge Date: 06/22/2018 2:06:00 PM ATTENTION: The Clinical Documentation Specialists (CDI) and [facility] Coding Staff appreciate your assistance in clarifying documentation. Please respond to the clarification below the line at the bottom and electronically sign. The CDI & [facility] Coding staff will review the response and follow-up if needed. Please note: Queries are made part of the Legal Health Record. If you have any questions, please contact the author of this message via ITS. Dr. Jose Manuel Corado Systolic CHF is documented in the PNs History/Risk Factors: CAD, ME, HHD Echocardiogram Results: EF 35-40% Chest X Ray: Pleural Effusions Treatment: IV Lasix In your professional opinion, can you please clarify the acuity of CHF if known? Systolic Heart Failure: Acute Chronic Acute on Chronic Unable to Determine Other, please specify I would like this question forwarded to the treating produce weigher DARYL
--- NOTE | 2018-07-03 19:27 | CDI ---
Documentation Clarification Form Date: 06/27/2018 6:46:00 AM From: Jhoana Montero Randee Mcpherson, Chief Medical Physicist Hours-8:30 am & 5 pm M-F Admit Date: 06/14/2018 12:47:00 PM Patient Name: Antione Figueroa Visit Number: [id number] Discharge Date: 06/22/2018 2:06:00 PM ATTENTION: The Clinical Documentation Specialists (CDI) and [facility] Coding Staff appreciate your assistance in clarifying documentation. Please respond to the clarification below the line at the bottom and electronically sign. The CDI & [facility] Coding staff will review the response and follow-up if needed. Please note: Queries are made part of the Legal Health Record. If you have any questions, please contact the author of this message via ITS. Dr. José Miguel Cristina Systolic CHF is documented in the PNs History/Risk Factors: CAD, NM, HHD Echocardiogram Results: EF 35-40% Chest X Ray: Pleural Effusions Treatment: IV Lasix In your professional opinion, can you please clarify the acuity of CHF if known? Systolic Heart Failure: Acute Chronic Acute on Chronic Unable to Determine Other, please specify MTDD
== END 2018-06-22 14:06 | disposition home health service (06) | DRG 216 ==
LOC: 2SICU 12:47 → 3SCARD 06-21 15:12
PROVIDERS: ADMIT Surgery; ATTEND Surgery
PROC: 4A023N7 Measurement of Cardiac Sampling and Pressure, Left Heart, Percutaneous Approach (ICD-10-PCS; 2018-06-15)
PROC: B2111ZZ Fluoroscopy of Multiple Coronary Arteries using Low Osmolar Contrast (ICD-10-PCS; 2018-06-15)
PROC: B24BZZ4 Ultrasonography of Heart with Aorta, Transesophageal (ICD-10-PCS; 2018-06-16)
PROC: 06BQ4ZZ Excision of Left Saphenous Vein, Percutaneous Endoscopic Approach (ICD-10-PCS; 2018-06-17)
PROC: 5A1221Z Performance of Cardiac Output, Continuous (ICD-10-PCS; 2018-06-17)
PROC: 02L70CK Occlusion of Left Atrial Appendage with Extraluminal Device, Open Approach (ICD-10-PCS; 2018-06-17)
PROC: 02100Z9 Bypass Coronary Artery, One Artery from Left Internal Mammary, Open Approach (ICD-10-PCS; principal; 2018-06-17 08:00)
PROC: 02UG0JZ Supplement Mitral Valve with Synthetic Substitute, Open Approach (ICD-10-PCS; 2018-06-17 08:00)
PROC: 021209W Bypass Coronary Artery, Three Arteries from Aorta with Autologous Venous Tissue, Open Approach (ICD-10-PCS; 2018-06-17 08:00)
DX: I25.110 Atherosclerotic heart disease of native coronary artery with unstable angina pectoris (principal); J96.01 Acute respiratory failure with hypoxia; I21.19 ST elevation (STEMI) myocardial infarction involving other coronary artery of inferior wall; I50.20 Unspecified systolic (congestive) heart failure; D62 Acute posthemorrhagic anemia; I95.9 Hypotension, unspecified; I25.82 Chronic total occlusion of coronary artery; I11.0 Hypertensive heart disease with heart failure; J44.9 Chronic obstructive pulmonary disease, unspecified; I34.0 Nonrheumatic mitral (valve) insufficiency; G47.33 Obstructive sleep apnea (adult) (pediatric); E66.9 Obesity, unspecified; R00.1 Bradycardia, unspecified; R45.1 Restlessness and agitation; E78.5 Hyperlipidemia, unspecified; I25.2 Old myocardial infarction; Z68.30 Body mass index [BMI] 30.0-30.9, adult; Z87.891 Personal history of nicotine dependence; Z90.49 Acquired absence of other specified parts of digestive tract; Z79.82 Long term (current) use of aspirin; Z79.899 Other long term (current) drug therapy; Z91.030 Bee allergy status; Z82.49 Family history of ischemic heart disease and other diseases of the circulatory system
CPT/HCPCS: 70486; 71045; 71046; 80048; 80053; 80061; 80074; 81001; 82330; 82805; 83036; 83735; 84100; 84443; 84484; 85025; 85027; 85384; 85520; 85610; 85730; 86850; 86891; 86900; 86901; 86920; 87070; 87086; 93306; 93312; 93320; 93325; 93458; 93880; 93922; 93923; 93930; 93970; 94002; 94003; 94640

== ENCOUNTER → 2018-08-30 | Outpatient (CLI) | payer MEDICARE, OTHER | END | disposition home or self-care (01) | LOC: LABWHC1 09:45 | PROVIDERS: ATTEND Internal Medicine Cardiovascular Disease | DX: I25.10 Atherosclerotic heart disease of native coronary artery without angina pectoris (principal) | CPT/HCPCS: 36415; 83704 ==

== ENCOUNTER 2018-12-16 08:39 | Day surgery (SDC) | payer MEDICARE, OTHER ==
[2018-12-14 11:31] VITALS: BMI 26.6
--- NOTE | 2018-12-16 08:17 | P.GSHP ---
History of Present Illness H&P Date: 12/16/18 CHIEF COMPLAINT: Colon screen HISTORY OF PRESENT ILLNESS: The patient is a 68-year-old male who presents for colon screen. Lower endoscopy was offered for further evaluation and management. PAST MEDICAL HISTORY: Please see list. PAST SURGICAL HISTORY: Please see list. MEDICATIONS: Please see list. ALLERGIES: Please see list. SOCIAL HISTORY: No illicit drug use FAMILY HISTORY: No reports of Crohn disease or ulcerative colitis. REVIEW OF ORGAN SYSTEMS: CONSTITUTIONAL: No reports of fevers or chills. PHYSICAL EXAM: VITAL SIGNS: Stable GENERAL: Well-developed pleasant in no acute distress. HEENT: No scleral icterus. Extraocular movements grossly intact. Moist buccal mucosa. NECK: Supple without lymphadenopathy. CHEST: Unlabored respirations. Equal bilateral excursions. CARDIOVASCULAR: Regular rate and rhythm. Distal 2+ pulses. ABDOMEN: Soft, nontender, nondistended. MUSCULOSKELETAL: No clubbing, cyanosis, or edema. ASSESSMENT: 1. Colon screen. PLAN: 1. Recommend proceeding with a lower endoscopy Past Medical History Past Medical History: Coronary Artery Disease (CAD), Chest Pain / Angina, GERD/Reflux, Hyperlipidemia, Hypertension, Myocardial Infarction (OK), Prostate Disorder Additional Past Medical History / Comment(s): Hx bone tumor leg, benign. SILENT [place]. BPH. Last Myocardial Infarction Date:: UNKNOWN History of Any Multi-Drug Resistant Organisms: None Reported Past Surgical History: Appendectomy, Coronary Bypass/CABG, Heart Catheterization, Orthopedic Surgery Additional Past Surgical History / Comment(s): CABG X4, MITRAL VALVE REPAIR 06/2018. Exc BENIGN BONE TUMOR LEFT KNEE, SX RT KNEE, CTR Adi, vasectomy Past Anesthesia/Blood Transfusion Reactions: Family History of Problems w/ Anesthesia Additional Past Anesthesia/Blood Transfusion Reaction / Comment(s): c/o eyes seeing weird colors, being out of focus after CABG. Smoking Status: Never smoker - Past Family History Father Family Medical History: Cancer, Coronary Artery Disease (CAD), Prostate Disorder Mother Family Medical History: Coronary Artery Disease (CAD) Medications and Allergies Home Medications Medication Instructions Recorded Confirmed Type Aspirin 325 mg PO DAILY #30 tab 06/22/18 12/14/18 Rx Clopidogrel [Plavix] 75 mg PO HS #30 tab 06/22/18 12/14/18 Rx Pantoprazole [Protonix] 40 mg PO AC-BRKFST #30 tablet. 06/22/18 12/14/18 Rx Losartan [Cozaar] 25 mg PO DAILY 11/14/18 12/14/18 History Metoprolol Tartrate [Lopressor] 50 mg PO BID 11/14/18 12/14/18 History Atorvastatin [Lipitor] 80 mg PO DAILY 12/14/18 12/14/18 History Multivit-Min/Folic/Vit K/Lycop 1 each PO DAILY 12/14/18 12/14/18 History [Men's Multivitamin Tablet] Allergies Allergy/AdvReac Type Severity Reaction Status Date / Time bee venom protein (honey bee) AdvReac Swelling Verified 12/14/18 11:07
[~2018-12-16 08:39] MED LIST: LACTATED RINGERS 1,000 ML IV SCH
[2018-12-16 09:05] VITALS: RESP 16; TEMP 97.6
[2018-12-16 09:25] LABS: Anisocytosis Slight; Basophils # (A) 0.1 k/uL (0-0.2); Basophils % (A) 1 %; Eosinophils # (A) 0.2 k/uL (0-0.7); Eosinophils % (A) 2 %; HCT 46.7 % (39.0-53.0); HGB 14.6 gm/dL (13.0-17.5); Lymphocytes # (A) 2.1 k/uL (1.0-4.8); Lymphocytes % (A) 28 %; MCHC 31.3 g/dL (31.0-37.0); Mean Platelet Volume 6.8; Monocytes # (A) 0.4 k/uL (0-1.0); Monocytes % (A) 5 %; Neutrophils # (A) 4.6 k/uL (1.3-7.7); Neutrophils % (A) 61 %; Platelet Count 293 k/uL (150-450); RBC 5.62 m/uL (4.30-5.90); WBC 7.5 k/uL (3.8-10.6)
[2018-12-16 09:40] LABS: Calcium 9.7 mg/dL (8.4-10.2); Potassium 4.7 mmol/L (3.5-5.1)
[2018-12-16] MEDS ORDERED: PROPOFOL 10 MG/ML 20 ML VIAL IV ONE (10:31)
[2018-12-16] MEDS ORDERED: SODIUM CHLORIDE 0.9% 500 ML 500 ML IV ONE (10:48)
--- NOTE | 2018-12-16 10:52 | P.PCN ---
Date of Procedure: 12/16/18 Description of Procedure: PREOPERATIVE DIAGNOSIS: Family history colon cancer, father Colonoscopy screening. POSTOPERATIVE DIAGNOSIS: Family history colon cancer, father Colonoscopy screening. External hemorrhoids, grade 4 OPERATION: Colonoscopy to the ileocecal valve and appendiceal orifice. SURGEON: Sandra Solorzano MD. ANESTHESIA: MAC. INDICATIONS: The patient is a 68-year-old male who presents for colonoscopy screening. This is first colonoscopy in over 10 years. Benefits and risks were described and informed consent was obtained. DESCRIPTION OF PROCEDURE: The patient had undergone Suprep. He had been brought into the operating room and laid in the left lateral decubitus position. After adequate intravenous sedation, the rectum was examined with 2% lidocaine jelly. Large external hemorrhoids were encountered. The rectal tone was within normal limits. No lesions were palpated in the rectal vault. An Olympus colonoscope was advanced until the ileocecal valve and appendiceal orifice were clearly viewed. The prep was excellent. No scattered diverticulosis was encountered. No colonic polyps were found. No evidence of focal colitis was found. Retroflexion of the scope demonstrated grade 2 internal hemorrhoids without active bleeding or inflammation. The colon was desufflated. The patient had chronic cough during the procedure. Withdrawal time was over 6 minutes. FINDINGS: Aronchick preparation quality scale 1 (1-5) Internal hemorrhoids, grade 2 Eexternal prolapsed hemorrhoids, grade 4 No arteriovenous malformations. No adenomatous polyps. No focal colitis. RECOMMENDATIONS: Lower endoscopy in 5 years, 2023 Plan - Discharge Summary Discharge Rx Participant: No New Discharge Prescriptions: No Action Aspirin 325 mg PO DAILY #30 tab Clopidogrel [Plavix] 75 mg PO HS #30 tab Pantoprazole [Protonix] 40 mg PO AC-BRKFST #30 tablet. Metoprolol Tartrate [Lopressor] 50 mg PO BID Losartan [Cozaar] 25 mg PO DAILY Atorvastatin [Lipitor] 80 mg PO DAILY Multivit-Min/Folic/Vit K/Lycop [Men's Multivitamin Tablet] 1 each PO DAILY Discharge Medication List Aspirin 325 mg PO DAILY #30 tab 06/22/18 [Rx] Clopidogrel [Plavix] 75 mg PO HS #30 tab 06/22/18 [Rx] Pantoprazole [Protonix] 40 mg PO AC-BRKFST #30 tablet. 06/22/18 [Rx] Losartan [Cozaar] 25 mg PO DAILY 11/14/18 [History] Metoprolol Tartrate [Lopressor] 50 mg PO BID 11/14/18 [History] Atorvastatin [Lipitor] 80 mg PO DAILY 12/14/18 [History] Multivit-Min/Folic/Vit K/Lycop [Men's Multivitamin Tablet] 1 each PO DAILY 12/14/18 [History] Follow up Appointment(s)/Referral(s): Sandra Solorzano MD [STAFF PHYSICIAN] - As Needed Patient Instructions/Handouts: *Surgery [facility] - (Anesthesia) Endoscopy Discharge Instructions Activity/Diet/Wound Care/Special Instructions: Repeat colonoscopy 5 years, 2023 Discharge Disposition: HOME SELF-CARE
[2018-12-16 11:30] VITALS: BP 123/78; PULSE 61
== END 2018-12-16 11:38 | disposition home or self-care (01) ==
LOC: ORWHC2ENDO 08:39
PROVIDERS: ATTEND Surgery Plastic and Reconstructive Surgery
DX: Z12.11 Encounter for screening for malignant neoplasm of colon (principal); K64.1 Second degree hemorrhoids; K64.4 Residual hemorrhoidal skin tags; I10 Essential (primary) hypertension; I25.2 Old myocardial infarction; I25.10 Atherosclerotic heart disease of native coronary artery without angina pectoris; E78.5 Hyperlipidemia, unspecified; N40.0 Benign prostatic hyperplasia without lower urinary tract symptoms; K21.9 Gastro-esophageal reflux disease without esophagitis; Z79.02 Long term (current) use of antithrombotics/antiplatelets; Z79.82 Long term (current) use of aspirin; Z79.899 Other long term (current) drug therapy; Z95.1 Presence of aortocoronary bypass graft; Z98.890 Other specified postprocedural states; Z90.49 Acquired absence of other specified parts of digestive tract; Z91.030 Bee allergy status; Z98.52 Vasectomy status; Z80.0 Family history of malignant neoplasm of digestive organs; Z82.49 Family history of ischemic heart disease and other diseases of the circulatory system; Z84.2 Family history of other diseases of the genitourinary system
CPT/HCPCS: 80048; 85025; J2704; G0105

== ENCOUNTER → 2020-07-03 | Outpatient (CLI) | payer MEDICARE, OTHER ==
[2020-07-04 00:02] LABS: Chol/HDL Ratio 3.95; LDL Cholesterol,Calculated 90.8 mg/dL (0.0-131.0); VLDL Calculation 24.2 mg/dL (5.00-40.00)
== END | disposition home or self-care (01) ==
LOC: LABWHC1 14:12
PROVIDERS: ATTEND Internal Medicine
DX: E78.5 Hyperlipidemia, unspecified (principal); I25.10 Atherosclerotic heart disease of native coronary artery without angina pectoris
CPT/HCPCS: 36415; 80061

== ENCOUNTER → 2021-01-30 | Outpatient (CLI) | payer MEDICARE, OTHER ==
[2021-01-30 21:17] LABS: ALT 34 U/L (10-49); AST 27 U/L (14-35); Chol/HDL Ratio 3.06 Ratio; LDL Cholesterol,Calculated 72.1 mg/dL (0.0-131.0)
== END | disposition home or self-care (01) ==
LOC: LABWHC1 12:09
PROVIDERS: ATTEND Internal Medicine
DX: E78.2 Mixed hyperlipidemia (principal)
CPT/HCPCS: 36415; 80061; 84450; 84460

== ENCOUNTER → 2021-08-26 | Outpatient (CLI) | payer MEDICARE, OTHER ==
[2021-08-26 22:40] LABS: Chol/HDL Ratio 2.86 Ratio; LDL Cholesterol,Calculated 61.8 mg/dL (0.0-131.0)
[2021-08-26 23:15] LABS: ALT 27 U/L (10-49); AST 30 U/L (14-35)
== END | disposition home or self-care (01) ==
LOC: LABWHC1 13:57
PROVIDERS: ATTEND Internal Medicine
DX: E78.2 Mixed hyperlipidemia (principal)
CPT/HCPCS: 36415; 80061; 84450; 84460